=== PATIENT | female | born 1955 | race Caucasian/White ===

== ENCOUNTER 2016-11-01 04:39 | Inpatient (IN) | payer OTHER, MEDICARE ==
[~2016-11-01] VITALS: Ht 165.1 cm; Wt 78.5 kg
[2016-11-01] VITALS (9 sets, daily range): BP systolic 130–175; BP diastolic 63–77; PULSE 78–88; RESP 19–22; TEMP 97.6–98.7; O2SAT 93–96
[~2016-11-01 04:39] MED LIST: APIX5TAB PO; ASPI325T PO; BENA25CA2 PO; CARD2TAB PO; DULC10SU3 RECTAL; FLEEENE3 RECTAL; HYDR50TA15 PO; LORA10TA PO; MAGN1SOL2 PO; MAPA325T PO; METO50TA PO; METR-1 PO; MILKSUS PO; NIFE1TAB PO; REST15CA PO
[2016-11-01] MEDS ORDERED: SODIUM CHLORIDE 0.9% FLUSH 5 ML FLUSH IVF PRN ×2 (05:15→09:15)
--- NOTE | 2016-11-01 05:29 | RADRPT ---
EXAM DATE/TIME: 11/01/2016 05:22 [facility] COMPARISON: CT BRAIN W/O CONTRAST, July 25, 2016, 20:00. INDICATIONS : Weakness with altered mental status. RADIATION DOSE: 45.94 CTDIvol (mGy) MEDICAL HISTORY : Cerebrovascular disease. Hypertension. SURGICAL HISTORY : Cholecystectomy. ENCOUNTER: Initial ACUITY: 2 days PAIN SCALE: 2/10 LOCATION: cranial TECHNIQUE: Multiple contiguous axial images were obtained of the head. Using automated exposure control and adj ustment of the mA and/or kV according to patient size, radiation dose was kept as low as reasonably a chievable to obtain optimal diagnostic quality images. FINDINGS: There is stable atrophy and white matter disease with remote lacunar infarcts present in the basal ga nglia and left frontal infarct seen with encephalomalacia. No fractures. No hemorrhage or mass. CONCLUSION: No significant change has occurred. Christo Chen MD on November 01, 2016 at 5:27 Board Certified Radiologist. This report was verified electronically.
--- NOTE | 2016-11-01 05:46 | PD ---
HPI Chief Complaint: altered mental status Time Seen by Provider: 04:56 Travel History International Travel<30 days: No Contact w/Intl Traveler<30days: No History of Present Illness HPI This is a 61-year-old female who is on dialysis Saturday and Saturday who presents to the emergency department with generalized weakness. She reports that she fell earlier today. She says she falls almost every day. She says she hasn't been feeling herself. She is a poor historian. She does say that she missed dialysis on Saturday. PFSH Past Medical History Hx Anticoagulant Therapy: Yes (PT CANT REMEMBER WHICH DRUG) Arthritis: No Asthma: No Anxiety: No Depression: Yes Heart Rhythm Problems: No Cancer: No Cardiovascular Problems: Yes (HTN) High Cholesterol: Yes Chemotherapy: No Chest Pain: Yes Congestive Heart Failure: Yes COPD: No Cerebrovascular Accident: Yes (CHAN X 3) Diabetes: Yes (TYPE II) Diminished Hearing: Yes Endocrine: Yes Gastrointestinal Disorders: Yes GERD: No Genitourinary: No Headaches: No Hiatal Hernia: No Heparin Induced Thrombocytopen: No Hypertension: Yes Immune Disorder: No Implanted Vascular Access Dvce: No Kidney Stones: Yes Musculoskeletal: Yes (tendon repair) Neurologic: Yes Psychiatric: No Reproductive: No Respiratory: No Migraines: No Radiation Therapy: No Renal Failure: No Seizures: No Sickle Cell Disease: No Sleep Apnea: No Thyroid Disease: No Ulcer: No PNEUMOCCOCAL Vaccine (Year): 1 Menopausal: Yes : 2 Para: 2 Past Surgical History Abdominal Surgery: Yes (Gallbladder early ) AICD: No Arteriovenous Shunt: No Cardiac Surgery: No Section: Yes Cholecystectomy: Yes Ear Surgery: No Endocrine Surgery: No Eye Surgery: Yes (4 LASER EYE SURGERY'S) Genitourinary Surgery: No Gynecologic Surgery: Yes (2 C-SECTIONS) Insulin Pump: No Joint Replacement: No Oral Surgery: No Pacemaker: No Thoracic Surgery: No Other Surgery: Yes (CYST, GALLBLADDER, ACHILLIES TENDON, 4 LASER EYE SURGERY, 2 C-SECTIONS) Social History Alcohol Use: No Tobacco Use: Yes (1-2 cigs/day) Substance Use: No Allergies-Medications (Allergen,Severity, Reaction): Coded Allergies: Cat Dander (Unverified Allergy, Severe, 11/01/16) RESPIRATORY ISSUES Reported Meds & Prescriptions Reported Meds & Active Scripts Active Loratadine 10 Mg Tab 10 Mg PO DAILY PRN Flagyl (Metronidazole) 500 Mg Tab 500 Mg PO Q8HR 13 Days Nifedipine ER 24 HR (Nifedipine) 90 Mg Tab 90 Mg PO DAILY 30 Days Cardura (Doxazosin Mesylate) 2 Mg Tab 2 Mg PO DAILY 30 Days Reported Metoprolol Tartrate 50 Mg Tab 50 Mg PO BID Restoril (Temazepam) 15 Mg Cap 15 Mg PO HS PRN Mapap (Acetaminophen) 325 Mg Tab 650 Mg PO Q4HR PRN Eliquis (Apixaban) 5 Mg Tab 5 Mg PO BID Dulcolax Supp (Bisacodyl) 10 Mg Supp 10 Mg RECTAL DAILY PRN IF NO RESULT ONE DAY AFTER MOM Benadryl (Diphenhydramine HCl) 25 Mg Cap 25 Mg PO Q8HR PRN Aspirin 325 Mg Tab 325 Mg PO DAILY Milk of Magnesia Liq (Magnesium Hydroxide) 400 Mg/5 Ml Susp 30 Ml PO HS PRN IF NO BM IN 3 DAYS Hydralazine (Hydralazine HCl) 50 Mg Tab 50 Mg PO Q8HR Take with a meal Fleet Enema Rectal (Sodium Phosphates Rectal) 7-19 Gm/118 Ml Enem 118 Ml RECTAL DIRECTED PRN Citrate of Magnesia Liq (Magnesium Citrate) 300 Ml Liq 300 Ml PO DIRECTED PO EVANGELIST IN THE MORNING PRN; IF NO RESULTS ONE DAY AFTER FLEETS Review of Systems ROS Limitations: Poor Historian Physical Exam Narrative GENERAL: Chronically ill-appearing SKIN: Dry with skin tenting HEAD: Atraumatic. Normocephalic. EYES: Pupils equal and round. No injection or drainage. ENT: Dry mucous membranes NECK: Trachea midline. CARDIOVASCULAR: Regular rate and rhythm. No murmur appreciated. RESPIRATORY: Clear to auscultation. Breath sounds equal bilaterally. GASTROINTESTINAL: Abdomen soft, non-tender, nondistended. MUSCULOSKELETAL: No obvious deformities. NEUROLOGICAL: Alert but confused. No obvious cranial nerve deficits. Moving all extremities. PSYCHIATRIC: Intermittently moans and cries to soft touch on all extremities Data Data Last Documented VS Vital Signs Date Time Temp Pulse Resp B/P Pulse Ox O2 Delivery O2 Flow Rate FiO2 11/01/16 05:44 95 Nasal Cannula 2 11/01/16 04:40 97.6 78 20 174/75 Orders Electrocardiogram (11/01/16 05:06) Complete Blood Count With Diff (11/01/16 05:06) Comprehensive Metabolic Panel (11/01/16 05:06) Prothrombin Time / Inr (Pt) (11/01/16 05:06) Act Partial Throm Time (Ptt) (11/01/16 05:06) Troponin I (11/01/16 05:06) Urinalysis - C+S If Indicated (11/01/16 05:06) Ct Brain W/O Iv Contrast(Rout) (11/01/16 05:06) Blood Glucose (11/01/16 05:06) Ecg Monitoring (11/01/16 05:06) Iv Access Insert/Monitor (11/01/16 05:06) Oximetry (11/01/16 05:06) Sodium Chloride 0.9% Flush (Ns Flush) (11/01/16 05:15) Blood Culture (11/01/16 06:32) Lactic Acid (11/01/16 06:32) Chest, Single Ap (11/01/16 ) Blood Culture (11/01/16 06:48) Vancomycin Inj (Vancomycin Inj) (11/01/16 07:00) Cefepime Inj (Maxipime Inj) (11/01/16 07:00) Labs Laboratory Tests Test 11/01/16 05:48 White Blood Count 17.2 TH/MM3 Red Blood Count 3.65 MIL/MM3 Hemoglobin 10.7 GM/DL Hematocrit 32.7 % Mean Corpuscular Volume 89.6 FL Mean Corpuscular Hemoglobin 29.4 PG Mean Corpuscular Hemoglobin 32.8 % Concent Red Cell Distribution Width 16.2 % Platelet Count 558 TH/MM3 Mean Platelet Volume 7.7 FL Neutrophils (%) (Auto) 87.4 % Lymphocytes (%) (Auto) 5.4 % Monocytes (%) (Auto) 6.4 % Eosinophils (%) (Auto) 0.3 % Basophils (%) (Auto) 0.5 % Neutrophils # (Auto) 15.0 TH/MM3 Lymphocytes # (Auto) 0.9 TH/MM3 Monocytes # (Auto) 1.1 TH/MM3 Eosinophils # (Auto) 0.0 TH/MM3 Basophils # (Auto) 0.1 TH/MM3 CBC Comment DIFF FINAL Differential Comment Prothrombin Time 11.4 SEC Prothromb Time International 1.0 RATIO Ratio Activated Partial 30.8 SEC Thromboplast Time Sodium Level 137 MEQ/L Potassium Level 4.6 MEQ/L Chloride Level 101 MEQ/L Carbon Dioxide Level 18.0 MEQ/L Anion Gap 18 MEQ/L Blood Urea Nitrogen 92 MG/DL Creatinine 8.98 MG/DL Estimat Glomerular Filtration 4 ML/MIN Rate Random Glucose 83 MG/DL Calcium Level 8.6 MG/DL Total Bilirubin 0.6 MG/DL Aspartate Amino Transf 16 U/L (AST/SGOT) Alanine Aminotransferase 33 U/L (ALT/SGPT) Alkaline Phosphatase 401 U/L Troponin I 0.05 NG/ML Total Protein 6.7 GM/DL Albumin 1.8 GM/DL MDM Medical Decision Making Medical Screen Exam Complete: Yes Emergency Medical Condition: Yes Interpretation(s) Afebrile, no tachycardia, hypertensive Leukocytosis Left shift Anemia Thrombocytosis BUN is [address] head: No acute process Differential Diagnosis Electrolyte abnormality, uremia, intracranial hemorrhage, urinary tract infection, pneumonia Narrative Course This is a 61-year-old female with history of end-stage renal disease on dialysis who presents to the emergency department reporting generalized weakness. She is quite confused and a poor historian. She does acknowledge missing dialysis. She is placed on a monitor and an IV was established. Labs are obtained which demonstrate a leukocytosis with left shift concerning for infection. Cultures were obtained and the patient was placed on broad-spectrum antibiotics. Fluids were deferred given the patient is a dialysis patient. Patient was found to be uremic which I suspect is the etiology of her altered mental status. Patient will be admitted for continued antibiotics and dialysis. Diagnosis Primary Impression: Uremia Additional Impression: Sepsis Qualified Code: A41.9 - Sepsis, due to unspecified organism Admitting Information Admitting Physician Requests: Admit Cyndee Ruffin MD Nov 01, 2016 05:46
[2016-11-01 06:04] LABS: BASOPHIL # 0.1 TH/MM3 (0-0.2); BASOPHIL % 0.5 % (0.0-2.0); EOSINOPHIL % 0.3 % (0.0-4.0); HEMATOCRIT 32.7 % (35.0-46.0); HEMO FLAGS DIFF FINAL; LYMPH % 5.4 % (9.0-44.0); LYMPHOCYTE # 0.9 TH/MM3 (1.0-4.8); MEAN CELL VOLUME 89.6 FL (80.0-100.0); MEAN CORPUSCULAR HEMOGLOBIN 29.4 PG (27.0-34.0); MEAN CORPUSCULAR HGB CONC 32.8 % (32.0-36.0); MONO % 6.4 % (0.0-8.0); NEUT % 87.4 % (16.0-70.0); PLATELET COUNT 558 TH/MM3 (150-450); RED BLOOD COUNT 3.65 MIL/MM3 (4.00-5.30); RED CELL DISTRIBUTION WIDTH 16.2 % (11.6-17.2); WHITE BLOOD COUNT 17.2 TH/MM3 (4.0-11.0)
[2016-11-01 06:27] LABS: APTT (PATIENT) 30.8 SEC (24.3-30.1); PROTHROMBIN TIME - PATIENT 11.4 SEC (9.8-11.6)
[2016-11-01 06:44] LABS: ANION GAP 18 MEQ/L (5-15); AST (GOT) 16 U/L (15-37); BLOOD UREA NITROGEN 92 MG/DL (7-18); CHLORIDE 101 MEQ/L (98-107); GLOMERULAR FILTRATION RATE 4 ML/MIN (>89); POTASSIUM 4.6 MEQ/L (3.5-5.1); SODIUM (NA) 137 MEQ/L (136-145)
[2016-11-01 06:49] LABS: ALKALINE PHOSPHATASE 401 U/L (45-117); ALT (GPT) 33 U/L (10-53); TOTAL BILIRUBIN ADULT 0.6 MG/DL (0.2-1.0)
[2016-11-01] MEDS ORDERED: CEFEPIME INJ 1,000 MG in SODIUM CHLORIDE 0.9% INJ 100 ML IV ONE (07:00)
[2016-11-01] MEDS ORDERED: VANCOMYCIN INJ 1,000 MG in SODIUM CHLOR 0.9% 250 ML INJ 250 ML IV ONE (07:00)
[2016-11-01 07:04] LABS: BACTERIA, URINE OCC /hpf; BLOOD, URINE TRACE (NEG); GLUCOSE,URINE NEG (NEG); KETONE, URINE TRACE mg/dL (NEG); NITRITE,URINE NEG (NEG); SQUAMOUS EPITHELIAL CELL URINE <1 /hpf (0-5); TRANSITIONAL EPI CELLS, URINE <1 /hpf; URINE COLOR YELLOW (YELLW/STRAW)
[2016-11-01 07:05] LABS: COMMENT (UR) CATH-CULTURE IND; CULTURE IF INDICATED CATH CULTURE IND
[2016-11-01] MEDS ORDERED: GABA300C5 PO (07:07)
[2016-11-01] MEDS ORDERED: SODIUM CHLORIDE 0.9% FLUSH 5 ML FLUSH FLUSH PRN (07:45)
[2016-11-01] MEDS ORDERED: ONDANSETRON HCL 4 MG/2 ML VIAL IVP PRN (07:45)
[2016-11-01] MEDS ORDERED: MAGNESIUM HYDROXIDE SUSP 30 ML CUP PO PRN (07:45)
[2016-11-01] MEDS ORDERED: NALOXONE HCL 0.4 MG/ML AMP IV PRN ×2 (07:45→13:00)
[2016-11-01] MEDS ORDERED: ACETAMINOPHEN 325 MG TAB PO PRN ×4 (07:45→13:00)
--- NOTE | 2016-11-01 08:04 | EKG ---
Date Performed: 11/01/2016 Time Performed: 05:17:43 PTAGE: 61 years EKG: Sinus rhythm LEFT ATRIAL ENLARGEMENT MARKED LEFT AXIS DEVIATION POSSIBLE ANTERIOR MYOCARDIAL INFARCTION Nonspecif ic intraventricular conduction defect ABNORMAL ECG NO SIGNIFICANT CHANGE FROM PRIOR ELECTROCARDIOGRAM . PREVIOUS TRACING : 08/04/2016 14.15 DOCTOR: Lior Schumacher Interpretating Date/Time 11/01/2016 08:03:56
--- NOTE | 2016-11-01 08:45 | RADRPT ---
EXAM DATE/TIME: 11/01/2016 07:36 [facility] COMPARISON: CT ABDOMEN & PELVIS W/O CONTRAST, July 04, 2016, 19:30. INDICATIONS: Generalized weakness and low back pain ORAL CONTRAST: No oral contrast ingested. RADIATION DOSE: 13.99 CTDIvol (mGy) MEDICAL HISTORY: Cardiovascular disease. Hypertension. Diabetes mellitus type 1.Renal failure SURGICAL HISTORY: Cholecystectomy. section. ENCOUNTER: Initial ACUITY: 1 day PAIN SCALE: 7/10 LOCATION: Low back TECHNIQUE: Volumetric scanning of the abdomen and pelvis was performed. Using automated exposure control and ad justment of the mA and/or kV according to patient size, radiation dose was kept as low as reasonably achievable to obtain optimal diagnostic quality images. FINDINGS: There are small bilateral pleural effusions. Bibasilar alveolar consolidations (left worse than righ t) are noted suggesting compressive atelectasis and/or pneumonia. The heart is enlarged. Coronary artery calcif ications are noted. Evaluation of the solid organs of the abdomen is limited by the lack of intravenous contrast. There is evidence of stable bilateral adrenal gland enlargement suggesting adrenal hyperplasia. There is some nodularity of the left adrenal gland enlargement which could represent superimposed adrenal mass measuring 4.2 x 2.5 cm. There has been interval development of retroperitoneal lymphadenopathy. There is also a new right pa raaortic retrocrural lymphadenopathy measuring 1.6 cm in greatest dimension. The largest lymph node is locate d within the left paraaortic region and measures 2.2 x 1.4 cm. PET/CT scan may be helpful for further charact erization of this new finding if clinically indicated. Scattered bilateral inguinal mildly prominent lymph nodes are also noted. There is a 4 cm right ovarian cyst. No acute obstructive uropathy is noted. There are mild chronic compression deformities involving T12 and L1. No acute compression fracture is noted within the lumbar spine. D egenerative changes are noted throughout the thoracolumbar spine. CONCLUSION: 1. Interval development of retroperitoneal lymphadenopathy which is nonspecific. A new right paraao rtic retrocrural enlarged lymph node is also noted measuring 1.6 cm in the upper abdomen. PET/CT sca n may be helpful for further characterization of this finding. 2. Stable enlargement of the adrenal glands bilaterally suggesting adrenal hyperplasia. There is no dular enlargement of the left adrenal gland measuring 4.2 x 2.5 cm which could represent adrenal hype rplasia but underlying mass cannot be ruled out completely. 3. Small bilateral pleural effusions with bibasilar alveolar consolidations (left worse than right) consistent with possible atelectasis and/or pneumonia. 4. Cardiomegaly and coronary artery calcifications. 5. Chronic mild compression deformities involving T12 and L1. 6. Degenerative changes throughout the lumbar spine. Jose Sevilla MD on November 01, 2016 at 7:59 Board Certified Radiologist. This report was verified electronically.
[2016-11-01] MEDS ORDERED: SODIUM CHLOR 0.9% 1000 ML INJ 1,000 ML IV PRN (09:01)
--- NOTE | 2016-11-01 09:12 | RADRPT ---
EXAM DATE/TIME: 11/01/2016 05:26 [facility] COMPARISON: CHEST PA & LAT, July 25, 2016, 15:41. CHEST SINGLE AP, July 18, 2016, 12:31. INDICATIONS : Shortness of breath. MEDICAL HISTORY : Diabetic retinopathy. CVA. Numbness. Congestive heart failure. SURGICAL HISTORY : [place] ENCOUNTER: Initial ACUITY: 1 day PAIN SCORE: Non-responsive. LOCATION: Bilateral chest FINDINGS: A single AP view of the chest was obtained and demonstrates no infiltrate and left perihilar region a nd dense opacity at the left lung base with opacification of the left hemidiaphragm and blunting of t he costophrenic angle. The right double-lumen central venous line remains in place. The heart size ap pears enlarged. There are degenerative changes in the thoracic spine. Postoperative changes are noted involving the proximal left humerus. There are overlying oxygen tubes and electrocardiogram leads. CONCLUSION: 1. Apparent cardiomegaly with left effusion and apparent infiltrate. The findings are most consistent with congestive heart failure. Miko Scott MD on November 01, 2016 at 9:06 Board Certified Radiologist. This report was verified electronically.
[2016-11-01] MEDS ORDERED: ONDANSETRON HCL 4 MG/2 ML VIAL IV PRN (09:15)
[2016-11-01] MEDS ORDERED: HEPARIN SODIUM - IV 10,000 UNITS/10 ML VIAL IVF PRN (09:15)
[2016-11-01] MEDS ORDERED: NITROGLYCERIN 0.4 MG SL 25 TABS/BTL SL PRN (09:15)
[2016-11-01] MEDS ORDERED: GELATIN 12 MM/7 MM FOAM TOP PRN (09:15)
[2016-11-01] MEDS ORDERED: cloNIDine HCL 0.1 MG TAB PO PRN (09:15)
[2016-11-01] MEDS ORDERED: diphenhydrAMINE HCL 25 MG CAP PO PRN (09:15)
[2016-11-01] MEDS ORDERED: MANNITOL 12.5 GM/50 ML VIAL IV PRN (09:15)
[2016-11-01] MEDS ORDERED: ALBUMIN HUMAN 25% 25 GM/100 ML BAGP IV PRN (09:15)
--- NOTE | 2016-11-01 09:38 | PD.CONS ---
HPI Service Nephrology Consult Requested By Reason for Consult ESRD on HD Primary Care Physician Non-Staff History of Present Illness This is a 61 y/o female pt who follows with Dr. Jalloh for nephrology. Hx of ESRD , normally dialyzes . She missed dialysis on Saturday due to vomiting, fatigue. She also endorses recent fall, but is a poor historian and cannot give clear details. Other PMH as outlined below including HTN, anemia, CHF, and CVA. Today her K is 4.6, C02 18. She has periorbital edema but no other evidence of fluid overload. She was admitted for treatment, we were consulted for dialysis. Of note she has a Permcath, was to have AVF surgery this week. WBC elevated, she was given Vancomycin and Cefepime for suspected UTI. Ct abdomen/pelvis showing retroperitoneal lymphadenopathy and adrenal hyperplasia. Also suggesting Pneumonia. (Naheed Fulton) Review of Systems Constitutional: COMPLAINS OF: Fatigue, DENIES: Fever, Change in appetite Cardiovascular: DENIES: Dyspnea on Exertion, Lower Extremity Edema Musculoskeletal: COMPLAINS OF: Joint pain, Muscle aches (Naheed Fulton) Past Family Social History Allergies: Coded Allergies: Cat Dander (Unverified Allergy, Severe, 11/01/16) RESPIRATORY ISSUES Past Medical History ESRD on HD HTN anemia DM II Hyperlipidemia Hx CVA Past Surgical History hysterectomy eye surgery gall bladder permcath placement Achilles tendon Reported Medications Loratadine 10 Mg Tab 10 Mg PO DAILY PRN Flagyl (Metronidazole) 500 Mg Tab 500 Mg PO Q8HR 13 Days Nifedipine ER 24 HR (Nifedipine) 90 Mg Tab 90 Mg PO DAILY 30 Days Cardura (Doxazosin Mesylate) 2 Mg Tab 2 Mg PO DAILY 30 Days Metoprolol Tartrate 50 Mg Tab 50 Mg PO BID Restoril (Temazepam) 15 Mg Cap 15 Mg PO HS PRN Mapap (Acetaminophen) 325 Mg Tab 650 Mg PO Q4HR PRN Eliquis (Apixaban) 5 Mg Tab 5 Mg PO BID Dulcolax Supp (Bisacodyl) 10 Mg Supp 10 Mg RECTAL DAILY PRN IF NO RESULT ONE DAY AFTER MOM Benadryl (Diphenhydramine HCl) 25 Mg Cap 25 Mg PO Q8HR PRN Aspirin 325 Mg Tab 325 Mg PO DAILY Milk of Magnesia Liq (Magnesium Hydroxide) 400 Mg/5 Ml Susp 30 Ml PO HS PRN IF NO BM IN 3 DAYS Hydralazine (Hydralazine HCl) 50 Mg Tab 50 Mg PO Q8HR Take with a meal Fleet Enema Rectal (Sodium Phosphates Rectal) 7-19 Gm/118 Ml Enem 118 Ml RECTAL DIRECTED PRN Citrate of Magnesia Liq (Magnesium Citrate) 300 Ml Liq 300 Ml PO DIRECTED PO EVANGELIST IN THE MORNING PRN; IF NO RESULTS ONE DAY AFTER FLEETS Active Ordered Medications Current Medications Medications (Trade) Dose Ordered Sig/Becca Route Start Time Stop Time Status Last Admin (NS Flush) 2 ml UNSCH PRN FLUSH 11/01/16 07:45 (NS Flush) 2 ml BID FLUSH 11/01/16 09:00 (Tylenol) 650 mg Q4H PRN PO 11/01/16 07:45 (Zofran Inj) 4 mg Q6H PRN IVP 11/01/16 07:45 (Milk Of Magnesia Liq) 30 ml Q12H PRN PO 11/01/16 07:45 Naloxone HCl 0.4 mg 0.4 mg UNSCH PRN IV 11/01/16 07:45 Ceftriaxone Sodium 1000 mg/ Sodium Chloride 100 ml @ 200 mls/hr Q24H IV 11/01/16 18:00 (NS 1000 ml Inj) 1,000 ml @ 0 mls/hr Q0M PRN IV 11/01/16 09:01 Heparin Sodium (Porcine) 8000 units 8,000 units UNSCH PRN IVF 11/01/16 09:15 Sodium Chloride 1,000 ml @ 200 mls/hr Q5H PRN IV 11/01/16 09:01 (NS 1000 ml Inj) 1,000 ml @ 0 mls/hr Q0M PRN IV 11/01/16 09:01 (Mannitol Inj) 12.5 gm UNSCH PRN IV 11/01/16 09:15 (Albumin 25% Inj) 25 gm UNSCH PRN IV 11/01/16 09:15 (NS Flush) 5 ml UNSCH PRN IVF 11/01/16 09:15 (Heparin Inj) UNSCH PRN .XX 11/01/16 09:15 (Gentamicin (Dialysis) Inj) 20 mg UNSCH PRN IV 11/01/16 09:15 (Zofran Inj) 4 mg UNSCH PRN IV 11/01/16 09:15 (Tylenol) 650 mg UNSCH PRN PO 11/01/16 09:15 (Benadryl) 25 mg UNSCH PRN PO 11/01/16 09:15 (Nitrostat Sl) 0.4 mg UNSCH PRN SL 11/01/16 09:15 (Catapres) 0.1 mg UNSCH PRN PO 11/01/16 09:15 (Epogen Inj) 5,000 units UNSCH PRN IV 11/01/16 09:15 (Gelfoam 12 Mm/7 Mm Top) 1 foam UNSCH PRN TOP 11/01/16 09:15 Family History No family hx of renal disorders Social History Lives with no smoking hx, denies ETOH unemployed/disabled needs functional assistance, states she can stand/walk at times but unclear if this is true full code (Naheed Fulton) Physical Exam Vital Signs Vital Signs Date Time Temp Pulse Resp B/P Pulse Ox O2 Delivery O2 Flow Rate FiO2 11/01/16 08:39 94 11/01/16 07:28 82 20 167/74 94 11/01/16 05:44 95 Nasal Cannula 2 11/01/16 04:40 97.6 78 20 174/75 95 Nasal Cannula Physical Exam This is an elderly female, lying in bed periorbital edema lethargic but able to be aroused by voice lungs; clear but decreased in bases chest: S1/S2, regular rate, no murmurs: permcath right chest abd: round, soft, non tender Ext: foot drop on left foot?, also has thick skin/ ? fungal organism bilateral plantar surface of feet Laboratory Laboratory Tests Test 11/01/16 11/01/16 11/01/16 05:48 06:00 07:24 White Blood Count 17.2 Red Blood Count 3.65 Hemoglobin 10.7 Hematocrit 32.7 Mean Corpuscular Volume 89.6 Mean Corpuscular Hemoglobin 29.4 Mean Corpuscular Hemoglobin 32.8 Concent Red Cell Distribution Width 16.2 Platelet Count 558 Mean Platelet Volume 7.7 Neutrophils (%) (Auto) 87.4 Lymphocytes (%) (Auto) 5.4 Monocytes (%) (Auto) 6.4 Eosinophils (%) (Auto) 0.3 Basophils (%) (Auto) 0.5 Neutrophils # (Auto) 15.0 Lymphocytes # (Auto) 0.9 Monocytes # (Auto) 1.1 Eosinophils # (Auto) 0.0 Basophils # (Auto) 0.1 CBC Comment DIFF FINAL Differential Comment Prothrombin Time 11.4 Prothromb Time International 1.0 Ratio Activated Partial 30.8 Thromboplast Time Sodium Level 137 Potassium Level 4.6 Chloride Level 101 Carbon Dioxide Level 18.0 Anion Gap 18 Blood Urea Nitrogen 92 Creatinine 8.98 Estimat Glomerular Filtration 4 Rate Random Glucose 83 Calcium Level 8.6 Total Bilirubin 0.6 Aspartate Amino Transf 16 (AST/SGOT) Alanine Aminotransferase 33 (ALT/SGPT) Alkaline Phosphatase 401 Troponin I 0.05 Total Protein 6.7 Albumin 1.8 Urine Color YELLOW Urine Turbidity HAZY Urine pH 6.0 Urine Specific [place] 1.014 Urine Protein 100 Urine Glucose (UA) NEG Urine Ketones TRACE Urine Occult Blood TRACE Urine Nitrite NEG Urine Bilirubin NEG Urine Urobilinogen LESS THAN 2.0 Urine Leukocyte Esterase MOD Urine RBC LESS THAN 1 Urine WBC 14 Urine Squamous Epithelial <1 Cells Urine Transitional Epithelial <1 Cells Urine Amorphous Sediment OCC Urine Bacteria OCC Microscopic Urinalysis Comment CATH-CULTURE IND Lactic Acid Level 0.6 Date/Time Procedure Status Source Growth 11/01/16 07:24 Aerobic Blood Culture Received Blood Peripheral Pending 11/01/16 07:24 Anaerobic Blood Culture Received Blood Peripheral Pending 11/01/16 06:00 Urine Culture Received Urine Catheterized Urine Pending (Naheed Fulton) Result Diagram: 11/01/16 0548 11/01/16 0548 Imaging Last [address] 11/01/16 0506 Signed Impressions: Service Date/Time: October 05:22 - CONCLUSION: No significant change has occurred. Christo Chen MD (Naheed Fulton) Assessment and Plan Problem List: (1) ESRD (end stage renal disease) Plan: will dialyze today as she has not had treatment since Saturday, orders entered maintain T-Th-Sat schedule C02 slightly low, should improve with dialysis she has Permcath for dialysis, monitor function no dietary protein restriction no IVF required renal panel in am, check phosphorus and give binders if needed (2) Diabetes Plan: monitor blood sugar insulin as needed (3) Hypertension Plan: BP stable monitor and medicate as needed (4) Anemia Plan: epogen with HD follow hemoglobin (5) Leukocytosis Plan: given vancomycin and cefepime blood and urine cx in progress CT: possible PNA monitor clinically Assessment and Plan The plan of care was discussed and formulated with the assistance of Dr. Aden. Thank you for the consult. Code Status full (Naheed Fulton) Assessment and Plan patient was seen and examined during dialysis. Hyperkalemia should improve with dialysis. Patient has been placed on antibiotics. Has retroperitoneal lymphadenopathy of uncertain significance. Also complains of pain in the right groin area. (Duke Aden MD) Problem Qualifiers (1) Diabetes: Naheed Fulton Nov 01, 2016 09:38 Duke Adne MD Nov 01, 2016 20:00
[2016-11-01] MEDS: HEPARIN SODIUM - IV 10,000 UNITS/10 ML VIAL PRN (09:56)
[2016-11-01] MEDS: GENTAMICIN SULFATE (DIALYSIS USE ONLY) 20 MG/2 ML VIAL IV PRN (09:57)
[2016-11-01] MEDS: EPOETIN ALFA 10,000 UNITS/ML VIAL IV PRN (09:57)
[2016-11-01] MEDS: SODIUM CHLORIDE 0.9% FLUSH 5 ML FLUSH FLUSH SCH ×2 (12:57→20:20)
[2016-11-01] MEDS ORDERED: DEXTROSE 50% IN WATER 50 ML VIAL(D50) IV PUSH PRN (13:30)
[2016-11-01] MEDS ORDERED: GLUCAGON 1 MG/ML VIAL OTHER PRN (13:30)
--- NOTE | 2016-11-01 13:40 | HHI.HP ---
HPI Service [facility] Primary Care Physician Non-Staff Admission Diagnosis uti/sepsis, acute kidney injury, leukocytosis, altered sensorium. Diagnoses: Chief Complaint: Weakness Travel History International Travel<30 Days: No Contact w/Intl Traveler <30 Da: No Traveled to Known Affected Are: No History of Present Illness 61-year-old female with past medical history of ESRD on HD, HTN, CVA who presented with weakness and fall. The patient is not a great historian. She states that she came to the hospital because she fell. Apparently she's been having multiple falls recently. She states that she's been feeling generally weak. She denies any acute injury. She states that she has pain everywhere. When asked to point to the pain, she is having diffuse abdominal pain. She states that she's been having nausea and multiple episodes of vomiting. She states that she had been, sedated, took a laxative, and had a BM yesterday. She states occasionally she has a cough. She denies any fevers, chills, shortness of breath, chest pain. Because of the weakness, she missed her last hemodialysis session on Saturday; last HD was Saturday, nephrology consulted who performed dialysis earlier today. Review of Systems ROS Limitations: Poor Historian Other 10 point review of systems performed and was negative except as stated in history of present illness Past Family Social History Past Medical History ESRD on hemodialysis Hypertension Anemia of chronic disease History of borderline diabetes History of CVA 3 History of C. difficile last year Possible paroxysmal atrial fibrillation Past Surgical History Eye surgery Cholecystectomy Dialysis catheter placement in the right chest Achilles surgery Reported Medications Reported Meds & Active Scripts Active Loratadine 10 Mg Tab 10 Mg PO DAILY PRN Flagyl (Metronidazole) 500 Mg Tab 500 Mg PO Q8HR 13 Days Nifedipine ER 24 HR (Nifedipine) 90 Mg Tab 90 Mg PO DAILY 30 Days Cardura (Doxazosin Mesylate) 2 Mg Tab 2 Mg PO DAILY 30 Days Reported Gabapentin 300 Mg Cap 300 Mg PO BID Metoprolol Tartrate 50 Mg Tab 50 Mg PO BID Restoril (Temazepam) 15 Mg Cap 15 Mg PO HS PRN Mapap (Acetaminophen) 325 Mg Tab 650 Mg PO Q4HR PRN Eliquis (Apixaban) 5 Mg Tab 5 Mg PO BID Dulcolax Supp (Bisacodyl) 10 Mg Supp 10 Mg RECTAL DAILY PRN IF NO RESULT ONE DAY AFTER MOM Aspirin 325 Mg Tab 325 Mg PO DAILY Milk of Magnesia Liq (Magnesium Hydroxide) 400 Mg/5 Ml Susp 30 Ml PO HS PRN IF NO BM IN 3 DAYS Hydralazine (Hydralazine HCl) 50 Mg Tab 50 Mg PO Q8HR Take with a meal Fleet Enema Rectal (Sodium Phosphates Rectal) 7-19 Gm/118 Ml Enem 118 Ml RECTAL DIRECTED PRN Citrate of Magnesia Liq (Magnesium Citrate) 300 Ml Liq 300 Ml PO DIRECTED PO EVANGELIST IN THE MORNING PRN; IF NO RESULTS ONE DAY AFTER FLEETS Allergies: Coded Allergies: Cat Dander (Unverified Allergy, Severe, 11/01/16) RESPIRATORY ISSUES Active Ordered Medications Current Medications Medications (Trade) Dose Ordered Sig/Becca Route Start Time Stop Time Status Last Admin (NS Flush) 2 ml UNSCH PRN FLUSH 11/01/16 07:45 (NS Flush) 2 ml BID FLUSH 11/01/16 09:00 11/01/16 12:57 (Tylenol) 650 mg Q4H PRN PO 11/01/16 07:45 (Zofran Inj) 4 mg Q6H PRN IVP 11/01/16 07:45 Magnesium Hydroxide 30 ml 30 ml Q12H PRN PO 11/01/16 07:45 Ceftriaxone Sodium 1000 mg/ Sodium Chloride 100 ml @ 200 mls/hr Q24H IV 11/01/16 18:00 (NS 1000 ml Inj) 1,000 ml @ 0 mls/hr Q0M PRN IV 11/01/16 09:01 Heparin Sodium (Porcine) 8000 units 8,000 units UNSCH PRN IVF 11/01/16 09:15 Sodium Chloride 1,000 ml @ 200 mls/hr Q5H PRN IV 11/01/16 09:01 (NS 1000 ml Inj) 1,000 ml @ 0 mls/hr Q0M PRN IV 11/01/16 09:01 (Mannitol Inj) 12.5 gm UNSCH PRN IV 11/01/16 09:15 (Albumin 25% Inj) 25 gm UNSCH PRN IV 11/01/16 09:15 (NS Flush) 5 ml UNSCH PRN IVF 11/01/16 09:15 (Heparin Inj) UNSCH PRN .XX 11/01/16 09:15 11/01/16 09:56 (Gentamicin (Dialysis) Inj) 20 mg UNSCH PRN IV 11/01/16 09:15 11/01/16 09:57 (Zofran Inj) 4 mg UNSCH PRN IV 11/01/16 09:15 (Tylenol) 650 mg UNSCH PRN PO 11/01/16 09:15 (Benadryl) 25 mg UNSCH PRN PO 11/01/16 09:15 (Nitrostat Sl) 0.4 mg UNSCH PRN SL 11/01/16 09:15 (Catapres) 0.1 mg UNSCH PRN PO 11/01/16 09:15 (Epogen Inj) 5,000 units UNSCH PRN IV 11/01/16 09:15 11/01/16 09:57 (Gelfoam 12 Mm/7 Mm Top) 1 foam UNSCH PRN TOP 11/01/16 09:15 (Aspirin) 325 mg DAILY PO 11/02/16 09:00 (Cardura) 2 mg DAILY PO 11/02/16 09:00 (Neurontin) 100 mg DAILY PO 11/02/16 09:00 (Apresoline) 50 mg Q8HR PO 11/01/16 14:00 (Lopressor) 50 mg BID PO 11/01/16 21:00 (Procardia Xl) 90 mg DAILY PO 11/02/16 09:00 (Restoril) 15 mg HS PRN PO 11/01/16 13:00 (Tylenol) 650 mg Q6H PRN PO 11/01/16 13:00 ([place] 5-325 Mg) 1 tab Q4H PRN PO 11/01/16 13:00 ([place] 7.5-325 Mg) 1 tab Q4H PRN PO 11/01/16 13:00 (Morphine Inj) 4 mg Q3H PRN IV 11/01/16 13:00 (Narcan Inj) 0.4 mg UNSCH PRN IV 11/01/16 13:00 Family History Mother had diabetes Social History She states that she smokes less than a pack per day Denies any alcohol or drug use Lives at home with her ex- Physical Exam Vital Signs Vital Signs Date Time Temp Pulse Resp B/P Pulse Ox O2 Delivery O2 Flow Rate FiO2 11/01/16 12:38 88 162/68 96 11/01/16 10:24 95 Nasal Cannula 2.00 11/01/16 08:39 94 11/01/16 07:28 82 20 167/74 94 11/01/16 05:44 95 Nasal Cannula 2 11/01/16 04:40 97.6 78 20 174/75 95 Nasal Cannula Physical Exam GENERAL: Well-developed well-nourished. In no acute distress. SKIN: Warm and dry. No lesions noted. HEENT: Normocephalic. Pupils equal and round. Mucous membranes pink and moist. CARDIOVASCULAR: Regular rate and rhythm. No murmur appreciated. RESPIRATORY: No accessory muscle use. Clear to auscultation. Breath sounds equal bilaterally. GASTROINTESTINAL: Abdomen soft, nondistended. Diffusely tender to light and deep palpation especially in RUQ, RLQ, and LLQ. Bowel sounds x4. MUSCULOSKELETAL: No obvious deformities. No clubbing or cyanosis. No edema. NEUROLOGICAL: Awake and alert. No focal neurological deficits. Moves upper and lower extremities spontaneously. Normal speech. PSYCHIATRIC: Appropriate mood and affect; insight and judgment fair to normal. Laboratory Laboratory Tests Test 11/01/16 11/01/16 11/01/16 05:48 06:00 07:24 White Blood Count 17.2 Red Blood Count 3.65 Hemoglobin 10.7 Hematocrit 32.7 Mean Corpuscular Volume 89.6 Mean Corpuscular Hemoglobin 29.4 Mean Corpuscular Hemoglobin 32.8 Concent Red Cell Distribution Width 16.2 Platelet Count 558 Mean Platelet Volume 7.7 Neutrophils (%) (Auto) 87.4 Lymphocytes (%) (Auto) 5.4 Monocytes (%) (Auto) 6.4 Eosinophils (%) (Auto) 0.3 Basophils (%) (Auto) 0.5 Neutrophils # (Auto) 15.0 Lymphocytes # (Auto) 0.9 Monocytes # (Auto) 1.1 Eosinophils # (Auto) 0.0 Basophils # (Auto) 0.1 CBC Comment DIFF FINAL Differential Comment Prothrombin Time 11.4 Prothromb Time International 1.0 Ratio Activated Partial 30.8 Thromboplast Time Sodium Level 137 Potassium Level 4.6 Chloride Level 101 Carbon Dioxide Level 18.0 Anion Gap 18 Blood Urea Nitrogen 92 Creatinine 8.98 Estimat Glomerular Filtration 4 Rate Random Glucose 83 Calcium Level 8.6 Phosphorus Level 9.0 Total Bilirubin 0.6 Aspartate Amino Transf 16 (AST/SGOT) Alanine Aminotransferase 33 (ALT/SGPT) Alkaline Phosphatase 401 Troponin I 0.05 Total Protein 6.7 Albumin 1.8 Urine Color YELLOW Urine Turbidity HAZY Urine pH 6.0 Urine Specific [place] 1.014 Urine Protein 100 Urine Glucose (UA) NEG Urine Ketones TRACE Urine Occult Blood TRACE Urine Nitrite NEG Urine Bilirubin NEG Urine Urobilinogen LESS THAN 2.0 Urine Leukocyte Esterase MOD Urine RBC LESS THAN 1 Urine WBC 14 Urine Squamous Epithelial <1 Cells Urine Transitional Epithelial <1 Cells Urine Amorphous Sediment OCC Urine Bacteria OCC Microscopic Urinalysis Comment CATH-CULTURE IND Lactic Acid Level 0.6 Date/Time Procedure Status Source Growth 11/01/16 07:24 Aerobic Blood Culture Received Blood Peripheral Pending 11/01/16 07:24 Anaerobic Blood Culture Received Blood Peripheral Pending 11/01/16 06:00 Urine Culture Received Urine Catheterized Urine Pending Result Diagram: 11/01/16 0548 11/01/16 0548 Imaging Last Impressions Head CT 11/01/16 0506 Signed Impressions: Service Date/Time: October 05:22 - CONCLUSION: No significant change has occurred. Christo Chen MD Chest X-Ray 11/01/16 0000 Signed Impressions: Service Date/Time: October 05:26 - CONCLUSION: 1. Apparent cardiomegaly with left effusion and apparent infiltrate. The findings are most consistent with congestive heart failure. Miko Scott MD Assessment and Plan Assessment and Plan 61-year-old female with past medical history of ESRD on HD, HTN, CVA who presented with falls/weakness and abdominal pain Weakness/falls: Multifactorial. Possibly secondary to infection/UTI, missed dialysis, and dehydration from vomiting. Treat underlying etiology is as below. PT eval. Fall precautions. Abdominal pain with nausea and vomiting: Abdomen/pelvis CT with multiple nonspecific findings, although none appear acute. Consult gastroenterology for assistance. Pain control with oral and intravenous narcotics as needed. Antiemetics as needed. Gentle IVF with renal disease. IV Protonix. UTI: UA with evidence of UTI. Positive leukocytosis. Afebrile, no signs of sepsis. Empiric IV Rocephin. Follow up urine and blood cultures. Retroperitoneal lymphadenopathy and right para-aortic retrocrural enlarged lymph node: Seen incidentally on CT. Consult oncology for further recommendations. Hold off on anticoagulation in case a biopsy needs to be performed. Left pleural effusion: Seen on chest x-ray and abdominal pelvis CT. Patient with no respiratory complaints. Possibly secondary to volume overload from missed HD. Monitor and treat if patient develops further respiratory symptoms. ESRD on HD TTS: With associated metabolic acidosis, increased anion gap, increased BUN and creatinine; all likely secondary to missed HD. Patient's gatehouse attendant consulted. S/P HD today, follow-up BMP. Borderline diabetes mellitus: Previous hemoglobin A1c from 05/08 was 6.4. On no medications at home. Cover with sliding scale insulin and hypoglycemia protocol while admitted. Outpatient PCP follow-up. Hypertension: Not well controlled, probably from missed HD. Continue home Cardura, metoprolol, nifedipine, hydralazine. Clonidine as needed. History of multiple CVA and probable paroxysmal atrial fibrillation: Patient previously documented to have A. fib, however denies. EKG now and previously from July with sinus rhythm. However patient's med list has aspirin and Eliquis. Continue aspirin for now. Hold Eliquis for now as above. DVT prophylaxis: SCDs for now. Written by Dwayne Zacarias, acting as scribe for Dr. Bush on 11/01/16 at 13:40. The documentation accurately reflects the work performed [id number] by me Dr. Bush on 11/01/16 at 13:40. Discussed Condition With Patient, Dwayne Hull Nov 01, 2016 13:40 Nazia Bush MD Nov 01, 2016 15:43
[2016-11-01] MEDS ORDERED: SODIUM CHLOR 0.9% 1000 ML INJ 1,000 ML IV SCH (13:45)
--- NOTE | 2016-11-01 14:09 | PD.CONS ---
HPI History of Present Illness This is a 61 year old female with a hx of ESRD on HD on Tuesdays, , Saturdays, who came to the ER for generalized weakness and nausea/vomiting. She is currently lethargic and a poor historian and therefore the history has been obtained from the patient and the EMR. She reports that she has been having nausea/vomiting associated with her HD. She initially stated this occurred every time she gets dialysis, but then stated recently. According to the note, she missed dialysis on Saturday because of her nausea/vomiting. She cannot provide any further information regarding this. She complains of some abdominal pain on her right side, but cannot provide any more characteristics of this pain or state how long she has had it. She cannot identify any aggravating or alleviating factors. She reports that she does have constipation at times but this is controlled with diet for the most part. Occasionally she will take an Ex-Lax to move her bowels. She has not had any GI bleeding that she is aware of. CT scan abdomen and pelvis (11/01/16) revealed interval development of retroperitoneal lymphadenopathy which is nonspecific. A new right para-aortic retrocrural enlarged lymph node is also noted measuring 1.6 cm in the upper abdomen. PET/CT scan may be helpful for further characterization station of this finding. Stable enlargement of the adrenal glands bilaterally suggesting adrenal hyperplasia. There is nodular enlargement of the left adrenal gland measuring 4.2 x 2.5 cm which could represent adrenal hyperplasia but underlying mass cannot be ruled out completely. Small bilateral pleural effusions with by basilar alveolar consolidations (left worse than right) consistent with possible atelectasis and/ or pneumonia. Cardiomegaly and coronary artery calcifications. Chronic mild compression deformities involving T12 and L1. Degenerative changes throughout the lumbar spine. Oncology has been consulted for her retroperitoneal lymphadenopathy and GI has been consulted for her nausea and vomiting. (Jenise Marcial) PFSH Past Medical History ESRD on hemodialysis Hypertension Arthritis Hx sinusitis Anemia of chronic disease History of borderline diabetes History of CVA 3 History of C. difficile last year Possible paroxysmal atrial fibrillation Kidney infection Past Surgical History Eye surgery Cholecystectomy Dialysis catheter placement in the right chest Achilles surgery (Jenise Marcial) Coded Allergies: Cat Dander (Unverified Allergy, Severe, 11/01/16) RESPIRATORY ISSUES Medications Allergies Coded Allergies Type Severity Reaction Last Updated Verified Cat Dander Allergy Severe 11/01/16 No Active Scripts Medications Dose Route/Sig Days Date Category Dose Instructions Gabapentin 300 Mg Cap 300 Mg PO BID 11/01/16 Reported Loratadine 10 Mg Tab 10 Mg PO DAILY PRN 08/04/16 Rx Flagyl (Metronidazole) 500 Mg Tab 500 Mg PO Q8HR 13 08/01/16 Rx Nifedipine ER 24 HR (Nifedipine) 90 Mg Tab 90 Mg PO DAILY 30 07/30/16 Rx Cardura (Doxazosin Mesylate) 2 Mg Tab 2 Mg PO DAILY 30 07/30/16 Rx Metoprolol Tartrate 50 Mg Tab 50 Mg PO BID 07/22/16 Reported Restoril (Temazepam) 15 Mg Cap 15 Mg PO HS PRN 07/22/16 Reported Mapap (Acetaminophen) 325 Mg Tab 650 Mg PO Q4HR PRN 07/22/16 Reported Eliquis (Apixaban) 5 Mg Tab 5 Mg PO BID 07/22/16 Reported Dulcolax Supp (Bisacodyl) 10 Mg Supp 10 Mg RECTAL DAILY PRN 07/22/16 Reported IF NO RESULT ONE DAY AFTER MOM Aspirin 325 Mg Tab 325 Mg PO DAILY 07/22/16 Reported Milk of Magnesia Liq (Magnesium Hydroxide) 400 Mg/5 Ml Susp 30 Ml PO HS PRN 07/22/16 Reported IF NO BM IN 3 DAYS Hydralazine (Hydralazine HCl) 50 Mg Tab 50 Mg PO Q8HR 07/22/16 Reported Take with a meal Fleet Enema Rectal (Sodium Phosphates Rectal) 7-19 Gm/118 Ml Enem 118 Ml RECTAL DIRECTED PRN 07/22/16 Reported Citrate of Magnesia Liq (Magnesium Citrate) 300 Ml Liq 300 Ml PO DIRECTED 07/22/16 Reported PO EVANGELIST IN THE MORNING PRN; IF NO RESULTS ONE DAY AFTER FLEETS Family History Mother had diabetes Social History Smokes < 1PPD Denies any alcohol or drug use Lives at home with her ex- (Jenise Marcial) Review of Systems Constitutional: COMPLAINS OF: Fatigue, Change in appetite Gastrointestinal: COMPLAINS OF: Abdominal pain, Nausea, Vomiting ROS Patient extremely poor historian difficult to obtain information from (Jenise Marcial) GI Exam Vitals I&O Vital Signs Date Time Temp Pulse Resp B/P Pulse Ox O2 Delivery O2 Flow Rate FiO2 11/01/16 12:38 88 162/68 96 11/01/16 10:24 95 Nasal Cannula 2.00 11/01/16 08:39 94 11/01/16 07:28 82 20 167/74 94 11/01/16 05:44 95 Nasal Cannula 2 11/01/16 04:40 97.6 78 20 174/75 95 Nasal Cannula Imaging Last Impressions Head CT 11/01/16 0506 Signed Impressions: Service Date/Time: October 05:22 - CONCLUSION: No significant change has occurred. Christo Chen MD Chest X-Ray 11/01/16 0000 Signed Impressions: Service Date/Time: October 05:26 - CONCLUSION: 1. Apparent cardiomegaly with left effusion and apparent infiltrate. The findings are most consistent with congestive heart failure. Miko Scott MD Abdomen/Pelvis CT 11/01/16 0000 Signed Impressions: Service Date/Time: October 07:36 - CONCLUSION: 1. Interval development of retroperitoneal lymphadenopathy which is nonspecific. A new right paraaortic retrocrural enlarged lymph node is also noted measuring 1.6 cm in the upper abdomen. PET/CT scan may be helpful for further characterization of this finding. 2. Stable enlargement of the adrenal glands bilaterally suggesting adrenal hyperplasia. There is nodular enlargement of the left adrenal gland measuring 4.2 x 2.5 cm which could represent adrenal hyperplasia but underlying mass cannot be ruled out completely. 3. Small bilateral pleural effusions with bibasilar alveolar consolidations (left worse than right ) consistent with possible atelectasis and/or pneumonia. 4. Cardiomegaly and coronary artery calcifications. 5. Chronic mild compression deformities involving T12 and L1. 6. Degenerative changes throughout the lumbar spine. Jose Sevilla MD Laboratory Test 11/01/16 11/01/16 11/01/16 05:48 06:00 07:24 White Blood Count 17.2 TH/MM3 Red Blood Count 3.65 MIL/MM3 Hemoglobin 10.7 GM/DL Hematocrit 32.7 % Mean Corpuscular Volume 89.6 FL Mean Corpuscular Hemoglobin 29.4 PG Mean Corpuscular Hemoglobin 32.8 % Concent Red Cell Distribution Width 16.2 % Platelet Count 558 TH/MM3 Mean Platelet Volume 7.7 FL Neutrophils (%) (Auto) 87.4 % Lymphocytes (%) (Auto) 5.4 % Monocytes (%) (Auto) 6.4 % Eosinophils (%) (Auto) 0.3 % Basophils (%) (Auto) 0.5 % Neutrophils # (Auto) 15.0 TH/MM3 Lymphocytes # (Auto) 0.9 TH/MM3 Monocytes # (Auto) 1.1 TH/MM3 Eosinophils # (Auto) 0.0 TH/MM3 Basophils # (Auto) 0.1 TH/MM3 CBC Comment DIFF FINAL Differential Comment Prothrombin Time 11.4 SEC Prothromb Time International 1.0 RATIO Ratio Activated Partial 30.8 SEC Thromboplast Time Sodium Level 137 MEQ/L Potassium Level 4.6 MEQ/L Chloride Level 101 MEQ/L Carbon Dioxide Level 18.0 MEQ/L Anion Gap 18 MEQ/L Blood Urea Nitrogen 92 MG/DL Creatinine 8.98 MG/DL Estimat Glomerular Filtration 4 ML/MIN Rate Random Glucose 83 MG/DL Calcium Level 8.6 MG/DL Phosphorus Level 9.0 MG/DL Total Bilirubin 0.6 MG/DL Aspartate Amino Transf 16 U/L (AST/SGOT) Alanine Aminotransferase 33 U/L (ALT/SGPT) Alkaline Phosphatase 401 U/L Troponin I 0.05 NG/ML Total Protein 6.7 GM/DL Albumin 1.8 GM/DL Urine Color YELLOW Urine Turbidity HAZY Urine pH 6.0 Urine Specific [place] 1.014 Urine Protein 100 mg/dL Urine Glucose (UA) NEG mg/dL Urine Ketones TRACE mg/dL Urine Occult Blood TRACE Urine Nitrite NEG Urine Bilirubin NEG Urine Urobilinogen LESS THAN 2.0 MG/DL Urine Leukocyte Esterase MOD Urine RBC LESS THAN 1 /hpf Urine WBC 14 /hpf Urine Squamous Epithelial <1 /hpf Cells Urine Transitional Epithelial <1 /hpf Cells Urine Amorphous Sediment OCC Urine Bacteria OCC /hpf Microscopic Urinalysis Comment CATH-CULTURE IND Lactic Acid Level 0.6 mmol/L Date/Time Procedure Status Source Growth 11/01/16 07:24 Aerobic Blood Culture Received Blood Peripheral Pending 11/01/16 07:24 Anaerobic Blood Culture Received Blood Peripheral Pending 11/01/16 06:00 Urine Culture Received Urine Catheterized Urine Pending Physical Examination HEENT: Normocephalic; atraumatic; no jaundice. Throat is clear. NECK: Neck is supple, no JVD, no lymphadenopathy. CHEST: CTA CARDIAC: RRR ABDOMEN: Soft, nondistended, midl diffuse tenderness, more so on right side; no hepatosplenomegaly; bowel sounds are present in all four quadrants. EXTREMITIES: No clubbing, cyanosis, or edema. SKIN: Normal; no rash; no jaundice. 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 CT scan abdomen and pelvis (11/01/16) revealed interval development of retroperitoneal lymphadenopathy which is nonspecific. A new right para-aortic retrocrural enlarged lymph node is also noted measuring 1.6 cm in the upper abdomen. PET/CT scan may be helpful for further characterization station of this finding. Stable enlargement of the adrenal glands bilaterally suggesting adrenal hyperplasia. There is nodular enlargement of the left adrenal gland measuring 4.2 x 2.5 cm which could represent adrenal hyperplasia but underlying mass cannot be ruled out completely. Small bilateral pleural effusions with by basilar alveolar consolidations (left worse than right) consistent with possible atelectasis and/or pneumonia. Cardiomegaly and coronary artery calcifications. Chronic mild compression deformities involving T12 and L1. Degenerative changes throughout the lumbar spine. LFTs normal other than alkaline phosphatase at 401. Leukocytosis. Patient is afebrile. PPI, Zofran when necessary. Will schedule for an EGD in a.m. - Abnormal imaging with retroperitoneal lymphadenopathy. Also noted to have nodular enlargement of the left adrenal gland measuring 4.2 x 2.5 cm. Oncology has been consulted for further evaluation - ESRD, HD //Saturdays per nephrology - Leukocytosis. WBC 17.2. - Anemia, normocytic. 10.7/32.7 - HTN per primary PLAN: - Plan for EGD in a.m. - Obtain consents - Nothing by mouth after midnight - PPI - Zofran when necessary - Monitor labs - Supportive care - Further recommendations to follow based on results of above - Patient seen and examined by Dr. Mccall myself and this note is written on his behalf (Jenise Marcial) Physician Comments Seen and examined with STACI, EGD planned for tomorrow. NPO after midnight. Will follow, thank you (Binu Mccall MD) Jenise Marcial Nov 01, 2016 14:09 Binu Mccall MD Nov 01, 2016 18:35
[2016-11-01] MEDS: PANTOPRAZOLE SODIUM 40 MG VIAL IV PUSH SCH (15:34)
[2016-11-01] MEDS: ACETAMINOPHEN/HYDROcodone 325 MG/7.5 MG TAB PO PRN (15:40)
[2016-11-01] MEDS: INSULIN ASPART SUPPLEMENTAL SCALE SQ SCH ×2 (16:00→21:00)
[2016-11-01] MEDS: hydrALAZINE HCL 50 MG TAB PO SCH ×2 (17:14→22:00)
[2016-11-01] MEDS: cefTRIAXone INJ 1,000 MG in SODIUM CHLORIDE 0.9% INJ 100 ML IV SCH (18:31)
[2016-11-01] MEDS: METOPROLOL TARTRATE 50 MG TAB PO SCH (21:22)
[2016-11-02] VITALS (9 sets, daily range): BP systolic 129–160; BP diastolic 58–66; PULSE 69–77; RESP 16–20; TEMP 97.9–99.6; O2SAT 90–94
[2016-11-02] MEDS: ACETAMINOPHEN/HYDROcodone 325 MG/7.5 MG TAB PO PRN ×2 (00:46→15:29)
[2016-11-02] MEDS: INSULIN ASPART SUPPLEMENTAL SCALE SQ SCH ×4 (06:02→21:00)
[2016-11-02] MEDS: hydrALAZINE HCL 50 MG TAB PO SCH ×3 (06:03→22:31)
[2016-11-02 08:11] LABS: AUTOMATED NEUTROPHIL # 11.6 TH/MM3 (1.8-7.7); BASOPHIL % 0.2 % (0.0-2.0); EOSINOPHIL % 0.2 % (0.0-4.0); HEMATOCRIT 29.7 % (35.0-46.0); HEMO FLAGS DIFF FINAL; LYMPH % 9.3 % (9.0-44.0); LYMPHOCYTE # 1.3 TH/MM3 (1.0-4.8); MEAN CELL VOLUME 88.8 FL (80.0-100.0); MEAN CORPUSCULAR HEMOGLOBIN 28.8 PG (27.0-34.0); MEAN CORPUSCULAR HGB CONC 32.4 % (32.0-36.0); MONO % 8.3 % (0.0-8.0); PLATELET COUNT 429 TH/MM3 (150-450); RED BLOOD COUNT 3.35 MIL/MM3 (4.00-5.30); RED CELL DISTRIBUTION WIDTH 15.9 % (11.6-17.2); WHITE BLOOD COUNT 14.2 TH/MM3 (4.0-11.0)
[2016-11-02] MEDS: SODIUM CHLORIDE 0.9% FLUSH 5 ML FLUSH FLUSH SCH ×2 (08:18→22:32)
[2016-11-02] MEDS: DOXAZOSIN MESYLATE 2 MG TAB PO SCH (08:19)
[2016-11-02] MEDS: METOPROLOL TARTRATE 50 MG TAB PO SCH ×2 (08:19→22:31)
[2016-11-02] MEDS: ASPIRIN 325 MG TAB PO SCH (08:19)
[2016-11-02] MEDS: GABAPENTIN 100 MG CAP PO SCH (08:20)
[2016-11-02] MEDS: NIFEdipine 90 MG SUSTAINED RELEASE TAB PO SCH (08:20)
[2016-11-02] MEDS: PANTOPRAZOLE SODIUM 40 MG VIAL IV PUSH SCH (08:25)
[2016-11-02 08:34] LABS: BICARBONATE 23.8 MEQ/L (21.0-32.0); POTASSIUM 3.8 MEQ/L (3.5-5.1)
[2016-11-02] MEDS ORDERED: LEVOFLOXACIN 750 MG PREMIX INJ 150 ML IV SCH (09:00)
[2016-11-02] MEDS: AZITHROMYCIN INJ 500 MG in SODIUM CHLOR 0.9% 250 ML INJ 250 ML IV SCH (10:00)
--- NOTE | 2016-11-02 10:07 | HHI.NPPN ---
Subjective Complaints: Abdominal Pain General Problems: Anemia Renal Failure: End Stage Renal Disease Interval History Pt resting quietly. Had dialysis yesterday with no fluid removal. Due for EGD today. Still with abdominal pain and tenderness. (Naheed Fulton) Review of Systems General Constitutional: Fatigue (Naheed Fulton) Gastrointestinal Gastrointestinal: Abdominal Pain (Nhaeed Fulton) Objective Data Data Vital Signs Date Time Temp Pulse Resp B/P Pulse Ox O2 Delivery O2 Flow Rate FiO2 11/02/16 08:54 93 Nasal Cannula 3.00 11/02/16 07:56 99.6 70 16 139/65 94 11/02/16 04:02 98.1 74 17 133/58 90 11/02/16 00:05 97.9 77 19 129/63 94 11/01/16 19:36 Nasal Cannula 2.50 11/01/16 19:24 98.5 80 19 130/63 94 11/01/16 17:39 98.7 82 20 143/67 93 11/01/16 17:16 85 16 175/77 94 Nasal Cannula 2 11/01/16 15:49 98.7 87 22 174/74 93 Nasal Cannula 2 11/01/16 12:38 88 162/68 96 11/01/16 10:24 95 Nasal Cannula 2.00 (Naheed Fulton) -: 11/02/16 0705 11/02/16 0705 Imaging Last [address] 11/01/16 0506 Signed Impressions: Service Date/Time: October 05:22 - CONCLUSION: No significant change has occurred. Christo Chen MD Chest X-Ray 11/01/16 0000 Signed Impressions: Service Date/Time: October 05:26 - CONCLUSION: 1. Apparent cardiomegaly with left effusion and apparent infiltrate. The findings are most consistent with congestive heart failure. Miko Scott MD Abdomen/Pelvis CT 11/01/16 0000 Signed Impressions: Service Date/Time: October 07:36 - CONCLUSION: 1. Interval development of retroperitoneal lymphadenopathy which is nonspecific. A new right paraaortic retrocrural enlarged lymph node is also noted measuring 1.6 cm in the upper abdomen. PET/CT scan may be helpful for further characterization of this finding. 2. Stable enlargement of the adrenal glands bilaterally suggesting adrenal hyperplasia. There is nodular enlargement of the left adrenal gland measuring 4.2 x 2.5 cm which could represent adrenal hyperplasia but underlying mass cannot be ruled out completely. 3. Small bilateral pleural effusions with bibasilar alveolar consolidations (left worse than right ) consistent with possible atelectasis and/or pneumonia. 4. Cardiomegaly and coronary artery calcifications. 5. Chronic mild compression deformities involving T12 and L1. 6. Degenerative changes throughout the lumbar spine. Jose Sevilla MD Tubes & Lines: Perma-Cath (Jose Fultonon B. EMBEDDED ENGINEER) Physical Exam General Appearance: Well Developed, Comfortable, Sleeping (Jose Fultonon B. EMBEDDED ENGINEER) Eyes Eye Exam: Pupils Equal Eye Remarks periorbital edema improved (KirstinNaheed B. EMBEDDED ENGINEER) Ears & Nose Ears & Nose Exam: Nasal Mucosa Carney (KirstinNaheed B. EMBEDDED ENGINEER) Throat Throat Exam: Oral Mucosa Carney & Moist (KirstinNaheed B. EMBEDDED ENGINEER) Neck Neck Exam: Neck Supple (Kirstin,Naheed B. EMBEDDED ENGINEER) Pulmonary Resp Exam: Clear Bilaterally, Breath Sounds Equal, No Distress, Decreased Bases (Kirstin,Naheed B. EMBEDDED ENGINEER) Cardiology CV Exam: Regular, Normal Sinus Rhythm (Kirstin,Naheed B. EMBEDDED ENGINEER) Gastrointestinal/Abdomen GI Exam: Soft, Bowel Sounds Present GI Remarks non distended, tenderness throughout all quadrants (KirstinNaheed B. EMBEDDED ENGINEER) Musculoskeletal MS Exam: Joints Intact, Normal Tone (Kirstin,Naheed B. EMBEDDED ENGINEER) Integumentary Skin Exam: Warm, Dry Skin Remarks thick skin on plantar surface of feet, some papular lesions , no drainage ( KirstinNaheed B. EMBEDDED ENGINEER) Extremeties Extremities Exam: No Edema, Pedal Pulses Palpable (KirstinNaheed B. EMBEDDED ENGINEER) Neurologic Neuro Exam: Moving All Extremities Neuro Remarks lethargic, moans when asked questions (Jose Fultonon B. EMBEDDED ENGINEER) Assessment/Plan Discussed Condition With: Patient Assessment Summary: Anemia of CKD, End Stage Renal Disease Assessment Remarks hyperphosphatemia Problem List: (1) ESRD (end stage renal disease) Plan: Normally dialyzes T--Sat, she had missed Tuesdays' treatment had dialysis yesterday (), no fluid removal, tolerated well maintain T--Sat schedule, she is due tomorrow no current electrolyte or acid-base imbalance she has Permcath for dialysis, monitor function no dietary protein restriction anuric at baseline, no izaguirre in place will stop IVF renal panel in am (2) Leukocytosis Plan: improving, chest xray showing left sided infiltrate given vancomycin and cefepime on admission, now on Zithromax and Rocephin blood and urine cultures are in progress monitor clinically , currently afebrile (3) Hypertension Plan: BP stable continue medications as ordered (4) Diabetes Plan: monitor blood sugar not requiring insulin at this time (5) Metabolic bone disease Plan: Begin Renvela, monitor phosphorus periodically (6) Anemia Plan: epogen with HD follow hemoglobin (7) Nausea & vomiting Plan: with abdominal pain, GI following NPO for EGD this morning await results (Naheed Fulton) Plan patient was seen and examined. Dialysis tomorrow. Agree with above assessment and plan. (Duke Aden MD) Problem Qualifiers (1) Diabetes: Naheed Fulton Nov 02, 2016 10:07 Duke Aden MD Nov 02, 2016 15:46
[2016-11-02] MEDS ORDERED: Vancomycin Consult Pharmacy 1 EA OTHER SCH (10:15)
[2016-11-02] MEDS ORDERED: VANCOMYCIN INJ 1,000 MG in SODIUM CHLOR 0.9% 250 ML INJ 250 ML IV ONE (10:15)
[2016-11-02] MEDS: SEVELAMER CARBONATE 800 MG TAB PO SCH ×2 (12:00→18:22)
[2016-11-02] MEDS ORDERED: MORPHINE SULFATE 4 MG/ML INJ IV PUSH ONE (12:38)
--- NOTE | 2016-11-02 13:01 | HHI.PR ---
Subjective Remarks Follow-up for generalized weakness. The patient still complains of generalized pain. She complains of lower back pain, but states that is chronic. She continues to have abdominal discomfort. She denies any fevers or chills. RN and oncologist noted some erythema of the PIP joints in the index and middle finger earlier. Objective Vitals Vital Signs Date Time Temp Pulse Resp B/P Pulse Ox O2 Delivery O2 Flow Rate FiO2 11/02/16 12:16 99.6 70 16 139/65 94 11/02/16 08:54 93 Nasal Cannula 3.00 11/02/16 07:56 99.6 70 16 139/65 94 11/02/16 04:02 98.1 74 17 133/58 90 11/02/16 00:05 97.9 77 19 129/63 94 11/01/16 19:36 Nasal Cannula 2.50 11/01/16 19:24 98.5 80 19 130/63 94 11/01/16 17:39 98.7 82 20 143/67 93 11/01/16 17:16 85 16 175/77 94 Nasal Cannula 2 11/01/16 15:49 98.7 87 22 174/74 93 Nasal Cannula 2 Result Diagram: 11/02/16 0705 11/02/16 0705 Imaging Last Impressions Head CT 11/01/16 0506 Signed Impressions: Service Date/Time: October 05:22 - CONCLUSION: No significant change has occurred. Christo Chen MD Chest X-Ray 11/01/16 0000 Signed Impressions: Service Date/Time: October 05:26 - CONCLUSION: 1. Apparent cardiomegaly with left effusion and apparent infiltrate. The findings are most consistent with congestive heart failure. Miko Scott MD Abdomen/Pelvis CT 11/01/16 0000 Signed Impressions: Service Date/Time: October 07:36 - CONCLUSION: 1. Interval development of retroperitoneal lymphadenopathy which is nonspecific. A new right paraaortic retrocrural enlarged lymph node is also noted measuring 1.6 cm in the upper abdomen. PET/CT scan may be helpful for further characterization of this finding. 2. Stable enlargement of the adrenal glands bilaterally suggesting adrenal hyperplasia. There is nodular enlargement of the left adrenal gland measuring 4.2 x 2.5 cm which could represent adrenal hyperplasia but underlying mass cannot be ruled out completely. 3. Small bilateral pleural effusions with bibasilar alveolar consolidations (left worse than right ) consistent with possible atelectasis and/or pneumonia. 4. Cardiomegaly and coronary artery calcifications. 5. Chronic mild compression deformities involving T12 and L1. 6. Degenerative changes throughout the lumbar spine. Jose Sevilla MD Objective Remarks GENERAL: Well-developed well-nourished. In mild to moderate distress secondary to pain. SKIN: Warm and dry. Erythema on the dorsum of the right hand overlying the index and middle finger PIP joints. Dialysis catheter in place on right chest wall. HEENT: Normocephalic. Pupils equal and round. Mucous membranes pink and moist. CARDIOVASCULAR: Regular rate and rhythm. No murmur appreciated. RESPIRATORY: No accessory muscle use. Clear to auscultation. Breath sounds equal bilaterally. GASTROINTESTINAL: Abdomen soft, nondistended. Diffusely tender to light and deep palpation especially in RUQ, RLQ, and LLQ. Bowel sounds x4. MUSCULOSKELETAL: No obvious deformities. No clubbing or cyanosis. No edema. NEUROLOGICAL: Awake and alert. No focal neurological deficits. Moves upper and lower extremities spontaneously. Normal speech. PSYCHIATRIC: Appropriate mood and affect; insight and judgment fair to normal. A/P Assessment and Plan 61-year-old female with past medical history of ESRD on HD, HTN, CVA who presented with falls/weakness and abdominal pain Weakness/falls: Multifactorial. Likely secondary to infection/UTI, missed dialysis, and dehydration from vomiting. Treat underlying etiology is as below. PT consulted, needs SNF, case management consult. Fall precautions. Bacteremia: 4/4 blood cultures positive for gram-positive cocci, staph aureus. Possibly from UTI. Tmax 99.6. Lactic acid within normal limits. Add IV vancomycin. Consult infectious disease. Abdominal pain with nausea and vomiting: Abdomen/pelvis CT with multiple nonspecific findings, although none appear acute or the cause of the patient's discomfort. Consulted gastroenterology, planning an EGD. Pain control with oral and intravenous narcotics as needed. Antiemetics as needed. Gentle IVF with renal disease. IV Protonix. UTI: UA with evidence of UTI. Positive leukocytosis. Did not meet sepsis criteria on admission. Started on empiric IV Rocephin. Urine culture growing staph aureus, added vancomycin, follow-up final sensitivity. Retroperitoneal lymphadenopathy and right para-aortic retrocrural enlarged lymph node: Seen incidentally on CT. Consulted oncology for further recommendations, discussed with Dr. Jalloh, recommended chest CT. Holding anticoagulation for now in case a biopsy needs to be performed. Left pleural effusion and possible infiltrate: Seen on chest x-ray and abdominal CT. Patient with no respiratory complaints, however with episode of hypoxia overnight requiring O2. Chest CT as above. Add azithromycin to ceftriaxone to cover for possible pneumonia. Oxygen as needed. Right hand cellulitis: Check x-ray. IV antibiotics as above. ESRD on HD TTS: With associated metabolic acidosis, increased anion gap, increased BUN and creatinine; all likely secondary to missed HD. Patient's lan/wan engineer consulted. S/P HD, repeat BMP with resolved metabolic acidosis and improved BUN/creatinine. Depression nephrology input. Secondary hyperparathyroidism: Phosphorus 9.0. Nephrology started patient on phosphate binders. Borderline diabetes mellitus: Previous hemoglobin A1c from 05/08 was 6.4. On no medications at home. Cover with sliding scale insulin and hypoglycemia protocol while admitted. Outpatient PCP follow-up. Hypertension: Better control today, was probably exacerbated by missed HD. Continue home Cardura, metoprolol, nifedipine, hydralazine. Clonidine as needed. History of multiple CVA and probable paroxysmal atrial fibrillation: Patient previously documented to have A. fib, however denies. EKG now and previously from July with sinus rhythm. However patient's med list has aspirin and Eliquis. Continue aspirin for now. Hold Eliquis for now as above. Dry skin lower extremities: Lac-Hydrin lotion. DVT prophylaxis: SCDs for now. Written by Dwayne Zacarias, acting as scribe for Dr. Bush on 11/02/16 at 13:02. The documentation accurately reflects the work performed [id number] by me Dr. Bush on 11/02/16 at 13:02. Discharge Planning Admit to inpatient. Disposition pending clinical course. Dwayne Zacarias Nov 02, 2016 13:01 Nazia Bush MD Nov 02, 2016 16:29
[2016-11-02] MEDS ORDERED: PROPOFOL 200 MG/20 ML AMP IV ONE (13:11)
--- NOTE | 2016-11-02 14:52 | PD.ID.CON ---
History of Present Illness Service Infectious Disease Consult Requested By /Dwayne TYLER. Reason for Consult Evaluation and Mment of Sepsis, GP bacteremia. Primary Care Physician Non-Staff Diagnoses: History of Present Illness is a 61 y/o CF with PMHX of ESRD on HD, HTN, CVA who presented with weakness and fall. Patient appears lethargic at time of my interview. Answered basic questions. ? Reliability. No family could be reached. She reports she undergoes HD on , , Sat. She reports multiple falls, generalized weakness and multiple episodes of nausea and vomiting. She reports generalized joint pains as well as myalgia. She also reports abdominal pain diffuse could not provide any details. She denies any fevers, chills, shortness of breath, chest pain. She reports she missed her last hemodialysis session on Saturday using a Permacath. Upon review of home meds it appears she has been on flagyl alone ? Cdiff prior to admission. She reports pain in her knuckles where there is some redness noted. She underwent sepsis workup and Bld cultures done on admission are positive for staph aureus ? MSSA per verigene testing report. ID consulted for sepsis possible line related sepsis or endocarditis. She has been seen by Nephrology and underwent HD . She is due for HD on Sat am. She also has been seen by Oncology for retroperitoneal LN'garth concerning for ? malignancy vs reactive process. Review of Systems ROS Limitations: Other (Lethargic? encephalopathic ? reliability.) Gastrointestinal: COMPLAINS OF: Abdominal pain, Vomiting Anuric at baseline on HD ,, Sat. Past Family Social History Allergies: Coded Allergies: Cat Dander (Unverified Allergy, Severe, 11/01/16) RESPIRATORY ISSUES Past Medical History ESRD on hemodialysis Hypertension Anemia of chronic disease History of borderline diabetes History of CVA 3 History of C. difficile last year Possible paroxysmal atrial fibrillation Past Surgical History Eye surgery Cholecystectomy Dialysis catheter placement in the right chest Achilles surgery Reported Medications Reported Meds & Active Scripts Active Loratadine 10 Mg Tab 10 Mg PO DAILY PRN Flagyl (Metronidazole) 500 Mg Tab 500 Mg PO Q8HR 13 Days Nifedipine ER 24 HR (Nifedipine) 90 Mg Tab 90 Mg PO DAILY 30 Days Cardura (Doxazosin Mesylate) 2 Mg Tab 2 Mg PO DAILY 30 Days Reported Gabapentin 300 Mg Cap 300 Mg PO BID Metoprolol Tartrate 50 Mg Tab 50 Mg PO BID Restoril (Temazepam) 15 Mg Cap 15 Mg PO HS PRN Mapap (Acetaminophen) 325 Mg Tab 650 Mg PO Q4HR PRN Eliquis (Apixaban) 5 Mg Tab 5 Mg PO BID Dulcolax Supp (Bisacodyl) 10 Mg Supp 10 Mg RECTAL DAILY PRN IF NO RESULT ONE DAY AFTER MOM Aspirin 325 Mg Tab 325 Mg PO DAILY Milk of Magnesia Liq (Magnesium Hydroxide) 400 Mg/5 Ml Susp 30 Ml PO HS PRN IF NO BM IN 3 DAYS Hydralazine (Hydralazine HCl) 50 Mg Tab 50 Mg PO Q8HR Take with a meal Fleet Enema Rectal (Sodium Phosphates Rectal) 7-19 Gm/118 Ml Enem 118 Ml RECTAL DIRECTED PRN Citrate of Magnesia Liq (Magnesium Citrate) 300 Ml Liq 300 Ml PO DIRECTED PO EVANGELIST IN THE MORNING PRN; IF NO RESULTS ONE DAY AFTER FLEETS Active Ordered Medications Current Medications Medications (Trade) Dose Ordered Sig/Becca Route Start Time Stop Time Status Last Admin (NS Flush) 2 ml UNSCH PRN FLUSH 11/01/16 07:45 (NS Flush) 2 ml BID FLUSH 11/01/16 09:00 11/01/16 12:57 (Tylenol) 650 mg Q4H PRN PO 11/01/16 07:45 (Zofran Inj) 4 mg Q6H PRN IVP 11/01/16 07:45 11/02/16 15:27 Magnesium Hydroxide 30 ml 30 ml Q12H PRN PO 11/01/16 07:45 Ceftriaxone Sodium 1000 mg/ Sodium Chloride 100 ml @ 200 mls/hr Q24H IV 11/01/16 18:00 11/02/16 18:23 (NS 1000 ml Inj) 1,000 ml @ 0 mls/hr Q0M PRN IV 11/01/16 09:01 Heparin Sodium (Porcine) 8000 units 8,000 units UNSCH PRN IVF 11/01/16 09:15 Sodium Chloride 1,000 ml @ 200 mls/hr Q5H PRN IV 11/01/16 09:01 (NS 1000 ml Inj) 1,000 ml @ 0 mls/hr Q0M PRN IV 11/01/16 09:01 (Mannitol Inj) 12.5 gm UNSCH PRN IV 2/9/17 09:15 (Albumin 25% Inj) 25 gm UNSCH PRN IV 11/01/16 09:15 (NS Flush) 5 ml UNSCH PRN IVF 11/01/16 09:15 (Heparin Inj) UNSCH PRN .XX 11/01/16 09:15 11/01/16 09:56 (Gentamicin (Dialysis) Inj) 20 mg UNSCH PRN IV 11/01/16 09:15 11/01/16 09:57 (Zofran Inj) 4 mg UNSCH PRN IV 11/01/16 09:15 (Tylenol) 650 mg UNSCH PRN PO 11/01/16 09:15 (Benadryl) 25 mg UNSCH PRN PO 11/01/16 09:15 (Nitrostat Sl) 0.4 mg UNSCH PRN SL 11/01/16 09:15 (Catapres) 0.1 mg UNSCH PRN PO 11/01/16 09:15 (Epogen Inj) 5,000 units UNSCH PRN IV 11/01/16 09:15 11/01/16 09:57 (Gelfoam 12 Mm/7 Mm Top) 1 foam UNSCH PRN TOP 11/01/16 09:15 (Aspirin) 325 mg DAILY PO 11/02/16 09:00 (Cardura) 2 mg DAILY PO 11/02/16 09:00 (Neurontin) 100 mg DAILY PO 11/02/16 09:00 (Apresoline) 50 mg Q8HR PO 11/01/16 14:00 11/02/16 15:29 (Lopressor) 50 mg BID PO 11/01/16 21:00 11/01/16 21:22 (Procardia Xl) 90 mg DAILY PO 11/02/16 09:00 (Restoril) 15 mg HS PRN PO 11/01/16 13:00 (Tylenol) 650 mg Q6H PRN PO 11/01/16 13:00 (Dwarf 5-325 Mg) 1 tab Q4H PRN PO 11/01/16 13:00 (Dwarf 7.5-325 Mg) 1 tab Q4H PRN PO 11/01/16 13:00 11/02/16 15:29 (Morphine Inj) 4 mg Q3H PRN IV 11/01/16 13:00 (Narcan Inj) 0.4 mg UNSCH PRN IV 11/01/16 13:00 (D50w (Vial) Inj) 25 ml UNSCH PRN IV PUSH 11/01/16 13:30 (Glucagon Inj) 1 mg UNSCH PRN OTHER 11/01/16 13:30 (Protonix Inj) 40 mg DAILY IV PUSH 11/01/16 13:45 11/02/16 08:25 Sevelamer Carbonate 1600 mg 1,600 mg TIDAC PO 11/02/16 12:00 11/02/16 18:22 (Zithromax Inj/ NS 250 ml Inj) 250 ml @ 250 mls/hr Q24H IV 11/02/16 10:00 11/02/16 10:00 Lactic Acid 1 applic 1 applic BID TOPICAL 11/02/16 21:00 (Ancef Inj/NS Inj) 100 ml @ 200 mls/hr Q24H IV 11/02/16 19:15 UNV Family History could not be obtained. Social History Patient lives at home with her ex . Reports she is wheel chair bound and uses a [facility] to go to Hemodialysis. Physical Exam Vital Signs Vital Signs Date Time Temp Pulse Resp B/P Pulse Ox O2 Delivery O2 Flow Rate FiO2 11/02/16 13:47 71 15 112/52 92 11/02/16 13:37 73 16 108/49 92 11/02/16 13:27 98.5 73 15 104/46 92 11/02/16 12:16 99.6 70 16 139/65 94 11/02/16 08:54 93 Nasal Cannula 3.00 11/02/16 07:56 99.6 70 16 139/65 94 11/02/16 04:02 98.1 74 17 133/58 90 11/02/16 00:05 97.9 77 19 129/63 94 11/01/16 19:36 Nasal Cannula 2.50 11/01/16 19:24 98.5 80 19 130/63 94 11/01/16 17:39 98.7 82 20 143/67 93 11/01/16 17:16 85 16 175/77 94 Nasal Cannula 2 11/01/16 15:49 98.7 87 22 174/74 93 Nasal Cannula 2 Physical Exam GENERAL: Elderly frail appearing white female. Appears lethargic and disoriented. In no Cardiopulm distress. SKIN: No rashes. HEAD: Atraumatic. Normocephalic. No temporal or scalp tenderness. EYES: Pupils equal round and reactive. Extraocular motions intact. No scleral icterus. No injection or drainage. ENT: Nose without bleeding, purulent drainage or septal hematoma. ? thrush. Throat without erythema, tonsillar hypertrophy or exudate. Uvula midline. Airway patent. NECK: Trachea midline. Supple, nontender, no meningeal signs. CARDIOVASCULAR: HS audible. No murmur appreciated. RESPIRATORY: Clear to auscultation. Breath sounds equal bilaterally decreased in bases left > right. GASTROINTESTINAL: Abdomen soft, non-tender, nondistended. MUSCULOSKELETAL: LE no joint effusions. Bilateral LE with chronic skin changes on plantar aspect. Right hand 2nd, 3rd and 4th digits with erythema, swelling and mild fluctuance noted. Minimal tenderness noted. NEUROLOGICAL: Awake and alert. Grossly non focal Psych: could not be assessed. Cooperative IV line sites with no e/o infection. Laboratory Laboratory Tests Test 11/02/16 07:05 White Blood Count 14.2 Red Blood Count 3.35 Hemoglobin 9.6 Hematocrit 29.7 Mean Corpuscular Volume 88.8 Mean Corpuscular Hemoglobin 28.8 Mean Corpuscular Hemoglobin 32.4 Concent Red Cell Distribution Width 15.9 Platelet Count 429 Mean Platelet Volume 7.7 Neutrophils (%) (Auto) 82.0 Lymphocytes (%) (Auto) 9.3 Monocytes (%) (Auto) 8.3 Eosinophils (%) (Auto) 0.2 Basophils (%) (Auto) 0.2 Neutrophils # (Auto) 11.6 Lymphocytes # (Auto) 1.3 Monocytes # (Auto) 1.2 Eosinophils # (Auto) 0.0 Basophils # (Auto) 0.0 CBC Comment DIFF FINAL Differential Comment Sodium Level 140 Potassium Level 3.8 Chloride Level 103 Carbon Dioxide Level 23.8 Anion Gap 13 Blood Urea Nitrogen 58 Creatinine 6.21 Estimat Glomerular Filtration 7 Rate Random Glucose 90 Calcium Level 8.5 C-Reactive Protein 28.00 Date/Time Procedure Status Source Growth 11/02/16 14:07 Aerobic Blood Culture Received Blood Peripheral Pending 11/02/16 14:07 Anaerobic Blood Culture Received Blood Peripheral Pending 11/01/16 07:24 Aerobic Blood Culture - Preliminary Resulted Blood Peripheral Gram Positive Cocci 11/01/16 07:24 Anaerobic Blood Culture - Preliminary Resulted Gram Positive Cocci 11/01/16 06:00 Urine Culture - Preliminary Resulted Urine Catheterized Urine Staphylococcus Aureus Result Diagram: 11/02/1670411/02/16704 Imaging Last Impressions Head CT 11/01/16 0506 Signed Impressions: Service Date/Time: October 05:22 - CONCLUSION: No significant change has occurred. Christo Chen MD Chest X-Ray 11/01/16 0000 Signed Impressions: Service Date/Time: October 05:26 - CONCLUSION: 1. Apparent cardiomegaly with left effusion and apparent infiltrate. The findings are most consistent with congestive heart failure. Miko Scott MD Abdomen/Pelvis CT 11/01/16 0000 Signed Impressions: Service Date/Time: October 07:36 - CONCLUSION: 1. Interval development of retroperitoneal lymphadenopathy which is nonspecific. A new right paraaortic retrocrural enlarged lymph node is also noted measuring 1.6 cm in the upper abdomen. PET/CT scan may be helpful for further characterization of this finding. 2. Stable enlargement of the adrenal glands bilaterally suggesting adrenal hyperplasia. There is nodular enlargement of the left adrenal gland measuring 4.2 x 2.5 cm which could represent adrenal hyperplasia but underlying mass cannot be ruled out completely. 3. Small bilateral pleural effusions with bibasilar alveolar consolidations (left worse than right ) consistent with possible atelectasis and/or pneumonia. 4. Cardiomegaly and coronary artery calcifications. 5. Chronic mild compression deformities involving T12 and L1. 6. Degenerative changes throughout the lumbar spine. Jose Sevilla MD Assessment and Plan Assessment and Plan Sepsis on admission (hypothermia, leucocytosis, source: Pneumonia, bacteremia) Pneumonia: CAP/atypical PNA, HCAP on admission. ? septic emboli related. GP bacteremia: MSSA on verigene testing. ? Line related vs cellulitis of right hand. Right hand cellulitis ? abscess. Acute metabolic encephalopathy: sepsis related, uremia missed HD. ESRD on HD using permacath, Anuric at baseline. Recs: Blood cultures x 2 today Blood cultures in HD tomorrow. heath RN and RN order in chart. Check CRP. Agree with CT Chest Hand surgery consult: cellulitis ? abscess right hand. If persistent bacteremia:will likely need SUZANNA. Reviewed CT abdomen: RP LNpathy could be malignancy or infection. R.o TB and fungal infections. HIV status not known. 2D ECHO to look for e/o endocarditis. Continue Ceftriaxone IV and Azithro for ? CAP for now. Start Ancef IV daily (renal dose adjusted by me) for MSSA per Verigene. Check Vanco level in am. Follow and please call with levels and results of cultures please so antibiotics can be adjusted and pt clinically followed. Start Vanco IV in HD (dosed by ID), pending susceptibility. Sometimes Verigene may not be accurate and patient is ill and needs appropriate antibiotics. D.w Pharmacist: aware of double coverage with Ancef and Rocephin but Ancef is specific for MSSA bacteremia and lacks coverage for CAP organisms. Lung lesions likely septic emboli or aspiration. Please call to assess pt clinically to adjust regimen in am and to assess if Permacath needs removal. Karen Anthony MD Nov 02, 2016 14:52
--- NOTE | 2016-11-02 15:59 | RADRPT ---
EXAM DATE/TIME: 11/02/2016 14:40 [facility] COMPARISON: No previous studies available for comparison. INDICATIONS : Redness and swelling right hand. MEDICAL HISTORY : Diabetes mellitus type 1. SURGICAL HISTORY : None. ENCOUNTER: Initial ACUITY: 1 day PAIN SCORE: 4/10 LOCATION: Right hand. FINDINGS: There is soft-tissue swelling involving the right second, third and fourth digits. There is no acute fracture or dislocation. CONCLUSION: 1. Soft-tissue swelling involving the right second, third and fourth digits. 2. No acute fracture or dislocation. Jose Sevilla MD on November 02, 2016 at 15:56 Board Certified Radiologist. This report was verified electronically.
--- NOTE | 2016-11-02 16:31 | EKG ---
Date Performed: 11/02/2016 Time Performed: 05:28:02 PTAGE: 61 years EKG: Intraventricular conduction defect. LEFT AXIS DEVIATION Poor R wave progression,which may b e due to left axis deviation. Nonspecific T wave changes. When compared to previous tracing, no signi ficant change. ABNORMAL ECG PREVIOUS TRACING : 01/08/2001 13.28 DOCTOR: Geovani Vasques Interpretating Date/Time 11/02/2016 16:30:34
--- NOTE | 2016-11-02 17:14 | EC ---
Study Study Date:11/02/2016 STUDY CONCLUSIONS SUMMARY - Left ventricle: The cavity size was normal. Wall thickness was normal. Systolic function was normal. The estimated ejection fraction was in the range of 55% to 60%. Wall motion was normal; there were no regional wall motion abnormalities. - Tricuspid valve: Mild regurgitation. - Pulmonary arteries: PA peak pressure: 47mm Hg (S). Impressions: No evidence of endocarditis. If LV function is below 40, please consider prescribing an ACEI or ARB or document rationale for non-use. PROCEDURE DATA STUDY STATUS: Elective. Procedure: Transthoracic echocardiography. Image quality was good. Scanning was performed from the parasternal, apical, and subcostal acoustic windows. Study completion: The patient tolerated the procedure well. Transthoracic echocardiography. M-mode, complete 2D, complete spectral Doppler, and color Doppler. Patient status: Inpatient. CARDIAC ANATOMY LEFT VENTRICLE: The cavity size was normal. Wall thickness was normal. Systolic function was normal. The estimated ejection fraction was in the range of 55% to 60%. Wall motion was normal; there were no regional wall motion abnormalities. AORTIC VALVE: Trileaflet; normal thickness leaflets. Doppler: Transvalvular velocity was within the normal range. There was no stenosis. No regurgitation. Mean gradient: 8mm Hg (S). Peak gradient: 14mm Hg (S). AORTA: Aortic root: The aortic root was normal in size. MITRAL VALVE: Structurally normal valve. Doppler: Transvalvular velocity was within the normal range. There was no evidence for stenosis. Trace regurgitation. Peak gradient: 7mm Hg (D). LEFT ATRIUM: The atrium was normal in size. RIGHT VENTRICLE: The cavity size was normal. Wall thickness was normal. PULMONIC VALVE: Doppler: Transvalvular velocity was within the normal range. There was no evidence for stenosis. No regurgitation. TRICUSPID VALVE: Structurally normal valve. Doppler: Transvalvular velocity was within the normal range. Mild regurgitation. PULMONARY ARTERY: The main pulmonary artery was normal-sized. Systolic pressure was within the normal range. RIGHT ATRIUM: The atrium was normal in size. PERICARDIUM: There was no pericardial effusion. SYSTEMIC VEINS: Inferior vena cava: The vessel was normal in size. BASIC MEASUREMENTS ADULT Normal Left ventricle LV internal dimension, ED, chordal level, 44.4 mm 43-52 PLAX LV internal dimension, ES, chordal level, 32.2 mm 23-38 PLAX Fractional shortening, chordal level, PLAX *27 % >29 LV posterior wall thickness, ED 5.68 mm IVS/LVPW ratio, ED *2.39 <1.3 Ventricular septum Septal thickness, ED 13.6 mm Aortic valve Leaflet separation 19 mm 15-26 Left atrium Anterior-posterior dimension 39 mm Right ventricle RV internal dimension, ED, PLAX *18.8 mm 19-38 BASIC MEASUREMENTS ADULT Normal Aortic valve Leaflet separation 19 mm 15-26 Aorta Root diameter, ED 31 mm 20-37 Left atrium Anterior-posterior dimension, ES *43 mm 19-40 LA/aortic root ratio 1.39 DOPPLER MEASUREMENTS ADULT Normal Main pulmonary artery Pressure, S *47 mm Hg =30 Aortic valve Peak velocity, S 187 cm/s Mean velocity, S 130 cm/s VTI, S 51.4 cm Mean gradient, S 8 mm Hg Peak gradient, S 14 mm Hg Mitral valve Peak E-wave velocity 128 cm/s Peak A-wave velocity 145 cm/s Peak gradient, D 7 mm Hg Peak E/A ratio 0.9 Tricuspid valve Regurgitant peak velocity 295 cm/s Peak RV-RA gradient, S 35 mm Hg Maximal regurgitant velocity 295 cm/s Systemic veins Estimated CVP 10 mm Hg Right ventricle RV pressure, S *47 mm Hg <30 LEGEND: Mean values are shown as u=mean value. Asterisk (*) crowe values outside specified normal range. Prepared and signed by Viet Krueger [id number]
--- NOTE | 2016-11-02 17:47 | MB ---
cc: SHAREE WEN MD HEMATOLOGY ONCOLOGY CONSULTATION NOTE DATE OF CONSULTATION 11/02/16 DATE OF 1955. REASON FOR CONSULTATION Lymphadenopathy in the retroperitoneum. CHIEF COMPLAINT Ms. Huang reports pain all over, especially in the digits of her right hand. HISTORY OF PRESENT ILLNESS Ms. Huang is a 61-year-old female who is in acute distress. She was brought into the emergency department because she fell and was found to be increasingly weak. The patient is on hemodialysis for chronic renal insufficiency. She reportedly had been missing outpatient hemodialysis treatments due to progressive weakness. In addition to this, she has a history of hypertension, coronary artery disease and just general frailty. She lives at home with her . The patient underwent a CT scan of the abdomen I presume for abdominal pain and lower back pain in the emergency department and was noted to have retroperitoneal lymphadenopathy which was noted to be nonspecific with lymph nodes measuring as large as 1.6 cm. She was noted to have stable enlargement of the adrenal glands as well with the left adrenal gland measuring 4.2 x 2.5 cm. This was compared to scans done in June of 2016. Additionally, over the course of this hospitalization two sets of blood cultures have revealed Staphylococcus aureus as well as her urine culture which indicates Staphylococcus aureus. Furthermore, the CT scan of the abdomen and pelvis revealed bilateral pleural effusions with bibasilar consolidation, left worse than right, concerning for atelectasis and/or pneumonia. I have been asked to see her because of the lymphadenopathy. I suspect the concern may be for an underlying malignant process. PAST MEDICAL HISTORY (Entirely obtained from medical record: 1. Hypertension. 2. Cerebrovascular accident 3. History of C diff colitis. 4. Atrial fibrillation 5. Anemia or chronic renal failure on hemodialysis. PAST SURGICAL HISTORY 1. Cholecystectomy. 2. Dialysis catheter on the lower right chest wall. 3. Achilles surgery. FAMILY HISTORY Could not obtain from the patient but her mother had diabetes. SOCIAL HISTORY Lives at home with her . No illicit drug use reported, reportedly was a smoker in the past. ALLERGIES NO KNOWN DRUG ALLERGIES. MEDICATIONS Current inpatient 1. Azithromycin 500 mg IV q.24 h. 2. Ceftriaxone 1 gram IV q. 24. 3. Normal saline 200 mL per hour. 4. Vancomycin 1 gram IV x1. 5. Hydrocodone/Tylenol 5/325 mg every 4 hours as needed 6. Human albumin 25% 25 mg IV with hemodialysis 7. Aspirin 325 mg p.o. daily. 8. Doxazosin 2 mg p.o. daily. 9. Epogen injections 10. Hydralazine 50 mg p.o. q. 8 hours. 11. Nifedipine 90 mg p.o. daily. 12. Pantoprazole 40 mg IV 13. Sevelamer. REVIEW OF SYSTEMS 13-point review of systems are attempted to be obtained, but I could not as the patient was not very verbal. This examination was performed at 7:00 a.m. on the morning of 11/02/2016. She does, however, report pain all over. PHYSICAL EXAMINATION VITAL SIGNS: Performed at the time of physical exam revealed temperature 99.6 degrees Fahrenheit, heart rate 70 beats a minute, respiratory rate 16, blood pressure 193/65, O2 sats 94% on 3 liters nasal cannula. GENERAL APPEARANCE: Ms. Huang is an elderly female. She is awake, arousable and responsive. She is not oriented to place or time. She is oriented to person. She is acutely distressed. HEENT: Head is atraumatic, normocephalic, conjunctivae are pale are pale, sclerae anicteric, EOMI. Oral exam - dry mucous membranes. NECK: No palpable cervical or supraclavicular lymphadenopathy. RESPIRATORY: Decreased bibasilar breath sounds otherwise inspiratory crackles are noted. BREASTS: Performed in the presence of female nurse supervisory historian - No breast masses. No lymphadenopathy in the axillae CARDIOVASCULAR: Regular rate and rhythm, S1-S2 with systolic murmur heard over the aortic area. ABDOMEN: Protuberant belly, tender to palpation. No palpable organ enlargement. EXTREMITIES: No pretibial edema. No calf tenderness. On the right chest wall, She does have a dialysis catheter in place. LABORATORY FINDINGS Blood work dated 11/02/2016: Sodium 140, potassium 2.8, chloride 103, bicarbonate 23.8, BUN 58, creatinine 6.2, CRP 28. CBC: WBC count 14.2, hemoglobin 9.6 gm/dl, hematocrit 29.7%, platelet count 429. Absolute neutrophil count 11.6, coags - PT 11.4, INR one, PTT 30.8. Microbiology: Peripheral blood cultures drawn 11/01/2016 positive for Staphylococcus aureus. Urine culture also positive for Staphylococcus aureus. IMAGING STUDIES CT scan of the abdomen and pelvis revealed retroperitoneal lymphadenopathy which is nonspecific. These are new compared to the scan from June 2016. Stable enlargement of bilateral adrenal gland. Bilateral pleural effusions are identified. ASSESSMENT Ms. Huang is a very ill 61-year-old female. She was brought into the hospital due to increased fall, generalized weakness and fatigue. She is on hemodialysis chronically through a right sided vas cath which is along the right chest wall. This patient did undergo imaging studies of the abdomen and was noted to have lymphadenopathy in the retroperitoneum measuring up to 1.6 cm. which per size criteria is slightly above normal. She does appear to be septic based on multiple blood cultures positive for Staphylococcus aureus. The hematology service was consulted earlier today to evaluate her to further workup these lymph nodes. After seeing her at bedside, it became quite clear this lady is septic and critically ill. The lymphadenopathy is likely reactive and I think it is the least of her problems at this time. I did communicate directly with the primary attending and suggested she be worked up more thoroughly for possible infectious etiologies. As far as the lymphadenopathy is concerned, she may come see me in the outpatient setting when she has recovered from her acute issues so this can be further evaluated with perhaps serial CT scans. I will sign off at this time and will allow the internal medicine service to treat her acute issues. MD JUAN MANUEL Daniels/ /4:53 PM /5:16 PM
[2016-11-02] MEDS: cefTRIAXone INJ 1,000 MG in SODIUM CHLORIDE 0.9% INJ 100 ML IV SCH (18:23)
--- NOTE | 2016-11-02 18:23 | RADRPT ---
EXAM DATE/TIME: 11/02/2016 17:54 [facility] COMPARISON: CHEST SINGLE AP, November 01, 2016, 5:26. CT THORAX W/O CONTRAST, February 28, 2015, 15:49. INDICATIONS : Infiltrate seen on chest x-ray. RADIATION DOSE: 7.73 CTDIvol (mGy) MEDICAL HISTORY : Renal failure, chronic. Cerebrovascular disease. Hypertension. SURGICAL HISTORY : None. ENCOUNTER: Initial ACUITY: 1 day PAIN SCALE: Non-responsive LOCATION: Chest TECHNIQUE: Volumetric scanning of the chest was performed. Using automated exposure control and adjustment of t he mA and/or kV according to patient size, radiation dose was kept as low as reasonably achievable to obtain optimal diagnostic quality images. FINDINGS: Small to moderate sized bilateral pleural effusions are noted (left slightly larger than right). Bib asilar alveolar consolidations are noted consistent with atelectasis and/or pneumonia. Clinical corre lation is recommended. Scattered scarring is noted within the lingula of the left upper lobe. The h eart is enlarged. A right internal jugular tunneled dialysis catheter has its tips in the right atri um. CONCLUSION: 1. Bibasilar alveolar consolidations consistent with atelectasis and/or pneumonia. Clinical correlati on is recommended. 2. Small to moderate sized bilateral pleural effusions (left slightly larger than right). 3. Cardiomegaly. 4. Scarring within the lingula of the left upper lobe. Jose Sevilla MD on November 02, 2016 at 18:15 Board Certified Radiologist. This report was verified electronically.
[2016-11-02] MEDS ORDERED: VANCOMYCIN INJ 1,000 MG in SODIUM CHLOR 0.9% 250 ML INJ 250 ML IV SCH (19:15)
--- NOTE | 2016-11-02 21:53 | RADRPT ---
EXAM DATE/TIME: 11/02/2016 20:58 [facility] COMPARISON: No previous studies available for comparison. INDICATIONS : Thrombosis. MEDICAL HISTORY : Congestive heart failure. Hypertension. Diabetes. Kidney disease. Gastrointestinal disorders. SURGICAL HISTORY : Cholecystectomy. section. ENCOUNTER: Initial ACUITY: 1 day PAIN SCORE: 10/10 LOCATION: Right arm. FINDINGS: There is spontaneous flow documented in the brachial, basilic, cephalic, axillary, and subclavian vei ns. The vessels are compressible and augmentation response is documented. No filling defects are se en. The flow is phasic with respiration. Direction of flow in the jugular vein is caudal. CONCLUSION: Normal examination. Jonathan Girard MD on November 02, 2016 at 21:51 Board Certified Radiologist. This report was verified electronically.
[2016-11-02] MEDS: LACTIC ACID (AMMONIUM LACTATE) 12% LOTION 225 GM BTL TOPICAL SCH (22:44)
[2016-11-03] MEDS: MORPHINE SULFATE 4 MG/ML INJ IV PRN (00:17)
[2016-11-03 03:27] VITALS: BP 174/72; PULSE 60; RESP 19; TEMP 98.1; O2SAT 94
[2016-11-03] MEDS: hydrALAZINE HCL 50 MG TAB PO SCH ×3 (06:20→21:22)
[2016-11-03] MEDS: INSULIN ASPART SUPPLEMENTAL SCALE SQ SCH ×4 (06:21→21:00)
[2016-11-03 07:46] LABS: AUTOMATED NEUTROPHIL # 10.4 TH/MM3 (1.8-7.7); BASOPHIL % 0.2 % (0.0-2.0); EOSINOPHIL # 0.4 TH/MM3 (0-0.4); EOSINOPHIL % 2.8 % (0.0-4.0); HEMATOCRIT 30.9 % (35.0-46.0); HEMO FLAGS DIFF FINAL; LYMPH % 9.3 % (9.0-44.0); LYMPHOCYTE # 1.2 TH/MM3 (1.0-4.8); MEAN CELL VOLUME 89.2 FL (80.0-100.0); MEAN CORPUSCULAR HEMOGLOBIN 29.1 PG (27.0-34.0); MEAN CORPUSCULAR HGB CONC 32.6 % (32.0-36.0); MONO % 7.7 % (0.0-8.0); PLATELET COUNT 442 TH/MM3 (150-450); RED BLOOD COUNT 3.47 MIL/MM3 (4.00-5.30)
[2016-11-03 07:54] VITALS: BP 142/65; PULSE 70; RESP 18; O2SAT 95
[2016-11-03] MEDS: SEVELAMER CARBONATE 800 MG TAB PO SCH ×3 (08:00→17:59)
[2016-11-03 08:03] LABS: BICARBONATE 25.1 MEQ/L (21.0-32.0); POTASSIUM 3.8 MEQ/L (3.5-5.1)
[2016-11-03] MEDS: GENTAMICIN SULFATE (DIALYSIS USE ONLY) 20 MG/2 ML VIAL IV PRN (10:22)
[2016-11-03] MEDS: SODIUM CHLOR 0.9% 1000 ML INJ 1,000 ML IV PRN (10:22)
[2016-11-03] MEDS: HEPARIN SODIUM - IV 10,000 UNITS/10 ML VIAL PRN (10:22)
[2016-11-03] MEDS: EPOETIN ALFA 10,000 UNITS/ML VIAL IV PRN (10:22)
--- NOTE | 2016-11-03 10:28 | HHI.NPPN ---
Subjective Complaints: Abdominal Pain General Problems: Anemia Renal Failure: End Stage Renal Disease History of Present Illness 61 y/o female pt who follows with Dr. Jalloh for nephrology. Hx of ESRD, normally dialyzes T--Sat. She missed dialysis on Saturday due to vomiting, fatigue. She also endorses recent fall, but is a poor historian and cannot give clear details. Other PMH as outlined below including HTN, anemia, CHF, and CVA. Additional Remarks Patient seen during HD, alert, not in distress. Review of Systems General Constitutional: Fatigue Gastrointestinal Gastrointestinal: Abdominal Pain Objective Data Data 11/02/16 11/03/16 19:00 07:00 Intake Total 50 ml Balance 50 ml Intake Other 50 ml Vital Signs Date Time Temp Pulse Resp B/P Pulse Ox O2 Delivery O2 Flow Rate FiO2 11/03/16 07:54 70 18 142/65 95 11/03/16 03:27 98.1 60 19 174/72 94 11/02/16 23:56 98.2 69 20 149/65 94 11/02/16 21:27 92 Nasal Cannula 2.00 11/02/16 21:00 98.1 72 19 150/62 92 11/02/16 15:58 97.9 73 19 160/66 92 11/02/16 13:47 71 15 112/52 92 11/02/16 13:37 73 16 108/49 92 11/02/16 13:27 98.5 73 15 104/46 92 11/02/16 12:16 99.6 70 16 139/65 94 -: 11/03/16 0704 11/03/16 0704 Microbiology 11/02/16 Aerobic Blood Culture, Received Pending 11/02/16 Anaerobic Blood Culture, Received Pending 11/02/16 Aerobic Blood Culture, Received Pending 11/02/16 Anaerobic Blood Culture, Received Pending 11/03/16 Aerobic Blood Culture, Received Pending 11/03/16 Anaerobic Blood Culture, Received Pending Tubes & Lines: Perma-Cath Physical Exam General Appearance: No Acute Distress, Comfortable, Anxious Eyes Eye Exam: Pupils Equal Ears & Nose Ears & Nose Exam: Nasal Mucosa Clarence Throat Throat Exam: Oral Mucosa Clarence & Moist Neck Neck Exam: Neck Supple Pulmonary Resp Exam: Clear Bilaterally, Breath Sounds Equal, No Distress, Decreased Bases Cardiology CV Exam: Regular, Normal Sinus Rhythm Gastrointestinal/Abdomen GI Exam: Soft, Bowel Sounds Present Musculoskeletal MS Exam: Joints Intact, Normal Tone Integumentary Skin Exam: Warm, Dry Extremeties Extremities Exam: No Edema, Pedal Pulses Palpable Neurologic Neuro Exam: Moving All Extremities Assessment/Plan Discussed Condition With: Patient Assessment Summary: Anemia of CKD, End Stage Renal Disease Problem List: (1) ESRD (end stage renal disease) Plan: Normally dialyzes T--Sat, she had missed Tuesdays' treatment had dialysis yesterday (), no fluid removal, tolerated well maintain T-Th-Sat schedule, she is due tomorrow no current electrolyte or acid-base imbalance she has Permcath for dialysis, monitor function HD now, Has BC positive for MRSA, need to remove PermCath on Saturday. Continue antibiotics as per ID. (2) Leukocytosis Plan: improving, chest xray showing left sided infiltrate given vancomycin and cefepime on admission, now on Zithromax and Rocephin blood and urine cultures are in progress monitor clinically , currently afebrile (3) Hypertension Plan: BP stable continue medications as ordered (4) Diabetes Plan: monitor blood sugar not requiring insulin at this time (5) Metabolic bone disease Plan: Begin Renvela, monitor phosphorus periodically (6) Anemia Plan: epogen with HD follow hemoglobin (7) Nausea & vomiting Plan: with abdominal pain, GI following NPO for EGD this morning await results Problem Qualifiers (1) Diabetes: Shalini Vides MD Nov 03, 2016 10:28
--- NOTE | 2016-11-03 11:37 | HHI.PR ---
Subjective Remarks Follow-up for bacteremia. Patient seen during dialysis. She is awake and alert , now she is on dialysis, but is a bit confused. She reports feeling poorly. She continues to complain of pain all over. She is unsure if she's having fevers or chills recently. Objective Vitals Vital Signs Date Time Temp Pulse Resp B/P Pulse Ox O2 Delivery O2 Flow Rate FiO2 11/03/16 10:38 Nasal Cannula 2.00 11/03/16 07:54 70 18 142/65 95 11/03/16 03:27 98.1 60 19 174/72 94 11/02/16 23:56 98.2 69 20 149/65 94 11/02/16 21:27 92 Nasal Cannula 2.00 11/02/16 21:00 98.1 72 19 150/62 92 11/02/16 15:58 97.9 73 19 160/66 92 11/02/16 13:47 71 15 112/52 92 11/02/16 13:37 73 16 108/49 92 11/02/16 13:27 98.5 73 15 104/46 92 11/02/16 12:16 99.6 70 16 139/65 94 I/O 11/02/16 11/02/16 11/02/16 11/03/16 11/03/16 11/03/16 07:00 15:00 23:00 07:00 15:00 23:00 Intake Total 50 ml Balance 50 ml Intake Other 50 ml Result Diagram: 11/03/1604 11/03/16 0704 Imaging Last Impressions Upper Extremity Ultrasound 11/02/16 0000 Signed Impressions: Service Date/Time: Wednesday, November 02, 2016 20:58 - CONCLUSION: Normal examination. Jonathan Girard MD Hand X-Ray 11/02/16 0000 Signed Impressions: Service Date/Time: Wednesday, November 02, 2016 14:40 - CONCLUSION: 1. Soft-tissue swelling involving the right second, third and fourth digits. 2. No acute fracture or dislocation. Jose Sevilla MD Chest CT 11/02/16 0000 Signed Impressions: Service Date/Time: Wednesday, November 02, 2016 17:54 - CONCLUSION: 1. Bibasilar alveolar consolidations consistent with atelectasis and/or pneumonia. Clinical correlation is recommended. 2. Small to moderate sized bilateral pleural effusions (left slightly larger than right). 3. Cardiomegaly. 4. Scarring within the lingula of the left upper lobe. Jose Sevilla MD Head CT 11/01/16 0506 Signed Impressions: Service Date/Time: October 05:22 - CONCLUSION: No significant change has occurred. Christo Chen MD Chest X-Ray 11/01/16 0000 Signed Impressions: Service Date/Time: October 05:26 - CONCLUSION: 1. Apparent cardiomegaly with left effusion and apparent infiltrate. The findings are most consistent with congestive heart failure. Miko Scott MD Abdomen/Pelvis CT 11/01/16 0000 Signed Impressions: Service Date/Time: October 07:36 - CONCLUSION: 1. Interval development of retroperitoneal lymphadenopathy which is nonspecific. A new right paraaortic retrocrural enlarged lymph node is also noted measuring 1.6 cm in the upper abdomen. PET/CT scan may be helpful for further characterization of this finding. 2. Stable enlargement of the adrenal glands bilaterally suggesting adrenal hyperplasia. There is nodular enlargement of the left adrenal gland measuring 4.2 x 2.5 cm which could represent adrenal hyperplasia but underlying mass cannot be ruled out completely. 3. Small bilateral pleural effusions with bibasilar alveolar consolidations (left worse than right ) consistent with possible atelectasis and/or pneumonia. 4. Cardiomegaly and coronary artery calcifications. 5. Chronic mild compression deformities involving T12 and L1. 6. Degenerative changes throughout the lumbar spine. Jose Sevilla MD Objective Remarks GENERAL: Well-developed well-nourished. In mild to moderate distress secondary to pain. SKIN: Warm and dry. Erythema on the dorsum of the right hand overlying the index and middle finger PIP joints. Dialysis catheter in place on right chest wall. HEENT: Normocephalic. Pupils equal and round. Mucous membranes pink and moist. CARDIOVASCULAR: Regular rate and rhythm. No murmur appreciated. RESPIRATORY: No accessory muscle use. Clear to auscultation. Breath sounds equal bilaterally. GASTROINTESTINAL: Abdomen soft, nondistended. Diffusely tender to light and deep palpation. Bowel sounds x4. MUSCULOSKELETAL: No obvious deformities. No clubbing or cyanosis. No edema. NEUROLOGICAL: Awake and alert. No focal neurological deficits. Moves upper and lower extremities spontaneously. Normal speech. PSYCHIATRIC: Appropriate mood and affect; insight and judgment fair A/P Assessment and Plan 61-year-old female with past medical history of ESRD on HD, HTN, CVA who presented with falls/weakness and abdominal pain Weakness/falls: Multifactorial. Likely secondary to infection/UTI, missed dialysis, and dehydration from vomiting. Treat underlying etiology is as below. PT consulted, needs SNF, case management consult. Fall precautions. Bacteremia: / blood cultures positive for gram-positive cocci, staph aureus. Possibly from UTI. Tmax 99.6. Lactic acid within normal limits. Consulted infectious disease, continue on IV antibiotics. Currently on vancomycin, ceftriaxone, azithromycin, Ancef. Repeat blood cultures pending. May have to have dialysis catheter removed. Abdominal pain with nausea and vomiting: Abdomen/pelvis CT with multiple nonspecific findings, although none appear acute or the cause of the patient's discomfort. Consulted gastroenterology, performed EGD 11/02, showed esophagitis. Pain control with oral and intravenous narcotics as needed. Antiemetics as needed. Gentle IVF with renal disease. IV Protonix. UTI: UA with evidence of UTI. Positive leukocytosis. Did not meet sepsis criteria on admission. Started on empiric IV Rocephin. Urine culture growing staph aureus, added vancomycin, follow-up final sensitivity. Retroperitoneal lymphadenopathy and right para-aortic retrocrural enlarged lymph node: Seen incidentally on CT. Consulted oncology, likely reactive secondary to infection. Left pleural effusion and pneumonia: Chest CT shows bibasilar alveolar consolidations consistent with atelectasis and/or pneumonia as well as small moderate-sized bilateral pleural effusions. Patient with no respiratory complaints, however with episodes of hypoxia. Continue azithromycin and ceftriaxone to cover for possible pneumonia. Oxygen as needed. Right hand cellulitis: X-ray shows soft tissue swelling. IV antibiotics as above. Hand surgery was consulted by ID. ESRD on HD TTS: With associated metabolic acidosis, increased anion gap, increased BUN and creatinine; all likely secondary to missed HD. Patient's telephone lineworker consulted. S/P HD, repeat BMP with resolved metabolic acidosis and improved BUN/creatinine. Depression nephrology input. Secondary hyperparathyroidism/MBD: Phosphorus 9.0. Nephrology started patient on phosphate binders. Borderline diabetes mellitus: Previous hemoglobin A1c from 05/08 was 6.4. On no medications at home. Cover with sliding scale insulin and hypoglycemia protocol while admitted. Outpatient PCP follow-up. Hypertension: Controlled currently. Continue home Cardura, metoprolol, nifedipine, hydralazine. Clonidine as needed. History of multiple CVA and probable paroxysmal atrial fibrillation: Patient previously documented to have A. fib, however denies. EKG now and previously from July with sinus rhythm. Continue home aspirin and Eliquis. Dry skin lower extremities: Lac-Hydrin lotion. DVT prophylaxis: Eliquis, SCDs Written by Dwayne Zacarias, acting as scribe for Dr. Bush on 11/03/16 at 11:36. The documentation accurately reflects the work performed [id number] by me Dr. Bush on 11/03/16 at 11:36. Discharge Planning Disposition pending clinical course. Dwayne Zacarias Nov 03, 2016 11:37 Nazia Bush MD Nov 03, 2016 14:25
[2016-11-03] MEDS: ACETAMINOPHEN/HYDROcodone 325 MG/5 MG TAB PO PRN (12:14)
[2016-11-03] MEDS: PANTOPRAZOLE SODIUM 40 MG VIAL IV PUSH SCH (12:15)
[2016-11-03] MEDS: NIFEdipine 90 MG SUSTAINED RELEASE TAB PO SCH (12:15)
[2016-11-03] MEDS: DOXAZOSIN MESYLATE 2 MG TAB PO SCH (12:15)
[2016-11-03] MEDS: METOPROLOL TARTRATE 50 MG TAB PO SCH ×2 (12:15→21:00)
[2016-11-03] MEDS: ASPIRIN 325 MG TAB PO SCH (12:15)
[2016-11-03] MEDS: GABAPENTIN 100 MG CAP PO SCH (12:15)
[2016-11-03] MEDS: LACTIC ACID (AMMONIUM LACTATE) 12% LOTION 225 GM BTL TOPICAL SCH ×2 (12:16→21:22)
[2016-11-03 12:19] VITALS: BP 177/75; PULSE 77; RESP 17; O2SAT 93
[2016-11-03] MEDS: AZITHROMYCIN INJ 500 MG in SODIUM CHLOR 0.9% 250 ML INJ 250 ML IV SCH (14:10)
[2016-11-03] MEDS: SODIUM CHLORIDE 0.9% FLUSH 5 ML FLUSH FLUSH SCH ×2 (14:13→21:21)
--- NOTE | 2016-11-03 15:38 | HHI.GIFU ---
Subjective Remarks Resting in bed. Lethargic. No n/v at this time. HD earlier today. (Jenise Marcial) Objective Vitals I&O Vital Signs Date Time Temp Pulse Resp B/P Pulse Ox O2 Delivery O2 Flow Rate FiO2 11/03/16 13:14 20 11/03/16 12:19 77 17 177/75 93 11/03/16 10:38 Nasal Cannula 2.00 11/03/16 07:54 70 18 142/65 95 11/03/16 03:27 98.1 60 19 174/72 94 11/02/16 23:56 98.2 69 20 149/65 94 11/02/16 21:27 92 Nasal Cannula 2.00 11/02/16 21:00 98.1 72 19 150/62 92 11/02/16 15:58 97.9 73 19 160/66 92 I/O 11/02/16 11/02/16 11/02/16 11/03/16 11/03/16 11/03/16 07:00 15:00 23:00 07:00 15:00 23:00 Intake Total 50 ml Output Total 1500 ml Balance 50 ml -1500 ml Intake Other 50 ml Output Hemodialysis 1500 ml Laboratory Laboratory Tests Test 11/03/16 07:04 White Blood Count 13.0 Red Blood Count 3.47 Hemoglobin 10.1 Hematocrit 30.9 Mean Corpuscular Volume 89.2 Mean Corpuscular Hemoglobin 29.1 Mean Corpuscular Hemoglobin 32.6 Concent Red Cell Distribution Width 16.0 Platelet Count 442 Mean Platelet Volume 7.7 Neutrophils (%) (Auto) 80.0 Lymphocytes (%) (Auto) 9.3 Monocytes (%) (Auto) 7.7 Eosinophils (%) (Auto) 2.8 Basophils (%) (Auto) 0.2 Neutrophils # (Auto) 10.4 Lymphocytes # (Auto) 1.2 Monocytes # (Auto) 1.0 Eosinophils # (Auto) 0.4 Basophils # (Auto) 0.0 CBC Comment DIFF FINAL Differential Comment Sodium Level 141 Potassium Level 3.8 Chloride Level 103 Carbon Dioxide Level 25.1 Anion Gap 13 Blood Urea Nitrogen 63 Creatinine 6.76 Estimat Glomerular Filtration 6 Rate Random Glucose 98 Calcium Level 8.4 Phosphorus Level 7.8 Albumin 1.5 Vancomycin Level Trough 14.1 HIV (1&2) Antibody NEGATIVE Date/Time Procedure Status Source Growth 11/03/16 01:00 Aerobic Blood Culture Received Blood Line Pending 11/03/16 01:00 Anaerobic Blood Culture Received Blood Line Pending 11/02/16 14:07 Aerobic Blood Culture - Preliminary Resulted Blood Peripheral NO GROWTH IN 1 DAY 11/02/16 14:07 Anaerobic Blood Culture - Preliminary Resulted Blood Peripheral NO GROWTH IN 1 DAY 11/01/16 06:00 Urine Culture - Final Complete Urine Catheterized Urine Staphylococcus Aureus Imaging Last Impressions Upper Extremity Ultrasound 11/02/16 Signed Impressions: Service Date/Time: Wednesday, November 02, 2016 20:58 - CONCLUSION: Normal examination. Jonathan Girard MD Hand X-Ray 11/02/16 Signed Impressions: Service Date/Time: Wednesday, November 02, 2016 14:40 - CONCLUSION: 1. Soft-tissue swelling involving the right second, third and fourth digits. 2. No acute fracture or dislocation. Jose Sevilla MD Chest CT 11/02/16 Signed Impressions: Service Date/Time: Wednesday, November 02, 2016 17:54 - CONCLUSION: 1. Bibasilar alveolar consolidations consistent with atelectasis and/or pneumonia. Clinical correlation is recommended. 2. Small to moderate sized bilateral pleural effusions (left slightly larger than right). 3. Cardiomegaly. 4. Scarring within the lingula of the left upper lobe. Jsoe Sevilla MD Head CT 11/01/16 0506 Signed Impressions: Service Date/Time: October 05:22 - CONCLUSION: No significant change has occurred. Christo Chen MD Chest X-Ray 11/01/16 Signed Impressions: Service Date/Time: October 05:26 - CONCLUSION: 1. Apparent cardiomegaly with left effusion and apparent infiltrate. The findings are most consistent with congestive heart failure. Miko Scott MD Abdomen/Pelvis CT 11/01/16 Signed Impressions: Service Date/Time: October 07:36 - CONCLUSION: 1. Interval development of retroperitoneal lymphadenopathy which is nonspecific. A new right paraaortic retrocrural enlarged lymph node is also noted measuring 1.6 cm in the upper abdomen. PET/CT scan may be helpful for further characterization of this finding. 2. Stable enlargement of the adrenal glands bilaterally suggesting adrenal hyperplasia. There is nodular enlargement of the left adrenal gland measuring 4.2 x 2.5 cm which could represent adrenal hyperplasia but underlying mass cannot be ruled out completely. 3. Small bilateral pleural effusions with bibasilar alveolar consolidations (left worse than right ) consistent with possible atelectasis and/or pneumonia. 4. Cardiomegaly and coronary artery calcifications. 5. Chronic mild compression deformities involving T12 and L1. 6. Degenerative changes throughout the lumbar spine. Jose Sevilla MD Physical Exam HEENT: Normocephalic; atraumatic; no jaundice. Throat is clear. NECK: Neck is supple, no JVD, no lymphadenopathy. CHEST: CTA CARDIAC: RRR ABDOMEN: Soft, nondistended, nontender, no hepatosplenomegaly; bowel sounds are present in all four quadrants. EXTREMITIES: No clubbing, cyanosis, or edema. SKIN: Normal; no rash; no jaundice. REGISTERED RADIOLOGIC TECHNOLOGIST: Lethargic (Jenise Marcial [employer]) Assessment and Plan Plan ASSESSMENT: - Nausea, vomiting, abdominal pain. CT scan abdomen and pelvis (11/01/16) revealed interval development of retroperitoneal lymphadenopathy which is nonspecific. A new right para-aortic retrocrural enlarged lymph node is also noted measuring 1.6 cm in the upper abdomen. PET/CT scan may be helpful for further characterization station of this finding. Stable enlargement of the adrenal glands bilaterally suggesting adrenal hyperplasia. There is nodular enlargement of the left adrenal gland measuring 4.2 x 2.5 cm which could represent adrenal hyperplasia but underlying mass cannot be ruled out completely. Small bilateral pleural effusions with by basilar alveolar consolidations (left worse than right) consistent with possible atelectasis and/or pneumonia. Cardiomegaly and coronary artery calcifications. Chronic mild compression deformities involving T12 and L1. Degenerative changes throughout the lumbar spine. LFTs normal other than alkaline phosphatase at 401. S/P EGD (11/02/16)---> Esophagitis, gastritis, pathology pending. PPI, Zofran when necessary. - Abnormal imaging with retroperitoneal lymphadenopathy. Also noted to have nodular enlargement of the left adrenal gland measuring 4.2 x 2.5 cm. Oncology has been consulted for further evaluation- recommends outpatient follow up for serial imaging. - ESRD, HD //Saturdays per nephrology - Leukocytosis/Bacteremia. BCx with Staphylococcus Aureus on 11/01, no growth one day in 11/02 bottles. Leukocytosis improving. 13.0 - Anemia, normocytic. 10.1/30.9, likely of chronic disease. - HTN per primary PLAN: - Renal diet - Await pathology - PPI - Zofran when necessary - Monitor labs - Outpatient followup with oncology - GI will sign off, please reconsult as needed - FU LUCIANO in 2 weeks - Patient seen and examined by Dr. Mccall myself and this note is written on his behalf (Jenise Marcial) Physician Comments Seen and examined with STACI, doing well in terms of N/V, s/p egd, biopsies-p. Will sign off, reconsult as needed. Gi fu upon dc. Thank you (Binu Mccall MD ) Jenise Marcial Nov 03, 2016 15:38 Binu Mccall MD Nov 03, 2016 16:21
[2016-11-03 15:42] VITALS: BP 94/50; PULSE 60; RESP 17; TEMP 97.7; O2SAT 94
[2016-11-03] MEDS: cefTRIAXone INJ 1,000 MG in SODIUM CHLORIDE 0.9% INJ 100 ML IV SCH (17:58)
[2016-11-03 20:45] VITALS: BP 102/52; PULSE 72; RESP 20; TEMP 98.2; O2SAT 95
[2016-11-03] MEDS: APIXABAN 5 MG TABLET PO SCH (21:22)
[2016-11-04] VITALS (8 sets, daily range): BP systolic 92–145; BP diastolic 50–64; PULSE 61–79; RESP 17–19; TEMP 96.8–98; O2SAT 91–96
[2016-11-04] MEDS ORDERED: SODIUM CHLOR 0.9% 250 ML INJ 250 ML IV ONE (03:00)
--- NOTE | 2016-11-04 05:11 | MB ---
cc: CORBY MIX M.D., TANUJA MD DATE OF CONSULTATION: 11/03/2016 REQUESTING PHYSICIAN: Dr. Ramirez Anthony REASON FOR CONSULTATION: PIP joint cellulitis, possible abscess. Evaluate and manage possible tenosynovitis or osteo. HISTORY OF PRESENT ILLNESS The patient is a 61-year-old female who was admitted on 11/01/2016. The patient has a past medical history of end-stage renal disease on hemodialysis. She has history of hypertension and CVA, presented with weakness and a fall. Apparently the patient is not a credible historian. The patient did come to the hospital because of a fall and she has had multiple falls recently. The patient states that she has pain everywhere and denies acute injury. The patient did miss her last hemodialysis session on Saturday. REVIEW OF SYSTEMS: Unobtainable. PAST MEDICAL HISTORY: As above. PAST SURGICAL HISTORY: 1. Eye surgery. 2. Cholecystectomy. 3. Dialysis catheter placed in the right chest. 4. Achilles surgery. MEDICATIONS: Listed on the chart. ALLERGIES: CAT DANDER PHYSICAL EXAMINATION: VITAL SIGNS: Temperature is 97.7, pulse 60, respirations 17, blood pressure 94/50 with a mean of 65, pulse oximetry is 94 on nasal cannula of 2 liters per minute. On examination the patient is sitting comfortably in bed. Her skin is warm and dry. HEENT: Pupils are equal and round. Heart: Regular rate and rhythm, breath sounds are clear bilaterally. Extremities: The right upper extremity reveals some bruising around the index, MP joint. There is no evidence of any swelling or redness to any of the other fingers. There is tenderness on motion at the MP joint of her right index finger. There is no evidence of any proximal swelling. No evidence of a type of vascular obstruction or vascular occlusion. LABORATORY DATA: Patient's white count was 17.2 on admission and it is 13.0 today, there is a definite shift. Chemistry: C-reactive protein is elevated at 28.00. IMAGING STUDIES: The patient had an ultrasound of her upper extremity which was negative. She had a hand x-ray which did indicate soft tissue swelling around the third and fourth digits of the right hand. No fracture dislocation. IMPRESSION The patient has swelling of the MP joint of the index finger of the right hand. This could be secondary to trauma since the patient has had several falls. In addition, it could be due to an inflammatory arthropathy. There is no evidence of an abscess today. There may have been a hematogenous seeding of her joint but that does not appear to be her problem today. If the swelling does not continue to improve, then an MRI or CT scan of the index finger MP joint might be indicated to further elucidate the etiology of the swelling. There is no evidence of tenosynovitis or osteomyelitis. MD OLINDA Torres/BOY /9:06 PM /4:59 AM
[2016-11-04] MEDS: hydrALAZINE HCL 50 MG TAB PO SCH ×3 (06:00→22:09)
[2016-11-04] MEDS: INSULIN ASPART SUPPLEMENTAL SCALE SQ SCH ×4 (06:28→21:00)
[2016-11-04] MEDS: SEVELAMER CARBONATE 800 MG TAB PO SCH ×3 (08:00→17:00)
[2016-11-04] MEDS: NIFEdipine 90 MG SUSTAINED RELEASE TAB PO SCH (09:00)
[2016-11-04] MEDS: METOPROLOL TARTRATE 50 MG TAB PO SCH ×2 (09:00→22:08)
[2016-11-04] MEDS: DOXAZOSIN MESYLATE 2 MG TAB PO SCH (09:00)
[2016-11-04] MEDS: SODIUM CHLORIDE 0.9% FLUSH 5 ML FLUSH FLUSH SCH ×2 (09:00→22:08)
--- NOTE | 2016-11-04 09:56 | HHI.PR ---
Subjective Remarks Follow up for bacteremia, UTI. The patient reports diffuse pain, in back, arms, legs, and abdomen. Says "don't leave me, I need help." States she needs help with her pain. Pain medication was held this morning due to hypotension. Denies any fevers/chills. Denies any other medical complaints. Objective Vitals Vital Signs Date Time Temp Pulse Resp B/P Pulse Ox O2 Delivery O2 Flow Rate FiO2 11/04/16 09:37 95 Nasal Cannula 2.00 11/04/16 08:51 97.8 66 18 121/59 95 11/04/16 05:59 97.9 61 18 104/52 93 11/04/16 00:09 98.0 71 19 92/50 95 11/03/16 20:45 98.2 72 20 102/52 95 11/03/16 15:42 97.7 60 17 94/50 94 11/03/16 13:14 20 11/03/16 12:19 77 17 177/75 93 11/03/16 10:38 Nasal Cannula 2.00 I/O 11/03/16 11/03/16 11/03/16 11/04/16 11/04/16 11/04/16 07:00 15:00 23:00 07:00 15:00 23:00 Intake Total 1100 ml Output Total 1500 ml Balance -1500 ml 1100 ml Intake Oral 500 ml IV Total 600 ml Output Hemodialysis 1500 ml # Voids 1 # Bowel Movements 0 Result Diagram: 11/03/16 0704 11/03/16 0704 Imaging Last Impressions Upper Extremity Ultrasound 11/02/16 0000 Signed Impressions: Service Date/Time: Wednesday, November 02, 2016 20:58 - CONCLUSION: Normal examination. Jonathan Girard MD Hand X-Ray 11/02/16 0000 Signed Impressions: Service Date/Time: Wednesday, November 02, 2016 14:40 - CONCLUSION: 1. Soft-tissue swelling involving the right second, third and fourth digits. 2. No acute fracture or dislocation. Jose Sevilla MD Chest CT 11/02/16 0000 Signed Impressions: Service Date/Time: Wednesday, November 02, 2016 17:54 - CONCLUSION: 1. Bibasilar alveolar consolidations consistent with atelectasis and/or pneumonia. Clinical correlation is recommended. 2. Small to moderate sized bilateral pleural effusions (left slightly larger than right). 3. Cardiomegaly. 4. Scarring within the lingula of the left upper lobe. Jose Sevilla MD Head CT 11/01/16 0506 Signed Impressions: Service Date/Time: October 05:22 - CONCLUSION: No significant change has occurred. Christo Chen MD Chest X-Ray 11/01/16 0000 Signed Impressions: Service Date/Time: October 05:26 - CONCLUSION: 1. Apparent cardiomegaly with left effusion and apparent infiltrate. The findings are most consistent with congestive heart failure. Miko Scott MD Abdomen/Pelvis CT 11/01/16 0000 Signed Impressions: Service Date/Time: October 07:36 - CONCLUSION: 1. Interval development of retroperitoneal lymphadenopathy which is nonspecific. A new right paraaortic retrocrural enlarged lymph node is also noted measuring 1.6 cm in the upper abdomen. PET/CT scan may be helpful for further characterization of this finding. 2. Stable enlargement of the adrenal glands bilaterally suggesting adrenal hyperplasia. There is nodular enlargement of the left adrenal gland measuring 4.2 x 2.5 cm which could represent adrenal hyperplasia but underlying mass cannot be ruled out completely. 3. Small bilateral pleural effusions with bibasilar alveolar consolidations (left worse than right ) consistent with possible atelectasis and/or pneumonia. 4. Cardiomegaly and coronary artery calcifications. 5. Chronic mild compression deformities involving T12 and L1. 6. Degenerative changes throughout the lumbar spine. Jose Sevilla MD Objective Remarks GENERAL: Well-developed well-nourished female patient in mild distress secondary to pain. Slightly confused but oriented to person/place. SKIN: Warm and dry. Erythema and mild edema on the dorsum of the right hand overlying the index and middle finger PIP joints. Dialysis catheter in place on right chest wall. HEENT: Normocephalic. Pupils equal and round. Mucous membranes pink and moist. CARDIOVASCULAR: Regular rate and rhythm. No murmur appreciated. RESPIRATORY: No accessory muscle use. Clear to auscultation. Breath sounds equal bilaterally. GASTROINTESTINAL: Abdomen soft, nondistended. Diffusely tender to light and deep palpation. Normoactive Bowel sounds x4. MUSCULOSKELETAL: No obvious deformities. No clubbing or cyanosis. No edema. NEUROLOGICAL: Awake and alert. No focal neurological deficits. Moves upper and lower extremities spontaneously. Normal speech. PSYCHIATRIC: Appropriate mood and affect; insight and judgment fair Medications and IVs Current Medications Medications (Trade) Dose Ordered Sig/Becca Route Start Time Stop Time Status Last Admin (NS Flush) 2 ml UNSCH PRN FLUSH 11/01/16 07:45 (NS Flush) 2 ml BID FLUSH 11/01/16 09:00 11/04/16 09:00 (Tylenol) 650 mg Q4H PRN PO 11/01/16 07:45 (Zofran Inj) 4 mg Q6H PRN IVP 11/01/16 07:45 11/02/16 15:27 Magnesium Hydroxide 30 ml 30 ml Q12H PRN PO 11/01/16 07:45 Ceftriaxone Sodium 1000 mg/ Sodium Chloride 100 ml @ 200 mls/hr Q24H IV 11/01/16 18:00 11/03/16 17:58 (NS 1000 ml Inj) 1,000 ml @ 0 mls/hr Q0M PRN IV 11/01/16 09:01 11/03/16 10:22 Heparin Sodium (Porcine) 8000 units 8,000 units UNSCH PRN IVF 11/01/16 09:15 Sodium Chloride 1,000 ml @ 200 mls/hr Q5H PRN IV 11/01/16 09:01 (NS 1000 ml Inj) 1,000 ml @ 0 mls/hr Q0M PRN IV 11/01/16 09:01 (Mannitol Inj) 12.5 gm UNSCH PRN IV 11/01/16 09:15 (Albumin 25% Inj) 25 gm UNSCH PRN IV 11/01/16 09:15 (NS Flush) 5 ml UNSCH PRN IVF 11/01/16 09:15 (Heparin Inj) UNSCH PRN .XX 11/01/16 09:15 11/03/16 10:22 (Gentamicin (Dialysis) Inj) 20 mg UNSCH PRN IV 11/01/16 09:15 11/03/16 10:22 (Zofran Inj) 4 mg UNSCH PRN IV 11/01/16 09:15 (Tylenol) 650 mg UNSCH PRN PO 11/01/16 09:15 (Benadryl) 25 mg UNSCH PRN PO 11/01/16 09:15 (Nitrostat Sl) 0.4 mg UNSCH PRN SL 11/01/16 09:15 (Catapres) 0.1 mg UNSCH PRN PO 11/01/16 09:15 (Epogen Inj) 5,000 units UNSCH PRN IV 11/01/16 09:15 11/03/16 10:22 (Gelfoam 12 Mm/7 Mm Top) 1 foam UNSCH PRN TOP 11/01/16 09:15 (Aspirin) 325 mg DAILY PO 11/02/16 09:00 11/04/16 10:17 (Cardura) 2 mg DAILY PO 11/02/16 09:00 11/03/16 12:15 (Neurontin) 100 mg DAILY PO 11/02/16 09:00 11/04/16 10:15 (Apresoline) 50 mg Q8HR PO 11/01/16 14:00 11/03/16 06:20 (Lopressor) 50 mg BID PO 11/01/16 21:00 11/03/16 12:15 (Procardia Xl) 90 mg DAILY PO 11/02/16 09:00 11/03/16 12:15 (Restoril) 15 mg HS PRN PO 11/01/16 13:00 (Tylenol) 650 mg Q6H PRN PO 11/01/16 13:00 ([place] 5-325 Mg) 1 tab Q4H PRN PO 11/01/16 13:00 11/04/16 10:13 ([place] 7.5-325 Mg) 1 tab Q4H PRN PO 11/01/16 13:00 11/02/16 15:29 (Morphine Inj) 4 mg Q3H PRN IV 11/01/16 13:00 11/03/16 00:17 (Narcan Inj) 0.4 mg UNSCH PRN IV 11/01/16 13:00 (D50w (Vial) Inj) 25 ml UNSCH PRN IV PUSH 11/01/16 13:30 (Glucagon Inj) 1 mg UNSCH PRN OTHER 11/01/16 13:30 (Protonix Inj) 40 mg DAILY IV PUSH 11/01/16 13:45 11/04/16 10:17 Sevelamer Carbonate 1600 mg 1,600 mg TIDAC PO 11/02/16 12:00 11/04/16 12:02 (Zithromax Inj/ NS 250 ml Inj) 250 ml @ 250 mls/hr Q24H IV 11/02/16 10:00 11/04/16 10:18 Lactic Acid 1 applic 1 applic BID TOPICAL 11/02/16 21:00 11/04/16 10:15 (Ancef Inj/NS Inj) 100 ml @ 200 mls/hr Q24H IV 11/02/16 20:00 11/03/16 21:21 (Eliquis) 5 mg BID PO 11/03/16 21:00 11/04/16 10:16 A/P Assessment and Plan 61-year-old female with past medical history of ESRD on HD, HTN, CVA who presented with falls/weakness and abdominal pain Weakness/falls: Multifactorial. Likely secondary to infection/UTI, missed dialysis, and dehydration from vomiting. Treat underlying etiology is as below. PT consulted, needs SNF, case management consult. Fall precautions. Bacteremia: /4 blood cultures positive for staph aureus. Possibly from UTI. Tmax 99.6. Lactic acid wnl. Consulted infectious disease, continue on IV antibiotics. Currently on vancomycin, ceftriaxone, azithromycin, Ancef. Repeat blood cultures again with gram positive cocci. Discussed with Dr. Anthony , permacath needs to be removed, and plan to repeat cultures after permacath removed. Abdominal pain with nausea and vomiting: Abdomen/pelvis CT with multiple nonspecific findings, although none appear acute or the cause of the patient's discomfort. Consulted gastroenterology, performed EGD 11/02, showed esophagitis. Pain control with oral and IV narcotics as needed. Antiemetics as needed. Gentle IVF with renal disease. IV Protonix. UTI: UA with evidence of UTI. +leukocytosis. Did not meet sepsis criteria on admission. Started on empiric IV Rocephin. Urine culture growing staph aureus , added vancomycin. ID following. Retroperitoneal lymphadenopathy and right para-aortic retrocrural enlarged lymph node: Seen incidentally on CT. Consulted oncology, likely reactive secondary to infection. Left pleural effusion and pneumonia: Chest CT shows bibasilar alveolar consolidations consistent with atelectasis and/or pneumonia as well as small moderate-sized bilateral pleural effusions. Patient with no respiratory complaints, however with episodes of hypoxia. Continue azithromycin and ceftriaxone to cover for possible pneumonia. Oxygen as needed. Right hand cellulitis: X-ray shows soft tissue swelling. IV antibiotics as above. Hand surgery was consulted by ID. ESRD on HD TTS: With associated metabolic acidosis, increased anion gap, increased BUN and creatinine; all likely secondary to missed HD. Patient's vegetable canner consulted. S/P HD, repeat BMP with resolved metabolic acidosis and improved BUN/creatinine. Appreciate nephrology input. Secondary hyperparathyroidism/MBD: Phosphorus 9.0. Nephrology started patient on phosphate binders. Borderline diabetes mellitus: Previous hemoglobin A1c from 05/08 was 6.4. On no medications at home. Cover with sliding scale insulin and hypoglycemia protocol while admitted. Outpatient PCP follow-up. Hypertension: Controlled currently. Continue home Cardura, metoprolol, nifedipine, hydralazine. Clonidine as needed. History of multiple CVA and probable paroxysmal atrial fibrillation: Patient previously documented to have A. fib, however denies. EKG now and from July with sinus rhythm. Continue home aspirin and Eliquis. Dry skin lower extremities: Lac-Hydrin lotion. DVT prophylaxis: Eliquis, SCDs Written by Madeleine Huang, acting as scribe for Dr. Bush on 11/04/16 at 09:56. The documentation accurately reflects the work performed [id number] by me Dr. Bush on 11/04/16 at 09:56. Madeleine Huang PA-C Nov 04, 2016 09:56 Nazia Bush MD Nov 04, 2016 18:08
[2016-11-04] MEDS: ACETAMINOPHEN/HYDROcodone 325 MG/5 MG TAB PO PRN ×2 (10:13→22:15)
[2016-11-04] MEDS: LACTIC ACID (AMMONIUM LACTATE) 12% LOTION 225 GM BTL TOPICAL SCH ×2 (10:15→22:09)
[2016-11-04] MEDS: GABAPENTIN 100 MG CAP PO SCH (10:15)
[2016-11-04] MEDS: APIXABAN 5 MG TABLET PO SCH ×2 (10:16→22:09)
[2016-11-04] MEDS: PANTOPRAZOLE SODIUM 40 MG VIAL IV PUSH SCH (10:17)
[2016-11-04] MEDS: ASPIRIN 325 MG TAB PO SCH (10:17)
[2016-11-04] MEDS: AZITHROMYCIN INJ 500 MG in SODIUM CHLOR 0.9% 250 ML INJ 250 ML IV SCH (10:18)
[2016-11-04] MEDS: cefTRIAXone INJ 1,000 MG in SODIUM CHLORIDE 0.9% INJ 100 ML IV SCH (17:57)
--- NOTE | 2016-11-04 19:02 | HHI.NPPN ---
Subjective Complaints: Abdominal Pain General Problems: Anemia Renal Failure: End Stage Renal Disease History of Present Illness 61 y/o female pt who follows with Dr. Jalloh for nephrology. Hx of ESRD, normally dialyzes T-. She missed dialysis on Saturday due to vomiting, fatigue. She also endorses recent fall, but is a poor historian and cannot give clear details. Other PMH as outlined below including HTN, anemia, CHF, and CVA. Additional Remarks Patient is alert, cmplaining of generalized body pain, on room air, not in distress. Review of Systems General Constitutional: Fatigue Gastrointestinal Gastrointestinal: Abdominal Pain Objective Data Data 11/03/16 11/04/16 19:00 07:00 Intake Total 1100 ml Output Total 1500 ml Balance -1500 ml 1100 ml Intake Oral 500 ml IV Total 600 ml Output Hemodialysis 1500 ml # Voids 1 # Bowel Movements 0 Vital Signs Date Time Temp Pulse Resp B/P Pulse Ox O2 Delivery O2 Flow Rate FiO2 11/04/16 16:43 97.7 68 17 125/64 95 11/04/16 13:09 71 17 120/58 96 11/04/16 11:13 20 11/04/16 09:37 95 Nasal Cannula 2.00 11/04/16 08:51 97.8 66 18 121/59 95 11/04/16 05:59 97.9 61 18 104/52 93 11/04/16 00:09 98.0 71 19 92/50 95 11/03/16 20:45 98.2 72 20 102/52 95 -: 11/03/16 0704 11/03/16 0704 Tubes & Lines: Perma-Cath Physical Exam General Appearance: No Acute Distress, Comfortable, Anxious Eyes Eye Exam: Pupils Equal Ears & Nose Ears & Nose Exam: Nasal Mucosa Wynne Throat Throat Exam: Oral Mucosa [place] & Moist Neck Neck Exam: Neck Supple Pulmonary Resp Exam: Clear Bilaterally, Breath Sounds Equal, No Distress, Decreased Bases Cardiology CV Exam: Regular, Normal Sinus Rhythm Gastrointestinal/Abdomen GI Exam: Soft, Bowel Sounds Present Musculoskeletal MS Exam: Joints Intact, Normal Tone Integumentary Skin Exam: Warm, Dry Extremeties Extremities Exam: No Edema, Pedal Pulses Palpable Neurologic Neuro Exam: Moving All Extremities Assessment/Plan Discussed Condition With: Patient Assessment Summary: Anemia of CKD, End Stage Renal Disease Problem List: (1) ESRD (end stage renal disease) Plan: Normally dialyzes T--Sat, she had missed Tuesdays' treatment had dialysis yesterday (), no fluid removal, tolerated well maintain T--Sat schedule, she is due tomorrow no current electrolyte or acid-base imbalance she has Permcath for dialysis, monitor function HD done yesterday, tolerated well. Has BC positive for MRSA, need to remove PermCath, IR consulted. Continue antibiotics as per ID. Dr. Aden will follow in AM. (2) Leukocytosis Plan: improving, chest xray showing left sided infiltrate given vancomycin and cefepime on admission, now on Zithromax and Rocephin blood and urine cultures are in progress monitor clinically , currently afebrile (3) Hypertension Plan: BP stable continue medications as ordered (4) Diabetes Plan: monitor blood sugar not requiring insulin at this time (5) Metabolic bone disease Plan: Begin Renvela, monitor phosphorus periodically (6) Anemia Plan: epogen with HD follow hemoglobin (7) Nausea & vomiting Plan: with abdominal pain, GI following NPO for EGD this morning await results Problem Qualifiers (1) Diabetes: Shalini Vides MD Nov 04, 2016 19:02
--- NOTE | 2016-11-04 22:40 | HHI.IDPN ---
Subjective Subjective Remarks delayed entry - pt was seeen around 1800 today chart reviewed 61 yo F with ESRD/HD/ Permacath with persistent high grade sustained MSSA bactermeia also c/p R hand pain swelling redness around index MP joint of R hand - eval'd by Dr Pope - no signs of abscess, rec'd observation pt co abdominal pain, RN reported large amount of liquid stools Antibiotics azithro CFTX cefazolina vancomycin Allergies: Coded Allergies: Cat Dander (Unverified Allergy, Severe, 11/01/16) RESPIRATORY ISSUES Objective . Vital Signs Date Time Temp Pulse Resp B/P Pulse Ox O2 Delivery O2 Flow Rate FiO2 11/04/16 20:48 93 Nasal Cannula 2.00 11/04/16 20:34 96.8 79 18 145/62 91 11/04/16 16:43 97.7 68 17 125/64 95 11/04/16 13:09 71 17 120/58 96 11/04/16 11:13 20 11/04/16 09:37 95 Nasal Cannula 2.00 11/04/16 08:51 97.8 66 18 121/59 95 11/04/16 05:59 97.9 61 18 104/52 93 11/04/16 00:09 98.0 71 19 92/50 95 11/03/16 11/03/16 11/04/16 15:00 23:00 07:00 Intake Total 1100 ml Output Total 1500 ml Balance -1500 ml 1100 ml Intake Oral 500 ml IV Total 600 ml Hemodialysis 1500 ml # Voids 1 # Bowel Movements 0 . Laboratory Tests Test 11/03/16 07:04 White Blood Count 13.0 TH/MM3 Red Blood Count 3.47 MIL/MM3 Hemoglobin 10.1 GM/DL Hematocrit 30.9 % Mean Corpuscular Volume 89.2 FL Mean Corpuscular Hemoglobin 29.1 PG Mean Corpuscular Hemoglobin 32.6 % Concent Red Cell Distribution Width 16.0 % Platelet Count 442 TH/MM3 Mean Platelet Volume 7.7 FL Neutrophils (%) (Auto) 80.0 % Lymphocytes (%) (Auto) 9.3 % Monocytes (%) (Auto) 7.7 % Eosinophils (%) (Auto) 2.8 % Basophils (%) (Auto) 0.2 % Neutrophils # (Auto) 10.4 TH/MM3 Lymphocytes # (Auto) 1.2 TH/MM3 Monocytes # (Auto) 1.0 TH/MM3 Eosinophils # (Auto) 0.4 TH/MM3 Basophils # (Auto) 0.0 TH/MM3 CBC Comment DIFF FINAL Differential Comment Laboratory Tests Test 11/03/16 07:04 Sodium Level 141 MEQ/L Potassium Level 3.8 MEQ/L Chloride Level 103 MEQ/L Carbon Dioxide Level 25.1 MEQ/L Anion Gap 13 MEQ/L Blood Urea Nitrogen 63 MG/DL Creatinine 6.76 MG/DL Estimat Glomerular Filtration 6 ML/MIN Rate Random Glucose 98 MG/DL Calcium Level 8.4 MG/DL Phosphorus Level 7.8 MG/DL Albumin 1.5 GM/DL Microbiology Date/Time Procedure Status Source Growth 11/02/16 14:00 Aerobic Blood Culture - Final Resulted Blood Peripheral Staphylococcus Aureus 11/02/16 14:00 Anaerobic Blood Culture - Preliminary Resulted Blood Peripheral NO GROWTH IN 2 DAYS 11/02/16 14:07 Aerobic Blood Culture - Preliminary Resulted Blood Peripheral Gram Positive Cocci 11/02/16 14:07 Anaerobic Blood Culture - Preliminary Resulted Blood Peripheral NO GROWTH IN 2 DAYS 11/03/16 01:00 Aerobic Blood Culture - Preliminary Resulted Blood Line Gram Positive Cocci 11/03/16 01:00 Anaerobic Blood Culture - Preliminary Resulted Blood Line NO GROWTH IN 1 DAY Imaging Last Impressions Upper Extremity Ultrasound 11/02/16 0000 Signed Impressions: Service Date/Time: Wednesday, November 02, 2016 20:58 - CONCLUSION: Normal examination. Jonathan Girard MD Hand X-Ray 11/02/16 0000 Signed Impressions: Service Date/Time: Wednesday, November 02, 2016 14:40 - CONCLUSION: 1. Soft-tissue swelling involving the right second, third and fourth digits. 2. No acute fracture or dislocation. Jose Sevilla MD Chest CT 11/02/16 0000 Signed Impressions: Service Date/Time: Wednesday, November 02, 2016 17:54 - CONCLUSION: 1. Bibasilar alveolar consolidations consistent with atelectasis and/or pneumonia. Clinical correlation is recommended. 2. Small to moderate sized bilateral pleural effusions (left slightly larger than right). 3. Cardiomegaly. 4. Scarring within the lingula of the left upper lobe. Jose Sevilla MD Head CT 11/01/16 0506 Signed Impressions: Service Date/Time: October 05:22 - CONCLUSION: No significant change has occurred. Christo Chen MD Chest X-Ray 11/01/16 0000 Signed Impressions: Service Date/Time: October 05:26 - CONCLUSION: 1. Apparent cardiomegaly with left effusion and apparent infiltrate. The findings are most consistent with congestive heart failure. Miko Scott MD Abdomen/Pelvis CT 11/01/16 0000 Signed Impressions: Service Date/Time: October 07:36 - CONCLUSION: 1. Interval development of retroperitoneal lymphadenopathy which is nonspecific. A new right paraaortic retrocrural enlarged lymph node is also noted measuring 1.6 cm in the upper abdomen. PET/CT scan may be helpful for further characterization of this finding. 2. Stable enlargement of the adrenal glands bilaterally suggesting adrenal hyperplasia. There is nodular enlargement of the left adrenal gland measuring 4.2 x 2.5 cm which could represent adrenal hyperplasia but underlying mass cannot be ruled out completely. 3. Small bilateral pleural effusions with bibasilar alveolar consolidations (left worse than right ) consistent with possible atelectasis and/or pneumonia. 4. Cardiomegaly and coronary artery calcifications. 5. Chronic mild compression deformities involving T12 and L1. 6. Degenerative changes throughout the lumbar spine. Jose Sevilla MD Physical Exam GENERAL: Elderly frail appearing white female. Appears lethargic and disoriented. In no Cardiopulm distress. SKIN: No rashes. HEAD: Atraumatic. Normocephalic. No temporal or scalp tenderness. EYES: Pupils equal round and reactive. Extraocular motions intact. No scleral icterus. No injection or drainage. ENT: oral mucosae moist NECK: Trachea midline. Supple, nontender, no meningeal signs. CARDIOVASCULAR: HS audible. No murmur appreciated. RESPIRATORY: Clear to auscultation. Breath sounds equal bilaterally decreased in bases left > right. GASTROINTESTINAL: Abdomen soft, diffusely moderately tender to palpation wo guarding or reboiund , nondistended. MUSCULOSKELETAL: LE no joint effusions. Bilateral LE with chronic skin changes on plantar aspect. Right hand 2nd, 3rd and 4th digits with erythema, swelling and mild fluctuance noted. Minimal tenderness noted. NEUROLOGICAL: Awake and alert. Grossly non focal Psych: could not be assessed. Cooperative IV line Permacath in place R chest wo s/o infx @ exit site Assessment & Plan Remarks GP bacteremia: MSSA .- suspect endovascular source, most likely Permacath - persistent high ayesha sustained bactermia 2D ECHO w/o e/o endocardit ESRD on HD using permacath, Anuric at baseline. Diarrhea, abx associated Recs: Remove Permacath - plan for tomorrow If persistent bacteremia:will likely need SUZANNA. is. dc Continue Ceftriaxone IV and Azithro cont Ancef IV daily (renal dose adjusted by me) for MSSA per Verigene. levaquine for CAP chk stool for C.diff dw Dr Eleazar Gamble,Laura Rey MD Nov 04, 2016 22:40
[2016-11-04] MEDS: LEVOFLOXACIN 500 MG PREMIX INJ 100 ML IV SCH (23:18)
[2016-11-05] VITALS (7 sets, daily range): BP systolic 101–180; BP diastolic 46–78; PULSE 51–72; RESP 16–19; TEMP 96.9–97.6; O2SAT 91–95
[2016-11-05] MEDS: SEVELAMER CARBONATE 800 MG TAB PO SCH ×3 (05:57→18:22)
[2016-11-05] MEDS: ACETAMINOPHEN/HYDROcodone 325 MG/5 MG TAB PO PRN ×2 (05:57→10:59)
[2016-11-05] MEDS: hydrALAZINE HCL 50 MG TAB PO SCH ×3 (05:57→21:29)
[2016-11-05] MEDS: INSULIN ASPART SUPPLEMENTAL SCALE SQ SCH ×4 (05:58→21:00)
[2016-11-05 07:45] LABS: POTASSIUM 4.2 MEQ/L (3.5-5.1)
[2016-11-05 07:52] LABS: AUTOMATED NEUTROPHIL # 10.6 TH/MM3 (1.8-7.7); BASOPHIL % 0.3 % (0.0-2.0); EOSINOPHIL % 7.5 % (0.0-4.0); HEMATOCRIT 30.4 % (35.0-46.0); LYMPH % 9.9 % (9.0-44.0); LYMPHOCYTE # 1.4 TH/MM3 (1.0-4.8); MEAN CELL VOLUME 89.7 FL (80.0-100.0); MEAN CORPUSCULAR HEMOGLOBIN 28.8 PG (27.0-34.0); MEAN CORPUSCULAR HGB CONC 32.1 % (32.0-36.0); MONO % 5.5 % (0.0-8.0); NEUT % 76.8 % (16.0-70.0); PLATELET COUNT 423 TH/MM3 (150-450); RED BLOOD COUNT 3.39 MIL/MM3 (4.00-5.30); RED CELL DISTRIBUTION WIDTH 16.1 % (11.6-17.2); WHITE BLOOD COUNT 13.9 TH/MM3 (4.0-11.0)
[2016-11-05 07:53] LABS: HEMO FLAGS AUTO DIFF
[2016-11-05 09:52] LABS: PLATELET ESTIMATE SMEAR NORMAL (NORMAL); PLATELET MORPHOLOGY NORMAL (NORMAL); SCAN/DIFF AUTO DIFF CONFIRMED
[2016-11-05] MEDS: DOXAZOSIN MESYLATE 2 MG TAB PO SCH (10:57)
[2016-11-05] MEDS: SODIUM CHLORIDE 0.9% FLUSH 5 ML FLUSH FLUSH SCH ×2 (10:57→21:04)
[2016-11-05] MEDS: PANTOPRAZOLE SODIUM 40 MG VIAL IV PUSH SCH (10:57)
[2016-11-05] MEDS: APIXABAN 5 MG TABLET PO SCH (10:58)
[2016-11-05] MEDS: GABAPENTIN 100 MG CAP PO SCH (10:58)
[2016-11-05] MEDS: NIFEdipine 90 MG SUSTAINED RELEASE TAB PO SCH (10:58)
[2016-11-05] MEDS: ASPIRIN 325 MG TAB PO SCH (10:58)
[2016-11-05] MEDS: METOPROLOL TARTRATE 50 MG TAB PO SCH ×2 (10:59→21:00)
[2016-11-05] MEDS: LACTIC ACID (AMMONIUM LACTATE) 12% LOTION 225 GM BTL TOPICAL SCH ×2 (10:59→21:00)
--- NOTE | 2016-11-05 11:42 | HHI.PR ---
Subjective Remarks Follow up for bacteremia, ESRD. She reports continued diffuse pain, states Marble isn't working, wants something stronger. No documented fever overnight. Denies nausea/vomiting. 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 Objective Vitals Vital Signs Date Time Temp Pulse Resp B/P Pulse Ox O2 Delivery O2 Flow Rate FiO2 11/05/16 08:22 97.1 72 18 180/78 94 11/05/16 04:12 97.1 70 18 143/59 92 11/05/16 00:10 96.9 65 18 104/58 91 11/04/16 20:48 93 Nasal Cannula 2.00 11/04/16 20:34 96.8 79 18 145/62 91 11/04/16 16:43 97.7 68 17 125/64 95 11/04/16 13:09 71 17 120/58 96 I/O 11/04/16 11/04/16 11/04/16 11/05/16 11/05/16 11/05/16 07:00 15:00 23:00 07:00 15:00 23:00 Intake Total 850 ml Output Total 1 ml Balance 849 ml Intake Oral 500 ml IV Total 350 ml Output Stool Total 1 ml # Voids 4 # Bowel Movements 1 Result Diagram: 11/05/16 0657 11/05/16 0657 Imaging Last Impressions Upper Extremity Ultrasound 11/02/16 0000 Signed Impressions: Service Date/Time: Wednesday, November 02, 2016 20:58 - CONCLUSION: Normal examination. Jonathan Girard MD Hand X-Ray 11/02/16 0000 Signed Impressions: Service Date/Time: Wednesday, November 02, 2016 14:40 - CONCLUSION: 1. Soft-tissue swelling involving the right second, third and fourth digits. 2. No acute fracture or dislocation. Jose Sevilla MD Chest CT 11/02/16 0000 Signed Impressions: Service Date/Time: Wednesday, November 02, 2016 17:54 - CONCLUSION: 1. Bibasilar alveolar consolidations consistent with atelectasis and/or pneumonia. Clinical correlation is recommended. 2. Small to moderate sized bilateral pleural effusions (left slightly larger than right). 3. Cardiomegaly. 4. Scarring within the lingula of the left upper lobe. Jose Sevilla MD Head CT 11/01/16 0506 Signed Impressions: Service Date/Time: October 05:22 - CONCLUSION: No significant change has occurred. Christo Chen MD Chest X-Ray 11/01/16 0000 Signed Impressions: Service Date/Time: October 05:26 - CONCLUSION: 1. Apparent cardiomegaly with left effusion and apparent infiltrate. The findings are most consistent with congestive heart failure. Miko Scott MD Abdomen/Pelvis CT 11/01/16 0000 Signed Impressions: Service Date/Time: October 07:36 - CONCLUSION: 1. Interval development of retroperitoneal lymphadenopathy which is nonspecific. A new right paraaortic retrocrural enlarged lymph node is also noted measuring 1.6 cm in the upper abdomen. PET/CT scan may be helpful for further characterization of this finding. 2. Stable enlargement of the adrenal glands bilaterally suggesting adrenal hyperplasia. There is nodular enlargement of the left adrenal gland measuring 4.2 x 2.5 cm which could represent adrenal hyperplasia but underlying mass cannot be ruled out completely. 3. Small bilateral pleural effusions with bibasilar alveolar consolidations (left worse than right ) consistent with possible atelectasis and/or pneumonia. 4. Cardiomegaly and coronary artery calcifications. 5. Chronic mild compression deformities involving T12 and L1. 6. Degenerative changes throughout the lumbar spine. Jose Sevilla MD Objective Remarks GENERAL: Well-developed well-nourished female patient in mild distress secondary to pain. Slightly confused but oriented to person/place. SKIN: Warm and dry. Erythema and mild edema on the dorsum of the right hand overlying the index and middle finger PIP joints, improved. Dialysis catheter in place on right chest wall. HEENT: Normocephalic. Pupils equal and round. Mucous membranes pink and moist. CARDIOVASCULAR: Regular rate and rhythm. No murmur appreciated. RESPIRATORY: No accessory muscle use. Clear to auscultation. Breath sounds equal bilaterally. GASTROINTESTINAL: Abdomen soft, nondistended. Diffusely tender to light and deep palpation. Normoactive Bowel sounds x4. MUSCULOSKELETAL: No obvious deformities. No clubbing or cyanosis. No edema. NEUROLOGICAL: Awake and alert. No focal neurological deficits. Moves upper and lower extremities spontaneously. Normal speech. PSYCHIATRIC: Appropriate mood and affect; insight and judgment fair Medications and IVs Current Medications Medications (Trade) Dose Ordered Sig/Becca Route Start Time Stop Time Status Last Admin (NS Flush) 2 ml UNSCH PRN FLUSH 11/01/16 07:45 (NS Flush) 2 ml BID FLUSH 11/01/16 09:00 11/05/16 10:57 (Tylenol) 650 mg Q4H PRN PO 11/01/16 07:45 (Zofran Inj) 4 mg Q6H PRN IVP 11/01/16 07:45 11/02/16 15:27 Magnesium Hydroxide 30 ml 30 ml Q12H PRN PO 11/01/16 07:45 (NS 1000 ml Inj) 1,000 ml @ 0 mls/hr Q0M PRN IV 11/01/16 09:01 11/03/16 10:22 Heparin Sodium (Porcine) 8000 units 8,000 units UNSCH PRN IVF 11/01/16 09:15 Sodium Chloride 1,000 ml @ 200 mls/hr Q5H PRN IV 11/01/16 09:01 (NS 1000 ml Inj) 1,000 ml @ 0 mls/hr Q0M PRN IV 11/01/16 09:01 (Mannitol Inj) 12.5 gm UNSCH PRN IV 11/01/16 09:15 (Albumin 25% Inj) 25 gm UNSCH PRN IV 11/01/16 09:15 (NS Flush) 5 ml UNSCH PRN IVF 11/01/16 09:15 (Heparin Inj) UNSCH PRN .XX 11/01/16 09:15 11/03/16 10:22 (Gentamicin (Dialysis) Inj) 20 mg UNSCH PRN IV 11/01/16 09:15 11/03/16 10:22 (Zofran Inj) 4 mg UNSCH PRN IV 11/01/16 09:15 (Tylenol) 650 mg UNSCH PRN PO 11/01/16 09:15 (Benadryl) 25 mg UNSCH PRN PO 11/01/16 09:15 (Nitrostat Sl) 0.4 mg UNSCH PRN SL 11/01/16 09:15 (Catapres) 0.1 mg UNSCH PRN PO 11/01/16 09:15 (Epogen Inj) 5,000 units UNSCH PRN IV 11/01/16 09:15 11/03/16 10:22 (Gelfoam 12 Mm/7 Mm Top) 1 foam UNSCH PRN TOP 11/01/16 09:15 (Aspirin) 325 mg DAILY PO 11/02/16 09:00 11/05/16 10:58 (Cardura) 2 mg DAILY PO 11/02/16 09:00 11/05/16 10:57 (Neurontin) 100 mg DAILY PO 11/02/16 09:00 11/05/16 10:58 (Apresoline) 50 mg Q8HR PO 11/01/16 14:00 11/05/16 05:57 (Lopressor) 50 mg BID PO 11/01/16 21:00 11/05/16 10:59 (Procardia Xl) 90 mg DAILY PO 11/02/16 09:00 11/05/16 10:58 (Restoril) 15 mg HS PRN PO 11/01/16 13:00 (Tylenol) 650 mg Q6H PRN PO 11/01/16 13:00 (Marble 5-325 Mg) 1 tab Q4H PRN PO 11/01/16 13:00 11/05/16 10:59 (Marble 7.5-325 Mg) 1 tab Q4H PRN PO 11/01/16 13:00 11/02/16 15:29 (Morphine Inj) 4 mg Q3H PRN IV 11/01/16 13:00 11/03/16 00:17 (Narcan Inj) 0.4 mg UNSCH PRN IV 11/01/16 13:00 (D50w (Vial) Inj) 25 ml UNSCH PRN IV PUSH 11/01/16 13:30 (Glucagon Inj) 1 mg UNSCH PRN OTHER 11/01/16 13:30 (Protonix Inj) 40 mg DAILY IV PUSH 11/01/16 13:45 11/05/16 10:57 (Renvela) 1,600 mg TIDAC PO 11/02/16 12:00 11/05/16 10:57 Lactic Acid 1 applic 1 applic BID TOPICAL 11/02/16 21:00 11/05/16 10:59 (Ancef Inj/NS Inj) 100 ml @ 200 mls/hr Q24H IV 11/02/16 20:00 11/04/16 22:07 Apixaban 5 mg 5 mg BID PO 11/03/16 21:00 11/05/16 10:58 (Levaquin 500 Mg Premix Inj) 100 ml @ 100 mls/hr Q48H IV 11/04/16 23:00 11/04/16 23:18 A/P Assessment and Plan 61-year-old female with past medical history of ESRD on HD, HTN, CVA who presented with falls/weakness and abdominal pain Weakness/falls: Multifactorial. Likely secondary to infection/UTI, missed dialysis, and dehydration from vomiting. Treat underlying etiology is as below. PT consulted, needs SNF, case management consult. Fall precautions. Bacteremia: 12/25 blood cultures positive for staph aureus. Possibly from UTI. Tmax 99.6. Lactic acid wnl. Consulted infectious disease, continue on IV antibiotics, Currently on IV Ancef, vancomycin, Levaquin. Repeat blood cultures again with MSSA. Discussed with Dr. Anthony, permacath being removed by IR today 11/05, culture tip, repeat blood cultures, and consult IR for Vascath placement tomorrow 11/06. HOLDING ELIQUIS for now. Abdominal pain with nausea and vomiting: Abdomen/pelvis CT with multiple nonspecific findings, although none appear acute or the cause of the patient's discomfort. Consulted gastroenterology, performed EGD 11/02, showed esophagitis. Pain control with oral and IV narcotics as needed. Antiemetics as needed. Gentle IVF with renal disease. IV Protonix. UTI: UA initially with evidence of UTI, +leukocytosis. Did not meet sepsis criteria. S/p empiric IV Rocephin however Urine culture with staph aureus from bacteremia, continue abx as above, ID on board. Retroperitoneal lymphadenopathy and right para-aortic retrocrural enlarged lymph node: Seen incidentally on CT. Consulted oncology, likely reactive secondary to infection. Left pleural effusion and pneumonia: Chest CT shows bibasilar alveolar consolidations consistent with atelectasis and/or pneumonia as well as small moderate-sized bilateral pleural effusions. Patient with no respiratory complaints, however with episodes of hypoxia. Continue Levaquin to cover for possible pneumonia. Oxygen as needed. Right hand swelling, possible cellulitis: X-ray shows soft tissue swelling. IV antibiotics as above. Hand surgery consulted, evaluated by Dr. Pope, no signs of abscess, recommend to continue observation. Symptoms improving. ESRD on HD TTS: With associated metabolic acidosis, increased anion gap, increased BUN and creatinine; all likely secondary to missed HD. 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 S/P HD, repeat BMP with resolved metabolic acidosis and improved BUN/creatinine. Appreciate nephrology input. Secondary hyperparathyroidism/MBD: Phosphorus 9.0. Nephrology started patient on phosphate binders. Borderline diabetes mellitus: Previous hemoglobin A1c from 05/08 was 6.4. On no medications at home. Cover with sliding scale insulin and hypoglycemia protocol while admitted. Outpatient PCP follow-up. Hypertension: Controlled currently. Continue home Cardura, metoprolol, nifedipine, hydralazine. Clonidine as needed. History of multiple CVA and probable paroxysmal atrial fibrillation: Patient previously documented to have A. fib, however denies. EKG now and from July with sinus rhythm. Continue home aspirin and Eliquis. Dry skin lower extremities: Lac-Hydrin lotion. DVT prophylaxis: Eliquis, SCDs Written by Madeleine Huang, acting as scribe for Dr. Bush on 11/05/16 at 11:45 The documentation accurately reflects the work performed [id number] by me Dr. Bush on 11/05/16 at 11:45 Madeleine Huang PA-C Nov 05, 2016 11:42 Nazia Bush MD Nov 05, 2016 14:37
[2016-11-05] MEDS: MORPHINE SULFATE 4 MG/ML INJ IV PRN (11:58)
--- NOTE | 2016-11-05 12:12 | HHI.IDPN ---
Subjective Subjective Remarks 61 yo F with ESRD/HD/ Permacath with persistent high grade sustained MSSA bacteremia also c/p R hand pain swelling redness around index MP joint of R hand - eval'd by Dr Pope - no signs of abscess, rec'd observation pt co abdominal pain, RN reported large amount of liquid stools Overnight events reviewed Periods of hypothermia. Periods of hypothermia y. More alert than saturday. Still confused at times. Moans and groans "it hurts" reports generalized pains. Antibiotics Levaquin IV Ancef IV Lines Line sites with no e/o infection Past Medical History reviewed Allergies: Coded Allergies: Cat Dander (Unverified Allergy, Severe, 11/01/16) RESPIRATORY ISSUES Objective . Vital Signs Date Time Temp Pulse Resp B/P Pulse Ox O2 Delivery O2 Flow Rate FiO2 11/05/16 11:41 97.3 63 17 179/72 95 11/05/16 08:22 97.1 72 18 180/78 94 11/05/16 04:12 97.1 70 18 143/59 92 11/05/16 00:10 96.9 65 18 104/58 91 11/04/16 20:48 93 Nasal Cannula 2.00 11/04/16 20:34 96.8 79 18 145/62 91 11/04/16 16:43 97.7 68 17 125/64 95 11/04/16 13:09 71 17 120/58 96 11/04/16 11/04/16 11/05/16 15:00 23:00 07:00 Intake Total 850 ml Output Total 1 ml Balance 849 ml Intake Oral 500 ml IV Total 350 ml Output Stool Total 1 ml # Voids 4 # Bowel Movements 1 . Laboratory Tests Test 11/05/16 06:57 White Blood Count 13.9 TH/MM3 Red Blood Count 3.39 MIL/MM3 Hemoglobin 9.8 GM/DL Hematocrit 30.4 % Mean Corpuscular Volume 89.7 FL Mean Corpuscular Hemoglobin 28.8 PG Mean Corpuscular Hemoglobin 32.1 % Concent Red Cell Distribution Width 16.1 % Platelet Count 423 TH/MM3 Mean Platelet Volume 8.0 FL Neutrophils (%) (Auto) 76.8 % Lymphocytes (%) (Auto) 9.9 % Monocytes (%) (Auto) 5.5 % Eosinophils (%) (Auto) 7.5 % Basophils (%) (Auto) 0.3 % Neutrophils # (Auto) 10.6 TH/MM3 Lymphocytes # (Auto) 1.4 TH/MM3 Monocytes # (Auto) 0.8 TH/MM3 Eosinophils # (Auto) 1.0 TH/MM3 Basophils # (Auto) 0.0 TH/MM3 CBC Comment AUTO DIFF Differential Comment AUTO DIFF CONFIRMED Platelet Estimate NORMAL Platelet Morphology Comment NORMAL Laboratory Tests Test 11/05/16 06:57 Sodium Level 136 MEQ/L Potassium Level 4.2 MEQ/L Chloride Level 98 MEQ/L Carbon Dioxide Level 29.0 MEQ/L Anion Gap 9 MEQ/L Blood Urea Nitrogen 46 MG/DL Creatinine 5.86 MG/DL Estimat Glomerular Filtration 7 ML/MIN Rate Random Glucose 105 MG/DL Calcium Level 8.2 MG/DL Microbiology Date/Time Procedure Status Source Growth 11/02/16 14:00 Aerobic Blood Culture - Final Resulted Blood Peripheral Staphylococcus Aureus 11/02/16 14:00 Anaerobic Blood Culture - Preliminary Resulted Blood Peripheral NO GROWTH IN 3 DAYS 11/02/16 14:07 Aerobic Blood Culture - Preliminary Resulted Blood Peripheral Gram Positive Cocci 11/02/16 14:07 Anaerobic Blood Culture - Preliminary Resulted Blood Peripheral NO GROWTH IN 3 DAYS 11/03/16 01:00 Aerobic Blood Culture - Preliminary Resulted Blood Line Gram Positive Cocci 11/03/16 01:00 Anaerobic Blood Culture - Preliminary Resulted Blood Line NO GROWTH IN 2 DAYS Imaging Last Impressions Upper Extremity Ultrasound 11/02/16 0000 Signed Impressions: Service Date/Time: Wednesday, November 02, 2016 20:58 - CONCLUSION: Normal examination. Jonathan Girard MD Hand X-Ray 11/02/16 0000 Signed Impressions: Service Date/Time: Wednesday, November 02, 2016 14:40 - CONCLUSION: 1. Soft-tissue swelling involving the right second, third and fourth digits. 2. No acute fracture or dislocation. Jose Sevilla MD Chest CT 11/02/16 0000 Signed Impressions: Service Date/Time: Wednesday, November 02, 2016 17:54 - CONCLUSION: 1. Bibasilar alveolar consolidations consistent with atelectasis and/or pneumonia. Clinical correlation is recommended. 2. Small to moderate sized bilateral pleural effusions (left slightly larger than right). 3. Cardiomegaly. 4. Scarring within the lingula of the left upper lobe. Jose Sevilla MD Head CT 11/01/16 0506 Signed Impressions: Service Date/Time: October 05:22 - CONCLUSION: No significant change has occurred. Christo Chen MD Chest X-Ray 11/01/16 0000 Signed Impressions: Service Date/Time: October 05:26 - CONCLUSION: 1. Apparent cardiomegaly with left effusion and apparent infiltrate. The findings are most consistent with congestive heart failure. Miko Scott MD Abdomen/Pelvis CT 11/01/16 0000 Signed Impressions: Service Date/Time: October 07:36 - CONCLUSION: 1. Interval development of retroperitoneal lymphadenopathy which is nonspecific. A new right paraaortic retrocrural enlarged lymph node is also noted measuring 1.6 cm in the upper abdomen. PET/CT scan may be helpful for further characterization of this finding. 2. Stable enlargement of the adrenal glands bilaterally suggesting adrenal hyperplasia. There is nodular enlargement of the left adrenal gland measuring 4.2 x 2.5 cm which could represent adrenal hyperplasia but underlying mass cannot be ruled out completely. 3. Small bilateral pleural effusions with bibasilar alveolar consolidations (left worse than right ) consistent with possible atelectasis and/or pneumonia. 4. Cardiomegaly and coronary artery calcifications. 5. Chronic mild compression deformities involving T12 and L1. 6. Degenerative changes throughout the lumbar spine. Jose Sevilla MD Physical Exam GENERAL: Elderly frail appearing white female. Appears lethargic and disoriented. In no Cardiopulm distress. SKIN: No rashes. HEAD: Atraumatic. Normocephalic. No temporal or scalp tenderness. EYES: Pupils equal round and reactive. Extraocular motions intact. No scleral icterus. No injection or drainage. ENT: oral mucosae moist NECK: Trachea midline. Supple, nontender, no meningeal signs. CARDIOVASCULAR: HS audible. No murmur appreciated. RESPIRATORY: Clear to auscultation. Breath sounds equal bilaterally decreased in bases left > right. GASTROINTESTINAL: Abdomen soft, diffusely moderately tender to palpation wo guarding or reboiund , nondistended. MUSCULOSKELETAL: LE no joint effusions. Bilateral LE with chronic skin changes on plantar aspect. Right hand 2nd, 3rd and 4th digits with erythema, swelling and mild fluctuance noted. Minimal tenderness noted. NEUROLOGICAL: Awake and alert. Grossly non focal Psych: could not be assessed. Cooperative IV line Permacath in place R chest wo s/o infx @ exit site Assessment & Plan Remarks Sepsis present on admission. GP bacteremia: MSSA .- suspect endovascular source, most likely Permacath - persistent high grade sustained bacteremia 2D ECHO w/o e/o endocarditis ESRD on HD using permacath, Anuric at baseline. Diarrhea, abx associated Retroperitoneal LN garth: follow ID workup. will need repeat Imaging and oncology referral if persistent. Recs: d/w PA for Hepas to coordinate with IR. IR consult for permacath removal. To discuss pt is on Eliquis. Permacath tip for culture. Vascath placement in am. If persistent bacteremia:will likely need SUZANNA. Continue Levaquin IV (for atypical PNA for 3 more days) cont Ancef IV daily (renal dose adjusted) fernandow RN Noted Hand surgery consult. Neha Barajas about permacath removal. Karen Anthony MD Nov 05, 2016 12:12
[2016-11-05] MEDS ORDERED: LIDOCAINE 1%/EPINEPHrine 1:100,000 SOLN 20 ML VIAL ONE (12:19)
--- NOTE | 2016-11-05 12:46 | PD.RAD ---
Post Procedure Progress Note Pre Procedure Diagnosis: (1) Sepsis Post Procedure Diagnosis: (1) Sepsis Procedure Date: Nov 05, 2016 Supervising Radiologist: Nathan Mathias Anesthesia: Local Plan of Activity Patient to Unit: [facility] Patient Condition: Fair Additional Comments: Perm cath removed from the right chest. Catheter tips sent for culture. See PACS Report for procedural detail/treatment Nathan Mathias MD Nov 05, 2016 12:46
[2016-11-05] MEDS ORDERED: GELATIN 12 MM/7 MM FOAM EXT ONE (14:55)
--- NOTE | 2016-11-05 19:28 | HHI.NPPN ---
Subjective Complaints: Abdominal Pain General Problems: Anemia Renal Failure: End Stage Renal Disease History of Present Illness 61 y/o female pt who follows with Dr. Jalloh for nephrology. Hx of ESRD, normally dialyzes T--Sat. She missed dialysis on Saturday due to vomiting, fatigue. She also endorses recent fall, but is a poor historian and cannot give clear details. Other PMH as outlined below including HTN, anemia, CHF, and CVA. Additional Remarks Patient is alert, cmplaining of generalized body pain, on room air, not in distress. Review of Systems General Constitutional: Fatigue Gastrointestinal Gastrointestinal: Abdominal Pain Objective Data Data 11/04/16 11/05/16 19:00 07:00 Intake Total 850 ml Output Total 1 ml Balance 849 ml Intake Oral 500 ml IV Total 350 ml Output Stool Total 1 ml # Voids 4 # Bowel Movements 1 Vital Signs Date Time Temp Pulse Resp B/P Pulse Ox O2 Delivery O2 Flow Rate FiO2 11/05/16 15:45 97.6 58 18 123/57 95 11/05/16 13:20 97.3 69 16 110/47 92 11/05/16 11:41 97.3 63 17 179/72 95 11/05/16 08:22 97.1 72 18 180/78 94 11/05/16 04:12 97.1 70 18 143/59 92 11/05/16 00:10 96.9 65 18 104/58 91 11/04/16 20:48 93 Nasal Cannula 2.00 11/04/16 20:34 96.8 79 18 145/62 91 -: 11/05/16 0657 11/05/16 0657 Microbiology 11/05/16 Wound Culture, Received Pending 11/05/16 Aerobic Blood Culture, Received Pending 11/05/16 Anaerobic Blood Culture, Received Pending 11/05/16 Aerobic Blood Culture, Received Pending 11/05/16 Anaerobic Blood Culture, Received Pending Tubes & Lines: Perma-Cath Physical Exam General Appearance: No Acute Distress, Comfortable, Anxious Eyes Eye Exam: Pupils Equal Ears & Nose Ears & Nose Exam: Nasal Mucosa [place] Throat Throat Exam: Oral Mucosa [place] & Moist Neck Neck Exam: Neck Supple Pulmonary Resp Exam: Clear Bilaterally, Breath Sounds Equal, No Distress, Decreased Bases Cardiology CV Exam: Regular, Normal Sinus Rhythm Gastrointestinal/Abdomen GI Exam: Soft, Bowel Sounds Present Musculoskeletal MS Exam: Joints Intact, Normal Tone Integumentary Skin Exam: Warm, Dry Extremeties Extremities Exam: No Edema, Pedal Pulses Palpable Neurologic Neuro Exam: Moving All Extremities Assessment/Plan Discussed Condition With: Patient Assessment Summary: Anemia of CKD, End Stage Renal Disease Problem List: (1) ESRD (end stage renal disease) Plan: Normally dialyzes T-Th-Sat, had dialysis Saturday, maintain T-Th-Sat schedule, she is due tomorrow PermCath removed HD tomorrow after Vascath MSSA treated (2) Leukocytosis Plan: on Cefazolin.Levaquin (3) Hypertension Plan: BP stable continue medications as ordered (4) Diabetes Plan: monitor blood sugar not requiring insulin at this time (5) Metabolic bone disease Plan: Begin Renvela, monitor phosphorus periodically (6) Anemia Plan: epogen with HD follow hemoglobin (7) Nausea & vomiting Plan: with abdominal pain, GI following Plan S/P EGD (11/02/16)---> Esophagitis, gastritis, pathology pending. PPI, Zofran Problem Qualifiers (1) Diabetes: Gi Jalloh MD Nov 05, 2016 19:28
[2016-11-05] MEDS: ACETAMINOPHEN/HYDROcodone 325 MG/7.5 MG TAB PO PRN (21:03)
[2016-11-06] VITALS (7 sets, daily range): BP systolic 100–139; BP diastolic 50–67; PULSE 59–74; RESP 18–20; TEMP 95.4–96.5; O2SAT 90–93
[2016-11-06] MEDS: hydrALAZINE HCL 50 MG TAB PO SCH ×2 (05:08→14:00)
[2016-11-06] MEDS: INSULIN ASPART SUPPLEMENTAL SCALE SQ SCH ×4 (05:08→21:00)
--- NOTE | 2016-11-06 08:01 | RADRPT ---
EXAM DATE/TIME: 11/05/2016 00:00 [facility] COMPARISON: PERM CV CATH PLCMT W US LEFT, July 19, 2016, 12:08. INDICATIONS : Patient presents with end stage renal disease in need of dialysis catheter removal to send catheter t ip for culture. MEDICAL HISTORY : ESRD on hemodialysis Hypertension Anemia of chronic disease History of borderline diabetes History of CVA x3 History of C. difficile last year Possible paroxysmal atrial fibrillation SURGICAL HISTORY : Eye surgery Cholecystectomy Dialysis catheter placement in the right chest Achilles surgery ENCOUNTER: Subsequent ACUITY: 4-6 months PAIN SCORE: 0/10 LOCATION: N/A MEDICATION(S): 1.) 20 units Lidocaine with epinephrine SC PROCEDURE : 1. PermaCath removal. The risks, benefits and alternatives to the procedure were explained and verbal and written consent w as obtained. The site was prepped in sterile fashion. Full sterile technique was used, including ca p, mask, sterile gloves and gown and a large sterile sheet. Hand hygiene and 2% chlorhexidine and/or betadine/alcohol prep was utilized per protocol for cutaneous antisepsis. The skin and subcutaneous tissues were infiltrated with local anesthetic solution. The tract was anesthetized with 1% Lidocaine using. The Permcath was dissected from the subcutaneous tissues and easily removed in one piece. Manual pressure was applied to the venotomy site until hem ostasis was obtained. Sterile dressing was applied. The patient tolerated the procedure well and there were no complications. CONCLUSION: Uncomplicated Permcath removal. Nathan Mathias MD on November 06, 2016 at 7:59 Board Certified Radiologist. This report was verified electronically.
[2016-11-06] MEDS: ACETAMINOPHEN/HYDROcodone 325 MG/5 MG TAB PO PRN ×2 (08:56→18:03)
[2016-11-06] MEDS: LACTIC ACID (AMMONIUM LACTATE) 12% LOTION 225 GM BTL TOPICAL SCH (09:00)
[2016-11-06] MEDS: METOPROLOL TARTRATE 50 MG TAB PO SCH (09:00)
[2016-11-06] MEDS ORDERED: HEPARIN SODIUM - IV 10,000 UNITS/10 ML VIAL IVF PRN (09:45)
[2016-11-06] MEDS ORDERED: SODIUM CHLORIDE 0.9% FLUSH 5 ML FLUSH IVF PRN (09:45)
--- NOTE | 2016-11-06 09:46 | PD.RAD ---
Post Procedure Progress Note Pre Procedure Diagnosis: (1) CKD (chronic kidney disease) stage 3, GFR 30-59 ml/min (2) Renal failure (ARF), acute on chronic Post Procedure Diagnosis: (1) Acute kidney failure (2) CKD (chronic kidney disease) stage 3, GFR 30-59 ml/min Procedure Date: Nov 06, 2016 Supervising Radiologist: Nathan Mathias Anesthesia: Local Plan of Activity Patient to Unit: Nursing Unit Patient Condition: Poor Additional Comments: Vascath placed via the right Ij catheter in good position OK for use See PACS Report for procedural detail/treatment Nathan Mathias MD Nov 06, 2016 09:46
--- NOTE | 2016-11-06 10:10 | HHI.PR ---
Subjective Remarks Had HD catheter removed today morning and replaced. Patient is more awake and alert. Says pain is better controlled by meds. No n/v/ d/c. No fever overnight. Objective Vitals Vital Signs Date Time Temp Pulse Resp B/P Pulse Ox O2 Delivery O2 Flow Rate FiO2 11/06/16 08:31 95.4 59 18 107/53 90 11/06/16 05:20 96.5 59 19 106/56 90 11/06/16 04:33 91 Nasal Cannula 3.00 11/06/16 04:17 18 11/06/16 00:36 96.4 59 20 100/50 91 11/05/16 20:46 97.6 51 19 101/46 95 11/05/16 15:45 97.6 58 18 123/57 95 11/05/16 13:20 97.3 69 16 110/47 92 11/05/16 11:41 97.3 63 17 179/72 95 I/O 11/05/16 11/05/16 11/05/16 11/06/16 11/06/16 11/06/16 07:00 15:00 23:00 07:00 15:00 23:00 Intake Total 480 ml Balance 480 ml Intake Oral 480 ml # Voids 1 1 # Bowel Movements 1 0 Result Diagram: 11/05/16 0657 11/05/16 0657 Imaging Last Impressions Central Venous Line 11/05/16 0000 Signed Impressions: Service Date/Time: Saturday, November 05, 2016 00:00 - CONCLUSION: Uncomplicated Permcath removal. Nathan Mathias MD Upper Extremity Ultrasound 11/02/16 0000 Signed Impressions: Service Date/Time: Wednesday, November 02, 2016 20:58 - CONCLUSION: Normal examination. Jonathan Girard MD Hand X-Ray 11/02/16 0000 Signed Impressions: Service Date/Time: Wednesday, November 02, 2016 14:40 - CONCLUSION: 1. Soft-tissue swelling involving the right second, third and fourth digits. 2. No acute fracture or dislocation. Jose Sevilla MD Chest CT 11/02/16 0000 Signed Impressions: Service Date/Time: Wednesday, November 02, 2016 17:54 - CONCLUSION: 1. Bibasilar alveolar consolidations consistent with atelectasis and/or pneumonia. Clinical correlation is recommended. 2. Small to moderate sized bilateral pleural effusions (left slightly larger than right). 3. Cardiomegaly. 4. Scarring within the lingula of the left upper lobe. Jose Sevilla MD Head CT 11/01/16 0506 Signed Impressions: Service Date/Time: October 05:22 - CONCLUSION: No significant change has occurred. Christo Chen MD Chest X-Ray 11/01/16 0000 Signed Impressions: Service Date/Time: October 05:26 - CONCLUSION: 1. Apparent cardiomegaly with left effusion and apparent infiltrate. The findings are most consistent with congestive heart failure. Miko Scott MD Abdomen/Pelvis CT 11/01/16 0000 Signed Impressions: Service Date/Time: October 07:36 - CONCLUSION: 1. Interval development of retroperitoneal lymphadenopathy which is nonspecific. A new right paraaortic retrocrural enlarged lymph node is also noted measuring 1.6 cm in the upper abdomen. PET/CT scan may be helpful for further characterization of this finding. 2. Stable enlargement of the adrenal glands bilaterally suggesting adrenal hyperplasia. There is nodular enlargement of the left adrenal gland measuring 4.2 x 2.5 cm which could represent adrenal hyperplasia but underlying mass cannot be ruled out completely. 3. Small bilateral pleural effusions with bibasilar alveolar consolidations (left worse than right ) consistent with possible atelectasis and/or pneumonia. 4. Cardiomegaly and coronary artery calcifications. 5. Chronic mild compression deformities involving T12 and L1. 6. Degenerative changes throughout the lumbar spine. Jose Sevilla MD Objective Remarks GENERAL: Well-developed well-nourished female patient in mild distress secondary to pain. Slightly confused but oriented to person/place. SKIN: Warm and dry. Erythema and mild edema on the dorsum of the right hand overlying the index and middle finger PIP joints, improved. Dialysis catheter in place on right chest wall. HEENT: Normocephalic. Pupils equal and round. Mucous membranes pink and moist. CARDIOVASCULAR: Regular rate and rhythm. No murmur appreciated. RESPIRATORY: No accessory muscle use. Clear to auscultation. Breath sounds equal bilaterally. GASTROINTESTINAL: Abdomen soft, nondistended. Diffusely tender to light and deep palpation. Normoactive Bowel sounds x4. MUSCULOSKELETAL: No obvious deformities. No clubbing or cyanosis. No edema. NEUROLOGICAL: Awake and alert. No focal neurological deficits. Moves upper and lower extremities spontaneously. Normal speech. PSYCHIATRIC: Appropriate mood and affect; insight and judgment fair A/P Assessment and Plan 61-year-old female with past medical history of ESRD on HD, HTN, CVA who presented with falls/weakness and abdominal pain Weakness/falls: Multifactorial. Likely secondary to infection/UTI, missed dialysis, and dehydration from vomiting. Treat underlying etiology is as below. PT consulted, needs SNF, case management consult. Fall precautions. Bacteremia: /4 blood cultures positive for staph aureus. Possibly from UTI. Tmax 99.6. Lactic acid wnl. Consulted infectious disease, continue on IV antibiotics, Currently on IV Ancef, vancomycin, Levaquin. Repeat blood cultures again with MSSA. Discussed with Dr. Anthony, permacath being removed by IR today 11/05, culture tip, repeat blood cultures. Consult IR, s/p Vascath placement 11/06. HOLDING ELIQUIS for now, will restart tomorrow Abdominal pain with nausea and vomiting: Abdomen/pelvis CT with multiple nonspecific findings, although none appear acute or the cause of the patient's discomfort. Consulted gastroenterology, performed EGD 11/02, showed esophagitis. Pain control with oral and IV narcotics as needed. Antiemetics as needed. Gentle IVF with renal disease. IV Protonix. UTI: UA initially with evidence of UTI, +leukocytosis. Did not meet sepsis criteria. S/p empiric IV Rocephin however Urine culture with staph aureus from bacteremia, continue abx as above, ID on board. Retroperitoneal lymphadenopathy and right para-aortic retrocrural enlarged lymph node: Seen incidentally on CT. Consulted oncology, likely reactive secondary to infection. Left pleural effusion and pneumonia: Chest CT shows bibasilar alveolar consolidations consistent with atelectasis and/or pneumonia as well as small moderate-sized bilateral pleural effusions. Patient with no respiratory complaints, however with episodes of hypoxia. Continue Levaquin to cover for possible pneumonia. Oxygen as needed. Right hand swelling, possible cellulitis: X-ray shows soft tissue swelling. IV antibiotics as above. Hand surgery consulted, evaluated by Dr. Pope, no signs of abscess, recommend to continue observation. Symptoms improving. ESRD on HD TTS: With associated metabolic acidosis, increased anion gap, increased BUN and creatinine; all likely secondary to missed HD. Patient's corrugator helper consulted. S/P HD, repeat BMP with resolved metabolic acidosis and improved BUN/creatinine. Appreciate nephrology input. Secondary hyperparathyroidism/MBD: Phosphorus 9.0. Nephrology started patient on phosphate binders. Borderline diabetes mellitus: Previous hemoglobin A1c from 05/08 was 6.4. On no medications at home. Cover with sliding scale insulin and hypoglycemia protocol while admitted. Outpatient PCP follow-up. Hypertension: Controlled currently. Continue home Cardura, metoprolol, nifedipine, hydralazine. Clonidine as needed. History of multiple CVA and probable paroxysmal atrial fibrillation: Patient previously documented to have A. fib, however denies. EKG now and from July with sinus rhythm. Continue home aspirin and Eliquis. Dry skin lower extremities: Lac-Hydrin lotion. DVT prophylaxis: Serge Farrar DC when improved and cleared by consultants. Nazia Bush MD Nov 06, 2016 10:10
[2016-11-06] MEDS: PANTOPRAZOLE SODIUM 40 MG VIAL IV PUSH SCH (10:24)
[2016-11-06] MEDS: SEVELAMER CARBONATE 800 MG TAB PO SCH ×3 (10:24→18:05)
[2016-11-06] MEDS: NIFEdipine 90 MG SUSTAINED RELEASE TAB PO SCH (10:24)
[2016-11-06] MEDS: GABAPENTIN 100 MG CAP PO SCH (10:25)
[2016-11-06] MEDS: ASPIRIN 325 MG TAB PO SCH (10:25)
[2016-11-06] MEDS: DOXAZOSIN MESYLATE 2 MG TAB PO SCH (10:25)
[2016-11-06] MEDS: SODIUM CHLORIDE 0.9% FLUSH 5 ML FLUSH FLUSH SCH (10:27)
--- NOTE | 2016-11-06 11:21 | HHI.NPPN ---
Subjective Complaints: Abdominal Pain General Problems: Anemia Renal Failure: End Stage Renal Disease History of Present Illness 61 y/o female pt who follows with Dr. Jalloh for nephrology. Hx of ESRD, normally dialyzes T--Sat. She missed dialysis on Saturday due to vomiting, fatigue. She also endorses recent fall, but is a poor historian and cannot give clear details. Other PMH as outlined below including HTN, anemia, CHF, and CVA. Additional Remarks Patient is alert, complaining of generalized body pain, Review of Systems General Constitutional: Fatigue Gastrointestinal Gastrointestinal: Abdominal Pain Objective Data Data 11/05/16 11/06/16 19:00 07:00 Intake Total 480 ml Balance 480 ml Intake Oral 480 ml # Voids 2 # Bowel Movements 1 Vital Signs Date Time Temp Pulse Resp B/P Pulse Ox O2 Delivery O2 Flow Rate FiO2 11/06/16 08:31 95.4 59 18 107/53 90 11/06/16 05:20 96.5 59 19 106/56 90 11/06/16 04:33 91 Nasal Cannula 3.00 11/06/16 04:17 18 11/06/16 00:36 96.4 59 20 100/50 91 11/05/16 20:46 97.6 51 19 101/46 95 11/05/16 15:45 97.6 58 18 123/57 95 11/05/16 13:20 97.3 69 16 110/47 92 11/05/16 11:41 97.3 63 17 179/72 95 -: 11/05/16 0657 11/05/16 0657 Microbiology 11/05/16 Wound Culture, Received Pending 11/05/16 Aerobic Blood Culture - Preliminary, Resulted NO GROWTH IN 1 DAY 11/05/16 Anaerobic Blood Culture - Preliminary, Resulted NO GROWTH IN 1 DAY 11/05/16 Aerobic Blood Culture - Preliminary, Resulted NO GROWTH IN 1 DAY 11/05/16 Anaerobic Blood Culture - Preliminary, Resulted NO GROWTH IN 1 DAY Tubes & Lines: Perma-Cath Physical Exam General Appearance: No Acute Distress, Comfortable, Anxious Eyes Eye Exam: Pupils Equal Ears & Nose Ears & Nose Exam: Nasal Mucosa [place] Throat Throat Exam: Oral Mucosa [place] & Moist Neck Neck Exam: Neck Supple Pulmonary Resp Exam: Clear Bilaterally, Breath Sounds Equal, No Distress, Decreased Bases Cardiology CV Exam: Regular, Normal Sinus Rhythm Gastrointestinal/Abdomen GI Exam: Soft, Bowel Sounds Present Musculoskeletal MS Exam: Joints Intact, Normal Tone Integumentary Skin Exam: Warm, Dry Extremeties Extremities Exam: No Edema, Pedal Pulses Palpable Neurologic Neuro Exam: Moving All Extremities Assessment/Plan Discussed Condition With: Patient Assessment Summary: Anemia of CKD, End Stage Renal Disease Problem List: (1) ESRD (end stage renal disease) Plan: Normally dialyzes T-Th-Sat, had dialysis Saturday, maintain T-Th-Sat schedule, she is due tomorrow PermCath removed HD today as Vascath placed MSSA treated with Cefazolin once ready to be dc it can be given with dialysis 1340 pm seen at HD Vascath poor flows QB 250 She will need a P/C (2) Leukocytosis Plan: on Cefazolin.Levaquin (3) Hypertension Plan: BP stable continue medications as ordered (4) Diabetes Plan: monitor blood sugar not requiring insulin at this time (5) Metabolic bone disease Plan: Begin Renvela, monitor phosphorus periodically (6) Anemia Plan: epogen with HD follow hemoglobin (7) Nausea & vomiting Plan: with abdominal pain, GI following Plan S/P EGD (11/02/16)---> Esophagitis, gastritis, pathology pending. PPI, Zofran Problem Qualifiers (1) Diabetes: Gi Jalloh MD Nov 06, 2016 11:21
[2016-11-06] MEDS: NYSTATIN SUSP 500,000 U/5 ML CUP SWISH-SWAL SCH ×2 (13:00→18:05)
[2016-11-06 14:47] LABS: MITOGEN MINUS NIL RESULT 4.07 IU/mL (()); NIL RESULT 0.02 IU/mL (()); QUANTIFERON TB GOLD RESULT Negative (Negative)
--- NOTE | 2016-11-06 15:52 | RADRPT ---
EXAM DATE/TIME: 11/06/2016 09:32 [facility] COMPARISON: CENTRAL VENOUS CATHETER REMOVAL, TUNNELED RIGHT, November 05, 2016, 0:00. INDICATIONS : Patient with end-stage renal disease in need of dialysis catheter placement. MEDICAL HISTORY : HTN, Diabetes, CVA, Dialysis, Anemia, C-Diff, Possible paroxysmal A-Fib SURGICAL HISTORY : Cholecystectomy, Right perm-cath placement ENCOUNTER: Subsequent ACUITY: 1 week PAIN SCORE: 10/10 LOCATION: Lower back FLUORO TIME: 0.6 minutes ACCESS: Right internal jugular vein DEVICE(S): 1.) 14 [place] dual lumen 15 cm Schon catheter PROCEDURE : 1. Ultrasound guided venipuncture. 2. Fluoroscopic guidance. 3. Central line placement. The risks, benefits and alternatives to the procedure were explained and verbal and written consent w as obtained. The site was prepped in sterile fashion. Full sterile technique was used, including ca p, mask, sterile gloves and gown and a large sterile sheet. Hand hygiene and 2% chlorhexidine prep w as utilized per protocol for cutaneous antisepsis with appropriate dry time for site. The skin and subcutaneous tissues were infiltrated with local anesthetic solution. A suitable site a santana the vein was selected with ultrasound and fluoroscopic guidance. A small incision was made. Th e vein was accessed under direct ultrasound visualization using the micropuncture technique. The christie ropuncture set was exchanged for a 0.035 wire. The tract was dilated. The catheter was advanced int o position under direct fluoroscopic visualization. The catheter was fixed in place with suture and a sterile dressing was applied. The patient tolerated the procedure well and there were no complications. CONCLUSION: Uncomplicated line placement as above. Nathan Mathias MD on November 06, 2016 at 15:50 Board Certified Radiologist. This report was verified electronically.
[2016-11-06 15:57] LABS: CRYPTOCOCCUS ANTIGEN Negative (Negative)
[2016-11-06] MEDS: GENTAMICIN SULFATE (DIALYSIS USE ONLY) 20 MG/2 ML VIAL IV PRN (16:40)
[2016-11-06] MEDS: HEPARIN SODIUM - IV 10,000 UNITS/10 ML VIAL PRN (16:40)
[2016-11-06] MEDS: EPOETIN ALFA 10,000 UNITS/ML VIAL IV PRN (16:40)
[2016-11-07] VITALS (8 sets, daily range): BP systolic 100–129; BP diastolic 46–59; PULSE 60–75; RESP 16–20; TEMP 95.1–98.4; O2SAT 91–97
[2016-11-07] MEDS: METOPROLOL TARTRATE 50 MG TAB PO SCH ×3 (00:22→22:42)
[2016-11-07] MEDS: NYSTATIN SUSP 500,000 U/5 ML CUP SWISH-SWAL SCH ×5 (00:22→22:42)
[2016-11-07] MEDS: hydrALAZINE HCL 50 MG TAB PO SCH ×4 (00:22→22:42)
[2016-11-07] MEDS: ACETAMINOPHEN/HYDROcodone 325 MG/5 MG TAB PO PRN ×2 (00:24→05:01)
[2016-11-07] MEDS: SODIUM CHLORIDE 0.9% FLUSH 5 ML FLUSH FLUSH SCH ×3 (00:25→22:41)
[2016-11-07] MEDS: APIXABAN 5 MG TABLET PO SCH ×3 (00:27→22:42)
[2016-11-07] MEDS: LACTIC ACID (AMMONIUM LACTATE) 12% LOTION 225 GM BTL TOPICAL SCH ×3 (00:27→22:44)
[2016-11-07] MEDS: LEVOFLOXACIN 500 MG PREMIX INJ 100 ML IV SCH (00:30)
[2016-11-07] MEDS: INSULIN ASPART SUPPLEMENTAL SCALE SQ SCH ×4 (04:56→21:00)
[2016-11-07] MEDS: MORPHINE SULFATE 4 MG/ML INJ IV PRN (07:31)
[2016-11-07 08:22] LABS: AUTOMATED NEUTROPHIL # 9.8 TH/MM3 (1.8-7.7); BASOPHIL # 0.1 TH/MM3 (0-0.2); BASOPHIL % 0.6 % (0.0-2.0); EOSINOPHIL % 7.9 % (0.0-4.0); HEMATOCRIT 29.8 % (35.0-46.0); LYMPH % 7.9 % (9.0-44.0); MEAN CELL VOLUME 89.8 FL (80.0-100.0); MEAN CORPUSCULAR HEMOGLOBIN 28.7 PG (27.0-34.0); MONO % 6.6 % (0.0-8.0); PLATELET COUNT 443 TH/MM3 (150-450); RED BLOOD COUNT 3.32 MIL/MM3 (4.00-5.30); RED CELL DISTRIBUTION WIDTH 15.9 % (11.6-17.2); WHITE BLOOD COUNT 12.8 TH/MM3 (4.0-11.0)
[2016-11-07 08:31] LABS: HEMO FLAGS AUTO DIFF
[2016-11-07] MEDS: DOXAZOSIN MESYLATE 2 MG TAB PO SCH (08:36)
[2016-11-07] MEDS: NIFEdipine 90 MG SUSTAINED RELEASE TAB PO SCH (08:36)
[2016-11-07] MEDS: SEVELAMER CARBONATE 800 MG TAB PO SCH ×3 (08:37→16:16)
[2016-11-07] MEDS: GABAPENTIN 100 MG CAP PO SCH (08:40)
[2016-11-07] MEDS: ASPIRIN 325 MG TAB PO SCH (08:40)
[2016-11-07] MEDS: PANTOPRAZOLE SODIUM 40 MG VIAL IV PUSH SCH (08:41)
[2016-11-07 08:49] LABS: BICARBONATE 30.1 MEQ/L (21.0-32.0); POTASSIUM 4.2 MEQ/L (3.5-5.1)
--- NOTE | 2016-11-07 09:32 | HHI.PR ---
Subjective Remarks Pain is better controlled. Says she had fevers and chills overnight and doesn' t feel much improved. No n/v/d/c. Patient says she has a rash on her legs and she has scabies. Will treat with permethrin. Objective Vitals Vital Signs Date Time Temp Pulse Resp B/P Pulse Ox O2 Delivery O2 Flow Rate FiO2 11/07/16 08:00 96.4 69 18 100/46 91 11/07/16 05:26 97.9 67 20 104/53 92 11/07/16 01:24 18 11/07/16 00:24 95.6 75 19 125/57 93 11/06/16 20:53 96.5 74 19 139/67 93 11/06/16 12:59 95.6 62 20 108/55 91 11/06/16 11:30 92 Nasal Cannula 3.00 I/O 11/06/16 11/06/16 11/06/16 11/07/16 11/07/16 11/07/16 07:00 15:00 23:00 07:00 15:00 23:00 Intake Total 480 ml 480 ml Output Total 2000 ml Balance 480 ml -1520 ml Intake Oral 480 ml 480 ml Hemodialysis 2000 ml # Voids 1 0 1 # Bowel Movements 0 0 Result Diagram: 11/07/16 0740 11/07/16 0740 Imaging Last Impressions Catheter Placement X-Ray 11/06/16 0000 Signed Impressions: Service Date/Time: Sunday, November 06, 2016 09:32 - CONCLUSION: Uncomplicated line placement as above. Nathan Mathias MD Central Venous Line 11/05/16 0000 Signed Impressions: Service Date/Time: Saturday, November 05, 2016 00:00 - CONCLUSION: Uncomplicated Permcath removal. Nathan Mathias MD Upper Extremity Ultrasound 11/02/16 0000 Signed Impressions: Service Date/Time: Wednesday, November 02, 2016 20:58 - CONCLUSION: Normal examination. Jonathan Girard MD Hand X-Ray 11/02/16 0000 Signed Impressions: Service Date/Time: Wednesday, November 02, 2016 14:40 - CONCLUSION: 1. Soft-tissue swelling involving the right second, third and fourth digits. 2. No acute fracture or dislocation. Jose Sevilla MD Chest CT 11/02/16 0000 Signed Impressions: Service Date/Time: Wednesday, November 02, 2016 17:54 - CONCLUSION: 1. Bibasilar alveolar consolidations consistent with atelectasis and/or pneumonia. Clinical correlation is recommended. 2. Small to moderate sized bilateral pleural effusions (left slightly larger than right). 3. Cardiomegaly. 4. Scarring within the lingula of the left upper lobe. Jose Sevilla MD Head CT 11/01/16 0506 Signed Impressions: Service Date/Time: October 05:22 - CONCLUSION: No significant change has occurred. Christo Chen MD Chest X-Ray 11/01/16 0000 Signed Impressions: Service Date/Time: October 05:26 - CONCLUSION: 1. Apparent cardiomegaly with left effusion and apparent infiltrate. The findings are most consistent with congestive heart failure. Miko Scott MD Abdomen/Pelvis CT 11/01/16 0000 Signed Impressions: Service Date/Time: October 07:36 - CONCLUSION: 1. Interval development of retroperitoneal lymphadenopathy which is nonspecific. A new right paraaortic retrocrural enlarged lymph node is also noted measuring 1.6 cm in the upper abdomen. PET/CT scan may be helpful for further characterization of this finding. 2. Stable enlargement of the adrenal glands bilaterally suggesting adrenal hyperplasia. There is nodular enlargement of the left adrenal gland measuring 4.2 x 2.5 cm which could represent adrenal hyperplasia but underlying mass cannot be ruled out completely. 3. Small bilateral pleural effusions with bibasilar alveolar consolidations (left worse than right ) consistent with possible atelectasis and/or pneumonia. 4. Cardiomegaly and coronary artery calcifications. 5. Chronic mild compression deformities involving T12 and L1. 6. Degenerative changes throughout the lumbar spine. Jose Sevilla MD Objective Remarks GENERAL: Well-developed well-nourished female patient in mild distress secondary to pain. Slightly confused but oriented to person/place. SKIN: Warm and dry. Erythema and mild edema on the dorsum of the right hand overlying the index and middle finger PIP joints, improved. New dialysis catheter in place right neck. HEENT: Normocephalic. Pupils equal and round. Mucous membranes pink and moist. CARDIOVASCULAR: Regular rate and rhythm. No murmur appreciated. RESPIRATORY: No accessory muscle use. Clear to auscultation. Breath sounds equal bilaterally. GASTROINTESTINAL: Abdomen soft, nondistended. Diffusely tender to light and deep palpation. Normoactive Bowel sounds x4. MUSCULOSKELETAL: No obvious deformities. No clubbing or cyanosis. No edema. NEUROLOGICAL: Awake and alert. No focal neurological deficits. Moves upper and lower extremities spontaneously. Normal speech. PSYCHIATRIC: Appropriate mood and affect; insight and judgment fair. A/P Assessment and Plan 61-year-old female with past medical history of ESRD on HD, HTN, CVA who presented with falls/weakness and abdominal pain Weakness/falls: Multifactorial. Likely secondary to infection/UTI, missed dialysis, and dehydration from vomiting. Treat underlying etiology is as below. PT consulted, needs SNF, case management consult. Fall precautions. Bacteremia: 12/25 blood cultures positive for staph aureus. Possibly from UTI. Tmax 99.6. Lactic acid wnl. Consulted infectious disease, continue on IV antibiotics, Currently on IV Ancef, vancomycin, Levaquin. Repeat blood cultures again with MSSA. Discussed with Dr. Anthony, permacath removed by IR , culture tip, repeat blood cultures. Consult IR, s/p Vascath placement 11/06. Restart eliquis Blood cx 11/05 positive Staph aureus. Repeat blood cx 11/07 Abdominal pain with nausea and vomiting: Abdomen/pelvis CT with multiple nonspecific findings, although none appear acute or the cause of the patient's discomfort. Consulted gastroenterology, performed EGD 11/02, showed esophagitis. Pain control with oral and IV narcotics as needed. Antiemetics as needed. Gentle IVF with renal disease. IV Protonix. UTI: UA initially with evidence of UTI, +leukocytosis. Did not meet sepsis criteria. S/p empiric IV Rocephin however Urine culture with staph aureus from bacteremia, continue abx as above, ID on board. Retroperitoneal lymphadenopathy and right para-aortic retrocrural enlarged lymph node: Seen incidentally on CT. Consulted oncology, likely reactive secondary to infection. Left pleural effusion and pneumonia: Chest CT shows bibasilar alveolar consolidations consistent with atelectasis and/or pneumonia as well as small moderate-sized bilateral pleural effusions. Patient with no respiratory complaints, however with episodes of hypoxia. Continue Levaquin to cover for possible pneumonia. Oxygen as needed. Right hand swelling, possible cellulitis: X-ray shows soft tissue swelling. IV antibiotics as above. Hand surgery consulted, evaluated by Dr. Pope, no signs of abscess, recommend to continue observation. Symptoms improving. ESRD on HD TTS: With associated metabolic acidosis, increased anion gap, increased BUN and creatinine; all likely secondary to missed HD. Patient's special needs librarian consulted. S/P HD, repeat BMP with resolved metabolic acidosis and improved BUN/creatinine. Appreciate nephrology input. Secondary hyperparathyroidism/MBD: Phosphorus 9.0. Nephrology started patient on phosphate binders. Borderline diabetes mellitus: Previous hemoglobin A1c from 05/08 was 6.4. On no medications at home. Cover with sliding scale insulin and hypoglycemia protocol while admitted. Outpatient PCP follow-up. Hypertension: Controlled currently. Continue home Cardura, metoprolol, nifedipine, hydralazine. Clonidine as needed. History of multiple CVA and probable paroxysmal atrial fibrillation: Patient previously documented to have A. fib, however denies. EKG now and from July with sinus rhythm. Continue home aspirin and Eliquis. Dry skin lower extremities: Lac-Hydrin lotion. Give permethrin. Patient says she had scabies before. DVT prophylaxis: Serge Farrar DC when improved and cleared by consultants. Nazia Bush MD Nov 07, 2016 09:32
[2016-11-07] MEDS ORDERED: PERMETHRIN 5% CREAM 60 GM TOPICAL ONE (10:00)
[2016-11-07 10:16] LABS: EOSINOPHILS 9 % (0-4); MYELOCYTES 1 % (0-0); NEUTROPHIL # MANUAL DIFF 10.1 TH/MM3 (1.8-7.7); POLYS (SEG NEUTROPHILS) 78 % (16-70); WBC DIFF SAMPLE 100
[2016-11-07 10:17] LABS: OVALOCYTES 1+ (NORMAL); PLATELET ESTIMATE SMEAR NORMAL (NORMAL); PLATELET MORPHOLOGY NORMAL (NORMAL); SCAN/DIFF FINAL DIFF MANUAL
[2016-11-07] MEDS: ACETAMINOPHEN/HYDROcodone 325 MG/7.5 MG TAB PO PRN ×2 (13:02→22:46)
--- NOTE | 2016-11-07 13:02 | HHI.NPPN ---
Subjective Complaints: Abdominal Pain General Problems: Anemia Renal Failure: End Stage Renal Disease History of Present Illness 61 y/o female pt who follows with Dr. Jalloh for nephrology. Hx of ESRD, normally dialyzes . She missed dialysis on Saturday due to vomiting, fatigue. She also endorses recent fall, but is a poor historian and cannot give clear details. Other PMH as outlined below including HTN, anemia, CHF, and CVA. Additional Remarks Patient is sleeping Review of Systems General Constitutional: Fatigue Gastrointestinal Gastrointestinal: Abdominal Pain Objective Data Data 11/06/16 11/07/16 18:59 06:59 Intake Total 480 ml Output Total 2000 ml Balance -2000 ml 480 ml Intake Oral 480 ml Hemodialysis 2000 ml # Voids 1 # Bowel Movements 0 Vital Signs Date Time Temp Pulse Resp B/P Pulse Ox O2 Delivery O2 Flow Rate FiO2 11/07/16 12:00 96.5 61 16 100/54 94 11/07/16 08:00 96.4 69 18 100/46 91 11/07/16 05:26 97.9 67 20 104/53 92 11/07/16 01:24 18 11/07/16 00:24 95.6 75 19 125/57 93 11/06/16 20:53 96.5 74 19 139/67 93 -: 11/07/16 0740 11/07/16 0740 Microbiology 11/07/16 Aerobic Blood Culture, Received Pending 11/07/16 Anaerobic Blood Culture, Received Pending 11/07/16 Aerobic Blood Culture, Received Pending 11/07/16 Anaerobic Blood Culture, Received Pending Tubes & Lines: Perma-Cath Physical Exam General Appearance: No Acute Distress, Comfortable, Anxious Eyes Eye Exam: Pupils Equal Ears & Nose Ears & Nose Exam: Nasal Mucosa [place] Throat Throat Exam: Oral Mucosa [place] & Moist Neck Neck Exam: Neck Supple Pulmonary Resp Exam: Clear Bilaterally, Breath Sounds Equal, No Distress, Decreased Bases Cardiology CV Exam: Regular, Normal Sinus Rhythm Gastrointestinal/Abdomen GI Exam: Soft, Bowel Sounds Present Musculoskeletal MS Exam: Joints Intact, Normal Tone Integumentary Skin Exam: Warm, Dry Extremeties Extremities Exam: No Edema, Pedal Pulses Palpable Neurologic Neuro Exam: Moving All Extremities Assessment/Plan Discussed Condition With: Patient Assessment Summary: Anemia of CKD, End Stage Renal Disease Problem List: (1) ESRD (end stage renal disease) Plan: Normally dialyzes T-Th-Sat, had dialysis Saturday, maintain T-Th-Sat schedule, she is due tomorrow PermCath removed Vascath marginal flow need P/C stable next HD tomorrow MSSA treated (2) Leukocytosis Plan: on Cefazolin.Levaquin (3) Hypertension Plan: BP stable continue medications as ordered (4) Diabetes Plan: monitor blood sugar not requiring insulin at this time (5) Metabolic bone disease Plan: Begin Renvela, monitor phosphorus periodically (6) Anemia Plan: epogen with HD follow hemoglobin (7) Nausea & vomiting Plan: with abdominal pain, GI following Plan S/P EGD (11/02/16)---> Esophagitis, gastritis, pathology pending. PPI, Zofran Problem Qualifiers (1) Diabetes: Gi Jalloh MD Nov 07, 2016 13:02
--- NOTE | 2016-11-07 17:32 | HHI.IDPN ---
Subjective Subjective Remarks 61 yo F with ESRD/HD/ Permacath with persistent high grade sustained MSSA bacteremia also c/p R hand pain swelling redness around index MP joint of R hand - eval'd by Dr Pope - no signs of abscess, rec'd observation pt co abdominal pain, RN reported large amount of liquid stools Overnight events reviewed Periods of hypothermia. More alert each day. More responsive and answering questions. Denies any pain to me today. No rash No diarrhea Antibiotics Ancef IV Levaquin oral. Lines Line sites with no e/o infection Past Medical History reviewed Allergies: Coded Allergies: Cat Dander (Unverified Allergy, Severe, 11/01/16) RESPIRATORY ISSUES Objective . Vital Signs Date Time Temp Pulse Resp B/P Pulse Ox O2 Delivery O2 Flow Rate FiO2 11/07/16 16:00 95.1 60 17 111/55 96 11/07/16 14:09 91 Nasal Cannula 3.00 11/07/16 12:00 96.5 61 16 100/54 94 11/07/16 08:00 96.4 69 18 100/46 91 11/07/16 05:26 97.9 67 20 104/53 92 11/07/16 01:24 18 11/07/16 00:24 95.6 75 19 125/57 93 11/06/16 20:53 96.5 74 19 139/67 93 11/06/16 11/06/16 11/07/16 15:00 23:00 07:00 Intake Total 480 ml Output Total 2000 ml Balance -1520 ml Intake Oral 480 ml Hemodialysis 2000 ml # Voids 0 1 # Bowel Movements 0 . Laboratory Tests Test 11/07/16 07:40 White Blood Count 12.8 TH/MM3 Red Blood Count 3.32 MIL/MM3 Hemoglobin 9.5 GM/DL Hematocrit 29.8 % Mean Corpuscular Volume 89.8 FL Mean Corpuscular Hemoglobin 28.7 PG Mean Corpuscular Hemoglobin 32.0 % Concent Red Cell Distribution Width 15.9 % Platelet Count 443 TH/MM3 Mean Platelet Volume 8.1 FL Neutrophils (%) (Auto) 77.0 % Lymphocytes (%) (Auto) 7.9 % Monocytes (%) (Auto) 6.6 % Eosinophils (%) (Auto) 7.9 % Basophils (%) (Auto) 0.6 % Neutrophils # (Auto) 9.8 TH/MM3 Lymphocytes # (Auto) 1.0 TH/MM3 Monocytes # (Auto) 0.8 TH/MM3 Eosinophils # (Auto) 1.0 TH/MM3 Basophils # (Auto) 0.1 TH/MM3 CBC Comment AUTO DIFF Differential Total Cells 100 Counted Neutrophils % (Manual) 78 % Lymphocytes % 7 % Monocytes % 5 % Eosinophils % 9 % Neutrophils # (Manual) 10.1 TH/MM3 Myelocytes 1 % Differential Comment FINAL DIFF MANUAL Platelet Estimate NORMAL Platelet Morphology Comment NORMAL Ovalocytes 1+ Laboratory Tests Test 11/07/16 07:40 Sodium Level 135 MEQ/L Potassium Level 4.2 MEQ/L Chloride Level 97 MEQ/L Carbon Dioxide Level 30.1 MEQ/L Anion Gap 8 MEQ/L Blood Urea Nitrogen 31 MG/DL Creatinine 4.99 MG/DL Estimat Glomerular Filtration 9 ML/MIN Rate Random Glucose 96 MG/DL Calcium Level 8.4 MG/DL Microbiology Date/Time Procedure Status Source Growth 11/05/16 12:42 Wound Culture - Final Complete Catheter Tip Other Staphylococcus Aureus 11/05/16 14:00 Aerobic Blood Culture - Preliminary Resulted Blood Peripheral Staphylococcus Aureus 11/05/16 14:00 Anaerobic Blood Culture - Preliminary Resulted Blood Peripheral NO GROWTH IN 2 DAYS 11/05/16 14:05 Aerobic Blood Culture - Preliminary Resulted Blood Peripheral Staph Sp Coagulase Positive 11/05/16 14:05 Anaerobic Blood Culture - Preliminary Resulted Blood Peripheral NO GROWTH IN 2 DAYS 11/07/16 07:40 Aerobic Blood Culture Received Blood Peripheral Pending 11/07/16 07:40 Anaerobic Blood Culture Received Blood Peripheral Pending 11/07/16 07:52 Aerobic Blood Culture Received Blood Peripheral Pending 11/07/16 07:52 Anaerobic Blood Culture Received Blood Peripheral Pending Imaging Last Impressions Upper Extremity Ultrasound 11/02/16 0000 Signed Impressions: Service Date/Time: Wednesday, November 02, 2016 20:58 - CONCLUSION: Normal examination. Jonathan Girard MD Hand X-Ray 11/02/16 0000 Signed Impressions: Service Date/Time: Wednesday, November 02, 2016 14:40 - CONCLUSION: 1. Soft-tissue swelling involving the right second, third and fourth digits. 2. No acute fracture or dislocation. Jose Sevilla MD Chest CT 11/02/16 0000 Signed Impressions: Service Date/Time: Wednesday, November 02, 2016 17:54 - CONCLUSION: 1. Bibasilar alveolar consolidations consistent with atelectasis and/or pneumonia. Clinical correlation is recommended. 2. Small to moderate sized bilateral pleural effusions (left slightly larger than right). 3. Cardiomegaly. 4. Scarring within the lingula of the left upper lobe. Jose Sevilla MD Head CT 11/01/16 0506 Signed Impressions: Service Date/Time: October 05:22 - CONCLUSION: No significant change has occurred. Christo Chen MD Chest X-Ray 11/01/16 0000 Signed Impressions: Service Date/Time: October 05:26 - CONCLUSION: 1. Apparent cardiomegaly with left effusion and apparent infiltrate. The findings are most consistent with congestive heart failure. Miko Scott MD Abdomen/Pelvis CT 11/01/16 0000 Signed Impressions: Service Date/Time: October 07:36 - CONCLUSION: 1. Interval development of retroperitoneal lymphadenopathy which is nonspecific. A new right paraaortic retrocrural enlarged lymph node is also noted measuring 1.6 cm in the upper abdomen. PET/CT scan may be helpful for further characterization of this finding. 2. Stable enlargement of the adrenal glands bilaterally suggesting adrenal hyperplasia. There is nodular enlargement of the left adrenal gland measuring 4.2 x 2.5 cm which could represent adrenal hyperplasia but underlying mass cannot be ruled out completely. 3. Small bilateral pleural effusions with bibasilar alveolar consolidations (left worse than right ) consistent with possible atelectasis and/or pneumonia. 4. Cardiomegaly and coronary artery calcifications. 5. Chronic mild compression deformities involving T12 and L1. 6. Degenerative changes throughout the lumbar spine. Jose Sevilla MD Physical Exam GENERAL: Elderly frail appearing white female. Appears lethargic and disoriented. In no Cardiopulm distress. SKIN: No rashes. HEAD: Atraumatic. Normocephalic. No temporal or scalp tenderness. EYES: Pupils equal round and reactive. Extraocular motions intact. No scleral icterus. No injection or drainage. ENT: oral mucosae moist NECK: Trachea midline. Supple, nontender, no meningeal signs. CARDIOVASCULAR: HS audible. No murmur appreciated. RESPIRATORY: Clear to auscultation. Breath sounds equal bilaterally decreased in bases left > right. GASTROINTESTINAL: Abdomen soft, diffusely moderately tender to palpation wo guarding or reboiund , nondistended. MUSCULOSKELETAL: LE no joint effusions. Bilateral LE with chronic skin changes on plantar aspect. Right hand 2nd, 3rd and 4th digits with erythema, swelling and mild fluctuance noted. Minimal tenderness noted. NEUROLOGICAL: Awake and alert. Grossly non focal Psych: could not be assessed. Cooperative IV line Vascath line site with no e.o infection. Assessment & Plan Remarks Sepsis present on admission. GP bacteremia: MSSA .- suspect endovascular source, most likely Permacath - persistent high grade sustained bacteremia 2D ECHO w/o e/o endocarditis ESRD on HD using permacath, Anuric at baseline. Diarrhea, abx associated Retroperitoneal LN garth: follow ID workup. will need repeat Imaging and oncology referral if persistent. Recs: cont Ancef IV daily (renal dose adjusted) DC Levaquin Follow repeat blood culture. If persistent bacteremia may need Vascath changed. For now appears clinically improved. Follow clinically. Karen Anthony MD Nov 07, 2016 17:32
[2016-11-07] MEDS: TEMAZEPAM 15 MG CAP PO PRN (22:42)
[2016-11-08 00:52] VITALS: BP 128/61; PULSE 68; RESP 18; TEMP 98.5; O2SAT 97
[2016-11-08 04:50] VITALS: BP 129/59; PULSE 70; RESP 18; TEMP 98.2; O2SAT 96
[2016-11-08] MEDS: INSULIN ASPART SUPPLEMENTAL SCALE SQ SCH ×4 (06:09→21:00)
[2016-11-08] MEDS: hydrALAZINE HCL 50 MG TAB PO SCH ×3 (06:12→22:36)
[2016-11-08] MEDS: ACETAMINOPHEN/HYDROcodone 325 MG/7.5 MG TAB PO PRN ×2 (06:16→15:30)
[2016-11-08] MEDS: SODIUM CHLOR 0.9% 1000 ML INJ 1,000 ML IV PRN ×2 (08:00)
[2016-11-08] MEDS: SEVELAMER CARBONATE 800 MG TAB PO SCH ×3 (08:00→17:00)
[2016-11-08] MEDS: EPOETIN ALFA 10,000 UNITS/ML VIAL IV PRN (08:00)
[2016-11-08] MEDS: GENTAMICIN SULFATE (DIALYSIS USE ONLY) 20 MG/2 ML VIAL IV PRN (08:01)
[2016-11-08] MEDS: HEPARIN SODIUM - IV 10,000 UNITS/10 ML VIAL PRN (08:01)
--- NOTE | 2016-11-08 08:55 | HHI.NPPN ---
Subjective Complaints: Abdominal Pain General Problems: Anemia Renal Failure: End Stage Renal Disease History of Present Illness 61 y/o female pt who follows with Dr. Jalloh for nephrology. Hx of ESRD, normally dialyzes T--Sat. She missed dialysis on Saturday due to vomiting, fatigue. She also endorses recent fall, but is a poor historian and cannot give clear details. Other PMH as outlined below including HTN, anemia, CHF, and CVA. Additional Remarks Patient is sleeping Review of Systems General Constitutional: Fatigue Gastrointestinal Gastrointestinal: Abdominal Pain Objective Data Data 11/07/16 11/08/16 19:00 07:00 Intake Total 240 ml 600 ml Balance 240 ml 600 ml Intake Oral 240 ml 600 ml # Voids 1 1 # Bowel Movements 0 Vital Signs Date Time Temp Pulse Resp B/P Pulse Ox O2 Delivery O2 Flow Rate FiO2 11/08/16 04:50 98.2 70 18 129/59 96 11/08/16 00:52 98.5 68 18 128/61 97 11/07/16 23:40 17 11/07/16 20:00 98.4 68 18 129/59 97 11/07/16 18:23 96 Nasal Cannula 3.00 11/07/16 16:00 95.1 60 17 111/55 96 11/07/16 14:09 91 Nasal Cannula 3.00 11/07/16 12:00 96.5 61 16 100/54 94 -: 11/07/16 0740 11/07/16 0740 Tubes & Lines: Perma-Cath Physical Exam General Appearance: No Acute Distress, Comfortable, Anxious Eyes Eye Exam: Pupils Equal Ears & Nose Ears & Nose Exam: Nasal Mucosa [place] Throat Throat Exam: Oral Mucosa [place] & Moist Neck Neck Exam: Neck Supple Pulmonary Resp Exam: Clear Bilaterally, Breath Sounds Equal, No Distress, Decreased Bases Cardiology CV Exam: Regular, Normal Sinus Rhythm Gastrointestinal/Abdomen GI Exam: Soft, Bowel Sounds Present Musculoskeletal MS Exam: Joints Intact, Normal Tone Integumentary Skin Exam: Warm, Dry Extremeties Extremities Exam: No Edema, Pedal Pulses Palpable Neurologic Neuro Exam: Moving All Extremities Assessment/Plan Discussed Condition With: Patient Assessment Summary: Anemia of CKD, End Stage Renal Disease Problem List: (1) ESRD (end stage renal disease) Plan: Normally dialyzes --Sat, had dialysis Saturday maintain T-Th-Sat schedule, Vascath marginal flow HD seen during treatment 2 L UF Planned (2) Leukocytosis Plan: on Cefazolin.Levaquin (3) Hypertension Plan: BP stable continue medications as ordered (4) Diabetes Plan: monitor blood sugar not requiring insulin at this time (5) Metabolic bone disease Plan: Begin Renvela, monitor phosphorus periodically (6) Anemia Plan: epogen with HD follow hemoglobin (7) Nausea & vomiting Plan: with abdominal pain, GI following Plan S/P EGD (11/02/16)---> Esophagitis, gastritis, pathology pending. PPI, Zofran Problem Qualifiers (1) Diabetes: Gi Jalloh MD Nov 08, 2016 08:55
[2016-11-08] MEDS: SODIUM CHLORIDE 0.9% FLUSH 5 ML FLUSH FLUSH SCH ×2 (09:00→22:36)
--- NOTE | 2016-11-08 11:35 | HHI.PR ---
Subjective Remarks Patient is red. Appears more awake and alert today. However she is still complaining of pain. No fever or chills overnight. She has lower extremity rash so says she has scabies in the past. Objective Vitals Vital Signs Date Time Temp Pulse Resp B/P Pulse Ox O2 Delivery O2 Flow Rate FiO2 11/08/16 04:50 98.2 70 18 129/59 96 11/08/16 00:52 98.5 68 18 128/61 97 11/07/16 23:40 17 11/07/16 20:00 98.4 68 18 129/59 97 11/07/16 18:23 96 Nasal Cannula 3.00 11/07/16 16:00 95.1 60 17 111/55 96 11/07/16 14:09 91 Nasal Cannula 3.00 11/07/16 12:00 96.5 61 16 100/54 94 I/O 11/07/16 11/07/16 11/07/16 11/08/16 11/08/16 11/08/16 07:00 15:00 23:00 07:00 15:00 23:00 Intake Total 240 ml 600 ml Output Total 2000 ml Balance 240 ml 600 ml -2000 ml Intake Oral 240 ml 600 ml Hemodialysis 2000 ml # Voids 1 1 1 # Bowel Movements 0 0 Result Diagram: 11/07/16 0740 11/07/16 0740 Imaging Last Impressions Catheter Placement X-Ray 11/06/16 0000 Signed Impressions: Service Date/Time: Sunday, November 06, 2016 09:32 - CONCLUSION: Uncomplicated line placement as above. Nathan Mathias MD Central Venous Line 11/05/16 0000 Signed Impressions: Service Date/Time: Saturday, November 05, 2016 00:00 - CONCLUSION: Uncomplicated Permcath removal. Nathan Mathias MD Upper Extremity Ultrasound 11/02/16 0000 Signed Impressions: Service Date/Time: Wednesday, November 02, 2016 20:58 - CONCLUSION: Normal examination. Jonathan Girard MD Hand X-Ray 11/02/16 0000 Signed Impressions: Service Date/Time: Wednesday, November 02, 2016 14:40 - CONCLUSION: 1. Soft-tissue swelling involving the right second, third and fourth digits. 2. No acute fracture or dislocation. Jose Sevilla MD Chest CT 11/02/16 0000 Signed Impressions: Service Date/Time: Wednesday, November 02, 2016 17:54 - CONCLUSION: 1. Bibasilar alveolar consolidations consistent with atelectasis and/or pneumonia. Clinical correlation is recommended. 2. Small to moderate sized bilateral pleural effusions (left slightly larger than right). 3. Cardiomegaly. 4. Scarring within the lingula of the left upper lobe. Jose Sevilla MD Head CT 11/01/16 0506 Signed Impressions: Service Date/Time: October 05:22 - CONCLUSION: No significant change has occurred. Christo Chen MD Chest X-Ray 11/01/16 0000 Signed Impressions: Service Date/Time: October 05:26 - CONCLUSION: 1. Apparent cardiomegaly with left effusion and apparent infiltrate. The findings are most consistent with congestive heart failure. Miko Scott MD Abdomen/Pelvis CT 11/01/16 0000 Signed Impressions: Service Date/Time: October 07:36 - CONCLUSION: 1. Interval development of retroperitoneal lymphadenopathy which is nonspecific. A new right paraaortic retrocrural enlarged lymph node is also noted measuring 1.6 cm in the upper abdomen. PET/CT scan may be helpful for further characterization of this finding. 2. Stable enlargement of the adrenal glands bilaterally suggesting adrenal hyperplasia. There is nodular enlargement of the left adrenal gland measuring 4.2 x 2.5 cm which could represent adrenal hyperplasia but underlying mass cannot be ruled out completely. 3. Small bilateral pleural effusions with bibasilar alveolar consolidations (left worse than right ) consistent with possible atelectasis and/or pneumonia. 4. Cardiomegaly and coronary artery calcifications. 5. Chronic mild compression deformities involving T12 and L1. 6. Degenerative changes throughout the lumbar spine. Jose Sevilla MD Objective Remarks GENERAL: Well-developed well-nourished female patient in mild distress secondary to pain. Slightly confused but oriented to person/place. SKIN: Warm and dry. Erythema and mild edema on the dorsum of the right hand overlying the index and middle finger PIP joints, improved. New dialysis catheter in place right neck. HEENT: Normocephalic. Pupils equal and round. Mucous membranes pink and moist. CARDIOVASCULAR: Regular rate and rhythm. No murmur appreciated. RESPIRATORY: No accessory muscle use. Clear to auscultation. Breath sounds equal bilaterally. GASTROINTESTINAL: Abdomen soft, nondistended. Diffusely tender to light and deep palpation. Normoactive Bowel sounds x4. MUSCULOSKELETAL: No obvious deformities. No clubbing or cyanosis. No edema. NEUROLOGICAL: Awake and alert. No focal neurological deficits. Moves upper and lower extremities spontaneously. Normal speech. PSYCHIATRIC: Appropriate mood and affect; insight and judgment fair. A/P Assessment and Plan 61-year-old female with past medical history of ESRD on HD, HTN, CVA who presented with falls/weakness and abdominal pain Weakness/falls: Multifactorial. Likely secondary to infection/UTI, missed dialysis, and dehydration from vomiting. Treat underlying etiology is as below. PT consulted, needs SNF, case management consult. Fall precautions. Bacteremia: 12/25 blood cultures positive for staph aureus. Possibly from UTI. Tmax 99.6. Lactic acid wnl. Consulted infectious disease, continue on IV antibiotics, Currently on IV Ancef, vancomycin, Levaquin. Repeat blood cultures again with MSSA. Discussed with Dr. Anthony, permacath removed by IR , culture tip, repeat blood cultures. Consult IR, s/p Vascath placement 11/06. Restart eliquis Blood cx 11/05 positive Staph aureus. Repeat blood cx 11/07 Patient need to stay inpatient until 5 days of negative blood cultures per Dr Anthony. Patient can have ancef with HD after 5 days of repeat blood cultures negative. Discussed with Dr Jalloh nephrology regarding carlos of abx at [place] with HD Abdominal pain with nausea and vomiting: Abdomen/pelvis CT with multiple nonspecific findings, although none appear acute or the cause of the patient's discomfort. Consulted gastroenterology, performed EGD 11/02, showed esophagitis. Pain control with oral and IV narcotics as needed. Antiemetics as needed. Gentle IVF with renal disease. IV Protonix. UTI: UA initially with evidence of UTI, +leukocytosis. Did not meet sepsis criteria. S/p empiric IV Rocephin however Urine culture with staph aureus from bacteremia, continue abx as above, ID on board. Retroperitoneal lymphadenopathy and right para-aortic retrocrural enlarged lymph node: Seen incidentally on CT. Consulted oncology, likely reactive secondary to infection. Left pleural effusion and pneumonia: Chest CT shows bibasilar alveolar consolidations consistent with atelectasis and/or pneumonia as well as small moderate-sized bilateral pleural effusions. Patient with no respiratory complaints, however with episodes of hypoxia. Continue Levaquin to cover for possible pneumonia. Oxygen as needed. Right hand swelling, possible cellulitis: X-ray shows soft tissue swelling. IV antibiotics as above. Hand surgery consulted, evaluated by Dr. Pope, no signs of abscess, recommend to continue observation. Symptoms improving. ESRD on HD TTS: With associated metabolic acidosis, increased anion gap, increased BUN and creatinine; all likely secondary to missed HD. Patient's partnership manager consulted. S/P HD, repeat BMP with resolved metabolic acidosis and improved BUN/creatinine. Appreciate nephrology input. Secondary hyperparathyroidism/MBD: Phosphorus 9.0. Nephrology started patient on phosphate binders. Borderline diabetes mellitus: Previous hemoglobin A1c from 05/08 was 6.4. On no medications at home. Cover with sliding scale insulin and hypoglycemia protocol while admitted. Outpatient PCP follow-up. Hypertension: Controlled currently. Continue home Cardura, metoprolol, nifedipine, hydralazine. Clonidine as needed. History of multiple CVA and probable paroxysmal atrial fibrillation: Patient previously documented to have A. fib, however denies. EKG now and from July with sinus rhythm. Continue home aspirin and Eliquis. Dry skin lower extremities: Lac-Hydrin lotion. Give permethrin. Patient says she had scabies before. DVT prophylaxis: Letitiaquis, SCDs DC when improved and cleared by consultants. Discussed with the patiet, nurse,. ID specialist Dr Anthony. Nazia Bush MD Nov 08, 2016 11:35
[2016-11-08] MEDS: PANTOPRAZOLE SODIUM 40 MG VIAL IV PUSH SCH (12:00)
[2016-11-08 12:18] VITALS: BP 162/79; PULSE 73; RESP 19; TEMP 97.2; O2SAT 94
[2016-11-08] MEDS: DOXAZOSIN MESYLATE 2 MG TAB PO SCH (12:30)
[2016-11-08] MEDS: LACTIC ACID (AMMONIUM LACTATE) 12% LOTION 225 GM BTL TOPICAL SCH ×2 (12:30→22:37)
[2016-11-08] MEDS: GABAPENTIN 100 MG CAP PO SCH (12:30)
[2016-11-08] MEDS: ASPIRIN 325 MG TAB PO SCH (12:30)
[2016-11-08] MEDS: NYSTATIN SUSP 500,000 U/5 ML CUP SWISH-SWAL SCH ×4 (12:30→22:36)
[2016-11-08] MEDS: METOPROLOL TARTRATE 50 MG TAB PO SCH ×2 (12:30→22:36)
[2016-11-08] MEDS: APIXABAN 5 MG TABLET PO SCH ×2 (12:30→22:36)
[2016-11-08] MEDS: NIFEdipine 90 MG SUSTAINED RELEASE TAB PO SCH (12:30)
[2016-11-08 15:05] VITALS: O2SAT 96
[2016-11-08] MEDS: ACETAMINOPHEN/HYDROcodone 325 MG/5 MG TAB PO PRN ×2 (15:30→22:36)
[2016-11-08 16:00] VITALS: BP 106/78; PULSE 62; RESP 16; TEMP 98.6; O2SAT 94
[2016-11-08 20:00] VITALS: BP 113/56; PULSE 65; RESP 18; TEMP 97.9; O2SAT 93
[2016-11-08] MEDS: TEMAZEPAM 15 MG CAP PO PRN (22:36)
[2016-11-09] VITALS (7 sets, daily range): BP systolic 114–137; BP diastolic 56–68; PULSE 60–68; RESP 18–20; TEMP 97.1–98; O2SAT 9–99
[2016-11-09] MEDS: ACETAMINOPHEN/HYDROcodone 325 MG/7.5 MG TAB PO PRN (05:36)
[2016-11-09] MEDS: hydrALAZINE HCL 50 MG TAB PO SCH ×3 (05:37→21:56)
[2016-11-09] MEDS: INSULIN ASPART SUPPLEMENTAL SCALE SQ SCH ×4 (06:14→21:00)
[2016-11-09 08:31] LABS: AUTOMATED NEUTROPHIL # 6.2 TH/MM3 (1.8-7.7); BASOPHIL # 0.1 TH/MM3 (0-0.2); BASOPHIL % 1.1 % (0.0-2.0); EOSINOPHIL # 1.6 TH/MM3 (0-0.4); EOSINOPHIL % 14.8 % (0.0-4.0); HEMATOCRIT 30.5 % (35.0-46.0); LYMPH % 16.7 % (9.0-44.0); LYMPHOCYTE # 1.8 TH/MM3 (1.0-4.8); MEAN CELL VOLUME 90.3 FL (80.0-100.0); MEAN CORPUSCULAR HEMOGLOBIN 28.9 PG (27.0-34.0); MONO % 8.8 % (0.0-8.0); NEUT % 58.6 % (16.0-70.0); PLATELET COUNT 513 TH/MM3 (150-450); RED BLOOD COUNT 3.38 MIL/MM3 (4.00-5.30); WHITE BLOOD COUNT 10.6 TH/MM3 (4.0-11.0)
[2016-11-09 08:39] LABS: HEMO FLAGS AUTO DIFF
[2016-11-09 08:52] LABS: BICARBONATE 31.5 MEQ/L (21.0-32.0); POTASSIUM 4.5 MEQ/L (3.5-5.1)
[2016-11-09] MEDS: LACTIC ACID (AMMONIUM LACTATE) 12% LOTION 225 GM BTL TOPICAL SCH ×2 (09:00→21:57)
[2016-11-09 09:31] LABS: BANDS 1 % (0-6); BASOPHILS 2 % (0-2); EOSINOPHILS 11 % (0-4); MYELOCYTES 2 % (0-0); NEUTROPHIL # MANUAL DIFF 7.5 TH/MM3 (1.8-7.7); POLYS (SEG NEUTROPHILS) 68 % (16-70); WBC DIFF SAMPLE 100
[2016-11-09 09:33] LABS: KERATOCYTES OCC (NORMAL); PLATELET ESTIMATE SMEAR HIGH (NORMAL); PLATELET MORPHOLOGY NORMAL (NORMAL); SCAN/DIFF FINAL DIFF MANUAL
[2016-11-09] MEDS: GABAPENTIN 100 MG CAP PO SCH (10:13)
[2016-11-09] MEDS: PANTOPRAZOLE SODIUM 40 MG VIAL IV PUSH SCH (10:13)
[2016-11-09] MEDS: NIFEdipine 90 MG SUSTAINED RELEASE TAB PO SCH (10:13)
[2016-11-09] MEDS: DOXAZOSIN MESYLATE 2 MG TAB PO SCH (10:14)
[2016-11-09] MEDS: ASPIRIN 325 MG TAB PO SCH (10:14)
[2016-11-09] MEDS: APIXABAN 5 MG TABLET PO SCH ×2 (10:14→21:56)
[2016-11-09] MEDS: SEVELAMER CARBONATE 800 MG TAB PO SCH ×3 (10:14→17:00)
[2016-11-09] MEDS: NYSTATIN SUSP 500,000 U/5 ML CUP SWISH-SWAL SCH ×4 (10:15→21:56)
[2016-11-09] MEDS: METOPROLOL TARTRATE 50 MG TAB PO SCH ×2 (10:15→21:00)
--- NOTE | 2016-11-09 12:02 | HHI.NPPN ---
Subjective Complaints: Abdominal Pain General Problems: Anemia Renal Failure: End Stage Renal Disease History of Present Illness 61 y/o female pt who follows with Dr. Jalloh for nephrology. Hx of ESRD, normally dialyzes T--Sat. She missed dialysis on Saturday due to vomiting, fatigue. She also endorses recent fall, but is a poor historian and cannot give clear details. Other PMH as outlined below including HTN, anemia, CHF, and CVA. Additional Remarks Patient is sleeping Review of Systems General Constitutional: Fatigue Gastrointestinal Gastrointestinal: Abdominal Pain Objective Data Data 11/08/16 11/09/16 19:00 07:00 Intake Total 425 ml 480 ml Output Total 2000 ml Balance -1575 ml 480 ml Intake Oral 425 ml 480 ml Hemodialysis 2000 ml # Voids 2 3 # Bowel Movements 1 Vital Signs Date Time Temp Pulse Resp B/P Pulse Ox O2 Delivery O2 Flow Rate FiO2 11/09/16 08:00 97.1 68 20 137/65 98 11/09/16 06:36 18 11/09/16 04:00 98.0 63 18 114/56 96 11/09/16 00:35 18 11/09/16 00:00 98.0 64 18 114/56 95 11/08/16 20:00 97.9 65 18 113/56 93 11/08/16 16:00 98.6 62 16 106/78 94 11/08/16 15:05 96 Nasal Cannula 11/08/16 12:18 97.2 73 19 162/79 94 -: 11/09/16 0639 11/09/16 0639 Tubes & Lines: Perma-Cath Physical Exam General Appearance: No Acute Distress, Comfortable, Anxious Eyes Eye Exam: Pupils Equal Ears & Nose Ears & Nose Exam: Nasal Mucosa Garten Throat Throat Exam: Oral Mucosa Garten & Moist Neck Neck Exam: Neck Supple Pulmonary Resp Exam: Clear Bilaterally, Breath Sounds Equal, No Distress, Decreased Bases Cardiology CV Exam: Regular, Normal Sinus Rhythm Gastrointestinal/Abdomen GI Exam: Soft, Bowel Sounds Present Musculoskeletal MS Exam: Joints Intact, Normal Tone Integumentary Skin Exam: Warm, Dry Extremeties Extremities Exam: No Edema, Pedal Pulses Palpable Neurologic Neuro Exam: Moving All Extremities Assessment/Plan Discussed Condition With: Patient Assessment Summary: Anemia of CKD, End Stage Renal Disease Problem List: (1) ESRD (end stage renal disease) Plan: continue with dialyzes T-Th-Sat, had dialysis maintain T-Th-Sat schedule, Vascath marginal flow HD 2 L UF yesterday (2) Leukocytosis Plan: on Cefazolin. MSSA (3) Hypertension Plan: BP stable continue medications as ordered (4) Diabetes Plan: monitor blood sugar not requiring insulin at this time (5) Metabolic bone disease Plan: Begin Renvela, monitor phosphorus periodically (6) Anemia Plan: epogen with HD follow hemoglobin (7) Nausea & vomiting Plan: with abdominal pain, GI following Plan S/P EGD (11/02/16)---> Esophagitis, gastritis, pathology pending. PPI, Zofran Problem Qualifiers (1) Diabetes: Gi Jalloh MD Nov 09, 2016 12:01
--- NOTE | 2016-11-09 13:20 | HHI.PR ---
Subjective Remarks Follow up bacteremia, rash. The patient states that she does not feel well. She does not want to answer any further questions. She states "please leave me alone ". Objective Vitals Vital Signs Date Time Temp Pulse Resp B/P Pulse Ox O2 Delivery O2 Flow Rate FiO2 11/09/16 12:55 9 Nasal Cannula 2.00 11/09/16 12:00 97.3 68 18 132/65 97 11/09/16 08:00 97.1 68 20 137/65 98 11/09/16 06:36 18 11/09/16 04:00 98.0 63 18 114/56 96 11/09/16 00:35 18 11/09/16 00:00 98.0 64 18 114/56 95 11/08/16 20:00 97.9 65 18 113/56 93 11/08/16 16:00 98.6 62 16 106/78 94 11/08/16 15:05 96 Nasal Cannula I/O 11/08/16 11/08/16 11/08/16 11/09/16 11/09/16 11/09/16 07:00 15:00 23:00 07:00 15:00 23:00 Intake Total 425 ml 480 ml Output Total 2000 ml Balance -2000 ml 425 ml 480 ml Intake Oral 425 ml 480 ml Hemodialysis 2000 ml # Voids 2 3 # Bowel Movements 1 Result Diagram: 11/09/16 0639 11/09/16 0639 Imaging Last Impressions Catheter Placement X-Ray 11/06/16 0000 Signed Impressions: Service Date/Time: Sunday, November 06, 2016 09:32 - CONCLUSION: Uncomplicated line placement as above. Nathan Mathias MD Central Venous Line 11/05/16 0000 Signed Impressions: Service Date/Time: Saturday, November 05, 2016 00:00 - CONCLUSION: Uncomplicated Permcath removal. Nathan Mathias MD Upper Extremity Ultrasound 11/02/16 0000 Signed Impressions: Service Date/Time: Wednesday, November 02, 2016 20:58 - CONCLUSION: Normal examination. Jonathan Girard MD Hand X-Ray 11/02/16 0000 Signed Impressions: Service Date/Time: Wednesday, November 02, 2016 14:40 - CONCLUSION: 1. Soft-tissue swelling involving the right second, third and fourth digits. 2. No acute fracture or dislocation. Jose Sevilla MD Chest CT 2/10/17 0000 Signed Impressions: Service Date/Time: Wednesday, November 02, 2016 17:54 - CONCLUSION: 1. Bibasilar alveolar consolidations consistent with atelectasis and/or pneumonia. Clinical correlation is recommended. 2. Small to moderate sized bilateral pleural effusions (left slightly larger than right). 3. Cardiomegaly. 4. Scarring within the lingula of the left upper lobe. Jose Sevilla MD Head CT 11/01/16 0506 Signed Impressions: Service Date/Time: October 05:22 - CONCLUSION: No significant change has occurred. Christo Chen MD Chest X-Ray 11/01/16 0000 Signed Impressions: Service Date/Time: October 05:26 - CONCLUSION: 1. Apparent cardiomegaly with left effusion and apparent infiltrate. The findings are most consistent with congestive heart failure. Miko Scott MD Abdomen/Pelvis CT 11/01/16 0000 Signed Impressions: Service Date/Time: October 07:36 - CONCLUSION: 1. Interval development of retroperitoneal lymphadenopathy which is nonspecific. A new right paraaortic retrocrural enlarged lymph node is also noted measuring 1.6 cm in the upper abdomen. PET/CT scan may be helpful for further characterization of this finding. 2. Stable enlargement of the adrenal glands bilaterally suggesting adrenal hyperplasia. There is nodular enlargement of the left adrenal gland measuring 4.2 x 2.5 cm which could represent adrenal hyperplasia but underlying mass cannot be ruled out completely. 3. Small bilateral pleural effusions with bibasilar alveolar consolidations (left worse than right ) consistent with possible atelectasis and/or pneumonia. 4. Cardiomegaly and coronary artery calcifications. 5. Chronic mild compression deformities involving T12 and L1. 6. Degenerative changes throughout the lumbar spine. Jose Sevilla MD Objective Remarks General: No acute distress. The patient refuses to allow further examination. Urinary Catheter: No Vascular Central Line Catheter: No A/P Problem List: (1) ESRD (end stage renal disease) ICD Code: N18.6 Status: Chronic (2) Hypertension ICD Code: I10 Status: Chronic (3) DM (diabetes mellitus) ICD Code: E11.9 Status: Chronic (4) Weakness ICD Code: R53.1 Status: Acute (5) Hyperlipidemia ICD Code: E78.5 Status: Chronic (6) Retroperitoneal lymphadenopathy ICD Code: R59.0 Status: Acute (7) Frequent falls ICD Code: R29.6 Status: Acute (8) Abdominal pain ICD Code: R10.9 Status: Acute (9) Pleural effusion ICD Code: J90 Status: Acute (10) Bacteremia ICD Code: R78.81 Status: Acute (11) Pneumonia ICD Code: J18.9 Status: Acute Assessment and Plan 1. Bacteremia, sepsis: Appreciate infectious disease recommendations. Repeat blood cultures positive for gram-positive cocci. Continue antibiotics. Per infectious disease, patient will need to stay inpatient until 5 days of negative blood cultures. After that, patient can continue Ancef with hemodialysis. 2. Abdominal pain, nausea, vomiting: Abdomen/pelvis CT nonspecific. Gastroenterology consulted. EGD showed esophagitis. Continue PPI. 3. UTI: Status post empiric treatment with Rocephin. Appreciate infectious disease recommendations. 4. Retroperitoneal lymphadenopathy: Likely reactive secondary to infection. Appreciate oncology recommendations. 5. Left pleural effusion, pneumonia: Continue antibiotics. Oxygen as needed. 6. Right hand swelling: Continue antibiotics for possible cellulitis. Appreciate hand surgery recommendations. 7. End-stage renal disease: Continue hemodialysis on Saturday//Saturday per nephrology. 8. Borderline diabetes mellitus: Most recent hemoglobin A1c was 6.4. Monitor Accu-Cheks and cover with sliding scale insulin. 9. Hypertension: Continue Cardura, metoprolol, nifedipine, hydralazine. Clonidine available as needed. 10. History of multiple CVA, probable paroxysmal atrial fibrillation: Continue aspirin, Eliquis. 11. DVT prophylaxis: Eliquis, SCDs. Praful Tejeda MD Nov 09, 2016 13:20 Praful Tejeda MD Nov 09, 2016 13:20
[2016-11-09] MEDS: SODIUM CHLORIDE 0.9% FLUSH 5 ML FLUSH FLUSH SCH (21:00)
[2016-11-10] VITALS (8 sets, daily range): BP systolic 101–126; BP diastolic 52–64; PULSE 53–65; RESP 16–18; TEMP 96.7–97.4; O2SAT 90–96
[2016-11-10] MEDS: ACETAMINOPHEN/HYDROcodone 325 MG/7.5 MG TAB PO PRN ×3 (03:47→21:14)
[2016-11-10] MEDS: hydrALAZINE HCL 50 MG TAB PO SCH ×3 (06:21→21:09)
[2016-11-10] MEDS: INSULIN ASPART SUPPLEMENTAL SCALE SQ SCH ×4 (06:22→21:00)
[2016-11-10] MEDS: NYSTATIN SUSP 500,000 U/5 ML CUP SWISH-SWAL SCH ×4 (09:48→21:11)
[2016-11-10] MEDS: ASPIRIN 325 MG TAB PO SCH (09:48)
[2016-11-10] MEDS: PANTOPRAZOLE SODIUM 40 MG VIAL IV PUSH SCH (09:48)
[2016-11-10] MEDS: APIXABAN 5 MG TABLET PO SCH ×2 (09:48→21:09)
[2016-11-10] MEDS: GABAPENTIN 100 MG CAP PO SCH (09:48)
[2016-11-10] MEDS: METOPROLOL TARTRATE 50 MG TAB PO SCH ×2 (09:49→21:09)
[2016-11-10] MEDS: DOXAZOSIN MESYLATE 2 MG TAB PO SCH (09:49)
[2016-11-10] MEDS: SODIUM CHLORIDE 0.9% FLUSH 5 ML FLUSH FLUSH SCH ×2 (09:50→21:10)
[2016-11-10] MEDS: LACTIC ACID (AMMONIUM LACTATE) 12% LOTION 225 GM BTL TOPICAL SCH ×2 (09:50→21:11)
[2016-11-10] MEDS: SEVELAMER CARBONATE 800 MG TAB PO SCH ×3 (10:02→18:06)
[2016-11-10] MEDS: NIFEdipine 90 MG SUSTAINED RELEASE TAB PO SCH (10:02)
[2016-11-10] MEDS: MORPHINE SULFATE 4 MG/ML INJ IV PRN (12:42)
--- NOTE | 2016-11-10 14:48 | HHI.PR ---
Subjective Remarks Follow up bacteremia. Patient seen in dialysis. No specific complaints at this time. No nausea/vomiting, dyspnea, chest pain. Objective Vitals Vital Signs Date Time Temp Pulse Resp B/P Pulse Ox O2 Delivery O2 Flow Rate FiO2 11/10/16 12:23 96.7 64 16 113/59 92 11/10/16 09:55 92 Nasal Cannula 3.00 11/10/16 08:53 97.4 65 18 111/52 90 11/10/16 04:00 97.2 60 18 126/60 96 11/10/16 01:00 96 Nasal Cannula 2.00 11/10/16 00:00 97.2 61 18 126/64 96 11/09/16 20:00 97.1 60 18 128/66 96 11/09/16 16:00 97.6 67 20 131/68 99 I/O 11/09/16 11/09/16 11/09/16 11/10/16 11/10/16 11/10/16 07:00 15:00 23:00 07:00 15:00 23:00 Intake Total 480 ml 240 ml 400 ml 360 ml Balance 480 ml 240 ml 400 ml 360 ml Intake Oral 480 ml 240 ml 400 ml 360 ml # Voids 3 1 1 Result Diagram: 11/09/16 0639 11/09/16 0639 Imaging Last Impressions Catheter Placement X-Ray 11/06/16 0000 Signed Impressions: Service Date/Time: Sunday, November 06, 2016 09:32 - CONCLUSION: Uncomplicated line placement as above. Nathan Mathias MD Central Venous Line 11/05/16 0000 Signed Impressions: Service Date/Time: Saturday, November 05, 2016 00:00 - CONCLUSION: Uncomplicated Permcath removal. Nathan Mathias MD Upper Extremity Ultrasound 11/02/16 0000 Signed Impressions: Service Date/Time: Wednesday, November 02, 2016 20:58 - CONCLUSION: Normal examination. Jonathan Girard MD Hand X-Ray 11/02/16 0000 Signed Impressions: Service Date/Time: Wednesday, November 02, 2016 14:40 - CONCLUSION: 1. Soft-tissue swelling involving the right second, third and fourth digits. 2. No acute fracture or dislocation. Jose Sevilla MD Chest CT 11/02/16 0000 Signed Impressions: Service Date/Time: Wednesday, November 02, 2016 17:54 - CONCLUSION: 1. Bibasilar alveolar consolidations consistent with atelectasis and/or pneumonia. Clinical correlation is recommended. 2. Small to moderate sized bilateral pleural effusions (left slightly larger than right). 3. Cardiomegaly. 4. Scarring within the lingula of the left upper lobe. Jose Sevilla MD Head CT 11/01/16 0506 Signed Impressions: Service Date/Time: October 05:22 - CONCLUSION: No significant change has occurred. Christo Chen MD Chest X-Ray 11/01/16 0000 Signed Impressions: Service Date/Time: October 05:26 - CONCLUSION: 1. Apparent cardiomegaly with left effusion and apparent infiltrate. The findings are most consistent with congestive heart failure. Miko Scott MD Abdomen/Pelvis CT 11/01/16 0000 Signed Impressions: Service Date/Time: October 07:36 - CONCLUSION: 1. Interval development of retroperitoneal lymphadenopathy which is nonspecific. A new right paraaortic retrocrural enlarged lymph node is also noted measuring 1.6 cm in the upper abdomen. PET/CT scan may be helpful for further characterization of this finding. 2. Stable enlargement of the adrenal glands bilaterally suggesting adrenal hyperplasia. There is nodular enlargement of the left adrenal gland measuring 4.2 x 2.5 cm which could represent adrenal hyperplasia but underlying mass cannot be ruled out completely. 3. Small bilateral pleural effusions with bibasilar alveolar consolidations (left worse than right ) consistent with possible atelectasis and/or pneumonia. 4. Cardiomegaly and coronary artery calcifications. 5. Chronic mild compression deformities involving T12 and L1. 6. Degenerative changes throughout the lumbar spine. Jose Sevilla MD Objective Remarks General: No acute distress. Heart: Regular rate and rhythm. No murmur. Lungs: Clear to auscultation bilaterally. No wheezes, rales, or rhonchi. Breathing is nonlabored. Abdomen: Soft, nontender, nondistended. Extremities: No lower extremity edema. Psych: Alert, answers questions appropriately. Urinary Catheter: No Vascular Central Line Catheter: No A/P Problem List: (1) ESRD (end stage renal disease) ICD Code: N18.6 Status: Chronic (2) Hypertension ICD Code: I10 Status: Chronic (3) DM (diabetes mellitus) ICD Code: E11.9 Status: Chronic (4) Weakness ICD Code: R53.1 Status: Acute (5) Hyperlipidemia ICD Code: E78.5 Status: Chronic (6) Retroperitoneal lymphadenopathy ICD Code: R59.0 Status: Acute (7) Frequent falls ICD Code: R29.6 Status: Acute (8) Abdominal pain ICD Code: R10.9 Status: Acute (9) Pleural effusion ICD Code: J90 Status: Acute (10) Bacteremia ICD Code: R78.81 Status: Acute (11) Pneumonia ICD Code: J18.9 Status: Acute Assessment and Plan 1. Bacteremia, sepsis: Appreciate infectious disease recommendations. Repeat blood cultures positive for gram-positive cocci. Continue antibiotics. Per infectious disease, patient will need to stay inpatient until 5 days of negative blood cultures. After that, patient can continue Ancef with hemodialysis. Vascath to be removed after dialysis today and tip cultured. 2. Abdominal pain, nausea, vomiting: Abdomen/pelvis CT nonspecific. Gastroenterology consulted. EGD showed esophagitis. Continue PPI. 3. UTI: Status post empiric treatment with Rocephin. Appreciate infectious disease recommendations. 4. Retroperitoneal lymphadenopathy: Likely reactive secondary to infection. Appreciate oncology recommendations. 5. Left pleural effusion, pneumonia: Continue antibiotics. Oxygen as needed. 6. Right hand swelling: Continue antibiotics for possible cellulitis. Appreciate hand surgery recommendations. 7. End-stage renal disease: Continue hemodialysis on Saturday//Saturday per nephrology. 8. Borderline diabetes mellitus: Most recent hemoglobin A1c was 6.4. Monitor Accu-Cheks and cover with sliding scale insulin. 9. Hypertension: Continue Cardura, metoprolol, nifedipine, hydralazine. Clonidine available as needed. 10. History of multiple CVA, probable paroxysmal atrial fibrillation: Continue aspirin, Eliquis. 11. DVT prophylaxis: Charan, SCDs. Praful Tejeda MD Nov 10, 2016 14:48
--- NOTE | 2016-11-10 15:14 | HHI.NPPN ---
Subjective Complaints: Abdominal Pain General Problems: Anemia Renal Failure: End Stage Renal Disease History of Present Illness 61 y/o female pt who follows with Dr. Jalloh for nephrology. Hx of ESRD, normally dialyzes T--Sat. She missed dialysis on Saturday due to vomiting, fatigue. She also endorses recent fall, but is a poor historian and cannot give clear details. Other PMH as outlined below including HTN, anemia, CHF, and CVA. Additional Remarks Patient is awake Review of Systems General Constitutional: Fatigue Gastrointestinal Gastrointestinal: Abdominal Pain Objective Data Data 11/09/16 11/10/16 19:00 07:00 Intake Total 240 ml 760 ml Balance 240 ml 760 ml Intake Oral 240 ml 760 ml # Voids 1 1 Vital Signs Date Time Temp Pulse Resp B/P Pulse Ox O2 Delivery O2 Flow Rate FiO2 11/10/16 12:23 96.7 64 16 113/59 92 11/10/16 09:55 92 Nasal Cannula 3.00 11/10/16 08:53 97.4 65 18 111/52 90 11/10/16 04:00 97.2 60 18 126/60 96 11/10/16 01:00 96 Nasal Cannula 2.00 11/10/16 00:00 97.2 61 18 126/64 96 11/09/16 20:00 97.1 60 18 128/66 96 11/09/16 16:00 97.6 67 20 131/68 99 -: 11/09/16 0639 11/09/16 0639 Microbiology 11/10/16 Aerobic Blood Culture, Received Pending 11/10/16 Anaerobic Blood Culture, Received Pending 11/10/16 Aerobic Blood Culture, Received Pending 11/10/16 Anaerobic Blood Culture, Received Pending Tubes & Lines: Perma-Cath Physical Exam General Appearance: No Acute Distress, Comfortable, Anxious Eyes Eye Exam: Pupils Equal Ears & Nose Ears & Nose Exam: Nasal Mucosa [place] Throat Throat Exam: Oral Mucosa [place] & Moist Neck Neck Exam: Neck Supple Pulmonary Resp Exam: Clear Bilaterally, Breath Sounds Equal, No Distress, Decreased Bases Cardiology CV Exam: Regular, Normal Sinus Rhythm Gastrointestinal/Abdomen GI Exam: Soft, Bowel Sounds Present Musculoskeletal MS Exam: Joints Intact, Normal Tone Integumentary Skin Exam: Warm, Dry Extremeties Extremities Exam: No Edema, Pedal Pulses Palpable Neurologic Neuro Exam: Moving All Extremities Assessment/Plan Discussed Condition With: Patient Assessment Summary: Anemia of CKD, End Stage Renal Disease Problem List: (1) ESRD (end stage renal disease) Plan: continue with dialyzes -, had dialysis maintain schedule, Vascath marginal flow HD 2 L UF seen during treatment MSSA need to remove Vascath send tip c/s d/w Dr. Anthony (2) Leukocytosis Plan: on Cefazolin. MSSA (3) Hypertension Plan: BP stable continue medications as ordered (4) Diabetes Plan: monitor blood sugar not requiring insulin at this time (5) Metabolic bone disease Plan: Begin Renvela, monitor phosphorus periodically (6) Anemia Plan: epogen with HD follow hemoglobin (7) Nausea & vomiting Plan: with abdominal pain, GI following Plan S/P EGD (11/02/16)---> Esophagitis, gastritis, pathology pending. PPI, Zofran Problem Qualifiers (1) Diabetes: Gi Jalloh MD Nov 10, 2016 15:14
[2016-11-10] MEDS: SODIUM CHLOR 0.9% 1000 ML INJ 1,000 ML IV PRN (15:52)
[2016-11-10] MEDS: EPOETIN ALFA 10,000 UNITS/ML VIAL IV PRN (15:52)
--- NOTE | 2016-11-10 22:44 | HHI.IDPN ---
Subjective Subjective Remarks 61 yo F with ESRD/HD/ Permacath with persistent high grade sustained MSSA bacteremia also c/p R hand pain swelling redness around index MP joint of R hand - eval'd by Dr Pope - no signs of abscess, rec'd observation pt co abdominal pain, RN reported large amount of liquid stools Overnight events reviewed More alert each day. More responsive and answering questions. Denies any pain to me today. No rash No diarrhea Antibiotics Ancef IV Levaquin oral. Lines Line sites with no e/o infection Past Medical History reviewed Allergies: Coded Allergies: Cat Dander (Unverified Allergy, Severe, 11/01/16) RESPIRATORY ISSUES Objective . Vital Signs Date Time Temp Pulse Resp B/P Pulse Ox O2 Delivery O2 Flow Rate FiO2 11/10/16 22:17 18 11/10/16 20:00 97.0 53 18 101/52 93 11/10/16 18:26 Nasal Cannula 3.00 11/10/16 17:35 96.8 64 18 126/62 94 11/10/16 12:23 96.7 64 16 113/59 92 11/10/16 09:55 92 Nasal Cannula 3.00 11/10/16 08:53 97.4 65 18 111/52 90 11/10/16 04:00 97.2 60 18 126/60 96 11/10/16 01:00 96 Nasal Cannula 2.00 11/10/16 00:00 97.2 61 18 126/64 96 11/09/16 11/09/16 11/10/16 15:00 23:00 07:00 Intake Total 240 ml 400 ml 360 ml Balance 240 ml 400 ml 360 ml Intake Oral 240 ml 400 ml 360 ml # Voids 1 1 . Laboratory Tests Test 11/09/16 06:39 White Blood Count 10.6 TH/MM3 Red Blood Count 3.38 MIL/MM3 Hemoglobin 9.8 GM/DL Hematocrit 30.5 % Mean Corpuscular Volume 90.3 FL Mean Corpuscular Hemoglobin 28.9 PG Mean Corpuscular Hemoglobin 32.0 % Concent Red Cell Distribution Width 16.0 % Platelet Count 513 TH/MM3 Mean Platelet Volume 7.9 FL Neutrophils (%) (Auto) 58.6 % Lymphocytes (%) (Auto) 16.7 % Monocytes (%) (Auto) 8.8 % Eosinophils (%) (Auto) 14.8 % Basophils (%) (Auto) 1.1 % Neutrophils # (Auto) 6.2 TH/MM3 Lymphocytes # (Auto) 1.8 TH/MM3 Monocytes # (Auto) 0.9 TH/MM3 Eosinophils # (Auto) 1.6 TH/MM3 Basophils # (Auto) 0.1 TH/MM3 CBC Comment AUTO DIFF Differential Total Cells 100 Counted Neutrophils % (Manual) 68 % Band Neutrophils % 1 % Lymphocytes % 10 % Monocytes % 6 % Eosinophils % 11 % Basophils % 2 % Neutrophils # (Manual) 7.5 TH/MM3 Myelocytes 2 % Differential Comment FINAL DIFF MANUAL Platelet Estimate HIGH Platelet Morphology Comment NORMAL Keratocytes OCC Laboratory Tests Test 11/09/16 06:39 Sodium Level 134 MEQ/L Potassium Level 4.5 MEQ/L Chloride Level 94 MEQ/L Carbon Dioxide Level 31.5 MEQ/L Anion Gap 9 MEQ/L Blood Urea Nitrogen 24 MG/DL Creatinine 4.52 MG/DL Estimat Glomerular Filtration 10 ML/MIN Rate Random Glucose 82 MG/DL Calcium Level 8.6 MG/DL Microbiology Date/Time Procedure Status Source Growth 11/10/16 11:34 Aerobic Blood Culture Received Blood Peripheral Pending 11/10/16 11:34 Anaerobic Blood Culture Received Blood Peripheral Pending 11/10/16 11:40 Aerobic Blood Culture Received Blood Peripheral Pending 11/10/16 11:40 Anaerobic Blood Culture Received Blood Peripheral Pending 11/10/16 16:00 Wound Culture Received Catheter Tip Vas Cath Pending Imaging Last Impressions Upper Extremity Ultrasound 11/02/16 0000 Signed Impressions: Service Date/Time: Wednesday, November 02, 2016 20:58 - CONCLUSION: Normal examination. Jonathan Girard MD Hand X-Ray 11/02/16 0000 Signed Impressions: Service Date/Time: Wednesday, November 02, 2016 14:40 - CONCLUSION: 1. Soft-tissue swelling involving the right second, third and fourth digits. 2. No acute fracture or dislocation. Jose Sevilla MD Chest CT 11/02/16 0000 Signed Impressions: Service Date/Time: Wednesday, November 02, 2016 17:54 - CONCLUSION: 1. Bibasilar alveolar consolidations consistent with atelectasis and/or pneumonia. Clinical correlation is recommended. 2. Small to moderate sized bilateral pleural effusions (left slightly larger than right). 3. Cardiomegaly. 4. Scarring within the lingula of the left upper lobe. Jose Sevilla MD Head CT 11/01/16 0506 Signed Impressions: Service Date/Time: October 05:22 - CONCLUSION: No significant change has occurred. Christo Chen MD Chest X-Ray 11/01/16 0000 Signed Impressions: Service Date/Time: October 05:26 - CONCLUSION: 1. Apparent cardiomegaly with left effusion and apparent infiltrate. The findings are most consistent with congestive heart failure. Miko Scott MD Abdomen/Pelvis CT 11/01/16 0000 Signed Impressions: Service Date/Time: October 07:36 - CONCLUSION: 1. Interval development of retroperitoneal lymphadenopathy which is nonspecific. A new right paraaortic retrocrural enlarged lymph node is also noted measuring 1.6 cm in the upper abdomen. PET/CT scan may be helpful for further characterization of this finding. 2. Stable enlargement of the adrenal glands bilaterally suggesting adrenal hyperplasia. There is nodular enlargement of the left adrenal gland measuring 4.2 x 2.5 cm which could represent adrenal hyperplasia but underlying mass cannot be ruled out completely. 3. Small bilateral pleural effusions with bibasilar alveolar consolidations (left worse than right ) consistent with possible atelectasis and/or pneumonia. 4. Cardiomegaly and coronary artery calcifications. 5. Chronic mild compression deformities involving T12 and L1. 6. Degenerative changes throughout the lumbar spine. Jose Sevilla MD Physical Exam GENERAL: Elderly frail appearing white female. Appears lethargic and disoriented. In no Cardiopulm distress. SKIN: No rashes. HEAD: Atraumatic. Normocephalic. No temporal or scalp tenderness. EYES: Pupils equal round and reactive. Extraocular motions intact. No scleral icterus. No injection or drainage. ENT: oral mucosae moist NECK: Trachea midline. Supple, nontender, no meningeal signs. CARDIOVASCULAR: HS audible. No murmur appreciated. RESPIRATORY: Clear to auscultation. Breath sounds equal bilaterally decreased in bases left > right. GASTROINTESTINAL: Abdomen soft, diffusely moderately tender to palpation wo guarding or rebound , nondistended. MUSCULOSKELETAL: LE no joint effusions. Bilateral LE with chronic skin changes on plantar aspect. Right hand 2nd, 3rd and 4th digits with erythema, swelling and mild fluctuance noted. Minimal tenderness noted. NEUROLOGICAL: Awake and alert. Grossly non focal Psych: could not be assessed. Cooperative IV line Vascath line site with no e.o infection. Assessment & Plan Remarks Sepsis present on admission. GP bacteremia: MSSA .- suspect endovascular source, most likely Permacath - persistent high grade sustained bacteremia 2D ECHO w/o e/o endocarditis ESRD on HD using permacath, Anuric at baseline. Diarrhea, abx associated Retroperitoneal LN garth: follow ID workup. will need repeat Imaging and oncology referral if persistent. Recs: cont Ancef IV daily (renal dose adjusted) Repeat blood cultures dw to [facility] Soni and give patient a catheter holiday to help with clearance of bacteremia Follow clinically. Karen Anthony MD Nov 10, 2016 22:44
[2016-11-11] VITALS (8 sets, daily range): BP systolic 12–145; BP diastolic 51–67; PULSE 61–68; RESP 16–20; TEMP 96.8–98.6; O2SAT 91–94
[2016-11-11] MEDS: ACETAMINOPHEN/HYDROcodone 325 MG/7.5 MG TAB PO PRN (02:22)
[2016-11-11] MEDS: hydrALAZINE HCL 50 MG TAB PO SCH ×3 (06:49→21:46)
[2016-11-11] MEDS: INSULIN ASPART SUPPLEMENTAL SCALE SQ SCH ×4 (07:00→21:00)
[2016-11-11] MEDS: DOXAZOSIN MESYLATE 2 MG TAB PO SCH (11:16)
[2016-11-11] MEDS: NYSTATIN SUSP 500,000 U/5 ML CUP SWISH-SWAL SCH ×4 (11:16→21:46)
[2016-11-11] MEDS: METOPROLOL TARTRATE 50 MG TAB PO SCH ×2 (11:17→21:46)
[2016-11-11] MEDS: APIXABAN 5 MG TABLET PO SCH ×2 (11:17→21:46)
[2016-11-11] MEDS: GABAPENTIN 100 MG CAP PO SCH (11:17)
[2016-11-11] MEDS: ASPIRIN 325 MG TAB PO SCH (11:17)
[2016-11-11] MEDS: SODIUM CHLORIDE 0.9% FLUSH 5 ML FLUSH FLUSH SCH ×2 (11:18→21:45)
[2016-11-11] MEDS: SEVELAMER CARBONATE 800 MG TAB PO SCH ×3 (11:18→16:09)
[2016-11-11] MEDS: PANTOPRAZOLE SODIUM 40 MG VIAL IV PUSH SCH (11:18)
[2016-11-11] MEDS: NIFEdipine 90 MG SUSTAINED RELEASE TAB PO SCH (11:18)
[2016-11-11] MEDS: LACTIC ACID (AMMONIUM LACTATE) 12% LOTION 225 GM BTL TOPICAL SCH ×2 (11:19→21:47)
--- NOTE | 2016-11-11 13:33 | HHI.PR ---
Subjective Remarks Follow up bacteremia. Patient complaining of right leg pain. No other complaints at this time. Denies chest pain, dyspnea. Objective Vitals Vital Signs Date Time Temp Pulse Resp B/P Pulse Ox O2 Delivery O2 Flow Rate FiO2 11/11/16 12:33 98.6 65 16 121/56 94 11/11/16 10:15 92 Nasal Cannula 3.00 11/11/16 08:40 98.3 62 16 123/59 91 11/11/16 04:00 96.8 66 20 12/ 92 11/11/16 03:24 19 11/11/16 00:00 97.0 62 20 109/55 92 11/10/16 20:00 97.0 53 18 101/52 93 11/10/16 18:26 Nasal Cannula 3.00 11/10/16 17:35 96.8 64 18 126/62 94 I/O 11/10/16 11/10/16 11/10/16 11/11/16 11/11/16 11/11/16 07:00 15:00 23:00 07:00 15:00 23:00 Intake Total 360 ml 60 ml 340 ml Output Total 1000 ml Balance 360 ml -940 ml 340 ml Intake Oral 360 ml 60 ml 340 ml Hemodialysis 1000 ml # Voids 1 1 3 # Bowel Movements 0 0 Result Diagram: 11/09/16 0639 11/09/1639 Imaging Last Impressions Catheter Placement X-Ray 11/06/16 0000 Signed Impressions: Service Date/Time: Sunday, November 06, 2016 09:32 - CONCLUSION: Uncomplicated line placement as above. Nathan Mathias MD Central Venous Line 11/05/16 0000 Signed Impressions: Service Date/Time: Saturday, November 05, 2016 00:00 - CONCLUSION: Uncomplicated Permcath removal. Nathan Mathias MD Upper Extremity Ultrasound 11/02/16 0000 Signed Impressions: Service Date/Time: Wednesday, November 02, 2016 20:58 - CONCLUSION: Normal examination. Jonathan Girard MD Hand X-Ray 11/02/16 0000 Signed Impressions: Service Date/Time: Wednesday, November 02, 2016 14:40 - CONCLUSION: 1. Soft-tissue swelling involving the right second, third and fourth digits. 2. No acute fracture or dislocation. Jose Sevilla MD Chest CT 11/02/16 0000 Signed Impressions: Service Date/Time: Wednesday, November 02, 2016 17:54 - CONCLUSION: 1. Bibasilar alveolar consolidations consistent with atelectasis and/or pneumonia. Clinical correlation is recommended. 2. Small to moderate sized bilateral pleural effusions (left slightly larger than right). 3. Cardiomegaly. 4. Scarring within the lingula of the left upper lobe. Jose Sevilla MD Head CT 11/01/16 0506 Signed Impressions: Service Date/Time: October 05:22 - CONCLUSION: No significant change has occurred. Chritso Chen MD Chest X-Ray 11/01/16 0000 Signed Impressions: Service Date/Time: October 05:26 - CONCLUSION: 1. Apparent cardiomegaly with left effusion and apparent infiltrate. The findings are most consistent with congestive heart failure. Miko Scott MD Abdomen/Pelvis CT 11/01/16 0000 Signed Impressions: Service Date/Time: October 07:36 - CONCLUSION: 1. Interval development of retroperitoneal lymphadenopathy which is nonspecific. A new right paraaortic retrocrural enlarged lymph node is also noted measuring 1.6 cm in the upper abdomen. PET/CT scan may be helpful for further characterization of this finding. 2. Stable enlargement of the adrenal glands bilaterally suggesting adrenal hyperplasia. There is nodular enlargement of the left adrenal gland measuring 4.2 x 2.5 cm which could represent adrenal hyperplasia but underlying mass cannot be ruled out completely. 3. Small bilateral pleural effusions with bibasilar alveolar consolidations (left worse than right ) consistent with possible atelectasis and/or pneumonia. 4. Cardiomegaly and coronary artery calcifications. 5. Chronic mild compression deformities involving T12 and L1. 6. Degenerative changes throughout the lumbar spine. Jose Sevilla MD Objective Remarks General: No acute distress. Heart: Regular rate and rhythm. No murmur. Lungs: Clear to auscultation bilaterally. No wheezes, rales, or rhonchi. Breathing is nonlabored. Abdomen: Soft, nontender, nondistended. Extremities: No lower extremity edema. No erythema or tenderness of right leg. Psych: Alert, answers questions appropriately. Procedures 11/02/16 EGD 11/06/16 Temporary dialysis catheter placement Urinary Catheter: No Vascular Central Line Catheter: No A/P Problem List: (1) ESRD (end stage renal disease) ICD Code: N18.6 Status: Chronic (2) Hypertension ICD Code: I10 Status: Chronic (3) DM (diabetes mellitus) ICD Code: E11.9 Status: Chronic (4) Weakness ICD Code: R53.1 Status: Acute (5) Hyperlipidemia ICD Code: E78.5 Status: Chronic (6) Retroperitoneal lymphadenopathy ICD Code: R59.0 Status: Acute (7) Frequent falls ICD Code: R29.6 Status: Acute (8) Abdominal pain ICD Code: R10.9 Status: Acute (9) Pleural effusion ICD Code: J90 Status: Acute (10) Bacteremia ICD Code: R78.81 Status: Acute (11) Pneumonia ICD Code: J18.9 Status: Acute Assessment and Plan 1. Bacteremia, sepsis: Appreciate infectious disease recommendations. Repeat blood cultures positive for gram-positive cocci. Continue antibiotics. Per infectious disease, patient will need to stay inpatient until 5 days of negative blood cultures. After that, patient can continue Ancef with hemodialysis. Vascath removed and tip culture is pending. 2. Abdominal pain, nausea, vomiting: Abdomen/pelvis CT nonspecific. Gastroenterology consulted. EGD showed esophagitis. Continue PPI. 3. UTI: Status post empiric treatment with Rocephin. Appreciate infectious disease recommendations. 4. Retroperitoneal lymphadenopathy: Likely reactive secondary to infection. Appreciate oncology recommendations. 5. Left pleural effusion, pneumonia: Continue antibiotics. Oxygen as needed. 6. Right hand swelling: Continue antibiotics for possible cellulitis. Appreciate hand surgery recommendations. 7. End-stage renal disease: Continue hemodialysis on Saturday//Saturday per nephrology. 8. Borderline diabetes mellitus: Most recent hemoglobin A1c was 6.4. Monitor Accu-Cheks and cover with sliding scale insulin. 9. Hypertension: Continue Cardura, metoprolol, nifedipine, hydralazine. Clonidine available as needed. 10. History of multiple CVA, probable paroxysmal atrial fibrillation: Continue aspirin, Eliquis. 11. DVT prophylaxis: Letitiaquis, SCDs. Praful Tejeda MD Nov 11, 2016 13:33
--- NOTE | 2016-11-11 16:27 | HHI.NPPN ---
Subjective Complaints: Abdominal Pain General Problems: Anemia Renal Failure: End Stage Renal Disease History of Present Illness 61 y/o female pt who follows with Dr. Jalloh for nephrology. Hx of ESRD, normally dialyzes T--Sat. She missed dialysis on Saturday due to vomiting, fatigue. She also endorses recent fall, but is a poor historian and cannot give clear details. Other PMH as outlined below including HTN, anemia, CHF, and CVA. Additional Remarks Patient is awake Review of Systems General Constitutional: Fatigue Gastrointestinal Gastrointestinal: Abdominal Pain Objective Data Data 11/10/16 11/11/16 19:00 07:00 Intake Total 400 ml Output Total 1000 ml Balance -1000 ml 400 ml Intake Oral 400 ml Hemodialysis 1000 ml # Voids 4 # Bowel Movements 0 Vital Signs Date Time Temp Pulse Resp B/P Pulse Ox O2 Delivery O2 Flow Rate FiO2 11/11/16 12:33 98.6 65 16 121/56 94 11/11/16 10:15 92 Nasal Cannula 3.00 11/11/16 08:40 98.3 62 16 123/59 91 11/11/16 04:00 96.8 66 20 12/ 92 11/11/16 03:24 19 11/11/16 00:00 97.0 62 20 109/55 92 11/10/16 20:00 97.0 53 18 101/52 93 11/10/16 18:26 Nasal Cannula 3.00 11/10/16 17:35 96.8 64 18 126/62 94 -: 11/09/16 0639 11/09/16 0639 Tubes & Lines: Perma-Cath Physical Exam General Appearance: No Acute Distress, Comfortable, Anxious Eyes Eye Exam: Pupils Equal Ears & Nose Ears & Nose Exam: Nasal Mucosa [place] Throat Throat Exam: Oral Mucosa [place] & Moist Neck Neck Exam: Neck Supple Pulmonary Resp Exam: Clear Bilaterally, Breath Sounds Equal, No Distress, Decreased Bases Cardiology CV Exam: Regular, Normal Sinus Rhythm Gastrointestinal/Abdomen GI Exam: Soft, Bowel Sounds Present Musculoskeletal MS Exam: Joints Intact, Normal Tone Integumentary Skin Exam: Warm, Dry Extremeties Extremities Exam: No Edema, Pedal Pulses Palpable Neurologic Neuro Exam: Moving All Extremities Assessment/Plan Discussed Condition With: Patient Assessment Summary: Anemia of CKD, End Stage Renal Disease Problem List: (1) ESRD (end stage renal disease) Plan: continue with dialyzes T-Th-Sat, had dialysis maintain T-Th-Sat schedule, Reinaldocatselam removed HD 2 L UF yesterday MSSA repeat culture negative on Cefazolin (2) Leukocytosis Plan: on Cefazolin. MSSA (3) Hypertension Plan: BP stable continue medications as ordered (4) Diabetes Plan: monitor blood sugar not requiring insulin at this time (5) Metabolic bone disease Plan: Begin Renvela, monitor phosphorus periodically (6) Anemia Plan: epogen with HD follow hemoglobin (7) Nausea & vomiting Plan: with abdominal pain, GI following Plan S/P EGD (11/02/16)---> Esophagitis, gastritis, pathology pending. PPI, Zofran Problem Qualifiers (1) Diabetes: Gi Jalloh MD Nov 11, 2016 16:27
[2016-11-11] MEDS: MORPHINE SULFATE 4 MG/ML INJ IV PRN (19:49)
[2016-11-11] MEDS: TEMAZEPAM 15 MG CAP PO PRN (21:46)
[2016-11-12] VITALS (7 sets, daily range): BP systolic 112–153; BP diastolic 57–70; PULSE 59–69; RESP 17–20; TEMP 96.3–98.1; O2SAT 93–98
[2016-11-12] MEDS: INSULIN ASPART SUPPLEMENTAL SCALE SQ SCH ×4 (07:00→21:00)
[2016-11-12] MEDS: hydrALAZINE HCL 50 MG TAB PO SCH ×3 (07:18→22:55)
[2016-11-12] MEDS: SEVELAMER CARBONATE 800 MG TAB PO SCH ×3 (07:18→15:59)
[2016-11-12] MEDS: ACETAMINOPHEN/HYDROcodone 325 MG/7.5 MG TAB PO PRN ×3 (07:18→22:54)
--- NOTE | 2016-11-12 08:42 | HHI.PR ---
Subjective Remarks Follow up bacteremia. The patient states that she feels terrible today. She has no specific complaints at this time. Denies nausea and vomiting. Denies chest pain. Does report some dyspnea occasionally because her oxygen "falls off". Objective Vitals Vital Signs Date Time Temp Pulse Resp B/P Pulse Ox O2 Delivery O2 Flow Rate FiO2 11/12/16 08:27 97.4 69 18 153/70 93 11/12/16 04:00 96.8 64 20 144/68 98 11/12/16 00:00 97.8 59 20 112/57 94 11/11/16 20:00 97.6 68 20 113/51 92 11/11/16 18:18 93 Nasal Cannula 3.00 11/11/16 16:30 98.0 61 16 145/67 93 11/11/16 12:33 98.6 65 16 121/56 94 11/11/16 10:15 92 Nasal Cannula 3.00 I/O 11/11/16 11/11/16 11/11/16 11/12/16 11/12/16 11/12/16 07:00 15:00 23:00 07:00 15:00 23:00 Intake Total 340 ml 240 ml 480 ml 120 ml Balance 340 ml 240 ml 480 ml 120 ml Intake Oral 340 ml 240 ml 480 ml 120 ml # Voids 3 1 1 # Bowel Movements 0 0 Result Diagram: 11/09/16 0639 11/09/16 0639 Imaging Last Impressions Catheter Placement X-Ray 11/06/16 0000 Signed Impressions: Service Date/Time: Sunday, November 06, 2016 09:32 - CONCLUSION: Uncomplicated line placement as above. Nathan Mathias MD Central Venous Line 11/05/16 0000 Signed Impressions: Service Date/Time: Saturday, November 05, 2016 00:00 - CONCLUSION: Uncomplicated Permcath removal. Nathan Mathias MD Upper Extremity Ultrasound 11/02/16 0000 Signed Impressions: Service Date/Time: Wednesday, November 02, 2016 20:58 - CONCLUSION: Normal examination. Jonathan Girard MD Hand X-Ray 11/02/16 0000 Signed Impressions: Service Date/Time: Wednesday, November 02, 2016 14:40 - CONCLUSION: 1. Soft-tissue swelling involving the right second, third and fourth digits. 2. No acute fracture or dislocation. Jose Sevilla MD Chest CT 11/02/16 0000 Signed Impressions: Service Date/Time: Wednesday, November 02, 2016 17:54 - CONCLUSION: 1. Bibasilar alveolar consolidations consistent with atelectasis and/or pneumonia. Clinical correlation is recommended. 2. Small to moderate sized bilateral pleural effusions (left slightly larger than right). 3. Cardiomegaly. 4. Scarring within the lingula of the left upper lobe. Jose Sevilla MD Head CT 11/01/16 0506 Signed Impressions: Service Date/Time: October 05:22 - CONCLUSION: No significant change has occurred. Christo Chen MD Chest X-Ray 11/01/16 0000 Signed Impressions: Service Date/Time: October 05:26 - CONCLUSION: 1. Apparent cardiomegaly with left effusion and apparent infiltrate. The findings are most consistent with congestive heart failure. Miko Scott MD Abdomen/Pelvis CT 11/01/16 0000 Signed Impressions: Service Date/Time: October 07:36 - CONCLUSION: 1. Interval development of retroperitoneal lymphadenopathy which is nonspecific. A new right paraaortic retrocrural enlarged lymph node is also noted measuring 1.6 cm in the upper abdomen. PET/CT scan may be helpful for further characterization of this finding. 2. Stable enlargement of the adrenal glands bilaterally suggesting adrenal hyperplasia. There is nodular enlargement of the left adrenal gland measuring 4.2 x 2.5 cm which could represent adrenal hyperplasia but underlying mass cannot be ruled out completely. 3. Small bilateral pleural effusions with bibasilar alveolar consolidations (left worse than right ) consistent with possible atelectasis and/or pneumonia. 4. Cardiomegaly and coronary artery calcifications. 5. Chronic mild compression deformities involving T12 and L1. 6. Degenerative changes throughout the lumbar spine. Jose Sevilla MD Objective Remarks General: No acute distress. Heart: Regular rate and rhythm. No murmur. Lungs: Clear to auscultation bilaterally. No wheezes, rales, or rhonchi. Breathing is nonlabored. Abdomen: Soft, nontender, nondistended. Extremities: No lower extremity edema. Psych: Alert, answers questions appropriately. Procedures 11/02/16 EGD 11/06/16 Temporary dialysis catheter placement Urinary Catheter: No Vascular Central Line Catheter: No A/P Problem List: (1) ESRD (end stage renal disease) ICD Code: N18.6 Status: Chronic (2) Hypertension ICD Code: I10 Status: Chronic (3) DM (diabetes mellitus) ICD Code: E11.9 Status: Chronic (4) Weakness ICD Code: R53.1 Status: Acute (5) Hyperlipidemia ICD Code: E78.5 Status: Chronic (6) Retroperitoneal lymphadenopathy ICD Code: R59.0 Status: Acute (7) Frequent falls ICD Code: R29.6 Status: Acute (8) Abdominal pain ICD Code: R10.9 Status: Acute (9) Pleural effusion ICD Code: J90 Status: Acute (10) Bacteremia ICD Code: R78.81 Status: Acute (11) Pneumonia ICD Code: J18.9 Status: Acute Assessment and Plan 1. Bacteremia, sepsis: Appreciate infectious disease recommendations. Repeat blood cultures positive for gram-positive cocci. Continue antibiotics. Per infectious disease, patient will need to stay inpatient until 5 days of negative blood cultures. After that, patient can continue Ancef with hemodialysis. Vascath removed and tip culture is negative so far. 2. Abdominal pain, nausea, vomiting: Abdomen/pelvis CT nonspecific. Gastroenterology consulted. EGD showed esophagitis. Continue PPI. 3. UTI: Status post empiric treatment with Rocephin. Appreciate infectious disease recommendations. 4. Retroperitoneal lymphadenopathy: Likely reactive secondary to infection. Appreciate oncology recommendations. 5. Left pleural effusion, pneumonia: Continue antibiotics. Oxygen as needed. 6. Right hand swelling: Continue antibiotics for possible cellulitis. Appreciate hand surgery recommendations. 7. End-stage renal disease: Continue hemodialysis on Saturday//Saturday per nephrology. 8. Borderline diabetes mellitus: Most recent hemoglobin A1c was 6.4. Monitor Accu-Cheks and cover with sliding scale insulin. 9. Hypertension: Continue Cardura, metoprolol, nifedipine, hydralazine. Clonidine available as needed. 10. History of multiple CVA, probable paroxysmal atrial fibrillation: Continue aspirin, Eliquis. 11. DVT prophylaxis: Eliquis, SCDs. Praful Tejeda MD Nov 12, 2016 08:42
[2016-11-12] MEDS: NYSTATIN SUSP 500,000 U/5 ML CUP SWISH-SWAL SCH ×4 (09:00→22:53)
[2016-11-12] MEDS: NIFEdipine 90 MG SUSTAINED RELEASE TAB PO SCH (09:00)
[2016-11-12] MEDS: SODIUM CHLORIDE 0.9% FLUSH 5 ML FLUSH FLUSH SCH ×2 (09:00→22:53)
[2016-11-12] MEDS: DOXAZOSIN MESYLATE 2 MG TAB PO SCH (10:33)
[2016-11-12] MEDS: APIXABAN 5 MG TABLET PO SCH ×2 (10:34→22:54)
[2016-11-12] MEDS: PANTOPRAZOLE SODIUM 40 MG VIAL IV PUSH SCH (10:34)
[2016-11-12] MEDS: GABAPENTIN 100 MG CAP PO SCH (10:34)
[2016-11-12] MEDS: ASPIRIN 325 MG TAB PO SCH (10:34)
[2016-11-12] MEDS: METOPROLOL TARTRATE 50 MG TAB PO SCH ×2 (10:34→22:54)
[2016-11-12] MEDS: LACTIC ACID (AMMONIUM LACTATE) 12% LOTION 225 GM BTL TOPICAL SCH ×2 (10:36→22:55)
--- NOTE | 2016-11-12 13:27 | HHI.NPPN ---
Subjective Complaints: Abdominal Pain General Problems: Anemia Renal Failure: End Stage Renal Disease History of Present Illness 61 y/o female pt who follows with Dr. Jalloh for nephrology. Hx of ESRD, normally dialyzes T-. She missed dialysis on Saturday due to vomiting, fatigue. She also endorses recent fall, but is a poor historian and cannot give clear details. Other PMH as outlined below including HTN, anemia, CHF, and CVA. Additional Remarks Patient is awake Review of Systems General Constitutional: Fatigue Gastrointestinal Gastrointestinal: Abdominal Pain Objective Data Data 11/11/16 11/12/16 19:00 07:00 Intake Total 240 ml 600 ml Balance 240 ml 600 ml Intake Oral 240 ml 600 ml # Voids 1 1 # Bowel Movements 0 Vital Signs Date Time Temp Pulse Resp B/P Pulse Ox O2 Delivery O2 Flow Rate FiO2 11/12/16 12:25 96 Nasal Cannula 2.00 11/12/16 12:16 98.1 65 17 137/64 94 11/12/16 08:27 97.4 69 18 153/70 93 11/12/16 04:00 96.8 64 20 144/68 98 11/12/16 00:00 97.8 59 20 112/57 94 11/11/16 20:00 97.6 68 20 113/51 92 11/11/16 18:18 93 Nasal Cannula 3.00 11/11/16 16:30 98.0 61 16 145/67 93 -: 11/09/16 0639 11/09/16 0639 Tubes & Lines: Perma-Cath Physical Exam General Appearance: No Acute Distress, Comfortable, Anxious Eyes Eye Exam: Pupils Equal Ears & Nose Ears & Nose Exam: Nasal Mucosa Rozel Throat Throat Exam: Oral Mucosa [place] & Moist Neck Neck Exam: Neck Supple Pulmonary Resp Exam: Clear Bilaterally, Breath Sounds Equal, No Distress, Decreased Bases Cardiology CV Exam: Regular, Normal Sinus Rhythm Gastrointestinal/Abdomen GI Exam: Soft, Bowel Sounds Present Musculoskeletal MS Exam: Joints Intact, Normal Tone Integumentary Skin Exam: Warm, Dry Extremeties Extremities Exam: No Edema, Pedal Pulses Palpable Neurologic Neuro Exam: Moving All Extremities Assessment/Plan Discussed Condition With: Patient Assessment Summary: Anemia of CKD, End Stage Renal Disease Problem List: (1) ESRD (end stage renal disease) Plan: continue with dialyzes , had dialysis maintain T--Sat schedule, Vascath removed/Need PermCath for am, HD 2 L UF Saturday MSSA repeat culture negative on Cefazolin (2) Leukocytosis Plan: on Cefazolin. MSSA (3) Hypertension Plan: BP stable continue medications as ordered (4) Diabetes Plan: monitor blood sugar not requiring insulin at this time (5) Metabolic bone disease Plan: Begin Renvela, monitor phosphorus periodically (6) Anemia Plan: epogen with HD follow hemoglobin (7) Nausea & vomiting Plan: with abdominal pain, GI following Plan S/P EGD (11/02/16)---> Esophagitis, gastritis, pathology pending. PPI, Zofran Problem Qualifiers (1) Diabetes: Gi Jalloh MD Nov 12, 2016 13:27
[2016-11-12] MEDS: TEMAZEPAM 15 MG CAP PO PRN (22:54)
[2016-11-13 00:45] VITALS: BP 156/65; PULSE 62; RESP 17; TEMP 97; O2SAT 96
[2016-11-13 05:47] VITALS: BP 139/64; PULSE 62; RESP 18; TEMP 96.6; O2SAT 93
[2016-11-13] MEDS: INSULIN ASPART SUPPLEMENTAL SCALE SQ SCH ×4 (06:28→21:00)
[2016-11-13] MEDS: hydrALAZINE HCL 50 MG TAB PO SCH ×3 (06:47→21:43)
[2016-11-13 07:56] LABS: AUTOMATED NEUTROPHIL # 3.8 TH/MM3 (1.8-7.7); BASOPHIL # 0.2 TH/MM3 (0-0.2); BASOPHIL % 2.5 % (0.0-2.0); EOSINOPHIL % 13.4 % (0.0-4.0); HEMATOCRIT 29.3 % (35.0-46.0); HEMO FLAGS DIFF FINAL; LYMPH % 20.8 % (9.0-44.0); LYMPHOCYTE # 1.6 TH/MM3 (1.0-4.8); MEAN CELL VOLUME 90.1 FL (80.0-100.0); MEAN CORPUSCULAR HEMOGLOBIN 28.8 PG (27.0-34.0); MONO % 11.7 % (0.0-8.0); NEUT % 51.6 % (16.0-70.0); PLATELET COUNT 622 TH/MM3 (150-450); RED BLOOD COUNT 3.25 MIL/MM3 (4.00-5.30); RED CELL DISTRIBUTION WIDTH 15.9 % (11.6-17.2); WHITE BLOOD COUNT 7.5 TH/MM3 (4.0-11.0)
[2016-11-13] MEDS: SEVELAMER CARBONATE 800 MG TAB PO SCH ×3 (08:00→17:07)
[2016-11-13 08:03] LABS: INTERNATIONAL NORMALIZED RATIO 1.5 RATIO; PROTHROMBIN TIME - PATIENT 16.4 SEC (9.8-11.6)
[2016-11-13 08:13] VITALS: BP 126/61; PULSE 65; RESP 18; TEMP 97.4; O2SAT 93
[2016-11-13 08:23] LABS: BICARBONATE 31.8 MEQ/L (21.0-32.0); POTASSIUM 5.2 MEQ/L (3.5-5.1)
[2016-11-13] MEDS: APIXABAN 5 MG TABLET PO SCH (09:00)
[2016-11-13] MEDS: NIFEdipine 90 MG SUSTAINED RELEASE TAB PO SCH (09:42)
[2016-11-13] MEDS: NYSTATIN SUSP 500,000 U/5 ML CUP SWISH-SWAL SCH (09:42)
[2016-11-13] MEDS: ACETAMINOPHEN/HYDROcodone 325 MG/7.5 MG TAB PO PRN ×2 (09:42→22:02)
[2016-11-13] MEDS: SODIUM CHLORIDE 0.9% FLUSH 5 ML FLUSH FLUSH SCH ×2 (09:42→21:46)
[2016-11-13] MEDS: GABAPENTIN 100 MG CAP PO SCH (09:42)
[2016-11-13] MEDS: DOXAZOSIN MESYLATE 2 MG TAB PO SCH (09:42)
[2016-11-13] MEDS: PANTOPRAZOLE SODIUM 40 MG VIAL IV PUSH SCH (09:42)
[2016-11-13] MEDS: METOPROLOL TARTRATE 50 MG TAB PO SCH ×2 (09:42→21:43)
[2016-11-13] MEDS: LACTIC ACID (AMMONIUM LACTATE) 12% LOTION 225 GM BTL TOPICAL SCH ×2 (09:44→21:48)
[2016-11-13] MEDS: ASPIRIN 325 MG TAB PO SCH (09:45)
[2016-11-13] MEDS ORDERED: SODIUM CHLORIDE 0.9% FLUSH 5 ML FLUSH IVF PRN (10:45)
[2016-11-13] MEDS ORDERED: HEPARIN SODIUM - IV 10,000 UNITS/10 ML VIAL IVF PRN (10:45)
--- NOTE | 2016-11-13 10:47 | PD.RAD ---
Post Procedure Progress Note Pre Procedure Diagnosis: (1) CKD (chronic kidney disease) stage 3, GFR 30-59 ml/min Post Procedure Diagnosis: (1) CKD (chronic kidney disease) stage 3, GFR 30-59 ml/min Procedure Date: Nov 13, 2016 Supervising Radiologist: Arvind Tamayo JR Proceduralist/Assist: Madeleine Ewing, RT(R), Moe Schmidt RT(R)() Anesthesia: Local Plan of Activity Patient to Unit: Nursing Unit Patient Condition: Good See PACS Report for procedural detail/treatment Central Venous Access Device Procedure 1 Right Internal Jugular Hemodialysis Catheter Non-Tunneled Placement dual lumen Estonian: 14 Findings: Placed RIJ Vascath. Functions well. OK to use. Plan Can convert to Permcath after antiplatelet medication has been held. Jr. Roni,Arvind Walker MD Nov 13, 2016 10:47
--- NOTE | 2016-11-13 11:20 | HHI.PR ---
Subjective Remarks Follow up bacteremia. Patient states that she does not feel well today. Just had permacath placed this morning. No specific complaints. Denies dyspnea, nausea, vomiting. Objective Vitals Vital Signs Date Time Temp Pulse Resp B/P Pulse Ox O2 Delivery O2 Flow Rate FiO2 11/13/16 08:13 97.4 65 18 126/61 93 11/13/16 05:47 96.6 62 18 139/64 93 11/13/16 00:45 97.0 62 17 156/65 96 11/12/16 23:54 18 11/12/16 20:51 96.8 62 17 128/59 93 11/12/16 16:22 96.3 63 18 127/61 94 11/12/16 12:25 96 Nasal Cannula 2.00 11/12/16 12:16 98.1 65 17 137/64 94 I/O 11/12/16 11/12/16 11/12/16 11/13/16 11/13/16 11/13/16 07:00 15:00 23:00 07:00 15:00 23:00 Intake Total 120 ml 360 ml 120 ml Balance 120 ml 360 ml 120 ml Intake Oral 120 ml 360 ml 120 ml # Voids 1 1 2 # Bowel Movements 0 Result Diagram: 11/13/1615 11/13/1615 Imaging Last Impressions Catheter Placement X-Ray 11/06/16 0000 Signed Impressions: Service Date/Time: Sunday, November 06, 2016 09:32 - CONCLUSION: Uncomplicated line placement as above. Nathan Mathias MD Central Venous Line 11/05/16 0000 Signed Impressions: Service Date/Time: Saturday, November 05, 2016 00:00 - CONCLUSION: Uncomplicated Permcath removal. Nathan Mathias MD Upper Extremity Ultrasound 11/02/16 0000 Signed Impressions: Service Date/Time: Wednesday, November 02, 2016 20:58 - CONCLUSION: Normal examination. Jonathan Girard MD Hand X-Ray 11/02/16 0000 Signed Impressions: Service Date/Time: Wednesday, November 02, 2016 14:40 - CONCLUSION: 1. Soft-tissue swelling involving the right second, third and fourth digits. 2. No acute fracture or dislocation. Jose Sevilla MD Chest CT 11/02/16 0000 Signed Impressions: Service Date/Time: Wednesday, November 02, 2016 17:54 - CONCLUSION: 1. Bibasilar alveolar consolidations consistent with atelectasis and/or pneumonia. Clinical correlation is recommended. 2. Small to moderate sized bilateral pleural effusions (left slightly larger than right). 3. Cardiomegaly. 4. Scarring within the lingula of the left upper lobe. Jose Sevilla MD Head CT 11/01/16 0506 Signed Impressions: Service Date/Time: October 05:22 - CONCLUSION: No significant change has occurred. Christo Chen MD Chest X-Ray 11/01/16 0000 Signed Impressions: Service Date/Time: October 05:26 - CONCLUSION: 1. Apparent cardiomegaly with left effusion and apparent infiltrate. The findings are most consistent with congestive heart failure. Miko Scott MD Abdomen/Pelvis CT 11/01/16 0000 Signed Impressions: Service Date/Time: October 07:36 - CONCLUSION: 1. Interval development of retroperitoneal lymphadenopathy which is nonspecific. A new right paraaortic retrocrural enlarged lymph node is also noted measuring 1.6 cm in the upper abdomen. PET/CT scan may be helpful for further characterization of this finding. 2. Stable enlargement of the adrenal glands bilaterally suggesting adrenal hyperplasia. There is nodular enlargement of the left adrenal gland measuring 4.2 x 2.5 cm which could represent adrenal hyperplasia but underlying mass cannot be ruled out completely. 3. Small bilateral pleural effusions with bibasilar alveolar consolidations (left worse than right ) consistent with possible atelectasis and/or pneumonia. 4. Cardiomegaly and coronary artery calcifications. 5. Chronic mild compression deformities involving T12 and L1. 6. Degenerative changes throughout the lumbar spine. Jose Sevilla MD Objective Remarks General: No acute distress. Heart: Regular rate and rhythm. No murmur. Lungs: Clear to auscultation bilaterally. No wheezes, rales, or rhonchi. Breathing is nonlabored. Abdomen: Soft, nontender, nondistended. Extremities: No lower extremity edema. Psych: Alert, answers questions appropriately. Procedures 11/02/16 EGD 11/06/16 Temporary dialysis catheter placement Urinary Catheter: No Vascular Central Line Catheter: No A/P Problem List: (1) ESRD (end stage renal disease) ICD Code: N18.6 Status: Chronic (2) Hypertension ICD Code: I10 Status: Chronic (3) DM (diabetes mellitus) ICD Code: E11.9 Status: Chronic (4) Weakness ICD Code: R53.1 Status: Acute (5) Hyperlipidemia ICD Code: E78.5 Status: Chronic (6) Retroperitoneal lymphadenopathy ICD Code: R59.0 Status: Acute (7) Frequent falls ICD Code: R29.6 Status: Acute (8) Abdominal pain ICD Code: R10.9 Status: Acute (9) Pleural effusion ICD Code: J90 Status: Acute (10) Bacteremia ICD Code: R78.81 Status: Acute (11) Pneumonia ICD Code: J18.9 Status: Acute Assessment and Plan 1. Bacteremia, sepsis: Appreciate infectious disease recommendations. Repeat blood cultures positive for gram-positive cocci. Continue antibiotics. Per infectious disease, patient will need to stay inpatient until 5 days of negative blood cultures. After that, patient can continue Ancef with hemodialysis. Vascath removed and tip culture is negative so far. Catheter replaced today. 2. Abdominal pain, nausea, vomiting: Abdomen/pelvis CT nonspecific. Gastroenterology consulted. EGD showed esophagitis. Continue PPI. 3. UTI: Status post empiric treatment with Rocephin. Appreciate infectious disease recommendations. 4. Retroperitoneal lymphadenopathy: Likely reactive secondary to infection. Appreciate oncology recommendations. 5. Left pleural effusion, pneumonia: Continue antibiotics. Oxygen as needed. 6. Right hand swelling: Continue antibiotics for possible cellulitis. Appreciate hand surgery recommendations. 7. End-stage renal disease: Continue hemodialysis on Saturday//Saturday per nephrology. 8. Borderline diabetes mellitus: Most recent hemoglobin A1c was 6.4. Monitor Accu-Cheks and cover with sliding scale insulin. 9. Hypertension: Continue Cardura, metoprolol, nifedipine, hydralazine. Clonidine available as needed. 10. History of multiple CVA, probable paroxysmal atrial fibrillation: Continue aspirin, Eliquis. 11. DVT prophylaxis: Letitiaquis, SCDs. Praful Tejeda MD Nov 13, 2016 11:20
[2016-11-13 12:24] VITALS: BP 117/56; PULSE 62; RESP 18; TEMP 96.5; O2SAT 93
[2016-11-13] MEDS: SODIUM CHLOR 0.9% 1000 ML INJ 1,000 ML IV PRN (13:39)
[2016-11-13] MEDS: HEPARIN SODIUM - IV 10,000 UNITS/10 ML VIAL PRN (13:40)
[2016-11-13] MEDS: EPOETIN ALFA 10,000 UNITS/ML VIAL IV PRN (13:40)
--- NOTE | 2016-11-13 14:52 | HHI.NPPN ---
Subjective Complaints: Abdominal Pain General Problems: Anemia Renal Failure: End Stage Renal Disease History of Present Illness 61 y/o female pt who follows with Dr. Jalloh for nephrology. Hx of ESRD, normally dialyzes T--Sat. She missed dialysis on Saturday due to vomiting, fatigue. She also endorses recent fall, but is a poor historian and cannot give clear details. Other PMH as outlined below including HTN, anemia, CHF, and CVA. Additional Remarks Patient is awake Review of Systems General Constitutional: Fatigue Gastrointestinal Gastrointestinal: Abdominal Pain Objective Data Data 11/12/16 11/13/16 19:00 07:00 Intake Total 360 ml 120 ml Balance 360 ml 120 ml Intake Oral 360 ml 120 ml # Voids 1 2 Vital Signs Date Time Temp Pulse Resp B/P Pulse Ox O2 Delivery O2 Flow Rate FiO2 11/13/16 12:24 96.5 62 18 117/56 93 11/13/16 08:13 97.4 65 18 126/61 93 11/13/16 05:47 96.6 62 18 139/64 93 11/13/16 00:45 97.0 62 17 156/65 96 11/12/16 23:54 18 11/12/16 20:51 96.8 62 17 128/59 93 11/12/16 16:22 96.3 63 18 127/61 94 -: 11/13/16 0715 11/13/16 0715 Tubes & Lines: Perma-Cath Physical Exam General Appearance: No Acute Distress, Comfortable, Anxious Eyes Eye Exam: Pupils Equal Ears & Nose Ears & Nose Exam: Nasal Mucosa [place] Throat Throat Exam: Oral Mucosa [place] & Moist Neck Neck Exam: Neck Supple Pulmonary Resp Exam: Clear Bilaterally, Breath Sounds Equal, No Distress, Decreased Bases Cardiology CV Exam: Regular, Normal Sinus Rhythm Gastrointestinal/Abdomen GI Exam: Soft, Bowel Sounds Present Musculoskeletal MS Exam: Joints Intact, Normal Tone Integumentary Skin Exam: Warm, Dry Extremeties Extremities Exam: No Edema, Pedal Pulses Palpable Neurologic Neuro Exam: Moving All Extremities Assessment/Plan Discussed Condition With: Patient Assessment Summary: Anemia of CKD, End Stage Renal Disease Problem List: (1) ESRD (end stage renal disease) Plan: continue with dialyzes T--Sat, had dialysis maintain T-Th-Sat schedule, Vascath replaced, she is on Eliquis/ASA need to hold it and place PermCath by Saturday HD progress noted 1 L UF tolerating it well MSSA repeat culture negative on Cefazolin (2) Leukocytosis Plan: on Cefazolin. MSSA (3) Hypertension Plan: BP stable continue medications as ordered (4) Diabetes Plan: monitor blood sugar not requiring insulin at this time (5) Metabolic bone disease Plan: Begin Renvela, monitor phosphorus periodically (6) Anemia Plan: epogen with HD follow hemoglobin (7) Nausea & vomiting Plan: with abdominal pain, GI following Plan S/P EGD (11/02/16)---> Esophagitis, gastritis, pathology pending. PPI, Zofran Problem Qualifiers (1) Diabetes: Gi Jalloh MD Nov 13, 2016 14:52
--- NOTE | 2016-11-13 17:06 | RADRPT ---
EXAM DATE/TIME: 11/13/2016 10:42 [facility] COMPARISON: No previous studies available for comparison. INDICATIONS : Patient with history of end stage renal disease in need of vascath placement for dialysis. MEDICAL HISTORY : ESRD on hemodialysis Hypertension Anemia of chronic disease History of borderline diabetes History of CVA x3 History of C. difficile last year Possible paroxysmal atrial fibrillation SURGICAL HISTORY : Eye surgery Cholecystectomy Dialysis catheter placement in the right chest Achilles surgery ENCOUNTER: Subsequent ACUITY: > 1 year PAIN SCORE: 0/10 FLUORO TIME: 0.3 minutes ACCESS: Right internal jugular vein MEDICATION(S): 1.) 2200 units Heparin IV DEVICE(S): 1.) 14 Azeri dual lumen 15 cm Schon catheter PROCEDURE : 1. Ultrasound guided venipuncture. 2. Fluoroscopic guidance. 3. Central line placement. The risks, benefits and alternatives to the procedure were explained and verbal and written consent w as obtained. The site was prepped in sterile fashion. Full sterile technique was used, including ca p, mask, sterile gloves and gown and a large sterile sheet. Hand hygiene and 2% chlorhexidine prep w as utilized per protocol for cutaneous antisepsis with appropriate dry time for site. The skin and subcutaneous tissues were infiltrated with local anesthetic solution. A suitable site a santana the vein was selected with ultrasound and fluoroscopic guidance. A small incision was made. Th e vein was accessed under direct ultrasound visualization using the micropuncture technique. The christie ropuncture set was exchanged for a 0.035 wire. The tract was dilated. The catheter was advanced int o position under direct fluoroscopic visualization. The catheter was fixed in place with suture and a sterile dressing was applied. The patient tolerated the procedure well and there were no complications. CONCLUSION: Uncomplicated line placement as above. Arvind Tamayo Jr., MD on November 13, 2016 at 17:04 Board Certified Radiologist. This report was verified electronically.
[2016-11-13 20:50] VITALS: BP 132/60; PULSE 63; RESP 19; TEMP 98.1; O2SAT 93
[2016-11-13] MEDS: TEMAZEPAM 15 MG CAP PO PRN (22:02)
[2016-11-14] VITALS (7 sets, daily range): BP systolic 99–130; BP diastolic 50–66; PULSE 50–69; RESP 17–19; TEMP 96.4–98.1; O2SAT 92–95
[2016-11-14] MEDS: hydrALAZINE HCL 50 MG TAB PO SCH ×3 (06:00→21:05)
[2016-11-14] MEDS: INSULIN ASPART SUPPLEMENTAL SCALE SQ SCH ×4 (07:00→21:00)
[2016-11-14] MEDS: SEVELAMER CARBONATE 800 MG TAB PO SCH ×3 (08:10→17:00)
[2016-11-14] MEDS: LACTIC ACID (AMMONIUM LACTATE) 12% LOTION 225 GM BTL TOPICAL SCH ×2 (09:00→21:04)
[2016-11-14] MEDS: NIFEdipine 90 MG SUSTAINED RELEASE TAB PO SCH (09:45)
[2016-11-14] MEDS: DOXAZOSIN MESYLATE 2 MG TAB PO SCH (09:45)
[2016-11-14] MEDS: GABAPENTIN 100 MG CAP PO SCH (09:45)
[2016-11-14] MEDS: PANTOPRAZOLE SODIUM 40 MG VIAL IV PUSH SCH (09:45)
[2016-11-14] MEDS: METOPROLOL TARTRATE 50 MG TAB PO SCH ×2 (09:45→21:00)
[2016-11-14] MEDS: SODIUM CHLORIDE 0.9% FLUSH 5 ML FLUSH FLUSH SCH ×2 (09:46→21:05)
[2016-11-14] MEDS: ACETAMINOPHEN/HYDROcodone 325 MG/7.5 MG TAB PO PRN ×3 (09:51→21:04)
--- NOTE | 2016-11-14 09:59 | HHI.NPPN ---
Subjective Complaints: Abdominal Pain General Problems: Anemia Renal Failure: End Stage Renal Disease History of Present Illness 61 y/o female pt who follows with Dr. Jalloh for nephrology. Hx of ESRD, normally dialyzes T-Th-Sat. She missed dialysis on Saturday due to vomiting, fatigue. She also endorses recent fall, but is a poor historian and cannot give clear details. Other PMH as outlined below including HTN, anemia, CHF, and CVA. Additional Remarks Patient is awake Review of Systems General Constitutional: Fatigue Gastrointestinal Gastrointestinal: Abdominal Pain Objective Data Data 11/13/16 11/14/16 19:00 07:00 Intake Total 1400 ml Output Total 1000 ml Balance -1000 ml 1400 ml Intake Oral 1400 ml Hemodialysis 1000 ml # Voids 1 # Bowel Movements 0 Vital Signs Date Time Temp Pulse Resp B/P Pulse Ox O2 Delivery O2 Flow Rate FiO2 11/14/16 07:56 97.2 60 17 124/60 92 11/14/16 07:20 94 Nasal Cannula 2.00 11/14/16 04:45 97.9 69 18 125/64 93 11/14/16 00:15 97.7 65 19 130/66 93 11/13/16 20:50 98.1 63 19 132/60 93 11/13/16 12:24 96.5 62 18 117/56 93 -: 11/13/16 0715 11/13/16 0715 Tubes & Lines: Perma-Cath Physical Exam General Appearance: No Acute Distress, Comfortable, Anxious Eyes Eye Exam: Pupils Equal Ears & Nose Ears & Nose Exam: Nasal Mucosa Philip Throat Throat Exam: Oral Mucosa Philip & Moist Neck Neck Exam: Neck Supple Pulmonary Resp Exam: Clear Bilaterally, Breath Sounds Equal, No Distress, Decreased Bases Cardiology CV Exam: Regular, Normal Sinus Rhythm Gastrointestinal/Abdomen GI Exam: Soft, Bowel Sounds Present Musculoskeletal MS Exam: Joints Intact, Normal Tone Integumentary Skin Exam: Warm, Dry Extremeties Extremities Exam: No Edema, Pedal Pulses Palpable Neurologic Neuro Exam: Moving All Extremities Assessment/Plan Discussed Condition With: Patient Assessment Summary: Anemia of CKD, End Stage Renal Disease Problem List: (1) ESRD (end stage renal disease) Plan: continue with dialyzes T-Th-Sat, will do dialysis maintain T-Th-Sat schedule, Vascath replaced, await PermCath on Saturday will be off Eliquis for 5 days (2) Leukocytosis Plan: on Cefazolin. MSSA (3) Hypertension Plan: BP stable continue medications as ordered (4) Diabetes Plan: monitor blood sugar not requiring insulin at this time (5) Metabolic bone disease Plan: Begin Renvela, monitor phosphorus periodically (6) Anemia Plan: epogen with HD follow hemoglobin (7) Nausea & vomiting Plan: with abdominal pain, GI following Plan S/P EGD (11/02/16)---> Esophagitis, gastritis, pathology pending. PPI, Zofran Problem Qualifiers (1) Diabetes: Gi Jalloh MD Nov 14, 2016 09:59
--- NOTE | 2016-11-14 13:19 | HHI.PR ---
Subjective Remarks Follow up bacteremia. Patient states that she feels a little better today. Complaining of back pain. Objective Vitals Vital Signs Date Time Temp Pulse Resp B/P Pulse Ox O2 Delivery O2 Flow Rate FiO2 11/14/16 12:02 96.4 59 18 111/55 93 11/14/16 07:56 97.2 60 17 124/60 92 11/14/16 07:20 94 Nasal Cannula 2.00 11/14/16 04:45 97.9 69 18 125/64 93 11/14/16 00:15 97.7 65 19 130/66 93 11/13/16 20:50 98.1 63 19 132/60 93 I/O 11/13/16 11/13/16 11/13/16 11/14/16 11/14/16 11/14/16 07:00 15:00 23:00 07:00 15:00 23:00 Intake Total 120 ml 800 ml 600 ml Output Total 1000 ml Balance 120 ml -200 ml 600 ml Intake Oral 120 ml 800 ml 600 ml Hemodialysis 1000 ml # Voids 2 0 1 # Bowel Movements 0 0 Result Diagram: 11/13/16 0715 11/13/16 0715 Imaging Last Impressions Catheter Placement X-Ray 11/13/16 1004 Signed Impressions: Service Date/Time: Sunday, November 13, 2016 10:42 - CONCLUSION: Uncomplicated line placement as above. Arvind Tamayo Jr., MD Central Venous Line 11/05/16 0000 Signed Impressions: Service Date/Time: Saturday, November 05, 2016 00:00 - CONCLUSION: Uncomplicated Permcath removal. Nathan Mathias MD Upper Extremity Ultrasound 11/02/16 0000 Signed Impressions: Service Date/Time: Wednesday, November 02, 2016 20:58 - CONCLUSION: Normal examination. Jonathan Girard MD Hand X-Ray 11/02/16 0000 Signed Impressions: Service Date/Time: Wednesday, November 02, 2016 14:40 - CONCLUSION: 1. Soft-tissue swelling involving the right second, third and fourth digits. 2. No acute fracture or dislocation. Jose Sevilla MD Chest CT 11/02/16 0000 Signed Impressions: Service Date/Time: Wednesday, November 02, 2016 17:54 - CONCLUSION: 1. Bibasilar alveolar consolidations consistent with atelectasis and/or pneumonia. Clinical correlation is recommended. 2. Small to moderate sized bilateral pleural effusions (left slightly larger than right). 3. Cardiomegaly. 4. Scarring within the lingula of the left upper lobe. Jose Sevilla MD Head CT 11/01/16 0506 Signed Impressions: Service Date/Time: October 05:22 - CONCLUSION: No significant change has occurred. Christo Chen MD Chest X-Ray 11/01/16 0000 Signed Impressions: Service Date/Time: October 05:26 - CONCLUSION: 1. Apparent cardiomegaly with left effusion and apparent infiltrate. The findings are most consistent with congestive heart failure. Miko Scott MD Abdomen/Pelvis CT 11/01/16 0000 Signed Impressions: Service Date/Time: October 07:36 - CONCLUSION: 1. Interval development of retroperitoneal lymphadenopathy which is nonspecific. A new right paraaortic retrocrural enlarged lymph node is also noted measuring 1.6 cm in the upper abdomen. PET/CT scan may be helpful for further characterization of this finding. 2. Stable enlargement of the adrenal glands bilaterally suggesting adrenal hyperplasia. There is nodular enlargement of the left adrenal gland measuring 4.2 x 2.5 cm which could represent adrenal hyperplasia but underlying mass cannot be ruled out completely. 3. Small bilateral pleural effusions with bibasilar alveolar consolidations (left worse than right ) consistent with possible atelectasis and/or pneumonia. 4. Cardiomegaly and coronary artery calcifications. 5. Chronic mild compression deformities involving T12 and L1. 6. Degenerative changes throughout the lumbar spine. Jose Sevilla MD Objective Remarks General: No acute distress. Sitting up in a chair. Heart: Regular rate and rhythm. No murmur. Lungs: Clear to auscultation bilaterally. No wheezes, rales, or rhonchi. Breathing is nonlabored. Abdomen: Soft, nontender, nondistended. Extremities: No lower extremity edema. Psych: Alert, answers questions appropriately. Procedures 11/02/16 EGD 11/06/16 Temporary dialysis catheter placement 11/13/16 temporary dialysis catheter placement Urinary Catheter: No Vascular Central Line Catheter: No A/P Problem List: (1) ESRD (end stage renal disease) ICD Code: N18.6 Status: Chronic (2) Hypertension ICD Code: I10 Status: Chronic (3) DM (diabetes mellitus) ICD Code: E11.9 Status: Chronic (4) Weakness ICD Code: R53.1 Status: Acute (5) Hyperlipidemia ICD Code: E78.5 Status: Chronic (6) Retroperitoneal lymphadenopathy ICD Code: R59.0 Status: Acute (7) Frequent falls ICD Code: R29.6 Status: Acute (8) Abdominal pain ICD Code: R10.9 Status: Acute (9) Pleural effusion ICD Code: J90 Status: Acute (10) Bacteremia ICD Code: R78.81 Status: Acute (11) Pneumonia ICD Code: J18.9 Status: Acute Assessment and Plan 1. Bacteremia, sepsis: Appreciate infectious disease recommendations. Repeat blood cultures positive for gram-positive cocci. Continue antibiotics. Per infectious disease, patient will need to stay inpatient until 5 days of negative blood cultures. After that, patient can continue Ancef with hemodialysis. Vascath removed and tip culture is negative so far. Temporary dialysis catheter replaced yesterday. Awaiting Permacath placement on Saturday; holding ASA, Eliquis prior to procedure. 2. Abdominal pain, nausea, vomiting: Abdomen/pelvis CT nonspecific. Gastroenterology consulted. EGD showed esophagitis. Continue PPI. 3. UTI: Status post empiric treatment with Rocephin. Appreciate infectious disease recommendations. 4. Retroperitoneal lymphadenopathy: Likely reactive secondary to infection. Appreciate oncology recommendations. 5. Left pleural effusion, pneumonia: Continue antibiotics. Oxygen as needed. 6. Right hand swelling: Continue antibiotics for possible cellulitis. Appreciate hand surgery recommendations. 7. End-stage renal disease: Continue hemodialysis on Saturday//Saturday per nephrology. 8. Borderline diabetes mellitus: Most recent hemoglobin A1c was 6.4. Monitor Accu-Cheks and cover with sliding scale insulin. 9. Hypertension: Continue Cardura, metoprolol, nifedipine, hydralazine. Clonidine available as needed. 10. History of multiple CVA, probable paroxysmal atrial fibrillation: Restart aspirin, Eliquis after Permacath placement on Saturday. 11. DVT prophylaxis: Eliquis on hold. SCDs. Discussed with Dr. Anthony. Discharge Planning Arrangements are made for patient to go to [facility] at discharge. Will possibly be cleared by ID tomorrow for discharge if blood cultures remain negative. Patient will need to continue IV antibiotics with dialysis. May need to wait until Permacath is placed before discharge unless cleared by Nephrology prior to that. Praful Tejeda MD Nov 14, 2016 13:19
--- NOTE | 2016-11-14 19:24 | HHI.IDPN ---
Subjective Subjective Remarks 61 yo F with ESRD/HD/ Permacath with persistent high grade sustained MSSA bacteremia also c/p R hand pain swelling redness around index MP joint of R hand - eval'd by Dr Pope - no signs of abscess, rec'd observation pt co abdominal pain, RN reported large amount of liquid stools Overnight events reviewed More alert each day. More responsive and answering questions. Participated in PT/OT Denies any pain to me today. No rash No diarrhea Antibiotics Ancef IV Lines Line sites with no e/o infection Past Medical History reviewed Allergies: Coded Allergies: Cat Dander (Unverified Allergy, Severe, 11/01/16) RESPIRATORY ISSUES Objective . Vital Signs Date Time Temp Pulse Resp B/P Pulse Ox O2 Delivery O2 Flow Rate FiO2 11/14/16 16:27 97.8 56 18 107/52 95 11/14/16 12:02 96.4 59 18 111/55 93 11/14/16 07:56 97.2 60 17 124/60 92 11/14/16 07:20 94 Nasal Cannula 2.00 11/14/16 04:45 97.9 69 18 125/64 93 11/14/16 00:15 97.7 65 19 130/66 93 11/13/16 20:50 98.1 63 19 132/60 93 11/13/16 11/13/16 11/14/16 15:00 23:00 07:00 Intake Total 800 ml 600 ml Output Total 1000 ml Balance -200 ml 600 ml Intake Oral 800 ml 600 ml Hemodialysis 1000 ml # Voids 0 1 # Bowel Movements 0 0 . Laboratory Tests Test 11/13/16 07:15 White Blood Count 7.5 TH/MM3 Red Blood Count 3.25 MIL/MM3 Hemoglobin 9.4 GM/DL Hematocrit 29.3 % Mean Corpuscular Volume 90.1 FL Mean Corpuscular Hemoglobin 28.8 PG Mean Corpuscular Hemoglobin 32.0 % Concent Red Cell Distribution Width 15.9 % Platelet Count 622 TH/MM3 Mean Platelet Volume 7.4 FL Neutrophils (%) (Auto) 51.6 % Lymphocytes (%) (Auto) 20.8 % Monocytes (%) (Auto) 11.7 % Eosinophils (%) (Auto) 13.4 % Basophils (%) (Auto) 2.5 % Neutrophils # (Auto) 3.8 TH/MM3 Lymphocytes # (Auto) 1.6 TH/MM3 Monocytes # (Auto) 0.9 TH/MM3 Eosinophils # (Auto) 1.0 TH/MM3 Basophils # (Auto) 0.2 TH/MM3 CBC Comment DIFF FINAL Differential Comment Laboratory Tests Test 11/13/16 07:15 Sodium Level 136 MEQ/L Potassium Level 5.2 MEQ/L Chloride Level 97 MEQ/L Carbon Dioxide Level 31.8 MEQ/L Anion Gap 7 MEQ/L Blood Urea Nitrogen 34 MG/DL Creatinine 6.02 MG/DL Estimat Glomerular Filtration 7 ML/MIN Rate Random Glucose 74 MG/DL Calcium Level 8.8 MG/DL Imaging Last Impressions Upper Extremity Ultrasound 11/02/16 0000 Signed Impressions: Service Date/Time: Wednesday, November 02, 2016 20:58 - CONCLUSION: Normal examination. Jonathan Girard MD Hand X-Ray 11/02/16 0000 Signed Impressions: Service Date/Time: Wednesday, November 02, 2016 14:40 - CONCLUSION: 1. Soft-tissue swelling involving the right second, third and fourth digits. 2. No acute fracture or dislocation. Jose Sevilla MD Chest CT 11/02/16 0000 Signed Impressions: Service Date/Time: Wednesday, November 02, 2016 17:54 - CONCLUSION: 1. Bibasilar alveolar consolidations consistent with atelectasis and/or pneumonia. Clinical correlation is recommended. 2. Small to moderate sized bilateral pleural effusions (left slightly larger than right). 3. Cardiomegaly. 4. Scarring within the lingula of the left upper lobe. Jose Sevilla MD Head CT 11/01/16 0506 Signed Impressions: Service Date/Time: October 05:22 - CONCLUSION: No significant change has occurred. Christo Chen MD Chest X-Ray 11/01/16 0000 Signed Impressions: Service Date/Time: October 05:26 - CONCLUSION: 1. Apparent cardiomegaly with left effusion and apparent infiltrate. The findings are most consistent with congestive heart failure. Miko Scott MD Abdomen/Pelvis CT 11/01/16 0000 Signed Impressions: Service Date/Time: October 07:36 - CONCLUSION: 1. Interval development of retroperitoneal lymphadenopathy which is nonspecific. A new right paraaortic retrocrural enlarged lymph node is also noted measuring 1.6 cm in the upper abdomen. PET/CT scan may be helpful for further characterization of this finding. 2. Stable enlargement of the adrenal glands bilaterally suggesting adrenal hyperplasia. There is nodular enlargement of the left adrenal gland measuring 4.2 x 2.5 cm which could represent adrenal hyperplasia but underlying mass cannot be ruled out completely. 3. Small bilateral pleural effusions with bibasilar alveolar consolidations (left worse than right ) consistent with possible atelectasis and/or pneumonia. 4. Cardiomegaly and coronary artery calcifications. 5. Chronic mild compression deformities involving T12 and L1. 6. Degenerative changes throughout the lumbar spine. Jose Sevilla MD Physical Exam GENERAL: Elderly frail appearing white female. Appears lethargic and disoriented. In no Cardiopulm distress. SKIN: No rashes. HEAD: Atraumatic. Normocephalic. No temporal or scalp tenderness. EYES: Pupils equal round and reactive. Extraocular motions intact. No scleral icterus. No injection or drainage. ENT: oral mucosae moist NECK: Trachea midline. Supple, nontender, no meningeal signs. CARDIOVASCULAR: HS audible. No murmur appreciated. RESPIRATORY: Clear to auscultation. Breath sounds equal bilaterally decreased in bases left > right. GASTROINTESTINAL: Abdomen soft, diffusely moderately tender to palpation wo guarding or rebound , nondistended. MUSCULOSKELETAL: LE no joint effusions. Bilateral LE with chronic skin changes on plantar aspect. Right hand 2nd, 3rd and 4th digits with erythema, swelling and mild fluctuance noted. Minimal tenderness noted. NEUROLOGICAL: Awake and alert. Grossly non focal Psych: could not be assessed. Cooperative IV line Vascath line site with no e.o infection. Assessment & Plan Remarks Sepsis present on admission. GP bacteremia: MSSA .- suspect endovascular source, most likely Permacath - persistent high grade sustained bacteremia 2D ECHO w/o e/o endocarditis ESRD on HD using permacath, Anuric at baseline. Diarrhea, abx associated Retroperitoneal LN garth: follow ID workup. will need repeat Imaging and oncology referral if persistent. Recs: cont Ancef IV daily (renal dose adjusted) Follow repeat blood cultures Follow clinically. Will provide DC recs once BCX negative and ready for DC. Karen Rodriguez MD Nov 14, 2016 19:24
[2016-11-14] MEDS: TEMAZEPAM 15 MG CAP PO PRN (21:04)
[2016-11-15] VITALS: BP 100/56; PULSE 54; RESP 18; TEMP 98; O2SAT 93
[2016-11-15] MEDS: ACETAMINOPHEN/HYDROcodone 325 MG/7.5 MG TAB PO PRN ×3 (01:33→16:35)
[2016-11-15 05:00] VITALS: BP 99/54; PULSE 60; RESP 20; TEMP 98.1; O2SAT 92
[2016-11-15] MEDS: INSULIN ASPART SUPPLEMENTAL SCALE SQ SCH ×4 (05:17→21:53)
[2016-11-15] MEDS: hydrALAZINE HCL 50 MG TAB PO SCH ×3 (05:17→21:54)
[2016-11-15] MEDS: SEVELAMER CARBONATE 800 MG TAB PO SCH ×3 (08:00→16:35)
[2016-11-15] MEDS: DOXAZOSIN MESYLATE 2 MG TAB PO SCH (08:03)
[2016-11-15] MEDS: PANTOPRAZOLE SODIUM 40 MG VIAL IV PUSH SCH (08:03)
[2016-11-15] MEDS: METOPROLOL TARTRATE 50 MG TAB PO SCH ×2 (08:03→21:53)
[2016-11-15] MEDS: GABAPENTIN 100 MG CAP PO SCH (08:03)
[2016-11-15] MEDS: NIFEdipine 90 MG SUSTAINED RELEASE TAB PO SCH (08:03)
[2016-11-15] MEDS: SODIUM CHLORIDE 0.9% FLUSH 5 ML FLUSH FLUSH SCH ×2 (08:04→21:00)
[2016-11-15] MEDS: LACTIC ACID (AMMONIUM LACTATE) 12% LOTION 225 GM BTL TOPICAL SCH ×2 (08:14→21:54)
[2016-11-15 08:31] VITALS: BP 138/60; PULSE 58; RESP 18; TEMP 95.7; O2SAT 95
--- NOTE | 2016-11-15 12:53 | HHI.PR ---
Subjective Remarks Patient seen during dialysis. Denies pain. Objective Vitals Vital Signs Date Time Temp Pulse Resp B/P Pulse Ox O2 Delivery O2 Flow Rate FiO2 11/15/16 08:31 95.7 58 18 138/60 95 11/15/16 05:00 98.1 60 20 99/54 92 11/15/16 00:00 98.0 54 18 100/56 93 11/14/16 20:45 98.1 50 17 99/50 93 11/14/16 16:27 97.8 56 18 107/52 95 I/O 11/14/16 11/14/16 11/14/16 11/15/16 11/15/16 11/15/16 07:00 15:00 23:00 07:00 15:00 23:00 Intake Total 600 ml 700 ml 975 ml Balance 600 ml 700 ml 975 ml Intake Oral 600 ml 700 ml 975 ml # Voids 1 1 0 # Bowel Movements 0 0 0 Result Diagram: 11/13/1671411/13/16714 Objective Remarks GENERAL: Well-nourished, well-developed patient. SKIN: Warm and dry. HEAD: Normocephalic. Macroglossia present. EYES: No scleral icterus. No injection or drainage. NECK: Supple, trachea midline. No JVD or lymphadenopathy. CARDIOVASCULAR: Regular rate and rhythm without murmurs, gallops, or rubs. RESPIRATORY: Breath sounds equal bilaterally. No accessory muscle use. GASTROINTESTINAL: Abdomen soft, non-tender, nondistended. EXTREMITIES: No cyanosis, or edema. NEUROLOGICAL: Awake, alert, and oriented x 3. Non-focal. Procedures 11/02/16 EGD 11/06/16 Temporary dialysis catheter placement 11/13/16 temporary dialysis catheter placement, RIJ A/P Problem List: (1) MSSA (methicillin susceptible Staphylococcus aureus) septicemia ICD Code: A41.01 Status: Acute (2) ESRD (end stage renal disease) ICD Code: N18.6 Status: Chronic (3) Hypertension ICD Code: I10 Status: Chronic (4) DM (diabetes mellitus) ICD Code: E11.9 Status: Chronic (5) Weakness ICD Code: R53.1 Status: Acute (6) Hyperlipidemia ICD Code: E78.5 Status: Chronic (7) Retroperitoneal lymphadenopathy ICD Code: R59.0 Status: Acute (8) Frequent falls ICD Code: R29.6 Status: Acute (9) Abdominal pain ICD Code: R10.9 Status: Acute (10) Pleural effusion ICD Code: J90 Status: Acute (11) Bacteremia ICD Code: R78.81 Status: Acute (12) Pneumonia ICD Code: J18.9 Status: Acute (13) Sepsis ICD Code: A41.9 Status: Acute Assessment and Plan 1. MSSA bacteremia, sepsis: Appreciate infectious disease recommendations. Repeat blood cultures from November 10 are no growth in 5 days. Source was likely the dialysis catheter which was pulled. 2-D echocardiogram was negative. Continue IV ancef. Right IJ Vas-Cath was placed on November 13. Awaiting Permacath placement on Saturday; patient must be off Eliquis for 5 days and aspirin prior to procedure. 2. Abdominal pain, nausea, vomiting: Abdomen/pelvis CT nonspecific. Gastroenterology consulted. EGD showed esophagitis. Continue PPI. 3. UTI: treated/resolved. 4. Retroperitoneal lymphadenopathy: Likely reactive secondary to infection. Appreciate oncology recommendations. 5. Left pleural effusion, wiht infiltrate - pneumonia vs CHF. abx per ID. 6. Right hand swelling: Continue antibiotics for possible cellulitis. Appreciate hand surgery recommendations. 7. End-stage renal disease: Continue hemodialysis on Saturday//Saturday per nephrology. 8. Borderline diabetes mellitus: Most recent hemoglobin A1c was 6.4. Monitor Accu-Cheks and cover with sliding scale insulin. 9. Hypertension: Continue Cardura, metoprolol, nifedipine, hydralazine. Clonidine available as needed. 10. History of multiple CVA, probable paroxysmal atrial fibrillation: Restart aspirin, Eliquis after Permacath placement on Saturday. 11. DVT prophylaxis: Eliquis on hold. SCDs. Discharge Planning SNF when ready for DC. Problem Qualifiers (1) Sepsis: Qualified Code: A41.9 - Sepsis, due to unspecified organism Lizy Wong MD Nov 15, 2016 12:53
[2016-11-15] MEDS: EPOETIN ALFA 10,000 UNITS/ML VIAL IV PRN (13:39)
[2016-11-15] MEDS: GENTAMICIN SULFATE (DIALYSIS USE ONLY) 20 MG/2 ML VIAL IV PRN (13:39)
[2016-11-15] MEDS: HEPARIN SODIUM - IV 10,000 UNITS/10 ML VIAL PRN (13:39)
--- NOTE | 2016-11-15 14:37 | HHI.NPPN ---
Subjective Complaints: Abdominal Pain General Problems: Anemia Renal Failure: End Stage Renal Disease History of Present Illness 61 y/o female pt who follows with Dr. Jalloh for nephrology. Hx of ESRD, normally dialyzes T-Th-Sat. She missed dialysis on Saturday due to vomiting, fatigue. She also endorses recent fall, but is a poor historian and cannot give clear details. Other PMH as outlined below including HTN, anemia, CHF, and CVA. Additional Remarks Patient is awake Review of Systems General Constitutional: Fatigue Gastrointestinal Gastrointestinal: Abdominal Pain Objective Data Data 11/14/16 11/15/16 19:00 07:00 Intake Total 1675 ml Balance 1675 ml Intake Oral 1675 ml # Voids 1 0 # Bowel Movements 0 Vital Signs Date Time Temp Pulse Resp B/P Pulse Ox O2 Delivery O2 Flow Rate FiO2 11/15/16 08:31 95.7 58 18 138/60 95 11/15/16 05:00 98.1 60 20 99/54 92 11/15/16 00:00 98.0 54 18 100/56 93 11/14/16 20:45 98.1 50 17 99/50 93 11/14/16 16:27 97.8 56 18 107/52 95 -: 11/13/16 0715 11/13/16 0715 Tubes & Lines: Perma-Cath Physical Exam General Appearance: No Acute Distress, Comfortable, Anxious Eyes Eye Exam: Pupils Equal Ears & Nose Ears & Nose Exam: Nasal Mucosa Ryder Throat Throat Exam: Oral Mucosa Ryder & Moist Neck Neck Exam: Neck Supple Pulmonary Resp Exam: Clear Bilaterally, Breath Sounds Equal, No Distress, Decreased Bases Cardiology CV Exam: Regular, Normal Sinus Rhythm Gastrointestinal/Abdomen GI Exam: Soft, Bowel Sounds Present Musculoskeletal MS Exam: Joints Intact, Normal Tone Integumentary Skin Exam: Warm, Dry Extremeties Extremities Exam: No Edema, Pedal Pulses Palpable Neurologic Neuro Exam: Moving All Extremities Assessment/Plan Discussed Condition With: Patient Assessment Summary: Anemia of CKD, End Stage Renal Disease Problem List: (1) ESRD (end stage renal disease) Plan: continue with dialyzes T-Th-Sat, seen on hemodialysis 3 L UF maintain T-Th-Sat schedule, Vascath replaced, await PermCath on Saturday (2) Leukocytosis Plan: on Cefazolin. MSSA (3) Hypertension Plan: BP stable continue medications as ordered (4) Diabetes Plan: monitor blood sugar not requiring insulin at this time (5) Metabolic bone disease Plan: Begin Renvela, monitor phosphorus periodically (6) Anemia Plan: epogen with HD follow hemoglobin (7) Nausea & vomiting Plan: with abdominal pain, GI following Plan S/P EGD (11/02/16)---> Esophagitis, gastritis, pathology pending. PPI, Zofran Problem Qualifiers (1) Diabetes: Gi Jalloh MD Nov 15, 2016 14:37
[2016-11-15 16:15] VITALS: BP 105/51; PULSE 58; RESP 18; TEMP 95.7; O2SAT 93
[2016-11-15 20:00] VITALS: BP 91/55; PULSE 59; RESP 18; TEMP 96.3; O2SAT 96
[2016-11-16] VITALS: BP 123/60; PULSE 62; RESP 20; TEMP 97.2; O2SAT 93
[2016-11-16] MEDS: ACETAMINOPHEN/HYDROcodone 325 MG/7.5 MG TAB PO PRN ×2 (01:49→11:29)
[2016-11-16 04:00] VITALS: BP 145/66; PULSE 71; RESP 20; TEMP 98.7; O2SAT 95
[2016-11-16] MEDS: INSULIN ASPART SUPPLEMENTAL SCALE SQ SCH ×4 (06:13→21:00)
[2016-11-16] MEDS: hydrALAZINE HCL 50 MG TAB PO SCH ×3 (06:15→21:22)
[2016-11-16 08:00] VITALS: BP 141/63; PULSE 69; RESP 20; TEMP 96.9; O2SAT 97
[2016-11-16] MEDS: PANTOPRAZOLE SODIUM 40 MG VIAL IV PUSH SCH (08:45)
[2016-11-16] MEDS: DOXAZOSIN MESYLATE 2 MG TAB PO SCH (08:45)
[2016-11-16] MEDS: NIFEdipine 90 MG SUSTAINED RELEASE TAB PO SCH (08:46)
[2016-11-16] MEDS: METOPROLOL TARTRATE 50 MG TAB PO SCH ×2 (08:46→20:13)
[2016-11-16] MEDS: LACTIC ACID (AMMONIUM LACTATE) 12% LOTION 225 GM BTL TOPICAL SCH ×2 (08:46→20:15)
[2016-11-16] MEDS: GABAPENTIN 100 MG CAP PO SCH (08:46)
[2016-11-16] MEDS: SODIUM CHLORIDE 0.9% FLUSH 5 ML FLUSH FLUSH SCH ×2 (09:01→20:14)
[2016-11-16] MEDS: SEVELAMER CARBONATE 800 MG TAB PO SCH ×3 (09:01→17:16)
--- NOTE | 2016-11-16 10:28 | HHI.PR ---
Subjective Remarks Follow-up for MSSA bacteremia, ESRD. She does currently doing well, sitting in her chair. Denies any shortness of breath, chest pain, fever or chills. She requests regular diet. Objective Vitals Vital Signs Date Time Temp Pulse Resp B/P Pulse Ox O2 Delivery O2 Flow Rate FiO2 11/16/16 08:00 96.9 69 20 141/63 97 11/16/16 04:00 98.7 71 20 145/66 95 11/16/16 00:00 97.2 62 20 123/60 93 11/15/16 20:00 96.3 59 18 91/55 96 11/15/16 16:15 95.7 58 18 105/51 93 I/O 11/15/16 11/15/16 11/15/16 11/16/16 11/16/16 11/16/16 07:00 15:00 23:00 07:00 15:00 23:00 Intake Total 975 ml 480 ml 0 ml 60 ml Balance 975 ml 480 ml 0 ml 60 ml Intake Oral 975 ml 480 ml 0 ml 60 ml # Voids 0 2 0 1 # Bowel Movements 0 0 0 0 Result Diagram: 11/13/16 0715 11/13/16 0715 Imaging Last Impressions Catheter Placement X-Ray 11/13/16 1004 Signed Impressions: Service Date/Time: Sunday, November 13, 2016 10:42 - CONCLUSION: Uncomplicated line placement as above. Arvind Tamayo Jr., MD Central Venous Line 11/05/16 0000 Signed Impressions: Service Date/Time: Saturday, November 05, 2016 00:00 - CONCLUSION: Uncomplicated Permcath removal. Nathan Mathias MD Upper Extremity Ultrasound 11/02/16 0000 Signed Impressions: Service Date/Time: Wednesday, November 02, 2016 20:58 - CONCLUSION: Normal examination. Jonathan Girard MD Hand X-Ray 11/02/16 0000 Signed Impressions: Service Date/Time: Wednesday, November 02, 2016 14:40 - CONCLUSION: 1. Soft-tissue swelling involving the right second, third and fourth digits. 2. No acute fracture or dislocation. Jose Sevilla MD Chest CT 11/02/16 0000 Signed Impressions: Service Date/Time: Wednesday, November 02, 2016 17:54 - CONCLUSION: 1. Bibasilar alveolar consolidations consistent with atelectasis and/or pneumonia. Clinical correlation is recommended. 2. Small to moderate sized bilateral pleural effusions (left slightly larger than right). 3. Cardiomegaly. 4. Scarring within the lingula of the left upper lobe. Jose Sevilla MD Head CT 11/01/16 0506 Signed Impressions: Service Date/Time: October 05:22 - CONCLUSION: No significant change has occurred. Christo Chen MD Chest X-Ray 11/01/16 0000 Signed Impressions: Service Date/Time: October 05:26 - CONCLUSION: 1. Apparent cardiomegaly with left effusion and apparent infiltrate. The findings are most consistent with congestive heart failure. Miko Scott MD Abdomen/Pelvis CT 11/01/16 0000 Signed Impressions: Service Date/Time: October 07:36 - CONCLUSION: 1. Interval development of retroperitoneal lymphadenopathy which is nonspecific. A new right paraaortic retrocrural enlarged lymph node is also noted measuring 1.6 cm in the upper abdomen. PET/CT scan may be helpful for further characterization of this finding. 2. Stable enlargement of the adrenal glands bilaterally suggesting adrenal hyperplasia. There is nodular enlargement of the left adrenal gland measuring 4.2 x 2.5 cm which could represent adrenal hyperplasia but underlying mass cannot be ruled out completely. 3. Small bilateral pleural effusions with bibasilar alveolar consolidations (left worse than right ) consistent with possible atelectasis and/or pneumonia. 4. Cardiomegaly and coronary artery calcifications. 5. Chronic mild compression deformities involving T12 and L1. 6. Degenerative changes throughout the lumbar spine. Jose Sevilla MD Objective Remarks GENERAL: Alert, NAD. SKIN: Warm and dry. HEAD: Normocephalic. EYES: No scleral icterus. No injection or drainage. NECK: Supple, trachea midline. No JVD or lymphadenopathy. CARDIOVASCULAR: Regular rate and rhythm without murmurs, gallops, or rubs. RESPIRATORY: Breath sounds equal bilaterally. No accessory muscle use. GASTROINTESTINAL: Abdomen soft, non-tender, nondistended. MUSCULOSKELETAL: No cyanosis, or edema. BACK: Nontender without obvious deformity. No CVA tenderness. Procedures 11/02/16 EGD 11/06/16 Temporary dialysis catheter placement 11/13/16 temporary dialysis catheter placement, RIJ A/P Problem List: (1) MSSA (methicillin susceptible Staphylococcus aureus) septicemia ICD Code: A41.01 Status: Acute (2) ESRD (end stage renal disease) ICD Code: N18.6 Status: Chronic (3) Hypertension ICD Code: I10 Status: Chronic (4) DM (diabetes mellitus) ICD Code: E11.9 Status: Chronic (5) Weakness ICD Code: R53.1 Status: Acute (6) Hyperlipidemia ICD Code: E78.5 Status: Chronic (7) Retroperitoneal lymphadenopathy ICD Code: R59.0 Status: Acute (8) Frequent falls ICD Code: R29.6 Status: Acute (9) Abdominal pain ICD Code: R10.9 Status: Acute (10) Pleural effusion ICD Code: J90 Status: Acute (11) Bacteremia ICD Code: R78.81 Status: Acute (12) Pneumonia ICD Code: J18.9 Status: Acute (13) Sepsis ICD Code: A41.9 Status: Acute Assessment and Plan Ms. Huang is a 61-year-old female with past medical history of ESRD on HD, HTN , CVA who presented with weakness and fall on 11/01/2016. Blood culture grew MSSA. Negative since 11/10/2016. Dialysis catheter was pulled and a right IJ VasCath was placed on 11/13/2016. Patient is on Apixaban for Afib and Apixaban is currently being held for possible Permacath placement on 11/19/2016. - MSSA bacteremia, sepsis: Appreciate infectious disease recommendations. Repeat blood cultures from November 10 are no growth in 5 days. Source was likely the dialysis catheter which was pulled. 2-D echocardiogram was negative. Continue IV ancef. Right IJ Vas-Cath was placed on November 13. Awaiting Permacath placement on Saturday; patient must be off Eliquis for 5 days and aspirin prior to procedure. - Abdominal pain, nausea, vomiting: Abdomen/pelvis CT nonspecific. Gastroenterology consulted. EGD showed esophagitis. Continue PPI. - UTI: treated/resolved. - Retroperitoneal lymphadenopathy: Likely reactive secondary to infection. Appreciate oncology recommendations. - Right hand swelling: Continue antibiotics for possible cellulitis. Hand surgery evaluated patient - no evidence of tenosynovitis or osteomyelitis or abscess. - End-stage renal disease: Continue hemodialysis on Saturday//Saturday per nephrology. Patient is on a renal diet. If okay with Nephrology, we can switch her diet to Regular. - Borderline diabetes mellitus: Most recent hemoglobin A1c was 6.4. Monitor Accu -Cheks and cover with sliding scale insulin. - Hypertension: Continue Cardura, metoprolol, nifedipine, hydralazine. Clonidine available as needed. - History of multiple CVA, probable paroxysmal atrial fibrillation: Restart aspirin, Eliquis after Permacath placement on 11/19/2016. - DVT prophylaxis: Eliquis on hold. SCDs. Full code. Problem Qualifiers (1) Sepsis: Qualified Code: A41.9 - Sepsis, due to unspecified organism Hi Umanzor DO Nov 16, 2016 10:28
[2016-11-16 12:00] VITALS: BP 179/76; PULSE 67; RESP 18; TEMP 96.9; O2SAT 99
--- NOTE | 2016-11-16 13:21 | HHI.NPPN ---
Subjective Complaints: Abdominal Pain General Problems: Anemia Renal Failure: End Stage Renal Disease History of Present Illness 61 y/o female pt who follows with Dr. Jalloh for nephrology. Hx of ESRD, normally dialyzes T-Th-Sat. She missed dialysis on Saturday due to vomiting, fatigue. She also endorses recent fall, but is a poor historian and cannot give clear details. Other PMH as outlined below including HTN, anemia, CHF, and CVA. Additional Remarks Patient is awake Review of Systems General Constitutional: Fatigue Gastrointestinal Gastrointestinal: Abdominal Pain Objective Data Data 11/15/16 11/16/16 18:59 06:59 Intake Total 480 ml 60 ml Balance 480 ml 60 ml Intake Oral 480 ml 60 ml # Voids 2 1 # Bowel Movements 0 0 Vital Signs Date Time Temp Pulse Resp B/P Pulse Ox O2 Delivery O2 Flow Rate FiO2 11/16/16 12:00 96.9 67 18 179/76 99 11/16/16 08:00 96.9 69 20 141/63 97 11/16/16 04:00 98.7 71 20 145/66 95 11/16/16 00:00 97.2 62 20 123/60 93 11/15/16 20:00 96.3 59 18 91/55 96 11/15/16 16:15 95.7 58 18 105/51 93 -: 11/13/16 0715 11/13/16 0715 Tubes & Lines: Perma-Cath Physical Exam General Appearance: No Acute Distress, Comfortable, Anxious Eyes Eye Exam: Pupils Equal Ears & Nose Ears & Nose Exam: Nasal Mucosa [place] Throat Throat Exam: Oral Mucosa [place] & Moist Neck Neck Exam: Neck Supple Pulmonary Resp Exam: Clear Bilaterally, Breath Sounds Equal, No Distress, Decreased Bases Cardiology CV Exam: Regular, Normal Sinus Rhythm Gastrointestinal/Abdomen GI Exam: Soft, Bowel Sounds Present Musculoskeletal MS Exam: Joints Intact, Normal Tone Integumentary Skin Exam: Warm, Dry Extremeties Extremities Exam: No Edema, Pedal Pulses Palpable Neurologic Neuro Exam: Moving All Extremities Assessment/Plan Discussed Condition With: Patient Assessment Summary: Anemia of CKD, End Stage Renal Disease Problem List: (1) ESRD (end stage renal disease) Plan: continue with dialyzes T-Th-Sat, next HD Sat maintain T-Th-Sat schedule, Vascath replaced, await PermCath on Saturday will be off Eliquis for 5 days (2) Leukocytosis Plan: on Cefazolin. MSSA (3) Hypertension Plan: BP stable continue medications as ordered (4) Diabetes Plan: monitor blood sugar not requiring insulin at this time (5) Metabolic bone disease Plan: Begin Renvela, monitor phosphorus periodically (6) Anemia Plan: epogen with HD follow hemoglobin (7) Nausea & vomiting Plan: with abdominal pain, GI following Plan S/P EGD (11/02/16)---> Esophagitis, gastritis, pathology pending. PPI, Zofran Problem Qualifiers (1) Diabetes: Gi Jalloh MD Nov 16, 2016 13:21
[2016-11-16 16:00] VITALS: BP 143/67; PULSE 69; RESP 18; TEMP 97.1; O2SAT 98
[2016-11-16 20:00] VITALS: BP 112/54; PULSE 63; RESP 20; TEMP 98.3; O2SAT 94
[2016-11-16] MEDS: ACETAMINOPHEN/HYDROcodone 325 MG/5 MG TAB PO PRN (23:44)
[2016-11-17] VITALS: BP 121/60; PULSE 62; RESP 20; TEMP 97; O2SAT 94
[2016-11-17 04:00] VITALS: BP 140/63; PULSE 61; RESP 20; TEMP 97.7; O2SAT 94
[2016-11-17] MEDS: hydrALAZINE HCL 50 MG TAB PO SCH ×3 (06:00→21:43)
[2016-11-17] MEDS: INSULIN ASPART SUPPLEMENTAL SCALE SQ SCH ×4 (07:00→21:00)
[2016-11-17 07:09] LABS: BICARBONATE 30.9 MEQ/L (21.0-32.0); POTASSIUM 4.8 MEQ/L (3.5-5.1)
[2016-11-17] MEDS: SEVELAMER CARBONATE 800 MG TAB PO SCH ×3 (07:42→15:31)
[2016-11-17] MEDS: METOPROLOL TARTRATE 50 MG TAB PO SCH ×2 (07:43→21:44)
[2016-11-17] MEDS: PANTOPRAZOLE SODIUM 40 MG VIAL IV PUSH SCH (07:43)
[2016-11-17] MEDS: DOXAZOSIN MESYLATE 2 MG TAB PO SCH (07:43)
[2016-11-17] MEDS: SODIUM CHLORIDE 0.9% FLUSH 5 ML FLUSH FLUSH SCH ×2 (07:43→21:43)
[2016-11-17] MEDS: LACTIC ACID (AMMONIUM LACTATE) 12% LOTION 225 GM BTL TOPICAL SCH ×2 (07:44→21:45)
[2016-11-17] MEDS: GABAPENTIN 100 MG CAP PO SCH (07:44)
[2016-11-17] MEDS: NIFEdipine 90 MG SUSTAINED RELEASE TAB PO SCH (07:44)
[2016-11-17] MEDS: EPOETIN ALFA 10,000 UNITS/ML VIAL IV PRN (09:32)
[2016-11-17] MEDS: HEPARIN SODIUM - IV 10,000 UNITS/10 ML VIAL PRN (09:32)
[2016-11-17] MEDS: SODIUM CHLOR 0.9% 1000 ML INJ 1,000 ML IV PRN (09:32)
[2016-11-17] MEDS: GENTAMICIN SULFATE (DIALYSIS USE ONLY) 20 MG/2 ML VIAL IV PRN (09:32)
--- NOTE | 2016-11-17 10:17 | HHI.NPPN ---
Subjective Complaints: Abdominal Pain General Problems: Anemia Renal Failure: End Stage Renal Disease History of Present Illness 61 y/o female pt who follows with Dr. Jalloh for nephrology. Hx of ESRD, normally dialyzes T-Th-Sat. She missed dialysis on Saturday due to vomiting, fatigue. She also endorses recent fall, but is a poor historian and cannot give clear details. Other PMH as outlined below including HTN, anemia, CHF, and CVA. Additional Remarks Patient is awake, on HD now, feeling cold. Review of Systems General Constitutional: Fatigue Gastrointestinal Gastrointestinal: Abdominal Pain Objective Data Data 11/16/16 11/17/16 19:00 07:00 Intake Total 360 ml 300 ml Balance 360 ml 300 ml Intake Oral 360 ml 300 ml # Voids 2 2 # Bowel Movements 0 Vital Signs Date Time Temp Pulse Resp B/P Pulse Ox O2 Delivery O2 Flow Rate FiO2 11/17/16 04:00 97.7 61 20 140/63 94 11/17/16 00:00 97.0 62 20 121/60 94 11/16/16 20:00 98.3 63 20 112/54 94 11/16/16 16:00 97.1 69 18 143/67 98 11/16/16 12:00 96.9 67 18 179/76 99 -: 11/13/16 0715 11/17/16 0555 Tubes & Lines: Perma-Cath Physical Exam General Appearance: No Acute Distress, Comfortable, Anxious Eyes Eye Exam: Pupils Equal Ears & Nose Ears & Nose Exam: Nasal Mucosa [place] Throat Throat Exam: Oral Mucosa [place] & Moist Neck Neck Exam: Neck Supple Pulmonary Resp Exam: Clear Bilaterally, Breath Sounds Equal, No Distress, Decreased Bases Cardiology CV Exam: Regular, Normal Sinus Rhythm Gastrointestinal/Abdomen GI Exam: Soft, Bowel Sounds Present Musculoskeletal MS Exam: Joints Intact Integumentary Skin Exam: Warm, Dry Extremeties Extremities Exam: Trace Edema Neurologic Neuro Exam: Alert, Awake Assessment/Plan Discussed Condition With: Patient Assessment Summary: Anemia of CKD, End Stage Renal Disease Problem List: (1) ESRD (end stage renal disease) Plan: continue with dialyzes T-Th-Sat, maintain T-Th-Sat schedule, Vascath replaced, await PermCath on Saturday will be off Eliquis for 5 days. HD now, will remove as tolerated. (2) Leukocytosis Plan: on Cefazolin. MSSA (3) Hypertension Plan: BP stable continue medications as ordered (4) Diabetes Plan: monitor blood sugar not requiring insulin at this time (5) Metabolic bone disease Plan: Begin Renvela, monitor phosphorus periodically (6) Anemia Plan: epogen with HD follow hemoglobin (7) Nausea & vomiting Plan: with abdominal pain, GI following Plan S/P EGD (11/02/16)---> Esophagitis, gastritis, pathology pending. PPI, Zofran Problem Qualifiers (1) Diabetes: Shalini Vides MD Nov 17, 2016 10:17
--- NOTE | 2016-11-17 10:54 | HHI.PR ---
Objective Vitals Vital Signs Date Time Temp Pulse Resp B/P Pulse Ox O2 Delivery O2 Flow Rate FiO2 11/17/16 04:00 97.7 61 20 140/63 94 11/17/16 00:00 97.0 62 20 121/60 94 11/16/16 20:00 98.3 63 20 112/54 94 11/16/16 16:00 97.1 69 18 143/67 98 11/16/16 12:00 96.9 67 18 179/76 99 I/O 11/16/16 11/16/16 11/16/16 11/17/16 11/17/16 11/17/16 07:00 15:00 23:00 07:00 15:00 23:00 Intake Total 60 ml 360 ml 180 ml 120 ml Output Total 3000 ml Balance 60 ml 360 ml 180 ml 120 ml -3000 ml Intake Oral 60 ml 360 ml 180 ml 120 ml Hemodialysis 3000 ml # Voids 1 2 0 2 # Bowel Movements 0 0 0 Result Diagram: 11/13/16 0715 11/17/16 0555 Objective Remarks GENERAL: Alert, NAD. SKIN: Warm and dry. HEAD: Normocephalic. EYES: No scleral icterus. No injection or drainage. NECK: Supple, trachea midline. No JVD or lymphadenopathy. CARDIOVASCULAR: Regular rate and rhythm without murmurs, gallops, or rubs. RESPIRATORY: Breath sounds equal bilaterally. No accessory muscle use. GASTROINTESTINAL: Abdomen soft, non-tender, nondistended. MUSCULOSKELETAL: No cyanosis, or edema. BACK: Nontender without obvious deformity. No CVA tenderness. Procedures 11/02/16 EGD 11/06/16 Temporary dialysis catheter placement 11/13/16 temporary dialysis catheter placement, RIJ A/P Problem List: (1) MSSA (methicillin susceptible Staphylococcus aureus) septicemia ICD Code: A41.01 Status: Acute (2) ESRD (end stage renal disease) ICD Code: N18.6 Status: Chronic (3) Hypertension ICD Code: I10 Status: Chronic (4) DM (diabetes mellitus) ICD Code: E11.9 Status: Chronic (5) Weakness ICD Code: R53.1 Status: Acute (6) Hyperlipidemia ICD Code: E78.5 Status: Chronic (7) Retroperitoneal lymphadenopathy ICD Code: R59.0 Status: Acute (8) Frequent falls ICD Code: R29.6 Status: Acute (9) Abdominal pain ICD Code: R10.9 Status: Acute (10) Pleural effusion ICD Code: J90 Status: Acute (11) Bacteremia ICD Code: R78.81 Status: Acute (12) Pneumonia ICD Code: J18.9 Status: Acute (13) Sepsis ICD Code: A41.9 Status: Acute Assessment and Plan Ms. Huang is a 61-year-old female with past medical history of ESRD on HD, HTN , CVA who presented with weakness and fall on 11/01/2016. Blood culture grew MSSA. Negative since 11/10/2016. Dialysis catheter was pulled and a right IJ VasCath was placed on 11/13/2016. Patient is on Apixaban for Afib and Apixaban is currently being held for possible Permacath placement on 11/19/2016. - MSSA bacteremia, sepsis: Appreciate infectious disease recommendations. Repeat blood cultures from November 10 are no growth in 5 days. Source was likely the dialysis catheter which was pulled. 2-D echocardiogram was negative. Continue IV ancef. Right IJ Vas-Cath was placed on November 13. Awaiting Permacath placement on Saturday; patient must be off Eliquis for 5 days and aspirin prior to procedure. - Abdominal pain, nausea, vomiting: Abdomen/pelvis CT nonspecific. Gastroenterology consulted. EGD showed esophagitis. Continue PPI. - UTI: treated/resolved. - Retroperitoneal lymphadenopathy: Likely reactive secondary to infection. Appreciate oncology recommendations. - Right hand swelling: Continue antibiotics for possible cellulitis. Hand surgery evaluated patient - no evidence of tenosynovitis or osteomyelitis or abscess. - End-stage renal disease: Continue hemodialysis on Saturday//Saturday per nephrology. Patient is on a renal diet. If okay with Nephrology, we can switch her diet to Regular. - Borderline diabetes mellitus: Most recent hemoglobin A1c was 6.4. Monitor Accu -Cheks and cover with sliding scale insulin. - Hypertension: Continue Cardura, metoprolol, nifedipine, hydralazine. Clonidine available as needed. - History of multiple CVA, probable paroxysmal atrial fibrillation: Restart aspirin, Eliquis after Permacath placement on 11/19/2016. - DVT prophylaxis: Eliquis on hold. SCDs. Full code. Problem Qualifiers (1) Sepsis: Qualified Code: A41.9 - Sepsis, due to unspecified organism Hi Umanzor DO Nov 17, 2016 10:54
[2016-11-17 12:00] VITALS: BP 138/68; PULSE 69; RESP 20; TEMP 97.1; O2SAT 97
[2016-11-17] MEDS: ACETAMINOPHEN/HYDROcodone 325 MG/7.5 MG TAB PO PRN ×2 (13:11→21:44)
[2016-11-17 16:00] VITALS: BP 155/70; PULSE 70; RESP 16; TEMP 98.1; O2SAT 97
--- NOTE | 2016-11-17 18:39 | HHI.PR ---
Subjective Remarks Follow-up for MSSA bacteremia, ESRD. Ms. Huang underwent hemodialysis today. She is currently doing well. No acute concerns. She requests regular diet. Objective Vitals Vital Signs Date Time Temp Pulse Resp B/P Pulse Ox O2 Delivery O2 Flow Rate FiO2 11/17/16 16:00 98.1 70 16 155/70 97 11/17/16 12:00 97.1 69 20 138/68 97 11/17/16 09:06 Nasal Cannula 11/17/16 04:00 97.7 61 20 140/63 94 11/17/16 00:00 97.0 62 20 121/60 94 11/16/16 20:00 98.3 63 20 112/54 94 I/O 11/16/16 11/16/16 11/16/16 11/17/16 11/17/16 11/17/16 07:00 15:00 23:00 07:00 15:00 23:00 Intake Total 60 ml 360 ml 180 ml 120 ml 480 ml Output Total 3000 ml Balance 60 ml 360 ml 180 ml 120 ml -2520 ml Intake Oral 60 ml 360 ml 180 ml 120 ml 480 ml Hemodialysis 3000 ml # Voids 1 2 0 2 2 # Bowel Movements 0 0 0 Result Diagram: 11/13/16 0715 11/17/16 0555 Objective Remarks GENERAL: Alert, NAD. SKIN: Warm and dry. HEAD: Normocephalic. EYES: No scleral icterus. No injection or drainage. NECK: Supple, trachea midline. No JVD or lymphadenopathy. CARDIOVASCULAR: Regular rate and rhythm without murmurs, gallops, or rubs. RESPIRATORY: Breath sounds equal bilaterally. No accessory muscle use. GASTROINTESTINAL: Abdomen soft, non-tender, nondistended. MUSCULOSKELETAL: No cyanosis, or edema. BACK: Nontender without obvious deformity. No CVA tenderness. Procedures 11/02/16 EGD 11/06/16 Temporary dialysis catheter placement 11/13/16 temporary dialysis catheter placement, RIJ A/P Problem List: (1) MSSA (methicillin susceptible Staphylococcus aureus) septicemia ICD Code: A41.01 Status: Acute (2) ESRD (end stage renal disease) ICD Code: N18.6 Status: Chronic (3) Hypertension ICD Code: I10 Status: Chronic (4) DM (diabetes mellitus) ICD Code: E11.9 Status: Chronic (5) Weakness ICD Code: R53.1 Status: Acute (6) Hyperlipidemia ICD Code: E78.5 Status: Chronic (7) Retroperitoneal lymphadenopathy ICD Code: R59.0 Status: Acute (8) Frequent falls ICD Code: R29.6 Status: Acute (9) Abdominal pain ICD Code: R10.9 Status: Acute (10) Pleural effusion ICD Code: J90 Status: Acute (11) Bacteremia ICD Code: R78.81 Status: Acute (12) Pneumonia ICD Code: J18.9 Status: Acute (13) Sepsis ICD Code: A41.9 Status: Acute Assessment and Plan Ms. Huang is a 61-year-old female with past medical history of ESRD on HD, HTN , CVA who presented with weakness and fall on 11/01/2016. Blood culture grew MSSA. Negative since 11/10/2016. Dialysis catheter was pulled and a right IJ VasCath was placed on 11/13/2016. Patient is on Apixaban for Afib and Apixaban is currently being held for possible Permacath placement on 11/19/2016. - MSSA bacteremia, sepsis: Appreciate infectious disease recommendations. Repeat blood cultures from November 10 are no growth in 5 days. Source was likely the dialysis catheter which was pulled. 2-D echocardiogram was negative. Continue IV ancef. Right IJ Vas-Cath was placed on November 13. Awaiting Permacath placement on 11/19/2016 ; patient is off Eliquis for 5 days and aspirin prior to procedure. - Abdominal pain, nausea, vomiting: Abdomen/pelvis CT nonspecific. Gastroenterology consulted. EGD showed esophagitis. Continue PPI. - UTI: treated/resolved. - Retroperitoneal lymphadenopathy: Likely reactive secondary to infection. Appreciate oncology recommendations. - Right hand swelling: Continue antibiotics for possible cellulitis. Hand surgery evaluated patient - no evidence of tenosynovitis or osteomyelitis or abscess. - End-stage renal disease: Continue hemodialysis on Saturday//Saturday per nephrology. Will start a regular diet with salt restriction. - Borderline diabetes mellitus: Most recent hemoglobin A1c was 6.4. Monitor Accu -Cheks and cover with sliding scale insulin. - Hypertension: Continue Cardura, metoprolol, nifedipine, hydralazine. Clonidine available as needed. - History of multiple CVA, probable paroxysmal atrial fibrillation: Restart aspirin, Eliquis after Permacath placement on 11/19/2016. - DVT prophylaxis: Eliquis on hold. SCDs. Full code. Problem Qualifiers (1) Sepsis: Qualified Code: A41.9 - Sepsis, due to unspecified organism Hi Umanzor DO Nov 17, 2016 18:38
[2016-11-17 20:00] VITALS: BP 173/76; PULSE 73; RESP 18; TEMP 98.6; O2SAT 91
[2016-11-18] VITALS: BP 153/70; PULSE 67; RESP 18; TEMP 98.1; O2SAT 92
[2016-11-18 04:00] VITALS: BP 186/74; PULSE 71; RESP 18; TEMP 97.4; O2SAT 91
[2016-11-18] MEDS: hydrALAZINE HCL 50 MG TAB PO SCH ×3 (06:27→22:24)
[2016-11-18] MEDS: ACETAMINOPHEN/HYDROcodone 325 MG/7.5 MG TAB PO PRN ×3 (06:28→22:23)
[2016-11-18] MEDS: INSULIN ASPART SUPPLEMENTAL SCALE SQ SCH ×4 (07:00→22:26)
[2016-11-18 08:00] VITALS: BP 194/78; PULSE 88; RESP 16; TEMP 98.4; O2SAT 98
[2016-11-18] MEDS: METOPROLOL TARTRATE 50 MG TAB PO SCH ×2 (08:17→21:01)
[2016-11-18] MEDS: GABAPENTIN 100 MG CAP PO SCH (08:17)
[2016-11-18] MEDS: DOXAZOSIN MESYLATE 2 MG TAB PO SCH (08:17)
[2016-11-18] MEDS: NIFEdipine 90 MG SUSTAINED RELEASE TAB PO SCH (08:17)
[2016-11-18] MEDS: PANTOPRAZOLE SODIUM 40 MG VIAL IV PUSH SCH (08:17)
[2016-11-18] MEDS: SEVELAMER CARBONATE 800 MG TAB PO SCH ×3 (08:17→17:12)
[2016-11-18] MEDS: SODIUM CHLORIDE 0.9% FLUSH 5 ML FLUSH FLUSH SCH ×2 (08:17→21:01)
--- NOTE | 2016-11-18 08:18 | HHI.PR ---
Subjective Remarks Follow-up for MSSA bacteremia, ESRD. Ms. Huang is currently doing well. She had dialysis yesterday. No acute concerns. Objective Vitals Vital Signs Date Time Temp Pulse Resp B/P Pulse Ox O2 Delivery O2 Flow Rate FiO2 11/18/16 04:00 97.4 71 18 186/74 91 11/18/16 00:00 98.1 67 18 153/70 92 11/17/16 20:00 98.6 73 18 173/76 91 11/17/16 16:00 98.1 70 16 155/70 97 11/17/16 12:00 97.1 69 20 138/68 97 11/17/16 09:06 Nasal Cannula I/O 11/17/16 11/17/16 11/17/16 11/18/16 11/18/16 11/18/16 07:00 15:00 23:00 07:00 15:00 23:00 Intake Total 120 ml 480 ml 360 ml Output Total 3000 ml Balance 120 ml -2520 ml 360 ml Intake Oral 120 ml 480 ml 360 ml Hemodialysis 3000 ml # Voids 2 2 4 # Bowel Movements 0 3 Result Diagram: 11/17/16 0555 Objective Remarks GENERAL: Alert, NAD. SKIN: Warm and dry. HEAD: Normocephalic. EYES: No scleral icterus. No injection or drainage. NECK: Supple, trachea midline. No JVD or lymphadenopathy. CARDIOVASCULAR: Regular rate and rhythm without murmurs, gallops, or rubs. RESPIRATORY: Breath sounds equal bilaterally. No accessory muscle use. GASTROINTESTINAL: Abdomen soft, non-tender, nondistended. MUSCULOSKELETAL: No cyanosis, or edema. BACK: Nontender without obvious deformity. No CVA tenderness. Procedures 11/02/16 EGD 11/06/16 Temporary dialysis catheter placement 11/13/16 temporary dialysis catheter placement, RIJ A/P Problem List: (1) MSSA (methicillin susceptible Staphylococcus aureus) septicemia ICD Code: A41.01 Status: Acute (2) ESRD (end stage renal disease) ICD Code: N18.6 Status: Chronic (3) Hypertension ICD Code: I10 Status: Chronic (4) DM (diabetes mellitus) ICD Code: E11.9 Status: Chronic (5) Weakness ICD Code: R53.1 Status: Acute (6) Hyperlipidemia ICD Code: E78.5 Status: Chronic (7) Retroperitoneal lymphadenopathy ICD Code: R59.0 Status: Acute (8) Frequent falls ICD Code: R29.6 Status: Acute (9) Abdominal pain ICD Code: R10.9 Status: Acute (10) Pleural effusion ICD Code: J90 Status: Acute (11) Bacteremia ICD Code: R78.81 Status: Acute (12) Pneumonia ICD Code: J18.9 Status: Acute (13) Sepsis ICD Code: A41.9 Status: Acute Assessment and Plan Ms. Huang is a 61-year-old female with past medical history of ESRD on HD, HTN , CVA who presented with weakness and fall on 11/01/2016. Blood culture grew MSSA. Negative since 11/10/2016. Dialysis catheter was pulled and a right IJ VasCath was placed on 11/13/2016. Patient is on Apixaban for Afib and Apixaban is currently being held for possible Permacath placement on 11/19/2016. - MSSA bacteremia, sepsis: Appreciate infectious disease recommendations. Repeat blood cultures from November 10 are no growth in 5 days. Source was likely the dialysis catheter which was pulled. 2-D echocardiogram was negative. Continue IV ancef. Right IJ Vas-Cath was placed on November 13. Awaiting Permacath placement on 11/19/2016 ; patient is off Eliquis for 5 days and aspirin prior to procedure. - Abdominal pain, nausea, vomiting: Abdomen/pelvis CT nonspecific. Gastroenterology consulted. EGD showed esophagitis. Continue PPI. - UTI: treated/resolved. - Retroperitoneal lymphadenopathy: Likely reactive secondary to infection. Appreciate oncology recommendations. - Right hand swelling: Continue antibiotics for possible cellulitis. Hand surgery evaluated patient - no evidence of tenosynovitis or osteomyelitis or abscess. - End-stage renal disease: Continue hemodialysis on Saturday//Saturday per nephrology. Will start a regular diet with salt restriction. - Borderline diabetes mellitus: Most recent hemoglobin A1c was 6.4. Monitor Accu -Cheks and cover with sliding scale insulin. - Hypertension: Continue Cardura, metoprolol, nifedipine, hydralazine. Clonidine available as needed. - History of multiple CVA, probable paroxysmal atrial fibrillation: Eliquis after Permacath placement on 11/19/2016. We will likely not re-start Aspirin. Patient does not have any recent history of Acute coronary syndrome. - DVT prophylaxis: Eliquis on hold. SCDs. Full code. Problem Qualifiers (1) Sepsis: Qualified Code: A41.9 - Sepsis, due to unspecified organism Hi Umanzor DO Nov 18, 2016 8:17 am
[2016-11-18] MEDS: LACTIC ACID (AMMONIUM LACTATE) 12% LOTION 225 GM BTL TOPICAL SCH ×2 (08:23→21:02)
--- NOTE | 2016-11-18 11:04 | HHI.NPPN ---
Subjective Complaints: Abdominal Pain General Problems: Anemia Renal Failure: End Stage Renal Disease History of Present Illness 61 y/o female pt who follows with Dr. Jalloh for nephrology. Hx of ESRD, normally dialyzes T-Th-Sat. She missed dialysis on Saturday due to vomiting, fatigue. She also endorses recent fall, but is a poor historian and cannot give clear details. Other PMH as outlined below including HTN, anemia, CHF, and CVA. Additional Remarks Patient is awake, sitting on chair, not in distress. Review of Systems General Constitutional: Fatigue Gastrointestinal Gastrointestinal: Abdominal Pain Objective Data Data 11/17/16 11/18/16 19:00 07:00 Intake Total 480 ml 360 ml Output Total 3000 ml Balance -2520 ml 360 ml Intake Oral 480 ml 360 ml Hemodialysis 3000 ml # Voids 2 4 # Bowel Movements 3 Vital Signs Date Time Temp Pulse Resp B/P Pulse Ox O2 Delivery O2 Flow Rate FiO2 11/18/16 08:00 98.4 88 16 194/78 98 11/18/16 04:00 97.4 71 18 186/74 91 11/18/16 00:00 98.1 67 18 153/70 92 11/17/16 20:00 98.6 73 18 173/76 91 11/17/16 16:00 98.1 70 16 155/70 97 11/17/16 12:00 97.1 69 20 138/68 97 -: 11/17/16 0555 Tubes & Lines: Perma-Cath Physical Exam General Appearance: No Acute Distress, Comfortable, Anxious Eyes Eye Exam: Pupils Equal Ears & Nose Ears & Nose Exam: Nasal Mucosa Mentor Throat Throat Exam: Oral Mucosa Mentor & Moist Neck Neck Exam: Neck Supple Pulmonary Resp Exam: Clear Bilaterally, Breath Sounds Equal, No Distress, Decreased Bases Cardiology CV Exam: Regular, Normal Sinus Rhythm Gastrointestinal/Abdomen GI Exam: Soft, Bowel Sounds Present Musculoskeletal MS Exam: Joints Intact Integumentary Skin Exam: Warm, Dry Extremeties Extremities Exam: Trace Edema Neurologic Neuro Exam: Alert, Awake Assessment/Plan Discussed Condition With: Patient Assessment Summary: Anemia of CKD, End Stage Renal Disease Problem List: (1) ESRD (end stage renal disease) Plan: continue with dialyzes T-Th-Sat, maintain T-Th-Sat schedule, Vascath replaced, await PermCath on Saturday will be off Eliquis for 5 days. HD done yesterday. Dr. Aden will follow from AM. (2) Leukocytosis Plan: on Cefazolin. MSSA (3) Hypertension Plan: BP stable continue medications as ordered (4) Diabetes Plan: monitor blood sugar not requiring insulin at this time (5) Metabolic bone disease Plan: Begin Renvela, monitor phosphorus periodically (6) Anemia Plan: epogen with HD follow hemoglobin (7) Nausea & vomiting Plan: with abdominal pain, GI following Plan S/P EGD (11/02/16)---> Esophagitis, gastritis, pathology pending. PPI, Zofran Problem Qualifiers (1) Diabetes: Shalini Vides MD Nov 18, 2016 11:04
[2016-11-18 12:00] VITALS: BP 179/76; PULSE 88; RESP 20; TEMP 98.1; O2SAT 97
[2016-11-18 16:00] VITALS: BP 106/53; PULSE 60; RESP 16; TEMP 97.4; O2SAT 97
[2016-11-18] MEDS ORDERED: SOLU250I IV PUSH (18:31)
[2016-11-18] MEDS ORDERED: CEFA2SOL IV (18:31)
[2016-11-18] MEDS ORDERED: EPIN1INJ21 IV PUSH (18:31)
[2016-11-18] MEDS ORDERED: EPIN1INJ21 SQ (18:31)
--- NOTE | 2016-11-18 18:37 | HHI.FF ---
Infusion Therapy Location of Infusion Therapy: Dialysis Center Patient Information Appointment Date: Nov 20, 2016 Patient Weight 81.2 kg Diagnosis: Diagnosis MSSA Permacath infection MSSA endocarditis Coded Allergies: Cat Dander (Unverified Allergy, Severe, 11/01/16) RESPIRATORY ISSUES Administer Medication Cefazolin 2 grams IV (Tues,Thurs,Sat) Start Treatment: Nov 20, 2016 Stop Treatment: Dec 21, 2016 Additional Information Venous access: Tunneled Catheter (HD catheter.) Additional Instructions [x] Peripheral flush and dressing changes per protocol [x] Implanted port and central inspector final assembly conveyor line: * Implanted port: 10 ml Normal Saline followed by 5 ml Heparin 100 units/ml Heparin flush after each use and monthly to maintain. [] May leave port accessed during therapy. [] May leave peripheral site accessed for duration of therapy. [x] If patient has SOB or respiratory distress, check oxygen saturation. If less than 90% or clinical signs of respiratory distress, administer oxygen at 2 L/min. via nasal cannula and notify physician. [x] Anaphylaxis/Reaction orders: * Stop infusion. * Keep IV line open with saline flush. * Notify physician. * Monitor vital signs every 15 minutes until symptoms resolve. * Check Oxygen saturation; Oxygen at 2 L/min. via nasal cannula if less than 90% or clinical signs of respiratory distress. * Administer diphenhydramine (Benadryl) 25 mg IV STAT, (unless patient has received as pre-med). May repeat once, if necessary. * Solu-Cortef 250 mg IVP over 30-60 seconds, use 100 mg vials for each dissolution. * Epinephrine (1mg/1 ml) 0.3 mg subcutaneously or IVP now with any signs of respiratory distress. * Check with physician for new additional pre-med orders if patient is re- challenged or re-treated. [x] May remove PICC line when treatment complete, after confirming with Physician. [x] If the patient is admitted to the hospital, the ED, or transferred via [facility] , complete transfer form including medication reconciliation order sheet. Laboratory Tests Weekly Labs: CBC w/diff, Creatinine, CRP, LFT's (Hepatic function test) Additional Information Please draw weekly labs, fax labs and call with abnormals, change in clinical condition or problems to: or covering ID physician at numbers below: Follow up appt: Follow up with PCP Follow up with other MDs as planned. Counseling: Counseled about medication side effects Karen Anthony MD Nov 18, 2016 18:37
[2016-11-18 20:43] VITALS: BP 139/61; PULSE 63; RESP 17; TEMP 97.1; O2SAT 95
[2016-11-18] MEDS: TEMAZEPAM 15 MG CAP PO PRN (22:23)
[2016-11-19] VITALS (11 sets, daily range): BP systolic 100–169; BP diastolic 50–86; PULSE 55–79; RESP 16–20; TEMP 96.6–98.6; O2SAT 93–98
[2016-11-19] MEDS: ACETAMINOPHEN/HYDROcodone 325 MG/7.5 MG TAB PO PRN ×4 (04:32→22:38)
[2016-11-19] MEDS: hydrALAZINE HCL 50 MG TAB PO SCH ×3 (06:37→22:29)
[2016-11-19] MEDS: INSULIN ASPART SUPPLEMENTAL SCALE SQ SCH ×4 (06:38→21:00)
[2016-11-19] MEDS: NIFEdipine 90 MG SUSTAINED RELEASE TAB PO SCH (09:25)
[2016-11-19] MEDS: GABAPENTIN 100 MG CAP PO SCH (09:25)
[2016-11-19] MEDS: DOXAZOSIN MESYLATE 2 MG TAB PO SCH (09:25)
[2016-11-19] MEDS: SEVELAMER CARBONATE 800 MG TAB PO SCH ×3 (09:25→17:30)
[2016-11-19] MEDS: METOPROLOL TARTRATE 50 MG TAB PO SCH ×2 (09:25→22:29)
[2016-11-19] MEDS: PANTOPRAZOLE SOD 40 MG DELAYED RELEASE TAB PO SCH (09:25)
[2016-11-19] MEDS: SODIUM CHLORIDE 0.9% FLUSH 5 ML FLUSH FLUSH SCH ×2 (09:26→22:41)
[2016-11-19] MEDS: LACTIC ACID (AMMONIUM LACTATE) 12% LOTION 225 GM BTL TOPICAL SCH ×2 (09:27→22:30)
--- NOTE | 2016-11-19 10:56 | HHI.PR ---
Subjective Remarks Follow-up for MSSA bacteremia, ESRD. Ms. Huang is currently doing well. Currently nothing by mouth for permacath placement. Denies any chest pain, shortness of breath, fever or chills. Objective Vitals Vital Signs Date Time Temp Pulse Resp B/P Pulse Ox O2 Delivery O2 Flow Rate FiO2 11/19/16 08:43 96.6 61 20 169/71 93 11/19/16 07:23 95 Nasal Cannula 2.00 11/19/16 04:43 98.6 63 17 162/73 94 11/19/16 00:29 98.0 66 17 128/62 95 11/18/16 20:43 97.1 63 17 139/61 95 11/18/16 16:00 97.4 60 16 106/53 97 11/18/16 14:00 16 11/18/16 12:00 98.1 88 20 179/76 97 I/O 11/18/16 11/18/16 11/18/16 11/19/16 11/19/16 11/19/16 07:00 15:00 23:00 07:00 15:00 23:00 Intake Total 360 ml 480 ml 240 ml Balance 360 ml 480 ml 240 ml Intake Oral 360 ml 480 ml 240 ml # Voids 4 3 2 # Bowel Movements 3 1 Result Diagram: 11/17/16 0555 Imaging Last Impressions Catheter Placement X-Ray 11/13/16 1004 Signed Impressions: Service Date/Time: Sunday, November 13, 2016 10:42 - CONCLUSION: Uncomplicated line placement as above. Arvind Tamayo Jr., MD Central Venous Line 11/05/16 0000 Signed Impressions: Service Date/Time: Saturday, November 05, 2016 00:00 - CONCLUSION: Uncomplicated Permcath removal. Nathan Matihas MD Upper Extremity Ultrasound 11/02/16 0000 Signed Impressions: Service Date/Time: Wednesday, November 02, 2016 20:58 - CONCLUSION: Normal examination. Jonathan Girard MD Hand X-Ray 11/02/16 0000 Signed Impressions: Service Date/Time: Wednesday, November 02, 2016 14:40 - CONCLUSION: 1. Soft-tissue swelling involving the right second, third and fourth digits. 2. No acute fracture or dislocation. Jose Sevilla MD Chest CT 11/02/16 0000 Signed Impressions: Service Date/Time: Wednesday, November 02, 2016 17:54 - CONCLUSION: 1. Bibasilar alveolar consolidations consistent with atelectasis and/or pneumonia. Clinical correlation is recommended. 2. Small to moderate sized bilateral pleural effusions (left slightly larger than right). 3. Cardiomegaly. 4. Scarring within the lingula of the left upper lobe. Jose Sevilla MD Head CT 11/01/16 0506 Signed Impressions: Service Date/Time: October 05:22 - CONCLUSION: No significant change has occurred. Christo Chen MD Chest X-Ray 11/01/16 0000 Signed Impressions: Service Date/Time: October 05:26 - CONCLUSION: 1. Apparent cardiomegaly with left effusion and apparent infiltrate. The findings are most consistent with congestive heart failure. Miko Scott MD Abdomen/Pelvis CT 11/01/16 0000 Signed Impressions: Service Date/Time: October 07:36 - CONCLUSION: 1. Interval development of retroperitoneal lymphadenopathy which is nonspecific. A new right paraaortic retrocrural enlarged lymph node is also noted measuring 1.6 cm in the upper abdomen. PET/CT scan may be helpful for further characterization of this finding. 2. Stable enlargement of the adrenal glands bilaterally suggesting adrenal hyperplasia. There is nodular enlargement of the left adrenal gland measuring 4.2 x 2.5 cm which could represent adrenal hyperplasia but underlying mass cannot be ruled out completely. 3. Small bilateral pleural effusions with bibasilar alveolar consolidations (left worse than right ) consistent with possible atelectasis and/or pneumonia. 4. Cardiomegaly and coronary artery calcifications. 5. Chronic mild compression deformities involving T12 and L1. 6. Degenerative changes throughout the lumbar spine. Jose Sevilla MD Objective Remarks GENERAL: Alert, NAD. SKIN: Warm and dry. HEAD: Normocephalic. EYES: No scleral icterus. No injection or drainage. NECK: Supple, trachea midline. No JVD or lymphadenopathy. CARDIOVASCULAR: Regular rate and rhythm without murmurs, gallops, or rubs. RESPIRATORY: Breath sounds equal bilaterally. No accessory muscle use. GASTROINTESTINAL: Abdomen soft, non-tender, nondistended. MUSCULOSKELETAL: No cyanosis, or edema. BACK: Nontender without obvious deformity. No CVA tenderness. Procedures 11/02/16 EGD 11/06/16 Temporary dialysis catheter placement 11/13/16 temporary dialysis catheter placement, RIJ A/P Problem List: (1) MSSA (methicillin susceptible Staphylococcus aureus) septicemia ICD Code: A41.01 Status: Acute (2) ESRD (end stage renal disease) ICD Code: N18.6 Status: Chronic (3) Hypertension ICD Code: I10 Status: Chronic (4) DM (diabetes mellitus) ICD Code: E11.9 Status: Chronic (5) Weakness ICD Code: R53.1 Status: Acute (6) Hyperlipidemia ICD Code: E78.5 Status: Chronic (7) Retroperitoneal lymphadenopathy ICD Code: R59.0 Status: Acute (8) Frequent falls ICD Code: R29.6 Status: Acute (9) Abdominal pain ICD Code: R10.9 Status: Acute (10) Pleural effusion ICD Code: J90 Status: Acute (11) Bacteremia ICD Code: R78.81 Status: Acute (12) Pneumonia ICD Code: J18.9 Status: Acute (13) Sepsis ICD Code: A41.9 Status: Acute Assessment and Plan Ms. Huang is a 61-year-old female with past medical history of ESRD on HD, HTN , CVA who presented with weakness and fall on 11/01/2016. Blood culture grew MSSA. Negative since 11/10/2016. Dialysis catheter was pulled and a right IJ VasCath was placed on 11/13/2016. Patient is on Apixaban for Afib and Apixaban is currently being held for possible Permacath placement on 11/19/2016. - MSSA bacteremia, sepsis: Appreciate infectious disease recommendations. Repeat blood cultures from November 10 are no growth in 5 days. Source was likely the dialysis catheter which was pulled. 2-D echocardiogram was negative. Continue IV ancef. Right IJ Vas-Cath was placed on November 13. Awaiting Permacath placement on 11/19/2016 ; patient is off Eliquis for 5 days and aspirin prior to procedure. - Potential discharge to [facility] ([facility]) later today. - Abdominal pain, nausea, vomiting: Abdomen/pelvis CT nonspecific. Gastroenterology consulted. EGD showed esophagitis. Continue PPI. - UTI: treated/resolved. - Retroperitoneal lymphadenopathy: Likely reactive secondary to infection. Appreciate oncology recommendations. - Right hand swelling: Continue antibiotics for possible cellulitis. Hand surgery evaluated patient - no evidence of tenosynovitis or osteomyelitis or abscess. - End-stage renal disease: Continue hemodialysis on Saturday//Saturday per nephrology. Continue regular diet with salt restriction. - Borderline diabetes mellitus: Most recent hemoglobin A1c was 6.4. Monitor Accu -Cheks and cover with sliding scale insulin. - Hypertension: Continue Cardura, metoprolol, nifedipine, hydralazine. Clonidine available as needed. - History of multiple CVA, probable paroxysmal atrial fibrillation: Eliquis after Permacath placement on 11/19/2016. We will likely not re-start Aspirin. Patient does not have any recent history of Acute coronary syndrome. - DVT prophylaxis: Eliquis on hold. SCDs. Full code. Problem Qualifiers (1) Sepsis: Qualified Code: A41.9 - Sepsis, due to unspecified organism Hi Umanzor DO Nov 19, 2016 10:56 am
--- NOTE | 2016-11-19 12:44 | HHI.NPPN ---
Subjective Complaints: Abdominal Pain General Problems: Anemia Renal Failure: End Stage Renal Disease History of Present Illness 61 y/o female pt who follows with Dr. Jalloh for nephrology. Hx of ESRD, normally dialyzes T-Th-Sat. She missed dialysis on Saturday due to vomiting, fatigue. She also endorses recent fall, but is a poor historian and cannot give clear details. Other PMH as outlined below including HTN, anemia, CHF, and CVA. Additional Remarks Patient is awake, sitting on chair, not in distress. Review of Systems General Constitutional: Fatigue Gastrointestinal Gastrointestinal: Abdominal Pain Objective Data Data 11/18/16 11/19/16 19:00 07:00 Intake Total 480 ml 240 ml Balance 480 ml 240 ml Intake Oral 480 ml 240 ml # Voids 3 2 # Bowel Movements 1 Vital Signs Date Time Temp Pulse Resp B/P Pulse Ox O2 Delivery O2 Flow Rate FiO2 11/19/16 12:00 97.1 58 20 147/66 94 11/19/16 08:43 96.6 61 20 169/71 93 11/19/16 07:23 95 Nasal Cannula 2.00 11/19/16 04:43 98.6 63 17 162/73 94 11/19/16 00:29 98.0 66 17 128/62 95 11/18/16 20:43 97.1 63 17 139/61 95 11/18/16 16:00 97.4 60 16 106/53 97 11/18/16 14:00 16 -: 11/17/16 0555 Tubes & Lines: Perma-Cath Physical Exam General Appearance: No Acute Distress, Comfortable, Anxious Eyes Eye Exam: Pupils Equal Ears & Nose Ears & Nose Exam: Nasal Mucosa Anselmo Throat Throat Exam: Oral Mucosa Anselmo & Moist Neck Neck Exam: Neck Supple Pulmonary Resp Exam: Clear Bilaterally, Breath Sounds Equal, No Distress, Decreased Bases Cardiology CV Exam: Regular, Normal Sinus Rhythm Gastrointestinal/Abdomen GI Exam: Soft, Bowel Sounds Present Musculoskeletal MS Exam: Joints Intact Integumentary Skin Exam: Warm, Dry Extremeties Extremities Exam: Trace Edema Neurologic Neuro Exam: Alert, Awake Assessment/Plan Discussed Condition With: Patient Assessment Summary: Anemia of CKD, End Stage Renal Disease Problem List: (1) ESRD (end stage renal disease) Plan: continue with dialyzes T-Th-Sat, maintain T-Th-Sat schedule, Vascath replaced, await PermCath today will be off Eliquis for 5 days. HD done Saturday. (2) Leukocytosis Plan: on Cefazolin. MSSA (3) Hypertension Plan: BP stable continue medications as ordered (4) Diabetes Plan: monitor blood sugar not requiring insulin at this time (5) Metabolic bone disease Plan: Begin Renvela, monitor phosphorus periodically (6) Anemia Plan: epogen with HD follow hemoglobin (7) Nausea & vomiting Plan: with abdominal pain, GI following Plan S/P EGD (11/02/16)---> Esophagitis, gastritis, pathology pending. PPI, Zofran Problem Qualifiers (1) Diabetes: Gi Jalloh MD Nov 19, 2016 12:44
[2016-11-19] MEDS ORDERED: VANCOMYCIN INJ 1,000 MG in SODIUM CHLOR 0.9% 250 ML INJ 250 ML IV SCH (15:00)
[2016-11-19] MEDS ORDERED: fentaNYL CITRATE 250 MCG/5 ML AMP ONE (15:15)
[2016-11-19] MEDS ORDERED: MIDAZOLAM HCL 5 MG/5 ML VIAL ONE (15:15)
[2016-11-19] MEDS ORDERED: LIDOCAINE 1%/EPINEPHrine 1:100,000 SOLN 20 ML VIAL ONE (15:17)
--- NOTE | 2016-11-19 15:52 | PD.RAD ---
Post Procedure Progress Note Pre Procedure Diagnosis: (1) Acute kidney failure (2) Renal failure (ARF), acute on chronic Post Procedure Diagnosis: (1) ESRD (end stage renal disease) (2) Renal failure (ARF), acute on chronic Procedure Date: Nov 19, 2016 Supervising Radiologist: Nathan Mathias Anesthesia: Local, Conscious Sedation Plan of Activity Patient to Unit: Nursing Unit Patient Condition: Poor Additional Comments: PermCath placed via the right IJ. Catheter in good position OK for use See PACS Report for procedural detail/treatment Nathan Mathias MD Nov 19, 2016 15:52
[2016-11-19] MEDS ORDERED: SODIUM CHLORIDE 0.9% FLUSH 5 ML FLUSH IVF PRN (16:00)
[2016-11-19] MEDS ORDERED: HEPARIN SODIUM - IV 10,000 UNITS/10 ML VIAL IVF PRN (16:00)
--- NOTE | 2016-11-19 16:35 | RADRPT ---
EXAM DATE/TIME: 11/19/2016 00:00 [facility] COMPARISON: TEMP DIALYSIS CATHETER PLCMT W/US, RIGHT, November 13, 2016, 10:42. INDICATIONS : Patient is in need of removal of a temporary central venous dialysis catheter as patient needs a perm anentcatheter placed. MEDICAL HISTORY : History of ESRD, HTN, DM, CVA, AFIB. SURGICAL HISTORY : History of eye surgery, achilles repair, cholecystectomy. ENCOUNTER: Subsequent ACUITY: > 1 year PAIN SCORE: 6/10 LOCATION: Right thigh ACCESS: Right internal jugular vein DEVICE(S): 1.) 14 Vietnamese dual lumen 15 cm Schon catheter PROCEDURE : 1. Temporary central venous catheter removal. The prescribed catheter was removed intact and hemostasis was achieved with direct pressure. The sit e was dressed appropriately. The patient tolerated the procedure well. CONCLUSION: Uncomplicated catheter removal. Nathan Mathias MD on November 19, 2016 at 16:33 Board Certified Radiologist. This report was verified electronically.
--- NOTE | 2016-11-19 16:43 | RADRPT ---
EXAM DATE/TIME: 11/19/2016 14:52 [facility] COMPARISON: TEMP CATH DANIELLE CATH REM W/O FL NON-TUNNELLED, November 19, 2016, 0:00. INDICATIONS : Patient is need of placement of a permanent central venous dialysis catheter due to ESRD. MEDICAL HISTORY : History of HTN, DM, AFIB, CVA. SURGICAL HISTORY : History of cholecystectomy, eye surgery, achilles repair. ENCOUNTER: Subsequent ACUITY: >1 year PAIN SCORE: 6/10 LOCATION: right thigh FLUORO TIME: 3.0 minutes SEDATION TIME: 30 minutes ACCESS: Right internal jugular vein SEDATION: 1.) 1.5 midazolam (Versed) IV 2.) 75 fentanyl (Sublimaze) IV Prophylactic antibiotics were administered with appropriate pre-procedure timing. Vancomycin within 2 hours of procedure, Ancef (or alternative) within 1 hour of procedure. DEVICE: 1. 15 [place]ian dual lumen 23 cm Sherman II Plus catheter PROCEDURE : 1. Ultrasound-guided venipuncture. 2. PermaCath placement. 3. Conscious sedation with continuous EKG and oximetry monitoring. The risks, benefits and alternatives to the procedure were explained and verbal and written consent w as obtained. The site was prepped in sterile fashion. Full sterile technique was used, including ca p, mask, sterile gloves and gown and a large sterile sheet. Hand hygiene and 2% chlorhexidine and/or betadine/alcohol prep was utilized per protocol for cutaneous antisepsis. The skin and subcutaneous tissues were infiltrated with local anesthetic solution. With ultrasound and fluoroscopic guidance a dermatotomy was created over the prescribed vein. A micr opuncture set was used to access the targeted vein and serial dilatation was performed to accept the prescribed length catheter. A subcutaneous tunnel was created in a retrograde fashion the catheter w as pulled through the tunnel. The catheter was flushed and assembled and locked with heparin. The c atheter was sutured in place. Conscious sedation was performed with the prescribed dosages and duration as above. The patient tole rated the procedure well and there were no complications. EKG and oximetry remained stable throughou t the procedure. The patient was sent to post anesthesia recovery in stable condition. CONCLUSION: Uncomplicated PermaCath placement as above. Nathan Mathias MD on November 19, 2016 at 16:41 Board Certified Radiologist. This report was verified electronically.
[2016-11-19] MEDS: TEMAZEPAM 15 MG CAP PO PRN (22:38)
[2016-11-20 00:24] VITALS: BP 116/56; PULSE 59; RESP 18; TEMP 98.9; O2SAT 96
[2016-11-20 05:27] VITALS: BP 118/68; PULSE 58; RESP 18; TEMP 98.6; O2SAT 96
[2016-11-20] MEDS: hydrALAZINE HCL 50 MG TAB PO SCH ×2 (05:55→14:00)
[2016-11-20] MEDS: INSULIN ASPART SUPPLEMENTAL SCALE SQ SCH ×3 (06:31→16:00)
[2016-11-20 07:54] VITALS: O2SAT 96
[2016-11-20 08:20] VITALS: BP 124/60; PULSE 56; RESP 20; TEMP 97; O2SAT 94
[2016-11-20] MEDS: NIFEdipine 90 MG SUSTAINED RELEASE TAB PO SCH (08:52)
[2016-11-20] MEDS: METOPROLOL TARTRATE 50 MG TAB PO SCH (08:52)
[2016-11-20] MEDS: GABAPENTIN 100 MG CAP PO SCH (08:52)
[2016-11-20] MEDS: SEVELAMER CARBONATE 800 MG TAB PO SCH ×3 (08:53→16:16)
[2016-11-20] MEDS: ACETAMINOPHEN/HYDROcodone 325 MG/7.5 MG TAB PO PRN ×3 (08:53→16:16)
[2016-11-20] MEDS: DOXAZOSIN MESYLATE 2 MG TAB PO SCH (08:53)
[2016-11-20] MEDS: PANTOPRAZOLE SOD 40 MG DELAYED RELEASE TAB PO SCH (08:53)
[2016-11-20] MEDS: SODIUM CHLORIDE 0.9% FLUSH 5 ML FLUSH FLUSH SCH (08:54)
[2016-11-20] MEDS: LACTIC ACID (AMMONIUM LACTATE) 12% LOTION 225 GM BTL TOPICAL SCH (09:00)
[2016-11-20] MEDS ORDERED: SEVEL800 PO (10:42)
[2016-11-20] MEDS ORDERED: PANT40TA3 PO (10:42)
--- NOTE | 2016-11-20 12:10 | HHI.DS ---
Discharge Summary Admission Date Nov 01, 2016 at 07:50 Discharge Date: Nov 20, 2016 Admitting Diagnosis uti/sepsis, acute kidney injury, leukocytosis, altered sensorium. (1) MSSA (methicillin susceptible Staphylococcus aureus) septicemia ICD Code: A41.01 (2) ESRD (end stage renal disease) ICD Code: N18.6 (3) Hypertension ICD Code: I10 (4) DM (diabetes mellitus) ICD Code: E11.9 (5) Weakness ICD Code: R53.1 (6) Hyperlipidemia ICD Code: E78.5 (7) Retroperitoneal lymphadenopathy ICD Code: R59.0 (8) Frequent falls ICD Code: R29.6 (9) Abdominal pain ICD Code: R10.9 (10) Pleural effusion ICD Code: J90 (11) Bacteremia ICD Code: R78.81 (12) Pneumonia ICD Code: J18.9 (13) Sepsis ICD Code: A41.9 Procedures 11/02/16 EGD 11/06/16 Temporary dialysis catheter placement 11/13/16 temporary dialysis catheter placement, CORAL Brief History - From Admission 61-year-old female with past medical history of ESRD on HD, HTN, CVA who presented with weakness and fall. The patient is not a great historian. She states that she came to the hospital because she fell. Apparently she's been having multiple falls recently. She states that she's been feeling generally weak. She denies any acute injury. She states that she has pain everywhere. When asked to point to the pain, she is having diffuse abdominal pain. She states that she's been having nausea and multiple episodes of vomiting. She states that she had been, sedated, took a laxative, and had a BM yesterday. She states occasionally she has a cough. She denies any fevers, chills, shortness of breath, chest pain. Because of the weakness, she missed her last hemodialysis session on Saturday; last HD was Saturday, nephrology consulted who performed dialysis earlier today. CBC/BMP: 11/17/16 0555 Imaging Last Impressions Catheter Placement X-Ray 11/19/16 0800 Signed Impressions: Service Date/Time: Saturday, November 19, 2016 14:52 - CONCLUSION: Uncomplicated PermaCath placement as above. Nathan Mathias MD Central Venous Line 11/19/16 Signed Impressions: Service Date/Time: Saturday, November 19, 2016 00:00 - CONCLUSION: Uncomplicated catheter removal. Nathan Mathias MD Upper Extremity Ultrasound 11/02/16 Signed Impressions: Service Date/Time: Wednesday, November 02, 2016 20:58 - CONCLUSION: Normal examination. Jonathan Girard MD Hand X-Ray 11/02/16 Signed Impressions: Service Date/Time: Wednesday, November 02, 2016 14:40 - CONCLUSION: 1. Soft-tissue swelling involving the right second, third and fourth digits. 2. No acute fracture or dislocation. Jose Sevilla MD Chest CT 11/02/16 Signed Impressions: Service Date/Time: Wednesday, November 02, 2016 17:54 - CONCLUSION: 1. Bibasilar alveolar consolidations consistent with atelectasis and/or pneumonia. Clinical correlation is recommended. 2. Small to moderate sized bilateral pleural effusions (left slightly larger than right). 3. Cardiomegaly. 4. Scarring within the lingula of the left upper lobe. Jose Sevilla MD Head CT 11/01/16 0506 Signed Impressions: Service Date/Time: October 05:22 - CONCLUSION: No significant change has occurred. Christo Chen MD Chest X-Ray 11/01/16 Signed Impressions: Service Date/Time: October 05:26 - CONCLUSION: 1. Apparent cardiomegaly with left effusion and apparent infiltrate. The findings are most consistent with congestive heart failure. Miko Scott MD Abdomen/Pelvis CT 11/01/16 Signed Impressions: Service Date/Time: October 07:36 - CONCLUSION: 1. Interval development of retroperitoneal lymphadenopathy which is nonspecific. A new right paraaortic retrocrural enlarged lymph node is also noted measuring 1.6 cm in the upper abdomen. PET/CT scan may be helpful for further characterization of this finding. 2. Stable enlargement of the adrenal glands bilaterally suggesting adrenal hyperplasia. There is nodular enlargement of the left adrenal gland measuring 4.2 x 2.5 cm which could represent adrenal hyperplasia but underlying mass cannot be ruled out completely. 3. Small bilateral pleural effusions with bibasilar alveolar consolidations (left worse than right ) consistent with possible atelectasis and/or pneumonia. 4. Cardiomegaly and coronary artery calcifications. 5. Chronic mild compression deformities involving T12 and L1. 6. Degenerative changes throughout the lumbar spine. Jose Sevilla MD PE at Discharge GENERAL: Alert, NAD. SKIN: Warm and dry. HEAD: Normocephalic. EYES: No scleral icterus. No injection or drainage. NECK: Supple, trachea midline. No JVD or lymphadenopathy. CARDIOVASCULAR: Regular rate and rhythm without murmurs, gallops, or rubs. RESPIRATORY: Breath sounds equal bilaterally. No accessory muscle use. GASTROINTESTINAL: Abdomen soft, non-tender, nondistended. MUSCULOSKELETAL: No cyanosis, or edema. BACK: Nontender without obvious deformity. No CVA tenderness. Pt update on day of discharge Ms. Huang is doing well. She complained of lower abdominal pain. However, after dialysis, per RN, patient did not have lower abdominal pain. Subsequently , patient was discharged to [facility]. Hospital Course Ms. Huang is a 61-year-old female with past medical history of ESRD on HD, HTN , CVA who presented with weakness and fall on 11/01/2016. Blood culture grew MSSA. Negative since 11/10/2016. Dialysis catheter was pulled and a right IJ VasCath was placed on 11/13/2016. Patient is on Apixaban for Afib and Apixaban is currently being held for possible Permacath placement on 11/19/2016. - MSSA bacteremia, sepsis: Appreciate infectious disease recommendations. Repeat blood cultures from November 10 are no growth in 5 days. Source was likely the dialysis catheter which was pulled. 2-D echocardiogram was negative. Continue IV ancef. Right IJ Vas-Cath was placed on November 13. Awaiting Permacath placement on 11/19/2016 ; patient is off Eliquis for 5 days and aspirin prior to procedure. - Abdominal pain, nausea, vomiting: Abdomen/pelvis CT nonspecific. Gastroenterology consulted. EGD showed esophagitis. Continue PPI. - UTI: treated/resolved. - Retroperitoneal lymphadenopathy: Likely reactive secondary to infection. Appreciate oncology recommendations. - Right hand swelling: Continue antibiotics for possible cellulitis. Hand surgery evaluated patient - no evidence of tenosynovitis or osteomyelitis or abscess. - End-stage renal disease: Continue hemodialysis on Saturday//Saturday per nephrology. Continue regular diet with salt restriction. - Borderline diabetes mellitus: Most recent hemoglobin A1c was 6.4. Monitor Accu -Cheks and cover with sliding scale insulin. - Hypertension: Continue Cardura, metoprolol, nifedipine, hydralazine. Clonidine available as needed. - History of multiple CVA, probable paroxysmal atrial fibrillation: Eliquis after Permacath placement on 11/19/2016. - Patient was on Aspirin 325mg Qday. I called [facility] and discussed with patient's nurse and advised to reduce Aspirin to 81mg Qday. Pt Condition on Discharge: Good Discharge Disposition: Discharge to SNF Discharge Time: > 30 minutes Discharge Instructions DIET: Follow Instructions for: As Tolerated, No Restrictions, Low Sodium Diet Activities you can perform: Regular-No Restrictions Follow up Referrals: Gastroenterology - 2 Weeks @ [facility] New Medications: Cefazolin Inj (Cefazolin Inj) 2 Gm/50 Ml Bagp 2 GM IV TUTHursSat Give with Dialysis on ,,Sat or dialysis schedule in HD center. Endocarditis,line infection Days Ref 0 BAG Epinephrine Inj (Epinephrine Inj) 1 Mg/Ml Inj 0.3 MG IV PUSH ONCE PRN ALLERGIC REACTION #1 VIAL Epinephrine Inj (Epinephrine Inj) 1 Mg/Ml Inj 0.3 MG SQ ONCE Give with any signs of respiratory distress. PRN ALLERGIC REACTION #1 VIAL Hydrocortisone Inj (Solu-Cortef Inj) 250 Mg Inj 250 MG IM ONCE Give over 30-60 seconds. PRN ALLERGIC REACTION #1 Ref 0 VIAL Tamsulosin (Tamsulosin) 0.4 Mg Cap 0.4 MG PO HS Manage Prostate Problems #30 Ref 0 CAP Pantoprazole (Pantoprazole) 40 Mg Tab 40 MG PO DAILY Reflux #30 TAB Sevelamer Carbonate (Renvela) 800 Mg Tab 1600 MG PO TIDAC Kidney Days 30 TAB Continued Medications: Acetaminophen (Mapap) 325 Mg Tab 650 MG PO Q4HR PRN PAIN SCALE 1 TO 10 Ref 0 TAB Apixaban (Eliquis) 5 Mg Tab 5 MG PO BID Blood Clot Prevention #60 Ref 0 TAB Bisacodyl Supp (Dulcolax Supp) 10 Mg Supp 10 MG RECTAL DAILY IF NO RESULT ONE DAY AFTER MOM PRN CONSTIPATION #12 Ref 0 SUPP Doxazosin (Cardura) 2 Mg Tab 2 MG PO DAILY HTN Days 30 TAB Gabapentin (Gabapentin) 300 Mg Cap 300 MG PO BID #60 Ref 0 CAP Hydralazine (Hydralazine) 50 Mg Tab 50 MG PO Q8HR Take with a meal Blood Pressure Management Ref 0 TAB Loratadine (Loratadine) 10 Mg Tab 10 MG PO DAILY PRN ITCHING #14 Ref 0 TAB Magnesium Citrate Liq (Citrate of Magnesia Liq) 300 Ml Liq 300 ML PO DIRECTED PO EVANGELIST IN THE MORNING PRN; IF NO RESULTS ONE DAY AFTER FLEETS #1 Ref 0 BOTTLE Magnesium Hydroxide Liq (Milk of Magnesia Liq) 400 Mg/5 Ml Susp 30 ML PO HS IF NO BM IN 3 DAYS PRN INDIGESTION OR UPSET STOMACH #1 Ref 0 BOTTLE Metoprolol Tartrate (Metoprolol Tartrate) 50 Mg Tab 50 MG PO BID #60 Ref 0 TAB Nifedipine ER 24 HR (Nifedipine ER 24 HR) 90 Mg Tab 90 MG PO DAILY HTN Days 30 TAB Sodium Phosphates Rectal (Fleet Enema Rectal) 7-19 Gm/118 Ml Enem 118 ML RECTAL DIRECTED PRN CONSTIPATION Ref 0 BOTTLE Temazepam (Restoril) 15 Mg Cap 15 MG PO HS PRN INSOMNIA #30 Ref 0 CAP Discontinued Medications: Metronidazole (Flagyl) 500 Mg Tab 500 MG PO Q8HR c diff Days 13 TAB Hi Umanzor DO Nov 20, 2016 12:10
[2016-11-20] MEDS ORDERED: TAMS0.4C4 PO (12:14)
[2016-11-20] MEDS ORDERED: TAMSULOSIN HCL 0.4 MG CAP PO SCH (12:15)
--- NOTE | 2016-11-20 13:16 | HHI.NPPN ---
Subjective Complaints: Abdominal Pain General Problems: Anemia Renal Failure: End Stage Renal Disease History of Present Illness 61 y/o female pt who follows with Dr. Jalloh for nephrology. Hx of ESRD, normally dialyzes T-Th-Sat. She missed dialysis on Saturday due to vomiting, fatigue. She also endorses recent fall, but is a poor historian and cannot give clear details. Other PMH as outlined below including HTN, anemia, CHF, and CVA. Additional Remarks Patient is awake, sitting on chair, not in distress. Review of Systems General Constitutional: Fatigue Gastrointestinal Gastrointestinal: Abdominal Pain Objective Data Data 11/19/16 11/20/16 19:00 07:00 Intake Total 240 ml Balance 240 ml Intake Oral 240 ml # Voids 1 2 # Bowel Movements 1 1 Vital Signs Date Time Temp Pulse Resp B/P Pulse Ox O2 Delivery O2 Flow Rate FiO2 11/20/16 08:20 97.0 56 20 124/60 94 11/20/16 07:54 96 Nasal Cannula 2.00 11/20/16 05:27 98.6 58 18 118/68 96 11/20/16 00:24 98.9 59 18 116/56 96 11/19/16 22:27 94 Nasal Cannula 2.00 11/19/16 21:00 97.7 79 17 133/86 98 11/19/16 16:45 56 16 109/51 95 11/19/16 16:15 56 16 112/59 95 11/19/16 16:03 11/19/16 16:00 97.5 55 16 100/50 95 -: 11/17/16 0555 Tubes & Lines: Perma-Cath Physical Exam General Appearance: No Acute Distress, Comfortable, Anxious Eyes Eye Exam: Pupils Equal Ears & Nose Ears & Nose Exam: Nasal Mucosa [place] Throat Throat Exam: Oral Mucosa [place] & Moist Neck Neck Exam: Neck Supple Pulmonary Resp Exam: Clear Bilaterally, Breath Sounds Equal, No Distress, Decreased Bases Cardiology CV Exam: Regular, Normal Sinus Rhythm Gastrointestinal/Abdomen GI Exam: Soft, Bowel Sounds Present Musculoskeletal MS Exam: Joints Intact Integumentary Skin Exam: Warm, Dry Extremeties Extremities Exam: Trace Edema Neurologic Neuro Exam: Alert, Awake Assessment/Plan Discussed Condition With: Patient Assessment Summary: Anemia of CKD, End Stage Renal Disease Problem List: (1) ESRD (end stage renal disease) Plan: continue with dialyzes T-Th-Sat, maintain T-Th-Sat schedule, Vascath replaced, await PermCath today Eliquis HD seen PermCath tunnel edema 1 L UF QB 250 (2) Leukocytosis Plan: on Cefazolin. MSSA (3) Hypertension Plan: BP stable continue medications as ordered (4) Diabetes Plan: monitor blood sugar not requiring insulin at this time (5) Metabolic bone disease Plan: Begin Renvela, monitor phosphorus periodically (6) Anemia Plan: epogen with HD follow hemoglobin (7) Nausea & vomiting Plan: with abdominal pain, GI following Plan S/P EGD (11/02/16)---> Esophagitis, gastritis, pathology pending. PPI, Zofran Problem Qualifiers (1) Diabetes: Gi Jalloh MD Nov 20, 2016 13:16
[2016-11-20] MEDS: GENTAMICIN SULFATE (DIALYSIS USE ONLY) 20 MG/2 ML VIAL IV PRN (15:43)
[2016-11-20] MEDS: EPOETIN ALFA 10,000 UNITS/ML VIAL IV PRN (15:43)
[2016-11-20] MEDS: HEPARIN SODIUM - IV 10,000 UNITS/10 ML VIAL PRN (15:43)
[2016-11-20] MEDS ORDERED: SOLU250I IM (18:33)
--- NOTE | 2016-11-29 14:31 | PQ ---
Physician Query Response Document PATIENT: TEVIN HEARD : 1955 ADMIT DATE: 11/01/2016 7:50 AM DISCH DATE: 11/20/2016 5:20 PM RESPONDING PROVIDER #: leni QUERY TEXT: CHF Acuity and Type Congestive Heart Failure is documented in the Medical Record. Please document the type and acuity (in cludes probable or suspected) Such as: Type: -- Systolic -- Diastolic -- Combined -- Other, please specify Acuity: -- Acute -- Chronic -- Acute on chronic -- Other, please specify Also please document the underlying cause of the CHF (includes probable or suspected) The patient's Clinical Indicators include: Chest x-ray dated 11/01/26 Reads: Apparent cardiomegaly with left effusion and apparent infultrate. Th e findings are most consistant with Congestive Heart Failure. Query created by: Amadou Mares on 11/09/2016 12:48 PM RESPONSE TEXT: Note: Patient doesn't have CHF. Last ECHO 10/24- reviewed with EF of 55-60 QUERY TEXT: Clinical Validity Additional clinical indicators are required to support your documented diagnosis of Scabies. Please respond and also state in your next progress note whether: -- Condition exists and also please provide clinical indicators to support the diagnosis -- Condition does not exist and also please provide amended documentation in the medical record to cl arify -- Unable to provide additional clarity regarding the diagnosis -- Other, please specify The patient's Clinical Indicators include: Progress note dated 11/07/16 states: Patient says she has a rash on her legs and she has scabies. Will treat with permethrin. Dry skin lower extremities: Lac-Hydrin lotion. Give permethrin. Patient says she had scabies before. Query created by: Amadou Mares on 11/09/2016 1:00 PM RESPONSE TEXT: Clarify. HPI: Patient complained of dry skin , itchy skin and small lesions, patient also confirmed s he had scabies recently and rash looks and feels the same she was also treated in the past. Patient received permethrin (x 1 time) and we did continue lachydra for the dry skin. Electronically signed by: Nazia Bush MD 11/29/2016 2:27 PM
== END 2016-11-20 17:20 | DRG 314 ==
LOC: NEPC 04:39 → NEDA 07:50 → NEPHCDU 17:37 → N05A 11-05 18:51
PROVIDERS: ADMIT Hospitalist; ATTEND Hospitalist
PROC: 5A1D60Z (ICD-10-PCS; principal; 2016-11-01)
PROC: 0DB58ZX Excision of Esophagus, Via Natural or Artificial Opening Endoscopic, Diagnostic (ICD-10-PCS; 2016-11-02)
PROC: 05PY33Z Removal of Infusion Device from Upper Vein, Percutaneous Approach (ICD-10-PCS; 2016-11-05)
PROC: 02HV33Z Insertion of Infusion Device into Superior Vena Cava, Percutaneous Approach (ICD-10-PCS; 2016-11-06)
PROC: B543ZZA Ultrasonography of Right Jugular Veins, Guidance (ICD-10-PCS; 2016-11-06)
PROC: 02HV33Z Insertion of Infusion Device into Superior Vena Cava, Percutaneous Approach (ICD-10-PCS; 2016-11-13)
PROC: B543ZZA Ultrasonography of Right Jugular Veins, Guidance (ICD-10-PCS; 2016-11-13)
PROC: 05PYX3Z Removal of Infusion Device from Upper Vein, External Approach (ICD-10-PCS; 2016-11-13)
PROC: 02HV33Z Insertion of Infusion Device into Superior Vena Cava, Percutaneous Approach (ICD-10-PCS; 2016-11-19)
PROC: B543ZZA Ultrasonography of Right Jugular Veins, Guidance (ICD-10-PCS; 2016-11-19)
DX: T80.211A Bloodstream infection due to central venous catheter, initial encounter (principal); A41.01 Sepsis due to Methicillin susceptible Staphylococcus aureus; I13.2 Hypertensive heart and chronic kidney disease with heart failure and with stage 5 chronic kidney disease, or end stage renal disease; G93.41 Metabolic encephalopathy; J18.9 Pneumonia, unspecified organism; N17.9 Acute kidney failure, unspecified; J91.8 Pleural effusion in other conditions classified elsewhere; N18.6 End stage renal disease; N39.0 Urinary tract infection, site not specified; E87.2 Acidosis; L03.113 Cellulitis of right upper limb; K22.10 Ulcer of esophagus without bleeding; N25.81 Secondary hyperparathyroidism of renal origin; K52.1 Toxic gastroenteritis and colitis; T82.7XXA Infection and inflammatory reaction due to other cardiac and vascular devices, implants and grafts, initial encounter; I50.9 Heart failure, unspecified; R59.0 Localized enlarged lymph nodes; R09.02 Hypoxemia; D63.1 Anemia in chronic kidney disease; H91.90 Unspecified hearing loss, unspecified ear; E11.22 Type 2 diabetes mellitus with diabetic chronic kidney disease; R29.6 Repeated falls; E86.0 Dehydration; E27.8 Other specified disorders of adrenal gland; E78.5 Hyperlipidemia, unspecified; E87.5 Hyperkalemia; I25.10 Atherosclerotic heart disease of native coronary artery without angina pectoris; K29.70 Gastritis, unspecified, without bleeding; B86 Scabies; I48.0 Paroxysmal atrial fibrillation; F17.210 Nicotine dependence, cigarettes, uncomplicated; F32.9 Major depressive disorder, single episode, unspecified; W18.30XS Fall on same level, unspecified, sequela; T36.1X5A Adverse effect of cephalosporins and other beta-lactam antibiotics, initial encounter; Y84.8 Other medical procedures as the cause of abnormal reaction of the patient, or of later complication, without mention of misadventure at the time of the procedure; Y92.239 Unspecified place in hospital as the place of occurrence of the external cause; Z79.01 Long term (current) use of anticoagulants; Z86.73 Personal history of transient ischemic attack (TIA), and cerebral infarction without residual deficits; Z99.2 Dependence on renal dialysis; Z99.3 Dependence on wheelchair
CPT/HCPCS: 36556; 36558; 36589; 70450; 71010; 71250; 73130; 74176; 76937; 77001; 80048; 80053; 80069; 80074; 80202; 81001; 82948; 83605; 84100; 84484; 85007; 85025; 85027; 85610; 85730; 86140; 86403; 86480; 86703; 87040; 87071; 87077; 87086; 87147; 87186; 87205; 88305; 88312; 90935; 93005; 93306; 93971; 96365; 96374; 96375; 99152; 99153; C1750; C1752; C1769; C9113; J0456; J0690; J0692; J0696; J1580; J1644; J1815; J1956; J2250; J2270; J2405; J3010; J3370; J7030; J7050; Q4081